=== PATIENT | male | born 1975 | race Caucasian/White ===

== ENCOUNTER 2020-12-31 13:51 | Emergency (ER) | payer OTHER, SELFPAY ==
[2020-12-31 14:06] VITALS: BP 130/93; PULSE 101; RESP 16; TEMP 37.7; O2SAT 94; BMI 43.0
--- NOTE | 2020-12-31 15:15 | ED_ITS ---
HPI - URI/Sore Throat General Chief Complaint: Upper Respiratory Symptoms Stated Complaint: HEADACHE Time Seen by Provider: 12/31/20 15:15 Source: patient Mode of arrival: ambulatory Limitations: no limitations History of Present Illness HPI Narrative: 45 y/o male presenting to the ED from home c/o headaches, body aches, and dry cough since yesterday after he was exposed to someone with COVID- 19. He denies SOB or chest pain. He is not vaccinated. MD elicited complaint: cough and nasal congestion Onset (ago): day(s) (2) Consistency: intermittent Severity: mild Description of mucous: clear Able to tolerate fluids by mouth: Yes Exacerbating factors: nothing Relieving factors: nothing Context: sick contacts Associated symptoms: myalgias, headache, nasal congestion, sore throat and cough Treatments prior to arrival: none Related Data Allergies Allergy/AdvReac Type Severity Reaction Status Date / Time No Known Allergies Allergy Unverified 01/09/20 17:47 Review of Systems Review of Systems: Constitutional: No Fever, No Chills ENT/Mouth: No sore throat, No Rhinorrhea, No Swallowing Difficulty Eyes: No Eye Pain, No Swelling, No Redness Cardiovascular: No Chest Pain, No SOB, No Orthopnea, No Edema Respiratory: + Cough, No Sputum, No Wheezing, No dyspnea Gastrointestinal: No Nausea, No Vomiting, No Diarrhea, No abdominal Pain Musculoskeletal: No joint pain, + Myalgias Skin: No Skin Lesions, No rash Neuro: + Weakness, No Numbness, No Dizziness, + Headache Psych: No Anxiety/Panic, No Depression Heme/Lymph: No Bruising, No Lymphadenopathy PMFSH Past Medical History Medical History (Updated 12/31/20 @ 16:02 by SUZE Ashton) Diabetes Hypertension Social History Social History Advance Directives: Yes Advance Directives Information Provided: No Advance Directives on File: No Physical Exam Vital Signs: Vital Signs: Last Vital Signs Temp 99.8 F 12/31/20 14:06 Pulse 101 H 12/31/20 14:06 Resp 16 12/31/20 14:06 BP 130/93 H 12/31/20 14:06 Pulse Ox 94 12/31/20 14:06 Body Mass Index 43.0 Appearance: Alert. Oriented X3. No acute distress. Eyes: Pupils equal, round and reactive to light. ENT: Pharynx normal. Neck: Normal inspection. Neck supple. CVS: Normal heart rate and rhythm. Pulses normal. Respiratory: No respiratory distress. Breath sounds normal. Skin: Skin warm and dry. Normal skin color. Normal skin turgor. No rashes. Extremities: No lower extremity edema. Neuro: Oriented X 3. No motor deficit. No sensory deficit. Course Course Course Narrative: 45 yo male presenting with COVID symptoms after known exposure. Mildly tachycardic on arrival after walking in, normalized HR after sitting. No palpitation, resp distress, SOB or AGUIRRE. He has no chest pain. His exam is benign. COVID swab pending. Reevaluation(s) Reevaluation #1: COVID positive. Patient shocked. He is asking for the COVID vaccine. Counseled on appropriate use of the vaccine and management of the disease. Return precautions discussed. Stable for d/c home with supportive care. MDM - URI/Sore Throat Lab Data Labs: Lab Results 12/31/20 Range/Units 15:19 COVID-19 ([facility]) Positive A (Negative) COVID-19 Clin Com See Note Critical Care Time Critical Care Time Critical Care Time: No Discharge Plan Discharge Clinical Impression: COVID-19 Patient Disposition: Home, Self-Care Instructions: COVID-19 (Coronavirus Disease 2019) (ED) Additional Instructions: You were found to be COVID-19 POSITIVE today. Your oxygen levels were normal. Rest. Drink plenty of fluids. Do not go out in public for the next 10 days. Take over the counter cold/flu medications as needed for your symptoms. Take Tylenol and/or Motrin as needed for fevers and body aches. Follow up with your doctor this week. If you shortness of breath worsens , if you develop difficulty breathing or any other concerning symptom come back to the ER for further evaluation. Stand Alone Forms: Work/School Release Interventions: ED Discharge Assessment Last Done: 12/31/20 16:10 Discharge Date/Time: 12/31/20 16:12 Print Language: E[place]an
[2020-12-31 15:49] LABS: COVID-19 Test Positive (Negative); IDNOW Serial# 9DD0AD1C
== END 2020-12-31 16:12 | disposition home or self-care (01) ==
PROVIDERS: Emergency Provider Emergency Medicine
DX: U07.1 COVID-19 (principal); E11.9 Type 2 diabetes mellitus without complications; I10 Essential (primary) hypertension
CPT/HCPCS: 36415; 87635; 99283

== ENCOUNTER 2021-01-11 13:14 | Outpatient (REF) | payer OTHER, SELFPAY | END 2021-01-11 13:15 | disposition home or self-care (01) | LOC: HO.LAB 13:14 | PROVIDERS: Visit Provider Internal Medicine | DX: Z20.822 Contact with and (suspected) exposure to COVID-19 (principal) | CPT/HCPCS: C9803; U0003; U0005 ==

== ENCOUNTER 2021-01-21 14:28 | Outpatient (REF) | payer OTHER, SELFPAY | END 2021-01-21 14:29 | disposition home or self-care (01) | LOC: HO.LAB 14:28 | PROVIDERS: Visit Provider Internal Medicine | DX: Z20.822 Contact with and (suspected) exposure to COVID-19 (principal) | CPT/HCPCS: C9803; U0003; U0005 ==

== ENCOUNTER 2021-01-28 12:41 | Inpatient (IN) | payer MEDICAID, SELFPAY ==
--- NOTE | ~2021-01-28 | XR_ITS ---
EXAMINATION: XR ABDOMEN KUB CLINICAL INDICATION: Follow-up small bowel obstruction COMPARISON: Previous CT and KUB from yesterday TECHNIQUE: AP view of the abdomen. FINDINGS: There is a new nasogastric tube. There is interval decrease in small bowel dilatation. There is a paucity of bowel gas seen in the large bowel. There is no evidence of free air. Bony structures are unremarkable. XR/XR KUB IMPRESSION: Interval decrease in small bowel dilatation from yesterday's exam.
--- NOTE | ~2021-01-28 | XR_ITS ---
EXAMINATION: XR CHEST CLINICAL INFORMATION: Fever. COMPARISON: Chest x-ray January 28, 2021 TECHNIQUE: Frontal view of the chest was obtained. 8:16 PM FINDINGS: Gastric tube in stomach. There are scattered hazy multifocal small bilateral airspace opacities in lungs. This is nonspecific but suggestive of atypical infection such as Covid 19. No pleural effusion or pneumothorax. XR/XR chest 1V IMPRESSION: 1. Nasogastric tube in stomach. 2. Scattered hazy multifocal bilateral airspace opacities. There is concerning for atypical pneumonia, Covid 19. Clinically correlate.
--- NOTE | ~2021-01-28 | XR_ITS ---
EXAMINATION: XR ABDOMEN KUB CLINICAL INDICATION: Abdominal pain. Rule out obstruction. COMPARISON: None TECHNIQUE: AP view of the abdomen. FINDINGS: There are dilated loops of small bowel suggestive of small bowel obstruction. There is a paucity of bowel gas in the large bowel. There is no evidence of free air. Bony structures are unremarkable. XR/XR KUB IMPRESSION: Small bowel obstruction.
--- NOTE | ~2021-01-28 | XR_ITS ---
EXAMINATION: XR CHEST CLINICAL INFORMATION: NG tube placement COMPARISON: KUB and CT abdomen pelvis same day TECHNIQUE: Frontal view of the chest was obtained. FINDINGS: Interval placement of enteric tube which terminates below the level of the diaphragm, in the expected location of the stomach. Dilated loops of small bowel within the upper abdomen are partially visualized. Hypoinflated lungs. No gross lobar consolidation. XR/XR chest 1V IMPRESSION: Enteric tube in expected orientation.
--- NOTE | ~2021-01-28 | CT_ITS ---
EXAMINATION: CT ABDOMEN AND PELVIS WITH CONTRAST CLINICAL INFORMATION: Abdominal pain. History of obstruction. COMPARISON: Previous CT of the abdomen and pelvis October 2017 TECHNIQUE: Multidetector volumetric images were obtained from the superior aspect of the liver through the pubic symphysis following administration 85 mL of Omnipaque 350 intravenous contrast. Sagittal and coronal reformatted images were obtained on the technologist's workstation. Oral contrast: Yes This CT examination was performed using dose optimization techniques as appropriate, variously including the following: *Automated exposure control *Adjustment of mA and/or kV according to patient size (this includes techniques or standardized protocols for targeted exams where dose is matched to indication/reason for exam; i.e. extremities or head) *Use of iterative reconstruction technique DLP: 876 mGy-cm FINDINGS: LUNG BASES: There are peripheral parenchymal opacities seen at the lung bases, right greater than left. Appearance is nonspecific. This may represent resolving pneumonia/Covid infection. LIVER, GALLBLADDER, AND BILIARY TREE: The liver is enlarged and low in attenuation suggestive of fatty infiltration. No focal liver lesion or biliary duct dilatation. Normal gallbladder. PANCREAS: Unremarkable. SPLEEN: Unremarkable. ADRENAL GLANDS: Unremarkable. KIDNEYS AND URETERS: There are 2 left renal cysts, largest measuring 2 cm. The kidneys are otherwise unremarkable. BLADDER: Well distended but unremarkable. GASTROINTESTINAL TRACT: There are dilated fluid-filled loops of small bowel and small bowel feces sign suggestive of small bowel obstruction. Small bowel loop measures up to 6 cm in diameter axial image 47 series 7. There is a linear high attenuation density seen in the most dilated loop was small bowel measuring 2.2 cm in length or sampled coronal reconstructed image 27 questionable for ingested foreign body. There is question of a caliber change in the small bowel in the left mid abdomen adjacent to the anterior abdominal wall similar to 2018 exam. The distal small bowel does not appear dilated. The colon does not appear dilated. The appendix is not seen. The stomach is unremarkable. ABDOMINAL WALL: There is an umbilical hernia containing fat. There are multiple small of ventral hernias containing fat. LYMPH NODES: Normal. VASCULAR: Unremarkable. PELVIC VISCERA: Unremarkable. OSSEOUS STRUCTURES: Unremarkable. CT/CT abdomen pelvis w con IMPRESSION: Small bowel obstruction. Small bowel loops measure up to 6 cm. There is a 2.2 cm high attenuation density seen in the most dilated loop of small bowel questionable for ingested foreign body. There is question of a caliber change in the small bowel in the left mid abdomen adjacent to the anterior abdominal wall similar to 2018 exam. Enlarged fatty liver. Left renal cysts. Umbilical and ventral hernias containing fat.
[2021-01-28 14:15] VITALS: BP 120/98; PULSE 117; RESP 18; TEMP 36.8; O2SAT 95; BMI 39.1
[2021-01-28 14:38] LABS: MANUAL DIFF FLAG NO
[2021-01-28 14:40] LABS: Glucose, Whole Blood > 600 mg/dL (60-115)
[2021-01-28 14:40] LABS: Appearance Urine CLEAR; Color Urine YELLOW; Glucose Urine UA >=1000 MG/DL (NEG); Leukocyte Esterase Urine NEG (NEG); Nitrite Urine NEG (NEG); PH 5.5 (5.0-8.0); Specific Gravity - Urine <= 1.005 (1.005-1.025); Urine Blood NEG (NEG); Urine Ketones 15 MG/DL (NEG); Urine Protein NEG (NEG-TRACE)
[2021-01-28 14:45] LABS: Basophils Percent Auto 0.1 % (0-2); Eosinophils Percent Auto 0.1 % (0-4); Hematocrit 47.7 % (42-52); Hemoglobin 15.9 g/dl (14.0-18.0); Imm Gran Abs Auto 0.04 X10*3/uL (0.00-0.03); Imm Gran Pct Auto 0.3 % (0.0-0.4); Lymphocytes Absolute Auto 1.6 X10*3/uL (1.2-4.9); Lymphocytes Percent Auto 10.8 % (20-40); Mean Corpuscular HGB Conc 33.3 g/dl (31.0-36.0); Mean Corpuscular Hemoglobin 29.1 pg (27.0-33.0); Mean Corpuscular Volume 87.4 fL (80-98); Mean Platelet Volume 11.6 fL (9.4-12.4); Monocytes Absolute Auto 0.8 X10*3/uL (0.1-1.2); Monocytes Percent Auto 5.3 % (2-11); Neutrophils Absolute Auto 12.2 X10*3/uL (2.0-8.3); Neutrophils Percent Auto 83.4 % (45-73); Platelet Count 284 X10*3/uL (160-400); Red Blood Count 5.46 X10*6/uL (4.60-5.80); Red Cell Distribution Width 13.2 % (11.0-16.0); White Blood Count 14.6 X10*3/uL (4.8-10.8)
[2021-01-28 15:00] LABS: Alanine Aminotransferase 44 U/L (0-40); Albumin Level 4.1 g/dL (3.5-5.0); Alkaline Phosphatase 106 U/L (39-117); Anion Gap 23 (12-20); Aspartate Amino Transferase 21 U/L (5-37); Blood Urea Nitrogen 16 mg/dL (9-16); Calcium 10.3 mg/dL (8.4-10.2); Carbon Dioxide 21 mmol/L (22-29); Chloride 94 mmol/L (96-108); Creatinine Clr Calc Pharmacy 70.5; Estimated Glomerular Filt Rate 59; Glucose Random 705 mg/dL (60-115); Lipase 21 U/L (8-78); Potassium 5.9 mmol/L (3.3-5.1); Sodium 132 mmol/L (135-145); Total Protein 8.2 g/dL (6.5-8.0)
[2021-01-28 15:05] LABS: RBC Urine 0-2 /HPF (0); WBC Urine 0-2 /HPF (0-4)
[2021-01-28 15:37] VITALS: BP 152/92; PULSE 110; RESP 22; TEMP 37.1; O2SAT 95
--- NOTE | 2021-01-28 16:01 | ECG_ITS ---
Test Reason : ABD PAIN Blood Pressure : / mmHG Vent. Rate : 116 BPM Atrial Rate : 116 BPM P-R Int : 134 ms QRS Dur : 082 ms QT Int : 326 ms P-R-T Axes : 029 255 -10 degrees QTc Int : 453 ms Sinus tachycardia Possible Left atrial enlargement Low voltage QRS Left anterior fascicular block Possible Anterolateral infarct (cited on or before 23-JUN-2018) Abnormal ECG When compared with ECG of 23-JUN-2018 23:03, Heart rate has increased Referred By: Anna Jacobsen Electronically Signed By:SHIVANI AVALOS MD
--- NOTE | 2021-01-28 16:11 | ED_ITS ---
HPI - Abdominal Pain General Chief Complaint: Abdominal Pain Stated Complaint: body pain Time Seen by Provider: 01/28/21 15:38 Source: patient Mode of arrival: ambulatory Limitations: language barrier History of Present Illness HPI narrative: 45-year-old male presents with diffuse upper abdominal pain for the past 2 days. Unable to pass gas or have a bowel movement. He does have a history of abdominal surgeries. MD elicited complaint: abdominal pain Onset (ago): day(s) (2) Pain Consistency: constant Location: diffuse Severity: severe Pain scale (0-10): 10 Quality: cramping and fullness Migration to: no migration Exacerbating factors: movement Relieving factors: nothing Associated symptoms: nausea and anorexia Related Data Home Medications Medication Instructions Recorded Confirmed No Known Home Meds 01/28/21 01/28/21 Allergies Allergy/AdvReac Type Severity Reaction Status Date / Time No Known Allergies Allergy Verified 01/28/21 14:14 Review of Systems Review of Systems Constitutional: No Weight loss, No Fever, positive Chills, No Night Sweats, No Fatigue, No Malaise ENT/Mouth: No Hearing loss, No Ear Pain, No Nasal Congestion, No Sinus Pain, No Hoarseness, No sore throat, No Rhinorrhea, No Swallowing Difficulty Eyes: No Eye Pain, No Swelling, No Redness, No Foreign Body, No Discharge, No Vision Changes Cardiovascular: No Chest Pain, No SOB, No Dyspnea on Exertion, No Orthopnea, No Edema, No Palpitations Respiratory: No Cough, No Sputum, No Wheezing, No Smoke Exposure, No Dyspnea Gastrointestinal: Positive Nausea, no Vomiting, no Diarrhea, positive abdominal Pain, No Hematochezia, No Melena Genitourinary: no irregular bleeding, No Dysuria, No Urinary Frequency, No Hematuria, No Urinary Incontinence, No Urgency, No Flank Pain, No Urinary Flow Changes, No Hesitancy Musculoskeletal: No joint pain, No Myalgias, No Joint Swelling Skin: No Skin Lesions, No rash Neuro: No Weakness, No Numbness, No Paresthesias, No Loss of Consciousness, No Dizziness, No Headache Psych: No Anxiety/Panic, No Depression, No SI/HI/AH/VH, No Social Issues Heme/Lymph: No Bruising, No Bleeding,No Lymphadenopathy Endocrine: No Polyuria, No Polydipsia, No Temperature Intolerance Yes all other systems are reviewed and are negative Physical Exam Vital Signs: Vital Signs: Last Vital Signs Temp 98.7 F 01/28/21 15:37 Pulse 119 H 01/28/21 17:37 Resp 20 01/28/21 17:37 BP 122/80 01/28/21 17:37 Pulse Ox 94 01/28/21 17:37 Body Mass Index 39.1 Appearance: Alert. Oriented X3. Moderate distress. Eyes: Pupils equal, round and reactive to light. Sclera nonicteric. ENT: Pharynx normal. Dry mucous membranes. Neck: Normal inspection. Neck supple. CVS: Tachycardic heart rate and rhythm. Pulses normal. Respiratory: No respiratory distress. Breath sounds normal. Abdomen: Diffusely distended and tender to palpation. Hypoactive bowel sounds. Skin: Skin warm and dry. Normal skin color. Normal skin turgor. Extremities: No lower extremity edema. Moves all extremities against resistance. Neuro: No motor deficit. No sensory deficit. Cranial nerves 2-12 intact. Course Course Course Narrative: Patient evaluated at 4:00 p.m.. Abdomen is distended, diffusely tender, hypoactive bowel sounds all quadrants. 10/10 pain. Blood sugars elevated over 600, will order acetone, give insulin 10 units IV, fluids. Will add on additional labs to the protocol labs while patient was in the waiting room. 4:10 p.m. bedside KUB indicative of bowel obstruction. 4:[address] Sheppard, plan is for surgical admit once CT scan is reviewed. 5:[address] Gonsalves is at bedside. Plan is to admit for SBO, chest x-ray indicates that NG tube is in proper place. Patient verbalized understanding of and agrees to plan of care for admission. Consultations Consultation #1: Silver Time: 16:19 MDM - Abdominal Pain Differential Diagnosis Differential diagnosis: Likely abdominal pain, acute appendicitis, bowel perforation, pancreatitis and small bowel obstruction Medical Records Attestation: I reviewed the patient's medical records. Lab Data Attestation: I reviewed the patient's lab results. Result diagrams: 01/28/21 14:23 01/28/21 14:23 Labs: Lab Results 01/28/21 01/28/21 01/28/21 Range/Units 14:23 14:23 14:23 WBC 14.6 H (4.8-10.8) X10*3/uL RBC 5.46 (4.60-5.80) X10*6/uL Hgb 15.9 (14.0-18.0) g/dl Hct 47.7 (42-52) % MCV 87.4 (80-98) fL MCH 29.1 (27.0-33.0) pg MCHC 33.3 (31.0-36.0) g/dl RDW 13.2 (11.0-16.0) % Plt Count 284 (160-400) X10*3/uL MPV 11.6 (9.4-12.4) fL Immature Gran % (Auto) 0.3 (0.0-0.4) % Neut % (Auto) 83.4 H (45-73) % Lymph % (Auto) 10.8 L (20-40) % Thayer % (Auto) 5.3 (2-11) % Eos % (Auto) 0.1 (0-4) % Baso % (Auto) 0.1 (0-2) % Lymph # (Auto) 1.6 (1.2-4.9) X10*3/uL Thayer # (Auto) 0.8 (0.1-1.2) X10*3/uL Eos # (Auto) 0.0 (0.0-0.4) X10*3/uL Baso # (Auto) 0.0 (0.0-0.2) X10*3/uL Abs Immat Gran (auto) 0.04 H (0.00-0.03) X10*3/uL Absolute Neuts (auto) 12.2 H (2.0-8.3) X10*3/uL Absolute Nucleated RBC 0.000 (0.0-0.012) X10*3/uL Nucleated RBC % (auto) 0.0 (0.0-0.2) /100WBC PT (9.9-13.0) SEC INR (0.9-1.1) APTT (24.1-38.0) SEC Sodium 132 L (135-145) mmol/L Potassium 5.9 H (3.3-5.1) mmol/L Chloride 94 L (96-108) mmol/L Carbon Dioxide 21 L (22-29) mmol/L Anion Gap 23 H (12-20) BUN 16 (9-16) mg/dL Creatinine 1.31 (0.5-1.4) mg/dL Estim Creat Clear Calc 70.5 Estimated GFR 59 POC Glucose (60-115) mg/dL Random Glucose 705 H* (60-115) mg/dL Lactic Acid (0.5-2.0) mmol/L Calcium 10.3 H (8.4-10.2) mg/dL Total Bilirubin 1.0 (0.0-1.0) mg/dL AST 21 (5-37) U/L ALT 44 H (0-40) U/L Alkaline Phosphatase 106 (39-117) U/L Total Protein 8.2 H (6.5-8.0) g/dL Albumin 4.1 (3.5-5.0) g/dL Lipase 21 (8-78) U/L Urine Color YELLOW Urine Appearance CLEAR Urine pH 5.5 (5.0-8.0) Ur Specific [place] <= 1.005 (1.005-1.025) Urine Protein NEG (NEG-TRACE) MG/DL Urine Glucose (UA) >=1000 H (NEG) MG/DL Urine Ketones 15 (NEG) MG/DL Urine Blood NEG (NEG) Urine Nitrite NEG (NEG) Ur Leukocyte Esterase NEG (NEG) Urine RBC 0-2 (0) /HPF Urine WBC 0-2 (0-4) /HPF Ur Squamous Epith Cells NONE /LPF Urine Bacteria NONE /LPF Acetone, Qual (Negative) COVID-19 ([facility]) (Negative) COVID-19 Clin Com 01/28/21 01/28/21 01/28/21 Range/Units 14:33 17:01 17:01 WBC (4.8-10.8) X10*3/uL RBC (4.60-5.80) X10*6/uL Hgb (14.0-18.0) g/dl Hct (42-52) % MCV (80-98) fL MCH (27.0-33.0) pg MCHC (31.0-36.0) g/dl RDW (11.0-16.0) % Plt Count (160-400) X10*3/uL MPV (9.4-12.4) fL Immature Gran % (Auto) (0.0-0.4) % Neut % (Auto) (45-73) % Lymph % (Auto) (20-40) % Thayer % (Auto) (2-11) % Eos % (Auto) (0-4) % Baso % (Auto) (0-2) % Lymph # (Auto) (1.2-4.9) X10*3/uL [place]ayer # (Auto) (0.1-1.2) X10*3/uL Eos # (Auto) (0.0-0.4) X10*3/uL Baso # (Auto) (0.0-0.2) X10*3/uL Abs Immat Gran (auto) (0.00-0.03) X10*3/uL Absolute Neuts (auto) (2.0-8.3) X10*3/uL Absolute Nucleated RBC (0.0-0.012) X10*3/uL Nucleated RBC % (auto) (0.0-0.2) /100WBC PT (9.9-13.0) SEC INR (0.9-1.1) APTT (24.1-38.0) SEC Sodium (135-145) mmol/L Potassium (3.3-5.1) mmol/L Chloride (96-108) mmol/L Carbon Dioxide (22-29) mmol/L Anion Gap (12-20) BUN (9-16) mg/dL Creatinine (0.5-1.4) mg/dL Estim Creat Clear Calc Estimated GFR POC Glucose > 600 H* (60-115) mg/dL Random Glucose (60-115) mg/dL Lactic Acid 1.7 (0.5-2.0) mmol/L Calcium (8.4-10.2) mg/dL Total Bilirubin (0.0-1.0) mg/dL AST (5-37) U/L ALT (0-40) U/L Alkaline Phosphatase (39-117) U/L Total Protein (6.5-8.0) g/dL Albumin (3.5-5.0) g/dL Lipase (8-78) U/L Urine Color Urine Appearance Urine pH (5.0-8.0) Ur Specific [place] (1.005-1.025) Urine Protein (NEG-TRACE) MG/DL Urine Glucose (UA) (NEG) MG/DL Urine Ketones (NEG) MG/DL Urine Blood (NEG) Urine Nitrite (NEG) Ur Leukocyte Esterase (NEG) Urine RBC (0) /HPF Urine WBC (0-4) /HPF Ur Squamous Epith Cells /LPF Urine Bacteria /LPF Acetone, Qual Small H (Negative) COVID-19 ([facility]) (Negative) COVID-19 Clin Com 01/28/21 01/28/21 01/28/21 Range/Units 17:01 17:32 17:37 WBC (4.8-10.8) X10*3/uL RBC (4.60-5.80) X10*6/uL Hgb (14.0-18.0) g/dl Hct (42-52) % MCV (80-98) fL MCH (27.0-33.0) pg MCHC (31.0-36.0) g/dl RDW (11.0-16.0) % Plt Count (160-400) X10*3/uL MPV (9.4-12.4) fL Immature Gran % (Auto) (0.0-0.4) % Neut % (Auto) (45-73) % Lymph % (Auto) (20-40) % Thayer % (Auto) (2-11) % Eos % (Auto) (0-4) % Baso % (Auto) (0-2) % Lymph # (Auto) (1.2-4.9) X10*3/uL [place]ayer # (Auto) (0.1-1.2) X10*3/uL Eos # (Auto) (0.0-0.4) X10*3/uL Baso # (Auto) (0.0-0.2) X10*3/uL Abs Immat Gran (auto) (0.00-0.03) X10*3/uL Absolute Neuts (auto) (2.0-8.3) X10*3/uL Absolute Nucleated RBC (0.0-0.012) X10*3/uL Nucleated RBC % (auto) (0.0-0.2) /100WBC PT 10.4 (9.9-13.0) SEC INR 0.9 (0.9-1.1) APTT 30.2 (24.1-38.0) SEC Sodium (135-145) mmol/L Potassium (3.3-5.1) mmol/L Chloride (96-108) mmol/L Carbon Dioxide (22-29) mmol/L Anion Gap (12-20) BUN (9-16) mg/dL Creatinine (0.5-1.4) mg/dL Estim Creat Clear Calc Estimated GFR POC Glucose 443 H* (60-115) mg/dL Random Glucose (60-115) mg/dL Lactic Acid (0.5-2.0) mmol/L Calcium (8.4-10.2) mg/dL Total Bilirubin (0.0-1.0) mg/dL AST (5-37) U/L ALT (0-40) U/L Alkaline Phosphatase (39-117) U/L Total Protein (6.5-8.0) g/dL Albumin (3.5-5.0) g/dL Lipase (8-78) U/L Urine Color Urine Appearance Urine pH (5.0-8.0) Ur Specific [place] (1.005-1.025) Urine Protein (NEG-TRACE) MG/DL Urine Glucose (UA) (NEG) MG/DL Urine Ketones (NEG) MG/DL Urine Blood (NEG) Urine Nitrite (NEG) Ur Leukocyte Esterase (NEG) Urine RBC (0) /HPF Urine WBC (0-4) /HPF Ur Squamous Epith Cells /LPF Urine Bacteria /LPF Acetone, Qual (Negative) COVID-19 ([facility]) Negative (Negative) COVID-19 Clin Com See Note Imaging Data KUB: Attestation: I personally reviewed and interpreted this imaging study as follows: Radiologist's impression: EXAMINATION: XR ABDOMEN KUB CLINICAL INDICATION: Abdominal pain. Rule out obstruction.? COMPARISON: None? TECHNIQUE: AP view of the abdomen. FINDINGS: There are dilated loops of small bowel suggestive of small bowel obstruction. There is a paucity of bowel gas in the large bowel. There is no evidence of free air. Bony structures are unremarkable. XR/XR KUB IMPRESSION: Small bowel obstruction. CT scan - abdomen: Attestation: I personally reviewed and interpreted this imaging study as follows: Radiologist's impression: FINDINGS: LUNG BASES: There are peripheral parenchymal opacities seen at the lung bases, right greater than left. Appearance is nonspecific. This may represent resolving pneumonia/Covid infection. LIVER, GALLBLADDER, AND BILIARY TREE: The liver is enlarged and low in attenuation suggestive of fatty infiltration. No focal liver lesion or biliary duct dilatation. Normal gallbladder. PANCREAS: Unremarkable.? SPLEEN: Unremarkable.? ADRENAL GLANDS: Unremarkable.? KIDNEYS AND URETERS: There are 2 left renal cysts, largest measuring 2 cm. The kidneys are otherwise unremarkable. BLADDER: Well distended but unremarkable.? GASTROINTESTINAL TRACT: There are dilated fluid-filled loops of small bowel and small bowel feces sign suggestive of small bowel obstruction. Small bowel loop measures up to 6 cm in diameter axial image 47 series 7. There is a linear high attenuation density seen in the most dilated loop was small bowel measuring 2.2 cm in length or sampled coronal reconstructed image 27 questionable for ingested foreign body. There is question of a caliber change in the small bowel in the left mid abdomen adjacent to the anterior abdominal wall similar to 2018 exam. The distal small bowel does not appear dilated. The colon does not appear dilated. The appendix is not seen. The stomach is unremarkable. ABDOMINAL WALL: There is an umbilical hernia containing fat. There are multiple small of ventral hernias containing fat. LYMPH NODES: Normal. VASCULAR: Unremarkable. PELVIC VISCERA: Unremarkable.? OSSEOUS STRUCTURES: Unremarkable.? CT/CT abdomen pelvis w con IMPRESSION: Small bowel obstruction. Small bowel loops measure up to 6 cm. There is a 2.2 cm high attenuation density seen in the most dilated loop of small bowel questionable for ingested foreign body. There is question of a caliber change in the small bowel in the left mid abdomen adjacent to the anterior abdominal wall similar to 2018 exam. Enlarged fatty liver. Left renal cysts. Umbilical and ventral hernias containing fat. . Chest x-ray: Attestation: I personally reviewed and interpreted this imaging study as follows: Radiologist's impression: EXAMINATION: XR CHEST CLINICAL INFORMATION: NG tube placement COMPARISON: KUB and CT abdomen pelvis same day TECHNIQUE: Frontal view of the chest was obtained. FINDINGS: Interval placement of enteric tube which terminates below the level of the diaphragm, in the expected location of the stomach. Dilated loops of small bowel within the upper abdomen are partially visualized. Hypoinflated lungs. No gross lobar consolidation. XR/XR chest 1V IMPRESSION: Enteric tube in expected orientation. ECG Data Attestation: I personally reviewed and interpreted this ECG as follows: ECG interpretation date: 01/28/21 ECG interpretation time: 16:30 Prior ECG tracings: available for review Interpretation: Vent. Rate : 116 BPM ? ? Atrial Rate : 116 BPM ?? P-R Int : 134 ms? QRS Dur : 082 ms ? ? QT Int : 326 ms ? ? ? P-R-T Axes : 029 255 -10 degrees ?? QTc Int : 453 ms ? Sinus tachycardia Possible Left atrial enlargement Low voltage QRS Inferior infarct (cited on or before 23-JUN-2018) Possible Anterolateral infarct (cited on or before 23-JUN-2018) Abnormal ECG When compared with ECG of 23-JUN-2018 23:03, Left anterior fascicular block is no longer Present Critical Care Time Critical Care Time Critical Care Time: Yes Total Critical Care Time: 45 Attestation: I have personally provided critical care time exclusive of time spent on separately billable procedures. Time includes review of laboratory data, radiology results, discussion with consultants, and monitoring for potential decompensation. Interventions were performed as documented. Discharge Plan Discharge Clinical Impression: Small bowel obstruction Patient Disposition: Admitted As Inpatient [facility] Past Medical History Attestation statement: The following information was validated with the patient. Source: old records reviewed Medical History (Updated 01/28/21 @ 17:50 by Mendoza Sheppard MD) Diabetes Diabetes mellitus Hypertension Partial small bowel obstruction Surgical History (Updated 01/28/21 @ 17:24 by Mendoza Sheppard MD) History of bowel resection History of colostomy reversal History of exploratory laparotomy Social History Social History Alcohol intake: current Alcohol intake frequency: holidays/special occasions only Patient Tobacco Use Status: Tobacco use Unknown Advance Directives: No Advance Directives Information Provided: No
[2021-01-28] MEDS: 0.9 % Sodium Chloride 1,000 ML 999 ML IVCONT (16:12)
[2021-01-28] MEDS: ondansetron HCL 4 MG/2 ML VIAL IVPUSH (16:13)
[2021-01-28] MEDS: Morphine Sulfate 4 MG/ML CARTRIDGE IVPUSH (16:14)
[2021-01-28] MEDS: Insulin Regular, Human 100 UNIT/ML 3 ML VIAL 10 UNIT IVPUSH (16:14)
[2021-01-28] MEDS: iohexoL 350 MG/ML 100 ML INFUS..BTL IV (16:32)
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
[2021-01-28 17:18] LABS: INTERNATIONAL NORM RATIO 0.9 (0.9-1.1); Prothrombin Time 10.4 SEC (9.9-13.0)
[2021-01-28 17:20] LABS: Partial Thromboplastin Time 30.2 SEC (24.1-38.0)
[2021-01-28 17:22] LABS: Acetone, serum QL Small (Negative)
[2021-01-28 17:24] LABS: Lactic Acid 1.7 mmol/L (0.5-2.0)
[2021-01-28 17:37] VITALS: BP 122/80; PULSE 119; RESP 20; O2SAT 94
[2021-01-28 17:40] LABS: Glucose, Whole Blood 443 mg/dL (60-115)
[2021-01-28 17:56] LABS: COVID-19 Test Negative (Negative); IDNOW Serial# 9DD0AD1C
[2021-01-28] MEDS: Heparin Sodium,Porcine 5,000 UNIT/ML VIAL 5000 UNIT SUBCUT (17:57)
[2021-01-28] MEDS: Morphine Sulfate 4 MG/ML CARTRIDGE 3 MG IVPUSH ×2 (17:57→21:17)
[2021-01-28 18:10] LABS: Anion Gap 20 (12-20); Blood Urea Nitrogen 15 mg/dL (9-16); Calcium 9.8 mg/dL (8.4-10.2); Carbon Dioxide 22 mmol/L (22-29); Chloride 97 mmol/L (96-108); Creatinine Clr Calc Pharmacy 90.6; Estimated Glomerular Filt Rate > 60; Glucose Random 503 mg/dL (60-115); Potassium 5.6 mmol/L (3.3-5.1); Sodium 133 mmol/L (135-145)
[2021-01-28] MEDS: 0.9 % Sodium Chloride 1,000 ML 100 ML IVCONT (18:23)
[2021-01-28 19:49] VITALS: BP 113/75; PULSE 112; RESP 23; O2SAT 94
[2021-01-28 21:17] VITALS: RESP 15
[2021-01-28] MEDS: Insulin Lispro 100 UNIT/ML 3 ML VIAL 15 UNIT SUBCUT (21:40)
--- NOTE | 2021-01-28 21:53 | HO.PM.IMCN ---
History of Present Illness Data of Consult Service Date: 01/28/21 Primary Care Provider: None Physician HPI 45-year-old male with past medical history of diabetes, hypertension, presents to the hospital with complaints of abdominal pain found to have small-bowel obstruction. Patient is admitted to the general surgery team with consult to Medicine due to his hyperglycemia and hyperkalemia. Patient reports that he started having abdominal pain today that is diffuse worse on the left upper quadrant. Associated with nausea and vomiting. No diarrhea constipation. Patient is describing the pain as 10/10. When asked about his diabetes reports that he has type 2 diabetes and takes metformin but did not take metformin today because he was having severe abdominal pain. On arrival to the ED patient found to have a glucose of over 500 with a positive anion gap and potassium of 5.9 as well as positive acetone. Patient was given 10 units of regular insulin, in the ED by the time I saw him. All other review of system negative except as mentioned Vitals reviewed show tachycardia with no other abnormal vitals Labs show 14.0, glucose of 700, positive acetone. Patient given 25 units of lispro, repeat BMP shows improvement of his potassium as well as anion gap with a glucose of 353. Review of Systems Review of Systems: Yes all other systems are reviewed and are negative [facility] Medical History Diabetes Diabetes mellitus Hypertension Partial small bowel obstruction Pertinent family history: No pertinent family history Surgical History History of bowel resection History of colostomy reversal History of exploratory laparotomy Social History Alcohol intake: current Alcohol intake frequency: holidays/special occasions only Patient Tobacco Use Status: Tobacco use Unknown Advance Directives: No Advance Directives Information Provided: No Meds Allergies Allergy/AdvReac Type Severity Reaction Status Date / Time No Known Allergies Allergy Verified 01/28/21 14:14 Active Medications: Current Medications Dextrose (Dextrose 50 % 25 Gm/50 Ml Vial) 25 gm IVPUSH Q15M PRN; Protocol PRN Reason: per Hypoglycemia Standing Ord. Glucose (Glucose Gel 15 Gm Gel..Gram.) 15 gm PO Q15M PRN; Protocol PRN Reason: per Hypoglycemia Standing Ord. Heparin Sodium (Porcine) (Heparin Sodium,Porcine 5,000 Unit/Ml Vial) 5,000 unit SUBCUT Q8H [facility] Last Admin: 01/28/21 17:57 Dose: 5,000 unit Documented by: Sodium Chloride (Ns) 1,000 mls @ 100 mls/hr IVCONT .Q10H [facility] Last Admin: 01/28/21 18:23 Dose: 100 mls/hr Documented by: Insulin Human Lispro (Insulin Lispro 100 Unit/Ml 3 Ml Vial) 0 unit SUBCUT QIDACHS YIMI; Protocol Morphine Sulfate (Morphine Sulfate 4 Mg/Ml Cartridge) 3 mg IVPUSH Q3H PRN; Protocol PRN Reason: Pain, Severe (Pain Scale 7-10) Last Admin: 01/28/21 21:17 Dose: 3 mg Documented by: Ondansetron HCl (Ondansetron Hcl 4 Mg/2 Ml Vial) 4 mg IVPUSH Q8H PRN PRN Reason: nausea Sodium Chloride (0.9 % Sodium Chloride Flush 3 Ml Syringe) 3 ml IVFLUSH QSHIFT [facility] Home Medications Medication Instructions Recorded Confirmed Last Taken Type No Known Home Meds 01/28/21 01/28/21 Unknown History Physical Exam Vital Signs and Narrative: Vital Signs: Last Vital Signs Temp 98.7 F 01/28/21 15:37 Pulse 112 H 01/28/21 19:49 Resp 15 01/28/21 21:17 BP 113/75 01/28/21 19:49 Pulse Ox 94 01/28/21 19:49 Body Mass Index 39.1 Const: General: cooperative and no acute distress Orientation/consciousness: patient oriented x3 Eyes: General: appearance normal, both eyes and all related structures Pupils: Equal, round and reactive pupils present Resp: Effort & Inspection: normal respiratory effort Auscultation: clear to auscultation bilaterally Cardio: Rate: regular rate Rhythm: regular rhythm GI: Other: Abdominal distension, tenderness, guarding Has a well-healed surgical scar in the center of the abdominal wall Palpation (GI): Soft to palpation Auscultation: normal bowel sounds Skin: General skin exam: no rashes or lesions noted Neuro: General: patient oriented x3 Cranial nerves: Yes Equal, round and reactive pupils present Cognition (Neuro): normal cognition Extrem: General: Yes normal to inspection and Yes no pedal edema Results Labs CBC and Chem 7: 01/28/21 14:23 10/07/21 22:33 Labs: Laboratory Results - last 24 hr 01/28/21 01/28/21 01/28/21 14:23 14:23 14:23 MCV 87.4 MCH 29.1 MCHC 33.3 RDW 13.2 Plt Count 284 MPV 11.6 Immature Gran % (Auto) 0.3 Neut % (Auto) 83.4 H Lymph % (Auto) 10.8 L Cassia % (Auto) 5.3 Eos % (Auto) 0.1 Baso % (Auto) 0.1 Lymph # (Auto) 1.6 Cassia # (Auto) 0.8 Eos # (Auto) 0.0 Baso # (Auto) 0.0 Abs Immat Gran (auto) 0.04 H Absolute Neuts (auto) 12.2 H Absolute Nucleated RBC 0.000 Nucleated RBC % (auto) 0.0 PT INR APTT Anion Gap 23 H Estim Creat Clear Calc 70.5 Estimated GFR 59 POC Glucose Random Glucose 705 H* Lactic Acid Calcium 10.3 H Total Bilirubin 1.0 AST 21 ALT 44 H Alkaline Phosphatase 106 Total Protein 8.2 H Albumin 4.1 Lipase 21 Urine Color YELLOW Urine Appearance CLEAR Urine pH 5.5 Ur Specific [place] <= 1.005 Urine Protein NEG Urine Glucose (UA) >=1000 H Urine Ketones 15 Urine Blood NEG Urine Nitrite NEG Ur Leukocyte Esterase NEG Urine RBC 0-2 Urine WBC 0-2 Ur Squamous Epith Cells NONE Urine Bacteria NONE Acetone, Qual COVID-19 ([facility]) COVID-19 Clin Com 01/28/21 01/28/21 01/28/21 14:33 17:01 17:01 MCV MCH MCHC RDW Plt Count MPV Immature Gran % (Auto) Neut % (Auto) Lymph % (Auto) Cassia % (Auto) Eos % (Auto) Baso % (Auto) Lymph # (Auto) Cassia # (Auto) Eos # (Auto) Baso # (Auto) Abs Immat Gran (auto) Absolute Neuts (auto) Absolute Nucleated RBC Nucleated RBC % (auto) PT INR APTT Anion Gap Estim Creat Clear Calc Estimated GFR POC Glucose > 600 H* Random Glucose Lactic Acid 1.7 Calcium Total Bilirubin AST ALT Alkaline Phosphatase Total Protein Albumin Lipase Urine Color Urine Appearance Urine pH Ur Specific [place] Urine Protein Urine Glucose (UA) Urine Ketones Urine Blood Urine Nitrite Ur Leukocyte Esterase Urine RBC Urine WBC Ur Squamous Epith Cells Urine Bacteria Acetone, Qual Small H COVID-19 ([facility]) COVID-19 Clin Com 01/28/21 01/28/21 01/28/21 17:01 17:32 17:37 MCV MCH MCHC RDW Plt Count MPV Immature Gran % (Auto) Neut % (Auto) Lymph % (Auto) Cassia % (Auto) Eos % (Auto) Baso % (Auto) Lymph # (Auto) Cassia # (Auto) Eos # (Auto) Baso # (Auto) Abs Immat Gran (auto) Absolute Neuts (auto) Absolute Nucleated RBC Nucleated RBC % (auto) PT 10.4 INR 0.9 APTT 30.2 Anion Gap Estim Creat Clear Calc Estimated GFR POC Glucose 443 H* Random Glucose Lactic Acid Calcium Total Bilirubin AST ALT Alkaline Phosphatase Total Protein Albumin Lipase Urine Color Urine Appearance Urine pH Ur Specific [place] Urine Protein Urine Glucose (UA) Urine Ketones Urine Blood Urine Nitrite Ur Leukocyte Esterase Urine RBC Urine WBC Ur Squamous Epith Cells Urine Bacteria Acetone, Qual COVID-19 ([facility]) Negative COVID-19 Clin Com See Note 01/28/21 17:37 MCV MCH MCHC RDW Plt Count MPV Immature Gran % (Auto) Neut % (Auto) Lymph % (Auto) Cassia % (Auto) Eos % (Auto) Baso % (Auto) Lymph # (Auto) Cassia # (Auto) Eos # (Auto) Baso # (Auto) Abs Immat Gran (auto) Absolute Neuts (auto) Absolute Nucleated RBC Nucleated RBC % (auto) PT INR APTT Anion Gap 20 Estim Creat Clear Calc 90.6 Estimated GFR > 60 POC Glucose Random Glucose 503 H* Lactic Acid Calcium 9.8 Total Bilirubin AST ALT Alkaline Phosphatase Total Protein Albumin Lipase Urine Color Urine Appearance Urine pH Ur Specific [place] Urine Protein Urine Glucose (UA) Urine Ketones Urine Blood Urine Nitrite Ur Leukocyte Esterase Urine RBC Urine WBC Ur Squamous Epith Cells Urine Bacteria Acetone, Qual COVID-19 ([facility]) COVID-19 Clin Com Imaging Radiologist's Impressions: Impressions Abdomen/Pelvis CT 01/28/21 15:59 IMPRESSION: Small bowel obstruction. Small bowel loops measure up to 6 cm. There is a 2.2 cm high attenuation density seen in the most dilated loop of small bowel questionable for ingested foreign body. There is question of a caliber change in the small bowel in the left mid abdomen adjacent to the anterior abdominal wall similar to 2018 exam. Enlarged fatty liver. Left renal cysts. Umbilical and ventral hernias containing fat. KUB X-Ray 01/28/21 15:59 IMPRESSION: Small bowel obstruction. Chest X-Ray 01/28/21 16:42 IMPRESSION: Enteric tube in expected orientation. Assessment and Plan (1) DKA (diabetic ketoacidosis): Status: Acute (2) Hyperglycemia: Status: Acute (3) Hyperkalemia: Status: Acute (4) Diabetes mellitus: Status: Acute This is a 45-year-old male with past medical history of hypertension diabetes presents to the hospital with small-bowel obstruction found to have small-bowel obstruction. We are consulted due to the hyperglycemia as well as hyperkalemia # hyperglycemia - secondary to DKA - patient with elevated anion gap, glucose, as well as acetone - patient received 10 units of regular insulin as well as 25 units of lispro with improvement in his anion gap as well as glucose level - will monitor POC - repeat BMP - at this time will place on low-dose sliding scale insulin as patient not on insulin at home and only takes metformin - diabetic diet # hyperkalemia - secondary to hyperglycemia - improved with glucose control - follow BMP # small-bowel obstruction - management per surgical team - pain control # hypertension - stable - med review does not show any medications DVT prophylaxis per surgical team
[2021-01-28 21:56] LABS: Glucose, Whole Blood 338 mg/dL (60-115)
[2021-01-28 22:57] LABS: Anion Gap 18 (12-20); Blood Urea Nitrogen 14 mg/dL (9-16); Calcium 9.2 mg/dL (8.4-10.2); Carbon Dioxide 25 mmol/L (22-29); Chloride 102 mmol/L (96-108); Creatinine Clr Calc Pharmacy 92.4; Estimated Glomerular Filt Rate > 60; Glucose Random 334 mg/dL (60-115); Potassium 5.1 mmol/L (3.3-5.1); Sodium 140 mmol/L (135-145)
[2021-01-28 23:54] VITALS: BP 108/80; PULSE 115; RESP 17; TEMP 37.2; O2SAT 91
[2021-01-29] VITALS (7 sets, daily range): BP systolic 100–126; BP diastolic 66–85; PULSE 96–106; RESP 15–20; TEMP 36.1–37.9; O2SAT 90–96; BMI 45.7
[2021-01-29] MEDS: 0.9 % Sodium Chloride Flush 3 ML SYRINGE IVFLUSH (01:25)
[2021-01-29] MEDS: Heparin Sodium,Porcine 5,000 UNIT/ML VIAL 5000 UNIT SUBCUT ×3 (02:46→16:36)
[2021-01-29] MEDS: Morphine Sulfate 4 MG/ML CARTRIDGE 3 MG IVPUSH ×3 (02:46→20:08)
[2021-01-29] MEDS: 0.9 % Sodium Chloride 1,000 ML 100 ML IVCONT ×2 (02:48→12:10)
[2021-01-29 05:58] LABS: Glucose, Whole Blood 242 mg/dL (60-115)
[2021-01-29 07:13] LABS: Glucose, Whole Blood > 600 mg/dL (60-115)
[2021-01-29 07:32] LABS: Glucose, Whole Blood 303 mg/dL (60-115)
--- NOTE | 2021-01-29 07:39 | PC.NURSE ---
pt's poc 303, imc rn aware, ngt output total 800ml brown colored liquid. pt has a total of $802.00 in [place] which was counted by this rn and garrett (rn) in his pants pocket which he did not want to have locked up in the safe.
[2021-01-29] MEDS: Insulin Lispro 100 UNIT/ML 3 ML VIAL SUBCUT ×4 (07:55→23:40)
[2021-01-29 08:38] LABS: MANUAL DIFF FLAG NO
[2021-01-29 08:53] LABS: Basophils Percent Auto 0.1 % (0-2); Eosinophils Absolute Auto 0.1 X10*3/uL (0.0-0.4); Eosinophils Percent Auto 0.7 % (0-4); Hematocrit 44.1 % (42-52); Hemoglobin 14.2 g/dl (14.0-18.0); Imm Gran Abs Auto 0.02 X10*3/uL (0.00-0.03); Imm Gran Pct Auto 0.2 % (0.0-0.4); Lymphocytes Absolute Auto 2.1 X10*3/uL (1.2-4.9); Lymphocytes Percent Auto 24.5 % (20-40); Mean Corpuscular HGB Conc 32.2 g/dl (31.0-36.0); Mean Corpuscular Volume 90.2 fL (80-98); Mean Platelet Volume 11.9 fL (9.4-12.4); Monocytes Percent Auto 11.6 % (2-11); Neutrophils Absolute Auto 5.4 X10*3/uL (2.0-8.3); Neutrophils Percent Auto 62.9 % (45-73); Platelet Count 262 X10*3/uL (160-400); Red Blood Count 4.89 X10*6/uL (4.60-5.80); Red Cell Distribution Width 13.5 % (11.0-16.0); White Blood Count 8.5 X10*3/uL (4.8-10.8)
[2021-01-29 08:59] LABS: Anion Gap 17 (12-20); Blood Urea Nitrogen 16 mg/dL (9-16); Carbon Dioxide 26 mmol/L (22-29); Chloride 103 mmol/L (96-108); Creatinine Clr Calc Pharmacy 103.8; Estimated Glomerular Filt Rate > 60; Glucose Random 325 mg/dL (60-115); Potassium 4.6 mmol/L (3.3-5.1); Sodium 141 mmol/L (135-145)
--- NOTE | 2021-01-29 09:40 | MHC.CM.PN ---
Addendum entered by Tyesha Maravilla 01/29/21 09:43: PHYSICIAN LIST GIVEN TO PT Original Note: MET WITH PT WHO IS INDEPDENT ,PT HAS NO INS HE WAS REFERRRED TO FINANCIAL COUNSELOR
--- NOTE | 2021-01-29 10:53 | P.PNGS_ITS ---
Subjective Subjective Date of Service: 01/29/21 Interval history: Feels better Still has some abdominal pain but improved Has passed flatus Blood sugar still elevated above 300 Physical Exam Vital Signs: Vital Signs: Last Vital Signs Temp 98.9 F 01/29/21 07:20 Pulse 106 H 01/29/21 07:20 Resp 16 01/29/21 07:20 BP 100/74 01/29/21 07:20 Pulse Ox 93 01/29/21 07:20 Body Mass Index 39.1 Chemistry 01/28/21 01/28/21 01/28/21 14:23 17:37 22:33 Sodium 132 L 133 L 140 Potassium 5.9 H 5.6 H 5.1 Carbon Dioxide 21 L 22 25 BUN 16 15 14 Creatinine 1.31 1.02 1.00 Calcium 10.3 H 9.8 9.2 D 01/29/21 07:59 Sodium 141 Potassium 4.6 Carbon Dioxide 26 BUN 16 Creatinine 0.89 Calcium 9.0 Hematology 01/28/21 01/29/21 14:23 07:59 WBC 14.6 H 8.5 Hgb 15.9 14.2 Plt Count 284 262 Urinalysis 01/28/21 14:23 Urine Color YELLOW Urine Appearance CLEAR Urine pH 5.5 Ur Specific [place] y <= 1.005 Urine Protein NEG Urine Glucose (UA) >=1000 H Urine Ketones 15 Urine Blood NEG Urine Nitrite NEG Ur Leukocyte Shalonda ase NEG Urine RBC 0-2 Urine WBC 0-2 Ur Squamous Epith Cells NONE Const: Other: NG tube in place General: comfortable and no acute distress Resp: Effort & Inspection: normal respiratory effort Cardio: Rate: regular rate GI: Other: Less distended, much softer compared to yesterday, some mild tenderness Palpation (GI): Soft to palpation Procedures Date of Service Date of Service: 01/29/21 Progress Note: A&P Assessment and plan (1) Partial small bowel obstruction: Status: Acute Assessment and Plan: Clinically much improved KUB also shows significant decrease in small bowel dilatation Passing flatus Abdomen soft Possibly DC NG tube later on today or tomorrow As per hospitalist -the will take him under their service because of high blood sugars Not acidotic on chemistry Looks comfortable Fall Risk Details Current Medications: Current Medications Dextrose (Dextrose 50 % 25 Gm/50 Ml Vial) 25 gm IVPUSH Q15M PRN; Protocol PRN Reason: per Hypoglycemia Standing Ord. Glucose (Glucose Gel 15 Gm Gel..Gram.) 15 gm PO Q15M PRN; Protocol PRN Reason: per Hypoglycemia Standing Ord. Heparin Sodium (Porcine) (Heparin Sodium,Porcine 5,000 Unit/Ml Vial) 5,000 unit SUBCUT Q8H [facility] Last Admin: 01/29/21 07:55 Dose: 5,000 unit Documented by: Sodium Chloride (Ns) 1,000 mls @ 100 mls/hr IVCONT .Q10H [facility] Last Admin: 01/29/21 02:48 Dose: 100 mls/hr Documented by: Insulin Human Lispro (Insulin Lispro 100 Unit/Ml 3 Ml Vial) 0 unit SUBCUT QIDACHS [facility]; Protocol Last Admin: 01/29/21 07:55 Dose: 8 unit Documented by: Morphine Sulfate (Morphine Sulfate 4 Mg/Ml Cartridge) 3 mg IVPUSH Q3H PRN; Protocol PRN Reason: Pain, Severe (Pain Scale 7-10) Last Admin: 01/29/21 02:46 Dose: 3 mg Documented by: Ondansetron HCl (Ondansetron Hcl 4 Mg/2 Ml Vial) 4 mg IVPUSH Q8H PRN PRN Reason: nausea Sodium Chloride (0.9 % Sodium Chloride Flush 3 Ml Syringe) 3 ml IVFLUSH QSHIFT [facility] Last Admin: 01/29/21 07:56 Dose: Not Given Documented by: Time Spent With Patient Time: Total time spent is greater than 50% in coordination of care (as documented) at patient's floor/unit and/or counseling patient: Time with patient: 15 - 24 minutes Quality Stroke Does the patient have a stroke diagnosis?: No VTE Prior VTE?: No VTE Risk Level:: Medical - moderate - high VTE Device Contraindication: N/A - Device Ordered VTE Drug Contraindication: N/A - Med Ordered
--- NOTE | 2021-01-29 11:07 | P.PNIM_ITS ---
Subjective Subjective Date of Service: 01/29/21 Interval History: Still complains of mild abdominal pain however states improved since admit. Sugars improved Review of Systems Denies chest pain Denies shortness of breath Denies nausea vomiting Complains of abdominal pain somewhat improved Physical Exam Vital Signs: Vital Signs: Last Vital Signs Temp 97 F 01/29/21 11:01 Pulse 101 H 01/29/21 11:01 Resp 18 01/29/21 11:01 BP 109/70 01/29/21 11:01 Pulse Ox 92 01/29/21 11:01 Body Mass Index 39.1 Const: Other: Resting quietly no acute distress HENMT: Other: NG tube patent on low intermittent wall suction; membranes moist Resp: Other: Clear to auscultation all bang. No rales rhonchi or wheezes Cardio: Other: No S4; positive S1-S2; no S3 without murmurs rubs or gallops GI: Other: Soft; quiet. No acute peritoneal signs Extrem: Other: No edema bilaterally Objective Data Active Medications Dextrose (Dextrose 50 % 25 Gm/50 Ml Vial) 25 gm IVPUSH Q15M PRN; Protocol PRN Reason: per Hypoglycemia Standing Ord. Glucose (Glucose Gel 15 Gm Gel..Gram.) 15 gm PO Q15M PRN; Protocol PRN Reason: per Hypoglycemia Standing Ord. Heparin Sodium (Porcine) (Heparin Sodium,Porcine 5,000 Unit/Ml Vial) 5,000 unit SUBCUT Q8H [facility] Last Admin: 01/29/21 07:55 Dose: 5,000 unit Documented by: DAPHNE Sodium Chloride (Ns) 1,000 mls @ 100 mls/hr IVCONT .Q10H [facility] Last Admin: 01/29/21 02:48 Dose: 100 mls/hr Documented by: WOOD Insulin Human Lispro (Insulin Lispro 100 Unit/Ml 3 Ml Vial) 0 unit SUBCUT QIDACHS [facility]; Protocol Last Admin: 01/29/21 07:55 Dose: 8 unit Documented by: DAPHNE Morphine Sulfate (Morphine Sulfate 4 Mg/Ml Cartridge) 3 mg IVPUSH Q3H PRN; Protocol PRN Reason: Pain, Severe (Pain Scale 7-10) Last Admin: 01/29/21 02:46 Dose: 3 mg Documented by: WOOD Ondansetron HCl (Ondansetron Hcl 4 Mg/2 Ml Vial) 4 mg IVPUSH Q8H PRN PRN Reason: nausea Sodium Chloride (0.9 % Sodium Chloride Flush 3 Ml Syringe) 3 ml IVFLUSH QSHIFT [facility] Last Admin: 01/29/21 07:56 Dose: Not Given Documented by: DAPHNE Non-Admin Reason: IV Running Labs CBC & Chem 7: 01/29/21 07:59 01/29/21 07:59 Labs: Laboratory Results - last 24 hr 01/28/21 01/28/21 01/28/21 14:23 14:23 14:23 MCV 87.4 MCH 29.1 MCHC 33.3 RDW 13.2 Plt Count 284 MPV 11.6 Immature Gran % (Auto) 0.3 Neut % (Auto) 83.4 H Lymph % (Auto) 10.8 L [place] % (Auto) 5.3 Eos % (Auto) 0.1 Baso % (Auto) 0.1 Lymph # (Auto) 1.6 [place] # (Auto) 0.8 Eos # (Auto) 0.0 Baso # (Auto) 0.0 Abs Immat Gran (auto) 0.04 H Absolute Neuts (auto) 12.2 H Absolute Nucleated RBC 0.000 Nucleated RBC % (auto) 0.0 PT INR APTT Anion Gap 23 H Estim Creat Clear Calc 70.5 Estimated GFR 59 POC Glucose Random Glucose 705 H* Lactic Acid Calcium 10.3 H Total Bilirubin 1.0 AST 21 ALT 44 H Alkaline Phosphatase 106 Total Protein 8.2 H Albumin 4.1 Lipase 21 Urine Color YELLOW Urine Appearance CLEAR Urine pH 5.5 Ur Specific [place] <= 1.005 Urine Protein NEG Urine Glucose (UA) >=1000 H Urine Ketones 15 Urine Blood NEG Urine Nitrite NEG Ur Leukocyte Esterase NEG Urine RBC 0-2 Urine WBC 0-2 Ur Squamous Epith Cells NONE Urine Bacteria NONE Acetone, Qual COVID-19 ([facility]) COVID-19 Clin Com 01/28/21 01/28/21 01/28/21 14:33 14:34 17:01 MCV MCH MCHC RDW Plt Count MPV Immature Gran % (Auto) Neut % (Auto) Lymph % (Auto) [place] % (Auto) Eos % (Auto) Baso % (Auto) Lymph # (Auto) [place] # (Auto) Eos # (Auto) Baso # (Auto) Abs Immat Gran (auto) Absolute Neuts (auto) Absolute Nucleated RBC Nucleated RBC % (auto) PT INR APTT Anion Gap Estim Creat Clear Calc Estimated GFR POC Glucose > 600 H* > 600 H* Random Glucose Lactic Acid Calcium Total Bilirubin AST ALT Alkaline Phosphatase Total Protein Albumin Lipase Urine Color Urine Appearance Urine pH Ur Specific [place] Urine Protein Urine Glucose (UA) Urine Ketones Urine Blood Urine Nitrite Ur Leukocyte Esterase Urine RBC Urine WBC Ur Squamous Epith Cells Urine Bacteria Acetone, Qual Small H COVID-19 ([facility]) COVID-19 Clin Com 01/28/21 01/28/21 01/28/21 17:01 17:01 17:32 MCV MCH MCHC RDW Plt Count MPV Immature Gran % (Auto) Neut % (Auto) Lymph % (Auto) [place] % (Auto) Eos % (Auto) Baso % (Auto) Lymph # (Auto) [place] # (Auto) Eos # (Auto) Baso # (Auto) Abs Immat Gran (auto) Absolute Neuts (auto) Absolute Nucleated RBC Nucleated RBC % (auto) PT 10.4 INR 0.9 APTT 30.2 Anion Gap Estim Creat Clear Calc Estimated GFR POC Glucose 443 H* Random Glucose Lactic Acid 1.7 Calcium Total Bilirubin AST ALT Alkaline Phosphatase Total Protein Albumin Lipase Urine Color Urine Appearance Urine pH Ur Specific [place] Urine Protein Urine Glucose (UA) Urine Ketones Urine Blood Urine Nitrite Ur Leukocyte Esterase Urine RBC Urine WBC Ur Squamous Epith Cells Urine Bacteria Acetone, Qual COVID-19 ([facility]) COVID-19 Clin Com 01/28/21 01/28/21 01/28/21 17:37 17:37 21:53 MCV MCH MCHC RDW Plt Count MPV Immature Gran % (Auto) Neut % (Auto) Lymph % (Auto) [place] % (Auto) Eos % (Auto) Baso % (Auto) Lymph # (Auto) [place] # (Auto) Eos # (Auto) Baso # (Auto) Abs Immat Gran (auto) Absolute Neuts (auto) Absolute Nucleated RBC Nucleated RBC % (auto) PT INR APTT Anion Gap 20 Estim Creat Clear Calc 90.6 Estimated GFR > 60 POC Glucose 338 H Random Glucose 503 H* Lactic Acid Calcium 9.8 Total Bilirubin AST ALT Alkaline Phosphatase Total Protein Albumin Lipase Urine Color Urine Appearance Urine pH Ur Specific [place] Urine Protein Urine Glucose (UA) Urine Ketones Urine Blood Urine Nitrite Ur Leukocyte Esterase Urine RBC Urine WBC Ur Squamous Epith Cells Urine Bacteria Acetone, Qual COVID-19 ([facility]) Negative COVID-19 Clin Com See Note 01/28/21 01/29/21 01/29/21 22:33 05:54 07:23 MCV MCH MCHC RDW Plt Count MPV Immature Gran % (Auto) Neut % (Auto) Lymph % (Auto) [place] % (Auto) Eos % (Auto) Baso % (Auto) Lymph # (Auto) [place] # (Auto) Eos # (Auto) Baso # (Auto) Abs Immat Gran (auto) Absolute Neuts (auto) Absolute Nucleated RBC Nucleated RBC % (auto) PT INR APTT Anion Gap 18 Estim Creat Clear Calc 92.4 Estimated GFR > 60 POC Glucose 242 H 303 H Random Glucose 334 H Lactic Acid Calcium 9.2 D Total Bilirubin AST ALT Alkaline Phosphatase Total Protein Albumin Lipase Urine Color Urine Appearance Urine pH Ur Specific [place] Urine Protein Urine Glucose (UA) Urine Ketones Urine Blood Urine Nitrite Ur Leukocyte Esterase Urine RBC Urine WBC Ur Squamous Epith Cells Urine Bacteria Acetone, Qual COVID-19 ([facility]) COVID-19 Clin Com 01/29/21 01/29/21 07:59 07:59 MCV 90.2 MCH 29.0 MCHC 32.2 RDW 13.5 Plt Count 262 MPV 11.9 Immature Gran % (Auto) 0.2 Neut % (Auto) 62.9 Lymph % (Auto) 24.5 [place] % (Auto) 11.6 H Eos % (Auto) 0.7 Baso % (Auto) 0.1 Lymph # (Auto) 2.1 [place] # (Auto) 1.0 Eos # (Auto) 0.1 Baso # (Auto) 0.0 Abs Immat Gran (auto) 0.02 Absolute Neuts (auto) 5.4 Absolute Nucleated RBC 0.000 Nucleated RBC % (auto) 0.0 PT INR APTT Anion Gap 17 Estim Creat Clear Calc 103.8 Estimated GFR > 60 POC Glucose Random Glucose 325 H Lactic Acid Calcium 9.0 Total Bilirubin AST ALT Alkaline Phosphatase Total Protein Albumin Lipase Urine Color Urine Appearance Urine pH Ur Specific [place] Urine Protein Urine Glucose (UA) Urine Ketones Urine Blood Urine Nitrite Ur Leukocyte Esterase Urine RBC Urine WBC Ur Squamous Epith Cells Urine Bacteria Acetone, Qual COVID-19 ([facility]) COVID-19 Clin Com Assessment and Plan (1) Hyperkalemia: Status: Acute Assessment and Plan: 45-year-old male presents with diffuse vague abdominal pain and hyperglycemia in the backdrop of known type 2 diabetes controlled with metformin. Abdominal evaluation consistent with PBSO. Seen by surgery (Dr. Sheppard); NG tube to low intermittent wall suction. Dr. Sheppard to follow PSBO. 1. HONK No acidosis noted this a.m. after receiving IV fluids and regular insulin. Sugars now in the 300 range. Given NPO status secondary to PSBO, will continue to treat with insulin and fluids. Will add back oral agents when PSBO resolved 2. Hyperkalemia Resolved with IV fluids. We will continue to follow up clinically 3. PSBO KUB this a.m. demonstrates improvement. Continue with NG to LIWS; Further management as per Dr. Sheppard 4. Hypertension Normalized at this time; likely secondary to presenting complaints. Consider low-dose VARGHESE-inhibitor and backdrop of DMII upon discharge DVT prophylaxis : Heparin subQ Quality Stroke Does the patient have a stroke diagnosis?: No VTE Prior VTE?: No VTE Risk Level:: Medical - moderate - high VTE Device Contraindication: N/A - Device Ordered VTE Drug Contraindication: N/A - Med Ordered
[2021-01-29 11:27] LABS: Glucose, Whole Blood 269 mg/dL (60-115)
--- NOTE | 2021-01-29 15:20 | PM.EVENT ---
Event Note Date of Service: 01/29/21 Event Note: Feels much better this afternoon Says he has been passing flatus Abdomen soft, much less distended, minimal tenderness NG tube output - clear, appears consistent with water from ice chips Plan to keep NG tube overnight, DC in a.m. and start clear liquids Doing very well Obstruction appears to be resolving Patient has been taken in by Dr. Lazaro under the hospitalist service because of his diabetes with elevated blood sugars
[2021-01-29 16:14] LABS: Glucose, Whole Blood 192 mg/dL (60-115)
[2021-01-29] MEDS: Acetaminophen 325 MG TABLET 650 MG PO (20:08)
[2021-01-29 20:35] LABS: Lactic Acid 1.2 mmol/L (0.5-2.0)
[2021-01-29 20:38] LABS: Glucose, Whole Blood 199 mg/dL (60-115)
--- NOTE | 2021-01-29 21:35 | PM.EVENT ---
Event Note Date of Service: 01/29/21 Event Note: Patient developed a fever, chest x-ray done showed multifocal pneumonia. COVID negative. Patient started on IV antibiotics. Lactic acid normal. All other vitals normal.
[2021-01-29] MEDS: cefTRIAXone sodium 1 GM in 0.9 % Sodium Chloride 50 ML IV (23:40)
[2021-01-30] MEDS: Morphine Sulfate 4 MG/ML CARTRIDGE 3 MG IVPUSH (00:01)
[2021-01-30] MEDS: Azithromycin 500 MG in 0.9 % Sodium Chloride 250 ML 125 MG IV (03:20)
[2021-01-30] MEDS: 0.9 % Sodium Chloride 1,000 ML 100 ML IVCONT ×3 (03:20→21:03)
[2021-01-30 03:34] VITALS: BP 119/59; PULSE 85; RESP 16; TEMP 36.9; O2SAT 96
[2021-01-30 06:50] LABS: MANUAL DIFF FLAG NO
[2021-01-30 06:58] LABS: Basophils Percent Auto 0.3 % (0-2); Eosinophils Percent Auto 0.5 % (0-4); Hematocrit 38.7 % (42-52); Hemoglobin 12.3 g/dl (14.0-18.0); Imm Gran Abs Auto 0.03 X10*3/uL (0.00-0.03); Imm Gran Pct Auto 0.3 % (0.0-0.4); Lymphocytes Percent Auto 22.3 % (20-40); Mean Corpuscular HGB Conc 31.8 g/dl (31.0-36.0); Mean Corpuscular Hemoglobin 28.8 pg (27.0-33.0); Mean Corpuscular Volume 90.6 fL (80-98); Mean Platelet Volume 11.5 fL (9.4-12.4); Monocytes Percent Auto 11.9 % (2-11); Neutrophils Absolute Auto 5.7 X10*3/uL (2.0-8.3); Neutrophils Percent Auto 64.7 % (45-73); Platelet Count 218 X10*3/uL (160-400); Red Blood Count 4.27 X10*6/uL (4.60-5.80); Red Cell Distribution Width 13.5 % (11.0-16.0); White Blood Count 8.8 X10*3/uL (4.8-10.8)
[2021-01-30 07:29] LABS: Glucose, Whole Blood 198 mg/dL (60-115)
[2021-01-30 07:32] VITALS: BP 129/71; PULSE 91; RESP 20; TEMP 36.9; O2SAT 94
[2021-01-30 07:34] LABS: Alanine Aminotransferase 25 U/L (0-40); Albumin Level 3.1 g/dL (3.5-5.0); Alkaline Phosphatase 67 U/L (39-117); Anion Gap 17 (12-20); Aspartate Amino Transferase 13 U/L (5-37); Bilirubin Total 0.6 mg/dL (0.0-1.0); Blood Urea Nitrogen 15 mg/dL (9-16); Calcium 8.6 mg/dL (8.4-10.2); Carbon Dioxide 22 mmol/L (22-29); Chloride 104 mmol/L (96-108); Creatinine Clr Calc Pharmacy 132.8; Estimated Glomerular Filt Rate > 60; Glucose Fasting 223 mg/dL (60-99); Potassium 3.9 mmol/L (3.3-5.1); Sodium 139 mmol/L (135-145)
[2021-01-30] MEDS: Heparin Sodium,Porcine 5,000 UNIT/ML VIAL 5000 UNIT SUBCUT ×2 (08:28→16:38)
[2021-01-30] MEDS: Insulin Lispro 100 UNIT/ML 3 ML VIAL SUBCUT ×4 (08:28→21:04)
[2021-01-30 09:32] LABS: Adenovirus PCR Not Detected (Not Detect.); Bordetella parapertussis PCR Not Detected (Not Detect.); Bordetella pertussis PCR Not Detected (Not Detect.); Chlamydia pneumoniae PCR Not Detected (Not Detect.); Coronavirus 229E PCR Not Detected (Not Detect.); Coronavirus HKU1 PCR Not Detected (Not Detect.); Coronavirus NL63 PCR Not Detected (Not Detect.); Coronavirus OC43 PCR Not Detected (Not Detect.); Human metapneumovirus PCR Not Detected (Not Detect.); Influenza A PCR Not Detected (Not Detect.); Influenza B PCR Not Detected (Not Detect.); Mycoplasma pneumoniae PCR Not Detected (Not Detect.); Parainfluenza 1 PCR Not Detected (Not Detect.); Parainfluenza 2 PCR Not Detected (Not Detect.); Parainfluenza 3 PCR Not Detected (Not Detect.); Parainfluenza 4 PCR Not Detected (Not Detect.); RSV PCR Not Detected (Not Detect.); Rhino/Enterovirus PCR Not Detected (Not Detect.); SARS-CoV-2 PCR Not Detected (Not Detect.)
--- NOTE | 2021-01-30 10:04 | PM.PNGS ---
Subjective Subjective Date of Service: 01/30/21 Interval history: Patient is complaining of irritation from his nasogastric tube. He denies significant abdominal pain and reports passing flatus and having 3 bowel movements. Physical Exam Vital Signs: Vital Signs: Last Vital Signs Temp 98.4 F 01/30/21 07:32 Pulse 91 01/30/21 07:32 Resp 20 01/30/21 07:32 BP 129/71 01/30/21 07:32 Pulse Ox 94 01/30/21 07:32 Body Mass Index 45.7 Const: General: cooperative and no acute distress Nutritional Appearance: overweight Orientation/consciousness: patient oriented x3 HENMT: Other: Nasogastric tube in place with some dried blood noted at the nares Resp: Other: breathing comfortably on room air, some upper airway congestion due to the nasogastric tube GI: Other: large midline incision, soft, nondistended, nontender to deep palpation, no tympany to percussion Skin: Other: warm and dry Neuro: General: patient oriented x3 Procedures Date of Service Date of Service: 01/30/21 Progress Note: A&P Assessment and plan (1) Partial small bowel obstruction: Status: Acute Assessment and Plan: The small-bowel obstruction appears to have resolved as he is now moving his bowels passing flatus. Nasogastric tube was removed and he was started on a clear liquid diet. Diet can be advanced as tolerated. Fall Risk Details Current Medications: Current Medications Acetaminophen (Acetaminophen 325 Mg Tablet) 650 mg PO Q6H PRN PRN Reason: Fever Last Admin: 01/29/21 20:08 Dose: 650 mg Documented by: Dextrose (Dextrose 50 % 25 Gm/50 Ml Vial) 25 gm IVPUSH Q15M PRN; Protocol PRN Reason: per Hypoglycemia Standing Ord. Glucose (Glucose Gel 15 Gm Gel..Gram.) 15 gm PO Q15M PRN; Protocol PRN Reason: per Hypoglycemia Standing Ord. Heparin Sodium (Porcine) (Heparin Sodium,Porcine 5,000 Unit/Ml Vial) 5,000 unit SUBCUT Q8H [facility] Last Admin: 01/30/21 08:28 Dose: 5,000 unit Documented by: Sodium Chloride (Ns) 1,000 mls @ 100 mls/hr IVCONT .Q10H [facility] Last Admin: 01/30/21 09:32 Dose: 100 mls/hr Documented by: Ceftriaxone Sodium 1 gm/ (Sodium Chloride) 50 mls @ 100 mls/hr IV Q24H [facility] Last Infusion: 01/30/21 02:38 Dose: Infused Documented by: Azithromycin 500 mg/ Sodium (Chloride) 250 mls @ 125 mls/hr IV Q24H [facility] Last Infusion: 01/30/21 05:25 Dose: Infused Documented by: Insulin Human Lispro (Insulin Lispro 100 Unit/Ml 3 Ml Vial) 0 unit SUBCUT QIDACHS [facility]; Protocol Last Admin: 01/30/21 08:28 Dose: 2 unit Documented by: Morphine Sulfate (Morphine Sulfate 4 Mg/Ml Cartridge) 3 mg IVPUSH Q3H PRN; Protocol PRN Reason: Pain, Severe (Pain Scale 7-10) Last Admin: 01/30/21 00:01 Dose: 3 mg Documented by: Ondansetron HCl (Ondansetron Hcl 4 Mg/2 Ml Vial) 4 mg IVPUSH Q8H PRN PRN Reason: nausea Sodium Chloride (0.9 % Sodium Chloride Flush 3 Ml Syringe) 3 ml IVFLUSH QSHIFT [facility] Last Admin: 01/30/21 08:28 Dose: Not Given Documented by: Time Spent With Patient Time: Total time spent is greater than 50% in coordination of care (as documented) at patient's floor/unit and/or counseling patient: Time with patient: 15 - 24 minutes Quality Stroke Does the patient have a stroke diagnosis?: No VTE Prior VTE?: No VTE Risk Level:: Medical - moderate - high VTE Device Contraindication: N/A - Device Ordered VTE Drug Contraindication: N/A - Med Ordered
[2021-01-30 11:25] VITALS: BP 119/74; PULSE 84; RESP 20; TEMP 36.9; O2SAT 95
[2021-01-30 11:26] LABS: Glucose, Whole Blood 169 mg/dL (60-115)
[2021-01-30] MEDS: Acetaminophen 325 MG TABLET 650 MG PO (11:56)
--- NOTE | 2021-01-30 13:56 | HO.PM.IMPN ---
Subjective Subjective Date of Service: 01/30/21 Interval History: Feels better this a.m.; NG tube removed by surgery without issue. Fever overnight and; COVID negative however chest x-ray demonstrated patchy pneumonia. Started by coverage on antibiotic therapy Review of Systems Denies chest pain Denies shortness of breath Denies nausea vomiting Complains of abdominal pain somewhat improved Physical Exam Vital Signs: Vital Signs: Last Vital Signs Temp 98.5 F 01/30/21 11:25 Pulse 84 01/30/21 11:25 Resp 20 01/30/21 11:25 BP 119/74 01/30/21 11:25 Pulse Ox 95 01/30/21 11:25 Body Mass Index 45.7 Const: Other: Resting quietly no acute distress HENMT: Other: membranes moist Resp: Other: Clear to auscultation all bang. No rales rhonchi or wheezes Cardio: Other: No S4; positive S1-S2; no S3 without murmurs rubs or gallops GI: Other: Soft; quiet. No acute peritoneal signs Extrem: Other: No edema bilaterally Objective Data Active Medications Acetaminophen (Acetaminophen 325 Mg Tablet) 650 mg PO Q6H PRN PRN Reason: Fever Last Admin: 01/30/21 11:56 Dose: 650 mg Documented by: DAPHNE Dextrose (Dextrose 50 % 25 Gm/50 Ml Vial) 25 gm IVPUSH Q15M PRN; Protocol PRN Reason: per Hypoglycemia Standing Ord. Glucose (Glucose Gel 15 Gm Gel..Gram.) 15 gm PO Q15M PRN; Protocol PRN Reason: per Hypoglycemia Standing Ord. Heparin Sodium (Porcine) (Heparin Sodium,Porcine 5,000 Unit/Ml Vial) 5,000 unit SUBCUT Q8H [facility] Last Admin: 01/30/21 08:28 Dose: 5,000 unit Documented by: DAPHNE Sodium Chloride (Ns) 1,000 mls @ 100 mls/hr IVCONT .Q10H [facility] Last Admin: 01/30/21 09:32 Dose: 100 mls/hr Documented by: DAPHNE Ceftriaxone Sodium 1 gm/ (Sodium Chloride) 50 mls @ 100 mls/hr IV Q24H [facility] Last Infusion: 01/30/21 02:38 Dose: 0 mls/hr Documented by: LUIS Azithromycin 500 mg/ Sodium (Chloride) 250 mls @ 125 mls/hr IV Q24H [facility] Last Infusion: 01/30/21 05:25 Dose: 0 mls/hr Documented by: LUIS Insulin Human Lispro (Insulin Lispro 100 Unit/Ml 3 Ml Vial) 0 unit SUBCUT QIDACHS [facility]; Protocol Last Admin: 01/30/21 11:49 Dose: 2 unit Documented by: DAPHNE Morphine Sulfate (Morphine Sulfate 4 Mg/Ml Cartridge) 3 mg IVPUSH Q3H PRN; Protocol PRN Reason: Pain, Severe (Pain Scale 7-10) Last Admin: 01/30/21 00:01 Dose: 3 mg Documented by: LUIS Ondansetron HCl (Ondansetron Hcl 4 Mg/2 Ml Vial) 4 mg IVPUSH Q8H PRN PRN Reason: nausea Sodium Chloride (0.9 % Sodium Chloride Flush 3 Ml Syringe) 3 ml IVFLUSH QSHIFT [facility] Last Admin: 01/30/21 08:28 Dose: Not Given Documented by: DAPHNE Non-Admin Reason: IV Running Labs CBC & Chem 7: 01/30/21 06:25 01/30/21 06:25 Labs: Laboratory Results - last 24 hr 01/29/21 01/29/21 01/29/21 15:37 20:15 20:28 MCV MCH MCHC RDW Plt Count MPV Immature Gran % (Auto) Neut % (Auto) Lymph % (Auto) [place] % (Auto) Eos % (Auto) Baso % (Auto) Lymph # (Auto) [place] # (Auto) Eos # (Auto) Baso # (Auto) Abs Immat Gran (auto) Absolute Neuts (auto) Absolute Nucleated RBC Nucleated RBC % (auto) Anion Gap Estim Creat Clear Calc Estimated GFR POC Glucose 192 H 199 H Fasting Glucose Lactic Acid 1.2 Calcium Total Bilirubin AST ALT Alkaline Phosphatase Total Protein Albumin Respiratory Panel [place] Adenovirus (Rapid PCR) B.pert (TEM-PCR) B.parapertussis DNA PCR C. pneumoniae DNA (PCR) Coronavirus OC43 (PCR) Coronavirus HKU1 (PCR) Coronavirus 229E (PCR) Coronavirus NL63 (PCR) Human Metapneumovir PCR Influenza A (RT-PCR) Influenza B (RT-PCR) M. pneumoniae (PCR) Parainfluenza 1 (PCR) Parainfluenza 2 (PCR) Parainfluenza 3 (PCR) Parainfluenza 4 (PCR) RSV (PCR) Entero/Rhino (PCR) SARS-CoV-2 RNA (RT-PCR) 01/30/21 01/30/21 01/30/21 06:25 06:25 07:13 MCV 90.6 MCH 28.8 MCHC 31.8 RDW 13.5 Plt Count 218 MPV 11.5 Immature Gran % (Auto) 0.3 Neut % (Auto) 64.7 Lymph % (Auto) 22.3 [place] % (Auto) 11.9 H Eos % (Auto) 0.5 Baso % (Auto) 0.3 Lymph # (Auto) 2.0 [place] # (Auto) 1.0 Eos # (Auto) 0.0 Baso # (Auto) 0.0 Abs Immat Gran (auto) 0.03 Absolute Neuts (auto) 5.7 Absolute Nucleated RBC 0.000 Nucleated RBC % (auto) 0.0 Anion Gap 17 Estim Creat Clear Calc 132.8 Estimated GFR > 60 POC Glucose 198 H Fasting Glucose 223 H Lactic Acid Calcium 8.6 Total Bilirubin 0.6 AST 13 ALT 25 Alkaline Phosphatase 67 D Total Protein 6.0 L D Albumin 3.1 L D Respiratory Panel [place] Adenovirus (Rapid PCR) B.pert (TEM-PCR) B.parapertussis DNA PCR C. pneumoniae DNA (PCR) Coronavirus OC43 (PCR) Coronavirus HKU1 (PCR) Coronavirus 229E (PCR) Coronavirus NL63 (PCR) Human Metapneumovir PCR Influenza A (RT-PCR) Influenza B (RT-PCR) M. pneumoniae (PCR) Parainfluenza 1 (PCR) Parainfluenza 2 (PCR) Parainfluenza 3 (PCR) Parainfluenza 4 (PCR) RSV (PCR) Entero/Rhino (PCR) SARS-CoV-2 RNA (RT-PCR) 01/30/21 01/30/21 08:39 11:13 MCV MCH MCHC RDW Plt Count MPV Immature Gran % (Auto) Neut % (Auto) Lymph % (Auto) [place] % (Auto) Eos % (Auto) Baso % (Auto) Lymph # (Auto) [place] # (Auto) Eos # (Auto) Baso # (Auto) Abs Immat Gran (auto) Absolute Neuts (auto) Absolute Nucleated RBC Nucleated RBC % (auto) Anion Gap Estim Creat Clear Calc Estimated GFR POC Glucose 169 H Fasting Glucose Lactic Acid Calcium Total Bilirubin AST ALT Alkaline Phosphatase Total Protein Albumin Respiratory Panel [place] See Note Adenovirus (Rapid PCR) Not Detected B.pert (TEM-PCR) Not Detected B.parapertussis DNA PCR Not Detected C. pneumoniae DNA (PCR) Not Detected Coronavirus OC43 (PCR) Not Detected Coronavirus HKU1 (PCR) Not Detected Coronavirus 229E (PCR) Not Detected Coronavirus NL63 (PCR) Not Detected Human Metapneumovir PCR Not Detected Influenza A (RT-PCR) Not Detected Influenza B (RT-PCR) Not Detected M. pneumoniae (PCR) Not Detected Parainfluenza 1 (PCR) Not Detected Parainfluenza 2 (PCR) Not Detected Parainfluenza 3 (PCR) Not Detected Parainfluenza 4 (PCR) Not Detected RSV (PCR) Not Detected Entero/Rhino (PCR) Not Detected SARS-CoV-2 RNA (RT-PCR) Not Detected Microbiology Microbiology Results: Microbiology 01/28/21 17:01 Blood Culture - Preliminary Blood - Venous Staphylococcus species 01/28/21 17:01 Blood Culture - Preliminary Blood - Venous No growth after 24 hours. Assessment and Plan (1) Pneumonia: Status: Acute Assessment and Plan: 45-year-old male presents with diffuse vague abdominal pain and hyperglycemia in the backdrop of known type 2 diabetes controlled with metformin. PSBO resolved clinically as per surgery. 1. HONK Resolved. Will add back metformin and continue sliding scale as ordered 2. Hyperkalemia Resolved with IV fluids. We will continue to follow up clinically 3. PSBO NG tube DC by Dr. Mooney. Follow clinically 4. Hypertension Normalized at this time; likely secondary to presenting complaints. Consider low-dose VARGHESE-inhibitor and backdrop of DMII upon discharge 5. Pneumonia Continue on IV ceftriaxone as a throw as ordered COVID-19 negative as repeated. Switch to oral when afebrile times 48 hours DVT prophylaxis : Heparin subQ Quality Stroke Does the patient have a stroke diagnosis?: No VTE Prior VTE?: No VTE Risk Level:: Medical - moderate - high VTE Device Contraindication: N/A - Device Ordered VTE Drug Contraindication: N/A - Med Ordered
[2021-01-30 15:34] VITALS: BP 102/68; PULSE 78; RESP 18; TEMP 36.7; O2SAT 96
[2021-01-30 16:29] LABS: Glucose, Whole Blood 220 mg/dL (60-115)
[2021-01-30 16:57] LABS: Appearance Urine CLEAR; Color Urine YELLOW; Glucose Urine UA >=1000 MG/DL (NEG); Leukocyte Esterase Urine NEG (NEG); Nitrite Urine NEG (NEG); Urine Blood 1+ (NEG); Urine Ketones 40 MG/DL (NEG); Urine Protein NEG (NEG-TRACE)
[2021-01-30 17:05] LABS: Squamous Epithelial Cell Urine TRACE /LPF; WBC Urine 0-2 /HPF (0-4)
[2021-01-30 19:42] VITALS: BP 138/88; PULSE 90; RESP 16; TEMP 37.2; O2SAT 98
[2021-01-30 20:40] LABS: Glucose, Whole Blood 222 mg/dL (60-115)
[2021-01-30] MEDS: cefTRIAXone sodium 1 GM in 0.9 % Sodium Chloride 50 ML IV (21:03)
[2021-01-31] VITALS (7 sets, daily range): BP systolic 112–132; BP diastolic 64–86; PULSE 68–75; RESP 16–20; TEMP 36.1–36.9; O2SAT 95–98
[2021-01-31] MEDS: Heparin Sodium,Porcine 5,000 UNIT/ML VIAL 5000 UNIT SUBCUT ×3 (00:26→16:54)
[2021-01-31] MEDS: Acetaminophen 325 MG TABLET 650 MG PO ×2 (00:26→16:50)
[2021-01-31] MEDS: Azithromycin 500 MG in 0.9 % Sodium Chloride 250 ML 125 MG IV (00:26)
[2021-01-31 05:16] LABS: MANUAL DIFF FLAG NO
[2021-01-31 05:41] LABS: Basophils Percent Auto 0.1 % (0-2); Eosinophils Absolute Auto 0.1 X10*3/uL (0.0-0.4); Eosinophils Percent Auto 1.1 % (0-4); Hemoglobin 11.8 g/dl (14.0-18.0); Imm Gran Abs Auto 0.07 X10*3/uL (0.00-0.03); Imm Gran Pct Auto 0.8 % (0.0-0.4); Lymphocytes Absolute Auto 3.5 X10*3/uL (1.2-4.9); Lymphocytes Percent Auto 38.3 % (20-40); Mean Corpuscular HGB Conc 32.8 g/dl (31.0-36.0); Mean Corpuscular Hemoglobin 29.4 pg (27.0-33.0); Mean Corpuscular Volume 89.6 fL (80-98); Mean Platelet Volume 11.5 fL (9.4-12.4); Monocytes Absolute Auto 0.9 X10*3/uL (0.1-1.2); Monocytes Percent Auto 9.9 % (2-11); Neutrophils Absolute Auto 4.6 X10*3/uL (2.0-8.3); Neutrophils Percent Auto 49.8 % (45-73); Platelet Count 212 X10*3/uL (160-400); Red Blood Count 4.02 X10*6/uL (4.60-5.80); Red Cell Distribution Width 13.2 % (11.0-16.0); White Blood Count 9.2 X10*3/uL (4.8-10.8)
[2021-01-31 06:07] LABS: Alanine Aminotransferase 19 U/L (0-40); Albumin Level 2.8 g/dL (3.5-5.0); Alkaline Phosphatase 63 U/L (39-117); Anion Gap 12 (12-20); Aspartate Amino Transferase 11 U/L (5-37); Bilirubin Total 0.5 mg/dL (0.0-1.0); Blood Urea Nitrogen 10 mg/dL (9-16); Calcium 8.2 mg/dL (8.4-10.2); Carbon Dioxide 26 mmol/L (22-29); Chloride 105 mmol/L (96-108); Estimated Glomerular Filt Rate > 60; Glucose Fasting 218 mg/dL (60-99); Potassium 3.9 mmol/L (3.3-5.1); Sodium 139 mmol/L (135-145); Total Protein 5.6 g/dL (6.5-8.0)
[2021-01-31 07:32] LABS: Glucose, Whole Blood 179 mg/dL (60-115)
[2021-01-31] MEDS: Insulin Lispro 100 UNIT/ML 3 ML VIAL SUBCUT ×4 (08:21→20:33)
--- NOTE | 2021-01-31 09:44 | P.PNGS_ITS ---
Subjective Subjective Date of Service: 01/31/21 Interval history: Patient tolerated clear liquids without nausea or vomiting. He is very sleepy this morning. Denies any abdominal pain. Physical Exam Vital Signs: Vital Signs: Last Vital Signs Temp 97.7 F 01/31/21 08:00 Pulse 69 01/31/21 08:00 Resp 20 01/31/21 08:00 BP 113/75 01/31/21 08:00 Pulse Ox 95 01/31/21 08:00 Body Mass Index 45.7 Const: General: lethargic Nutritional Appearance: well nourished Orientation/consciousness: lethargic Resp: Other: Breathing comfortably on room air, no shortness of breath GI: Other: obese, soft, nontender to palpation. No tympany to percussion. Skin: Other: Warm, dry, no rash Procedures Date of Service Date of Service: 01/31/21 Progress Note: A&P Assessment and plan (1) Partial small bowel obstruction: Status: Acute Assessment and Plan: 45-year-old male patient with history of diabetes presenting with a partial small-bowel obstruction which has now resolved. Nasogastric tube was removed yesterday and he was started on clear liquids which he appears to be tolerating well. The patient is currently sleepy but denies any abdominal pain. Diagnosed be advanced as tolerated. Diabetic management per medical team. Fall Risk Details Current Medications: Current Medications Acetaminophen (Acetaminophen 325 Mg Tablet) 650 mg PO Q6H PRN PRN Reason: Fever Last Admin: 01/31/21 00:26 Dose: 650 mg Documented by: Dextrose (Dextrose 50 % 25 Gm/50 Ml Vial) 25 gm IVPUSH Q15M PRN; Protocol PRN Reason: per Hypoglycemia Standing Ord. Glucose (Glucose Gel 15 Gm Gel..Gram.) 15 gm PO Q15M PRN; Protocol PRN Reason: per Hypoglycemia Standing Ord. Heparin Sodium (Porcine) (Heparin Sodium,Porcine 5,000 Unit/Ml Vial) 5,000 unit SUBCUT Q8H [facility] Last Admin: 01/31/21 00:26 Dose: 5,000 unit Documented by: Sodium Chloride (Ns) 1,000 mls @ 100 mls/hr IVCONT .Q10H [facility] Last Admin: 01/31/21 06:00 Dose: Not Given Documented by: Ceftriaxone Sodium 1 gm/ (Sodium Chloride) 50 mls @ 100 mls/hr IV Q24H [facility] Last Infusion: 01/30/21 21:37 Dose: Infused Documented by: Azithromycin 500 mg/ Sodium (Chloride) 250 mls @ 125 mls/hr IV Q24H [facility] Last Infusion: 01/31/21 03:34 Dose: Infused Documented by: Insulin Human Lispro (Insulin Lispro 100 Unit/Ml 3 Ml Vial) 0 unit SUBCUT QI [facility]; Protocol Last Admin: 01/31/21 08:21 Dose: 2 unit Documented by: Morphine Sulfate (Morphine Sulfate 4 Mg/Ml Cartridge) 3 mg IVPUSH Q3H PRN; Protocol PRN Reason: Pain, Severe (Pain Scale 7-10) Last Admin: 01/30/21 00:01 Dose: 3 mg Documented by: Ondansetron HCl (Ondansetron Hcl 4 Mg/2 Ml Vial) 4 mg IVPUSH Q8H PRN PRN Reason: nausea Sodium Chloride (0.9 % Sodium Chloride Flush 3 Ml Syringe) [facility] [place] Last Admin: 01/31/21 08:21 Dose: Not Given Documented by: Time Spent With Patient Time: Total time spent is greater than 50% in coordination of care (as documented) at patient's floor/unit and/or counseling patient: Time with patient: less than 15 minutes Quality Stroke Does the patient have a stroke diagnosis?: No VTE Prior VTE?: No VTE Risk Level:: Medical - moderate - high VTE Device Contraindication: N/A - Device Ordered VTE Drug Contraindication: N/A - Med Ordered
[2021-01-31 11:23] LABS: Glucose, Whole Blood 271 mg/dL (60-115)
[2021-01-31] MEDS: 0.9 % Sodium Chloride 1,000 ML 100 ML IVCONT (12:00)
--- NOTE | 2021-01-31 12:06 | PC.NURSE ---
Pt states that he has 8/10 abd pain at this time but does not want to take anything for it at this time. He states that he is hungry and has started eating his clear liquid diet. Reports having a moderate size liquid BM this morning.
--- NOTE | 2021-01-31 13:16 | HO.PM.IMPN ---
Subjective Subjective Date of Service: 01/31/21 Interval History: Feels better this a.m.; tolerating clear liquids. No fever chills overnight; no shortness of breath Review of Systems Denies chest pain Denies shortness of breath Denies nausea vomiting Complains of abdominal pain somewhat improved Physical Exam Vital Signs: Vital Signs: Last Vital Signs Temp 98.5 F 01/31/21 11:41 Pulse 68 01/31/21 11:41 Resp 20 01/31/21 11:41 BP 132/86 01/31/21 11:41 Pulse Ox 97 01/31/21 11:41 Body Mass Index 45.7 Const: Other: Resting quietly no acute distress HENMT: Other: membranes moist Resp: Other: Bibasilar crackles with good aeration to bases. No rhonchi or wheezes noted Cardio: Other: No S4; positive S1-S2; no S3 without murmurs rubs or gallops GI: Other: Soft/nontender with normoactive bowel sounds. No acute peritoneal signs Extrem: Other: No edema bilaterally Objective Data Active Medications Acetaminophen (Acetaminophen 325 Mg Tablet) 650 mg PO Q6H PRN PRN Reason: Fever Last Admin: 01/31/21 00:26 Dose: 650 mg Documented by: LUIS Dextrose (Dextrose 50 % 25 Gm/50 Ml Vial) 25 gm IVPUSH Q15M PRN; Protocol PRN Reason: per Hypoglycemia Standing Ord. Glucose (Glucose Gel 15 Gm Gel..Gram.) 15 gm PO Q15M PRN; Protocol PRN Reason: per Hypoglycemia Standing Ord. Heparin Sodium (Porcine) (Heparin Sodium,Porcine 5,000 Unit/Ml Vial) 5,000 unit SUBCUT Q8H [facility] Last Admin: 01/31/21 11:08 Dose: 5,000 unit Documented by: TC Sodium Chloride (Ns) 1,000 mls @ 100 mls/hr IVCONT .Q10H [facility] Last Admin: 01/31/21 12:00 Dose: 100 mls/hr Documented by: LOUISE Ceftriaxone Sodium 1 gm/ (Sodium Chloride) 50 mls @ 100 mls/hr IV Q24H [facility] Last Infusion: 01/30/21 21:37 Dose: 0 mls/hr Documented by: LUIS Azithromycin 500 mg/ Sodium (Chloride) 250 mls @ 125 mls/hr IV Q24H [facility] Last Infusion: 01/31/21 03:34 Dose: 0 mls/hr Documented by: LUIS Insulin Human Lispro (Insulin Lispro 100 Unit/Ml 3 Ml Vial) 0 unit SUBCUT QIDACHS [facility]; Protocol Last Admin: 01/31/21 11:59 Dose: 6 unit Documented by: LOUISE Morphine Sulfate (Morphine Sulfate 4 Mg/Ml Cartridge) 3 mg IVPUSH Q3H PRN; Protocol PRN Reason: Pain, Severe (Pain Scale 7-10) Last Admin: 01/30/21 00:01 Dose: 3 mg Documented by: LUIS Ondansetron HCl (Ondansetron Hcl 4 Mg/2 Ml Vial) 4 mg IVPUSH Q8H PRN PRN Reason: nausea Sodium Chloride (0.9 % Sodium Chloride Flush 3 Ml Syringe) 3 ml IVFLUSH QSHIFT [facility] Last Admin: 01/31/21 08:21 Dose: Not Given Documented by: TC Non-Admin Reason: IV Running Labs CBC & Chem 7: 01/31/21 04:35 01/31/21 04:35 Labs: Laboratory Results - last 24 hr 01/30/21 01/30/21 01/30/21 16:21 16:44 20:30 MCV MCH MCHC RDW Plt Count MPV Immature Gran % (Auto) Neut % (Auto) Lymph % (Auto) [place] % (Auto) Eos % (Auto) Baso % (Auto) Lymph # (Auto) [place] # (Auto) Eos # (Auto) Baso # (Auto) Abs Immat Gran (auto) Absolute Neuts (auto) Absolute Nucleated RBC Nucleated RBC % (auto) Anion Gap Estim Creat Clear Calc Estimated GFR POC Glucose 220 H 222 H Fasting Glucose Calcium Total Bilirubin AST ALT Alkaline Phosphatase Total Protein Albumin Urine Color YELLOW Urine Appearance CLEAR Urine pH 6.0 Ur Specific [place] 1.020 Urine Protein NEG Urine Glucose (UA) >=1000 H Urine Ketones 40 Urine Blood 1+ H Urine Nitrite NEG Ur Leukocyte Esterase NEG Urine RBC 10-14 H Urine WBC 0-2 Ur Squamous Epith Cells TRACE Urine Bacteria NONE 01/31/21 01/31/21 01/31/21 04:35 04:35 07:13 MCV 89.6 MCH 29.4 MCHC 32.8 RDW 13.2 Plt Count 212 MPV 11.5 Immature Gran % (Auto) 0.8 H Neut % (Auto) 49.8 Lymph % (Auto) 38.3 [place] % (Auto) 9.9 Eos % (Auto) 1.1 Baso % (Auto) 0.1 Lymph # (Auto) 3.5 [place] # (Auto) 0.9 Eos # (Auto) 0.1 Baso # (Auto) 0.0 Abs Immat Gran (auto) 0.07 H Absolute Neuts (auto) 4.6 Absolute Nucleated RBC 0.000 Nucleated RBC % (auto) 0.0 Anion Gap 12 Estim Creat Clear Calc 131.0 Estimated GFR > 60 POC Glucose 179 H Fasting Glucose 218 H Calcium 8.2 L Total Bilirubin 0.5 AST 11 ALT 19 Alkaline Phosphatase 63 Total Protein 5.6 L Albumin 2.8 L Urine Color Urine Appearance Urine pH Ur Specific [place] Urine Protein Urine Glucose (UA) Urine Ketones Urine Blood Urine Nitrite Ur Leukocyte Esterase Urine RBC Urine WBC Ur Squamous Epith Cells Urine Bacteria 01/31/21 11:03 MCV MCH MCHC RDW Plt Count MPV Immature Gran % (Auto) Neut % (Auto) Lymph % (Auto) [place] % (Auto) Eos % (Auto) Baso % (Auto) Lymph # (Auto) [place] # (Auto) Eos # (Auto) Baso # (Auto) Abs Immat Gran (auto) Absolute Neuts (auto) Absolute Nucleated RBC Nucleated RBC % (auto) Anion Gap Estim Creat Clear Calc Estimated GFR POC Glucose 271 H Fasting Glucose Calcium Total Bilirubin AST ALT Alkaline Phosphatase Total Protein Albumin Urine Color Urine Appearance Urine pH Ur Specific [place] Urine Protein Urine Glucose (UA) Urine Ketones Urine Blood Urine Nitrite Ur Leukocyte Esterase Urine RBC Urine WBC Ur Squamous Epith Cells Urine Bacteria Microbiology Microbiology Results: Microbiology 01/28/21 17:01 Blood Culture - Final Blood - Venous Staphylococcus aureus 01/29/21 20:15 Blood Culture - Preliminary Blood - Venous No growth after 24 hours. 01/29/21 20:15 Blood Culture - Preliminary Blood - Venous No growth after 24 hours. 01/28/21 17:01 Blood Culture - Preliminary Blood - Venous No growth after 48 hours. Assessment and Plan (1) Pneumonia: Status: Acute (2) Diabetes mellitus: Status: Acute (3) Small bowel obstruction: Status: Acute Assessment and Plan: 45-year-old male presents with diffuse vague abdominal pain and hyperglycemia in the backdrop of known type 2 diabetes controlled with metformin. PSBO resolved clinically as per surgery. New diagnosis of multifocal bilateral airspace disease; started on antibiotics. No respiratory issues 1. DMII: Will add back metformin and continue sliding scale as ordered Diet advancing as per surgery 2. Hyperkalemia Resolved with IV fluids. We will continue to follow up clinically 3. PSBO Resolved. Diet advanced as per surgery. Tolerates diet will discharge home with the morning with p.o. antibiotics 4. Hypertension Normalized at this time; likely secondary to presenting complaints. VARGHESE-inhibitor can be added as outpatient by PCP as deemed necessary 5. Pneumonia Continue on IV ceftriaxone as a throw as ordered COVID-19 negative as repeated. Switch to oral in a.m. if remains afebrile DVT prophylaxis : Heparin subQ Quality Stroke Does the patient have a stroke diagnosis?: No VTE Prior VTE?: No VTE Risk Level:: Medical - moderate - high VTE Device Contraindication: N/A - Device Ordered VTE Drug Contraindication: N/A - Med Ordered
[2021-01-31 16:10] LABS: Glucose, Whole Blood 182 mg/dL (60-115)
[2021-01-31] MEDS: 0.9 % Sodium Chloride Flush 3 ML SYRINGE IVFLUSH (16:54)
[2021-01-31 20:00] LABS: Glucose, Whole Blood 219 mg/dL (60-115)
[2021-01-31] MEDS: cefTRIAXone sodium 1 GM in 0.9 % Sodium Chloride 50 ML IV (20:34)
[2021-02-01] MEDS: Azithromycin 500 MG in 0.9 % Sodium Chloride 250 ML 125 MG IV (00:08)
[2021-02-01] MEDS: Heparin Sodium,Porcine 5,000 UNIT/ML VIAL 5000 UNIT SUBCUT ×2 (00:12→08:12)
[2021-02-01 03:29] VITALS: BP 121/81; PULSE 67; RESP 17; TEMP 36.6; O2SAT 95
[2021-02-01 06:38] LABS: MANUAL DIFF FLAG NO
[2021-02-01 06:44] LABS: Basophils Percent Auto 0.3 % (0-2); Eosinophils Absolute Auto 0.1 X10*3/uL (0.0-0.4); Eosinophils Percent Auto 1.8 % (0-4); Hematocrit 38.3 % (42-52); Hemoglobin 12.4 g/dl (14.0-18.0); Imm Gran Abs Auto 0.15 X10*3/uL (0.00-0.03); Imm Gran Pct Auto 2.1 % (0.0-0.4); Lymphocytes Absolute Auto 2.8 X10*3/uL (1.2-4.9); Lymphocytes Percent Auto 38.8 % (20-40); Mean Corpuscular HGB Conc 32.4 g/dl (31.0-36.0); Mean Corpuscular Hemoglobin 28.6 pg (27.0-33.0); Mean Corpuscular Volume 88.5 fL (80-98); Monocytes Absolute Auto 0.7 X10*3/uL (0.1-1.2); Monocytes Percent Auto 9.7 % (2-11); Neutrophils Absolute Auto 3.4 X10*3/uL (2.0-8.3); Neutrophils Percent Auto 47.3 % (45-73); Platelet Count 217 X10*3/uL (160-400); Red Blood Count 4.33 X10*6/uL (4.60-5.80); Red Cell Distribution Width 13.2 % (11.0-16.0); White Blood Count 7.3 X10*3/uL (4.8-10.8)
[2021-02-01 07:04] LABS: Alanine Aminotransferase 25 U/L (0-40); Albumin Level 2.8 g/dL (3.5-5.0); Alkaline Phosphatase 82 U/L (39-117); Anion Gap 10 (12-20); Aspartate Amino Transferase 26 U/L (5-37); Bilirubin Total 0.6 mg/dL (0.0-1.0); Blood Urea Nitrogen 4 mg/dL (9-16); Calcium 8.2 mg/dL (8.4-10.2); Carbon Dioxide 25 mmol/L (22-29); Chloride 109 mmol/L (96-108); Creatinine Clr Calc Pharmacy 152.9; Estimated Glomerular Filt Rate > 60; Glucose Fasting 228 mg/dL (60-99); Potassium 3.8 mmol/L (3.3-5.1); Sodium 140 mmol/L (135-145); Total Protein 5.5 g/dL (6.5-8.0)
[2021-02-01 07:06] VITALS: BP 140/94; PULSE 69; RESP 73; TEMP 37; O2SAT 98
[2021-02-01 07:18] LABS: Glucose, Whole Blood 226 mg/dL (60-115)
[2021-02-01] MEDS: Insulin Lispro 100 UNIT/ML 3 ML VIAL SUBCUT ×3 (08:12→16:34)
[2021-02-01] MEDS: metFORMIN HCl 500 MG TABLET PO ×2 (08:12→16:34)
--- NOTE | 2021-02-01 09:33 | PM.PNGS ---
Subjective Subjective Date of Service: 02/01/21 Interval history: feels well denies pain passing flatus has BM tolerating clears Physical Exam Vital Signs: Vital Signs: Last Vital Signs Temp 98.6 F 02/01/21 07:06 Pulse 69 02/01/21 07:06 Resp 73 H 02/01/21 07:06 BP 140/94 H 02/01/21 07:06 Pulse Ox 98 02/01/21 07:06 Body Mass Index 45.7 Chemistry 01/30/21 01/31/21 02/01/21 06:25 04:35 06:30 Sodium 139 139 140 Potassium 3.9 3.9 3.8 Carbon Dioxide 22 26 25 BUN 15 10 4 L D Creatinine 0.76 0.77 0.66 Calcium 8.6 8.2 L 8.2 L Hematology 01/30/21 01/31/21 02/01/21 06:25 04:35 06:30 WBC 8.8 9.2 7.3 Hgb 12.3 L 11.8 L 12.4 L Plt Count 218 212 217 Urinalysis 01/30/21 16:44 Urine Color YELLOW Urine Appearance CLEAR Urine pH 6.0 Ur Specific [place] y 1.020 Urine Protein NEG Urine Glucose (UA) >=1000 H Urine Ketones 40 Urine Blood 1+ H Urine Nitrite NEG Ur Leukocyte [place]alonda ase NEG Urine RBC 10-14 H Urine WBC 0-2 Ur Squamous Epith Cells TRACE Const: General: comfortable and no acute distress Nutritional Appearance: obese Resp: Effort & Inspection: normal respiratory effort Cardio: Rate: regular rate GI: Palpation (GI): Soft to palpation, not firm, nontender and no guarding Procedures Date of Service Date of Service: 02/01/21 Progress Note: A&P Assessment and plan (1) Partial small bowel obstruction: Status: Acute Assessment and Plan: symptoms resolved diet as tolerated blood sugars better if tolerating regular diet, ok to ms home looks well dw Hospitalist service Fall Risk Details Current Medications: Current Medications Acetaminophen (Acetaminophen 325 Mg Tablet) 650 mg PO Q6H PRN PRN Reason: Fever Last Admin: 01/31/21 16:50 Dose: 650 mg Documented by: Dextrose (Dextrose 50 % 25 Gm/50 Ml Vial) 25 gm IVPUSH Q15M PRN; Protocol PRN Reason: per Hypoglycemia Standing Ord. Glucose (Glucose Gel 15 Gm Gel..Gram.) 15 gm PO Q15M PRN; Protocol PRN Reason: per Hypoglycemia Standing Ord. Heparin Sodium (Porcine) (Heparin Sodium,Porcine 5,000 Unit/Ml Vial) 5,000 unit SUBCUT Q8H [facility] Last Admin: 02/01/21 08:12 Dose: 5,000 unit Documented by: Ceftriaxone Sodium 1 gm/ (Sodium Chloride) 50 mls @ 100 mls/hr IV Q24H [facility] Last Infusion: 01/31/21 21:43 Dose: Infused Documented by: Azithromycin 500 mg/ Sodium (Chloride) 250 mls @ 125 mls/hr IV Q24H [facility] Last Infusion: 02/01/21 02:40 Dose: Infused Documented by: Insulin Human Lispro (Insulin Lispro 100 Unit/Ml 3 Ml Vial) 0 unit SUBCUT QIDACHS [facility]; Protocol Last Admin: 02/01/21 08:12 Dose: 4 unit Documented by: Metformin HCl (Metformin Hcl 500 Mg Tablet) 500 mg PO BIDWM [facility] Last Admin: 02/01/21 08:12 Dose: 500 mg Documented by: Morphine Sulfate (Morphine Sulfate 4 Mg/Ml Cartridge) 3 mg IVPUSH Q3H PRN; Protocol PRN Reason: Pain, Severe (Pain Scale 7-10) Last Admin: 01/30/21 00:01 Dose: 3 mg Documented by: Ondansetron HCl (Ondansetron Hcl 4 Mg/2 Ml Vial) 4 mg IVPUSH Q8H PRN PRN Reason: nausea Sodium Chloride (0.9 % Sodium Chloride Flush 3 Ml Syringe) 3 ml IVFLUSH QSHIFT [facility] Last Admin: 02/01/21 08:04 Dose: Not Given Documented by: Time Spent With Patient Time: Total time spent is greater than 50% in coordination of care (as documented) at patient's floor/unit and/or counseling patient: Time with patient: 15 - 24 minutes Quality Stroke Does the patient have a stroke diagnosis?: No VTE Prior VTE?: No VTE Risk Level:: Medical - moderate - high VTE Device Contraindication: N/A - Device Ordered VTE Drug Contraindication: N/A - Med Ordered
[2021-02-01 11:08] LABS: Glucose, Whole Blood 230 mg/dL (60-115)
[2021-02-01 11:40] VITALS: BP 120/80; PULSE 80; RESP 18; TEMP 36.3; O2SAT 95
--- NOTE | 2021-02-01 14:15 | P.DS_ITS ---
DS: Providers Provider Date of Service: 02/01/21 Date of admission: 01/28/21 17:50 Date of discharge: 02/01/21 Primary care physician: None Physician Consults: 01/28/21 17:43 Consult to Hospitalist Routine Consulting Provider: Hospitalist Reason For Exam: DM DS: Diagnosis Discharge Diagnosis (1) Partial small bowel obstruction: Status: Acute DS: Summary Hospital Course Hospital Course: 45-year-old male with past medical history of diabetes, hypertension, presents to the hospital with complaints of abdominal pain found to have small-bowel obstruction.? Patient is admitted to the general surgery team with consult to Medicine due to his hyperglycemia and hyperkalemia.? Patient reports that he started having abdominal pain today that is diffuse worse on the left upper qu adrant.? Associated with nausea and vomiting.? No diarrhea constipation.? Patient is describing the pain as 01/31.? When asked about his diabetes reports that he has type 2 diabetes and takes metformin but did not take metformin today because he was having severe abdominal pain.? On arrival to the ED patient found to have a glucose of over 500 with a positive anion gap and potassium of 5.9. Hospital course: Patient was initially admitted to the surgical service however given medical issues was taken on the medical service. Seen by surgery who recommended NGT decompression. Patient admitted volume repletion with saline and sliding scale insulin given with improvement of sugars. NG tube was removed follow-up x-ray shows complete resolution of the PBSO. Spiked fever day 2 of admission; x-ray consistent with multilobar pneumonia. Repeat COVID swab done and was negative. Was treated with IV ceftriaxone and azithromycin with excellent results. Presently he is medically acceptable for discharge follow-up as an outpatient with PCP Time Spent with Patient Time attestation: Total time spent providing and/or coordinating discharge services: Discharge coordination time: Greater than 30 minutes Quality: Stroke Does the patient have a stroke diagnosis?: No Physical Exam Vital Signs: Vital Signs: Last Vital Signs Temp 97.4 F 02/01/21 11:40 Pulse 80 02/01/21 11:40 Resp 18 02/01/21 11:40 BP 120/80 02/01/21 11:40 Pulse Ox 95 02/01/21 11:40 Body Mass Index 45.7 Const: Other: Resting quietly no acute distress HENMT: Other: membranes moist Resp: Other: Clear to auscultation with good aeration to bases. No rhonchi or wheezes noted Cardio: Other: No S4; positive S1-S2; no S3 without murmurs rubs or gallops GI: Other: Soft/nontender with normoactive bowel sounds. No acute peritoneal signs Extrem: Other: No edema bilaterally DS: Data Data Completed and Pending Labs on day of discharge: Laboratory Results - last 24 hr 01/31/21 01/31/21 02/01/21 16:06 19:55 06:30 WBC 7.3 RBC 4.33 L Hgb 12.4 L Hct 38.3 L MCV 88.5 MCH 28.6 MCHC 32.4 RDW 13.2 Plt Count 217 MPV 11.0 Immature Gran % (Auto) 2.1 H Neut % (Auto) 47.3 Lymph % (Auto) 38.8 [place] % (Auto) 9.7 Eos % (Auto) 1.8 Baso % (Auto) 0.3 Lymph # (Auto) 2.8 [place] # (Auto) 0.7 Eos # (Auto) 0.1 Baso # (Auto) 0.0 Abs Immat Gran (auto) 0.15 H Absolute Neuts (auto) 3.4 Absolute Nucleated RBC 0.000 Nucleated RBC % (auto) 0.0 Sodium Potassium Chloride Carbon Dioxide Anion Gap BUN Creatinine Estim Creat Clear Calc Estimated GFR POC Glucose 182 H 219 H Fasting Glucose Calcium Total Bilirubin AST ALT Alkaline Phosphatase Total Protein Albumin 02/01/21 02/01/21 02/01/21 06:30 07:04 10:52 WBC RBC Hgb Hct MCV MCH MCHC RDW Plt Count MPV Immature Gran % (Auto) Neut % (Auto) Lymph % (Auto) [place] % (Auto) Eos % (Auto) Baso % (Auto) Lymph # (Auto) [place] # (Auto) Eos # (Auto) Baso # (Auto) Abs Immat Gran (auto) Absolute Neuts (auto) Absolute Nucleated RBC Nucleated RBC % (auto) Sodium 140 Potassium 3.8 Chloride 109 H Carbon Dioxide 25 Anion Gap 10 L BUN 4 L D Creatinine 0.66 Estim Creat Clear Calc 152.9 Estimated GFR > 60 POC Glucose 226 H 230 H Fasting Glucose 228 H Calcium 8.2 L Total Bilirubin 0.6 AST 26 D ALT 25 Alkaline Phosphatase 82 D Total Protein 5.5 L Albumin 2.8 L Preliminary micro results at discharge 10/08/21 20:15 Blood Culture - Preliminary Blood - Venous No growth after 48 hours. 01/29/21 20:15 Blood Culture - Preliminary Blood - Venous No growth after 48 hours. 01/28/21 17:01 Blood Culture - Preliminary Blood - Venous No growth after 48 hours. Discharge Plan Discharge Patient Disposition: Home, Self-Care Discharge Diagnosis: HONK/Pneumonia Referrals: Physician,None [Primary Care Provider] - 1 Week Discharge Medications: New metformin 500 mg Tablet 500 mg PO BIDWM Qty: 60 RF: 2 doxycycline hyclate 100 mg Tablet 100 mg PO Q12H Qty: 14 RF: 0 Discharge Orders: Discharge Order (Routine); Ordered 02/01/21 Ordered By: Scott Lazaro Diet: advance to usual diet Activity on Discharge: As tolerated Stand Alone Forms: Patient Portal Discharge page Care Plan Goals: Glucose control Health Concerns: Returned to baseline Plan of Treatment: Medications follow-up with PCP Assessment: Improved
[2021-02-01 16:00] VITALS: BP 121/74; PULSE 76; RESP 18; TEMP 36.7; O2SAT 94
[2021-02-01 16:29] LABS: Glucose, Whole Blood 210 mg/dL (60-115)
== END 2021-02-01 17:15 | disposition home or self-care (01) | DRG 247 ==
LOC: HO.ED 17:44 → HO.EDOVER 17:56 → HO.IMC 01-29 05:18
PROVIDERS: Internal Medicine; Nurse Practitioner Family; Admitting Provider Surgery; Emergency Provider Emergency Medicine; Visit Provider Hospitalist
DX: K56.600 Partial intestinal obstruction, unspecified as to cause (principal); E11.10 Type 2 diabetes mellitus with ketoacidosis without coma; J18.9 Pneumonia, unspecified organism; I10 Essential (primary) hypertension; E87.5 Hyperkalemia; Z20.822 Contact with and (suspected) exposure to COVID-19; Z79.84 Long term (current) use of oral hypoglycemic drugs
CPT/HCPCS: 36415; 71045; 74018; 74177; 80048; 80053; 81001; 82009; 82947; 83605; 83690; 85025; 85610; 85730; 87040; 87077; 87186; 87205; 87633; 87635; 93005; 99285; J0456; J0696; J2270; J2405; Q9967

== ENCOUNTER 2021-09-19 12:54 | Inpatient (IN) | payer MEDICAID, SELFPAY ==
--- NOTE | ~2021-09-19 | XR_ITS ---
EXAMINATION: XR CHEST CLINICAL INFORMATION: Cough. COMPARISON: Chest 01/29/2021 TECHNIQUE: Frontal view of the chest was obtained. FINDINGS: The lungs are well-expanded and clear. Is mild elevated right hemidiaphragm. The heart size and pulmonary vascularity is normal. No gross bony abnormality seen. XR/XR chest 1V IMPRESSION: Unremarkable chest examination.
--- NOTE | ~2021-09-19 | CT_ITS ---
EXAMINATION: CT ABDOMEN AND PELVIS WITHOUT CONTRAST CLINICAL INFORMATION: Left lower quadrant/left-sided abdominal pain. Diarrhea and nausea. COMPARISON: Most recent abdominal radiographs dated 01/29/[address] abdomen/pelvis dated 01/28/2021. TECHNIQUE: Multidetector volumetric imaging was performed from the superior aspect of the liver through the pubic symphysis. Sagittal and coronal reformatted images were obtained on the technologist's workstation. This CT examination was performed using dose optimization techniques as appropriate, variously including the following: *Automated exposure control *Adjustment of mA and/or kV according to patient size (this includes techniques or standardized protocols for targeted exams where dose is matched to indication/reason for exam; i.e. extremities or head) *Use of iterative reconstruction technique DLP: 813 mGy-cm FINDINGS: LUNG BASES: The visualized lung bases are unremarkable. LIVER, GALLBLADDER, AND BILIARY TREE: Hepatomegaly with associated steatosis, similar when compared to the prior examination. Normal contour. No focal hepatic lesion or biliary ductal dilatation is present. The gallbladder is unremarkable with no evidence of radiopaque gallstones, gallbladder wall thickening, or obvious pericholecystic inflammatory changes. PANCREAS: Unremarkable. SPLEEN: Unremarkable. ADRENAL GLANDS: Unremarkable. KIDNEYS AND URETERS: The kidneys are normal in size, shape, and attenuation. No hydronephrosis, hydroureter, or calculi seen. No perinephric stranding. BLADDER: Partially distended and unremarkable. GASTROINTESTINAL TRACT: Mild descending/sigmoid colon wall thickening in the left lower quadrant with minimal adjacent stranding (series 3 images 51-65/99). Findings are consistent with mild colitis. No evidence of perforation or abscess formation. Findings could represent an infectious or inflammatory process. An ischemic etiology is felt less likely. No additional bowel wall thickening or inflammatory change. No small or large bowel obstruction. Small appearing unremarkable appendix. PERITONEAL CAVITY: No intra-abdominal free air or free fluid. ABDOMINAL WALL: Fat-containing anterior abdominal wall hernia within the superior abdominal wall, unchanged. Fat-containing periumbilical hernias are unchanged. No associated bowel loops or ischemic/inflammatory change. Small, fat-containing left inguinal hernia, unchanged. LYMPH NODES: No new or increasing lymphadenopathy. VASCULAR: Unremarkable. PELVIC VISCERA: The prostate and seminal vesicles are unremarkable. OSSEOUS STRUCTURES: Unremarkable. CT/CT abdomen pelvis wo con IMPRESSION: 1. Mild descending/sigmoid colon wall thickening with minimal adjacent stranding which could represent very early colitis in the appropriate clinical setting. An infectious or inflammatory process could be considered. An ischemic etiology is felt less likely. No evidence of perforation or abscess formation. 2. Additional chronic findings are unchanged. Fleischner guidelines were followed.
--- NOTE | ~2021-09-19 | CT_ITS ---
EXAMINATION: CT ABDOMEN AND PELVIS WITHOUT CONTRAST CLINICAL INFORMATION: Abdominal pain, colitis COMPARISON: 09/19/2021 TECHNIQUE: Multidetector volumetric imaging was performed from the superior aspect of the liver through the pubic symphysis. Sagittal and coronal reformatted images were obtained on the technologist's workstation. This CT examination was performed using dose optimization techniques as appropriate, variously including the following: *Automated exposure control *Adjustment of mA and/or kV according to patient size (this includes techniques or standardized protocols for targeted exams where dose is matched to indication/reason for exam; i.e. extremities or head) *Use of iterative reconstruction technique DLP: 809 mGy-cm FINDINGS: LUNG BASES: The visualized lung bases are unremarkable. LIVER, GALLBLADDER, AND BILIARY TREE: There is low attenuation of the liver due to steatosis and hepatomegaly. The gallbladder is unremarkable with no evidence of radiopaque gallstones, gallbladder wall thickening, or obvious pericholecystic inflammatory changes. PANCREAS: Unremarkable. SPLEEN: Unremarkable. ADRENAL GLANDS: Unremarkable. KIDNEYS AND URETERS: Right kidney is unremarkable. Left kidney demonstrates 3.2 x 3.0 cm cyst in upper pole. No evidence of hydroureteronephrosis. BLADDER: Unremarkable. GASTROINTESTINAL TRACT: There is mild thickening of sigmoid colon, descending colon due to colitis. Mesenteric lymph nodes seen. ABDOMINAL WALL: There is moderate size fat-containing umbilical hernia and small fat-containing inguinal hernias. LYMPH NODES: Scattered mesenteric lymph nodes present VASCULAR: Unremarkable. PELVIC VISCERA: Unremarkable. OSSEOUS STRUCTURES: Unremarkable. CT/CT abdomen pelvis wo con IMPRESSION: Most likely descending and sigmoid colon colitis and mesenteric adenitis. Hepatic steatosis and hepatomegaly Cyst in the left Fleischner guidelines were followed.
[2021-09-19 13:55] VITALS: BP 113/76; PULSE 109; RESP 18; TEMP 37.2; O2SAT 96; BMI 38.2
[2021-09-19 14:35] LABS: MANUAL DIFF FLAG NO
[2021-09-19 14:36] LABS: Basophils Percent Auto 0.2 % (0-2); Eosinophils Percent Auto 0.1 % (0-4); Hemoglobin 15.4 g/dl (14.0-18.0); Imm Gran Abs Auto 0.09 X10*3/uL (0.00-0.03); Imm Gran Pct Auto 0.5 % (0.0-0.4); Lymphocytes Absolute Auto 1.5 X10*3/uL (1.2-4.9); Lymphocytes Percent Auto 8.1 % (20-40); Mean Corpuscular HGB Conc 33.5 g/dl (31.0-36.0); Mean Corpuscular Hemoglobin 29.1 pg (27.0-33.0); Mean Platelet Volume 10.4 fL (9.4-12.4); Monocytes Absolute Auto 0.8 X10*3/uL (0.1-1.2); Monocytes Percent Auto 4.2 % (2-11); Neutrophils Absolute Auto 16.2 x10*3/uL (2.0-8.3); Neutrophils Percent Auto 86.9 % (45-73); Platelet Count 303 X10*3/uL (160-400); Red Blood Count 5.29 X10*6/uL (4.60-5.80); Red Cell Distribution Width 12.6 % (11.0-16.0); White Blood Count 18.6 X10*3/uL (4.8-10.8)
[2021-09-19 14:36] LABS: Appearance Urine CLEAR; Color Urine YELLOW; Glucose Urine UA >=1000 MG/DL (NEG); Leukocyte Esterase Urine NEG (NEG); Nitrite Urine NEG (NEG); Urine Blood NEG (NEG); Urine Ketones 5 MG/DL (NEG); Urine Protein NEG (NEG-TRACE)
[2021-09-19 14:47] LABS: Lactic Acid 1.7 mmol/L (0.5-2.0)
[2021-09-19 14:49] LABS: RBC Urine 0 /HPF (0); Squamous Epithelial Cell Urine TRACE /LPF; WBC Urine 0-2 /HPF (0-4)
[2021-09-19 14:54] LABS: Alanine Aminotransferase 35 U/L (0-40); Albumin Level 4.2 g/dL (3.5-5.0); Alkaline Phosphatase 90 U/L (39-117); Anion Gap 16 (12-20); Aspartate Amino Transferase 20 U/L (5-37); Bilirubin Total 0.7 mg/dL (0.0-1.0); Blood Urea Nitrogen 21 mg/dL (9-16); Calcium 10.1 mg/dL (8.4-10.2); Carbon Dioxide 23 mmol/L (22-29); Chloride 98 mmol/L (96-108); Creatinine Clr Calc Pharmacy 74.5; Estimated Glomerular Filt Rate 59; Glucose Random 415 mg/dL (60-115); Lipase 25 U/L (8-78); Magnesium 1.7 mg/dL (1.6-2.6); Sodium 132 mmol/L (135-145); Total Protein 7.7 g/dL (6.5-8.0)
[2021-09-19 15:03] LABS: COVID-19 Test Negative (Negative); IDNOW Serial# 08D9AD1C
--- NOTE | 2021-09-19 15:58 | ED_ITS ---
HPI - Abdominal Pain General Chief Complaint: Abdominal Pain Stated Complaint: abd pain Time Seen by Provider: 09/19/21 13:42 Source: patient Mode of arrival: ambulatory History of Present Illness HPI narrative: 46-year-old male with a past medical history of diabetes, bowel resection s/p colostomy reversal, HTN, partial SBO, presenting to the emergency department complaining of intermittent left-sided abdominal pain, watery diarrhea, and nausea since this morning. Reports decreased p.o. intake, and subjective fever/chills. Denies documented fever, vomiting, dysuria/hematuria, flank pain, suspicious food intake MD elicited complaint: abdominal pain Onset (ago): day(s) Related Data Previous Rx's Medication Instructions Recorded doxycycline hyclate 100 mg tablet 100 mg PO Q12H #14 tab 02/01/21 metformin 500 mg tablet 500 mg PO BIDWM #60 tab 02/01/21 Allergies Allergy/AdvReac Type Severity Reaction Status Date / Time No Known Allergies Allergy Verified 09/19/21 13:55 Review of Systems Review of Systems Constitutional: + subj Fever, + Chills, No Night Sweats, No Fatigue, No Malaise ENT/Mouth: No Ear Pain, No Nasal Congestion, No sore throat, No Rhinorrhea, No Swallowing Difficulty Eyes: No Eye Pain, No Swelling, No Vision Changes Cardiovascular: No Chest Pain, No SOB, No Edema, No Palpitations Respiratory: + Cough, No Sputum, No Dyspnea Gastrointestinal: + Nausea, No Vomiting, + Diarrhea, No Constipation, + Abdominal pain, No Hematochezia, No Melena Genitourinary: No Dysuria, No Urinary Frequency, No Hematuria, No Urinary Incontinence/retention, No Urgency, No Flank Pain Musculoskeletal: No joint pain, No Myalgias, No Joint Swelling Skin: No Skin Lesions, No rash Neuro: No Weakness, No Dizziness, No Headache Yes all other systems are reviewed and are negative [facility] Past Medical History Attestation statement: The following information was validated with the patient. Medical History Diabetes Diabetes mellitus Hypertension Partial small bowel obstruction Surgical History History of bowel resection History of colostomy reversal History of exploratory laparotomy Social History Social History Household Members: None Housing: Apartment Do you presently have visiting nurse or other home services: No Alcohol intake: current Alcohol intake frequency: holidays/special occasions only Patient Tobacco Use Status: Never used Tobacco Advance Directives: No Advance Directives Information Provided: No service: No Physical Exam ED Vital Signs: Vital Signs - 24 hr 09/19/21 13:55 09/19/21 16:16 Temperature 98.9 F 100 F Pulse Rate 109 H 78 Respiratory Rate 18 16 Blood Pressure 113/76 119/83 Pulse Oximetry 96 BMI result Body Mass Index 38.2 Const General: cooperative, healthy appearing and no acute distress Orientation/consciousness: patient oriented x3 Limitations: no limitations HENMT Head: Yes normal to inspection and Yes atraumatic Ears: hearing grossly normal bilaterally General nose exam: Normal external nose present Face and sinus: Yes normal facial exam Eyes General: appearance normal, both eyes and all related structures EOM: EOMs intact bilaterally Neck Neck: Yes normal visual inspection and Yes no meningeal signs Resp Effort & Inspection: normal respiratory effort and no respiratory distress Auscultation: clear to auscultation bilaterally, no rales, no rhonchi and no wheezes Cardio Rate: regular rate and tachycardic Heart sounds: S1 normal heart sound present and S2 normal heart sound present GI Other: Prior abdominal surgical scars noted Palpation (GI): Soft to palpation, Tenderness to palpation present (GI) in the LLQ; Negative for with no rebound tenderness, no guarding and not rigid General: Yes no CVA tenderness Back/Spine/Pelvis Back: no CVA tenderness Skin Rashes: no rashes Wounds: no wounds Neuro General: patient oriented x3, tone normal and no meningeal signs Gait exam (Neuro): Normal gait present Extrem General: Yes normal to inspection Course Course Course Narrative: -noted leukocytosis of 18.6 > patient empirically covered with Zosyn. BUN mildly elevated to 21. Glucose 415. No anion gap, lactic acid negative -1558--due to patient's obesity, ideal body weight equals 59 kg x 30mg/kg =1770cc -UA with glucose and 5 ketones/not infected. Acetone negative. VBG WNL no evidence of DKA -1700--XR chest 1V IMPRESSION: Unremarkable chest examination. CT abdomen pelvis wo con IMPRESSION: 1. Mild descending/sigmoid colon wall thickening with minimal adjacent stranding which could represent very early colitis in the appropriate clinical setting. An infectious or inflammatory process could be considered. An ischemic etiology is felt less likely. No evidence of perforation or abscess formation. ? 2. Additional chronic findings are unchanged.? ? Fleischner guidelines were followed. -1737--Repeat POC 288. Patient to be admitted for further management MDM - Abdominal Pain MDM Narrative Medical decision making narrative: 46-year-old male with a past medical history of diabetes, bowel resection s/p colostomy reversal, HTN, partial SBO, presenting to the emergency department complaining of intermittent left-sided abdominal pain, watery diarrhea, and nausea since this morning. On exam tachycardic likely from pain/dehydration, NAD/nontoxic, abdomen soft with LQ tenderness, no rebound or guarding, no CVA tenderness. Concern for diverticulitis vs gastroenteritis vs hyperglycemia/DKA vs SBO. Rule out other metabolic/infectious etiologies Plan: Labs, UA, CXR, CT abd/pelvis, IVF, empiric antibiotics Differential Diagnosis Differential diagnosis: Likely abdominal pain, constipation, diverticulitis, gastroenteritis, gastritis, renal colic and small bowel obstruction Medical Records Attestation: I reviewed the patient's medical records. Lab Data Attestation: I reviewed the patient's lab results. Result diagrams: 09/19/21 14:22 09/19/21 14:22 Labs: Lab Results 09/19/21 09/19/21 09/19/21 Range/Units 14:21 14:22 14:22 WBC 18.6 H (4.8-10.8) X10*3/uL RBC 5.29 (4.60-5.80) X10*6/uL Hgb 15.4 (14.0-18.0) g/dl Hct 46.0 (42.0-52.0) % MCV 87.0 (80.0-98.0) fL MCH 29.1 (27.0-33.0) pg MCHC 33.5 (31.0-36.0) g/dl RDW 12.6 (11.0-16.0) % Plt Count 303 (160-400) X10*3/uL MPV 10.4 (9.4-12.4) fL Immature Gran % (Auto) 0.5 H (0.0-0.4) % Neut % (Auto) 86.9 H (45-73) % Lymph % (Auto) 8.1 L (20-40) % [place] % (Auto) 4.2 (2-11) % Eos % (Auto) 0.1 (0-4) % Baso % (Auto) 0.2 (0-2) % Lymph # (Auto) 1.5 (1.2-4.9) X10*3/uL [place] # (Auto) 0.8 (0.1-1.2) X10*3/uL Eos # (Auto) 0.0 (0.0-0.4) X10*3/uL Baso # (Auto) 0.0 (0.0-0.2) X10*3/uL Abs Immat Gran (auto) 0.09 H (0.00-0.03) X10*3/uL Absolute Neuts (auto) 16.2 H (2.0-8.3) x10*3/uL Absolute Nucleated RBC 0.000 (0.0-0.012) X10*3/uL Nucleated RBC % (auto) 0.0 (0.0-0.2) /100WBC VBG pH (7.32-7.43) VBG pCO2 mmHg VBG pO2 mmHg VBG HCO3 (22-26) mmol/L VBG O2 Saturation % VBG Base Excess mmol/L Sodium 132 L (135-145) mmol/L Potassium 5.0 D (3.3-5.1) mmol/L Chloride 98 (96-108) mmol/L Carbon Dioxide 23 (22-29) mmol/L Anion Gap 16 (12-20) BUN 21 H (9-16) mg/dL Creatinine 1.30 (0.5-1.4) mg/dL Estim Creat Clear Calc 74.5 Estimated GFR 59 POC Glucose (60-115) mg/dL Random Glucose 415 H* (60-115) mg/dL Lactic Acid 1.7 (0.5-2.0) mmol/L Calcium 10.1 D (8.4-10.2) mg/dL Magnesium 1.7 (1.6-2.6) mg/dL Total Bilirubin 0.7 (0.0-1.0) mg/dL AST 20 (5-37) U/L ALT 35 (0-40) U/L Alkaline Phosphatase 90 (39-117) U/L Total Protein 7.7 D (6.5-8.0) g/dL Albumin 4.2 D (3.5-5.0) g/dL Lipase 25 (8-78) U/L Urine Color Urine Appearance Urine pH (5.0-8.0) Ur Specific [place] (1.005-1.025) Urine Protein (NEG-TRACE) MG/DL Urine Glucose (UA) (NEG) MG/DL Urine Ketones (NEG) MG/DL Urine Blood (NEG) Urine Nitrite (NEG) Ur Leukocyte Esterase (NEG) Urine RBC (0) /HPF Urine WBC (0-4) /HPF Ur Squamous Epith Cells /LPF Urine Bacteria /LPF Acetone, Qual Negative (Negative) COVID-19 ([facility]) (Negative) COVID-19 Clin Com 09/19/21 09/19/21 09/19/21 Range/Units 14:22 14:24 16:12 WBC (4.8-10.8) X10*3/uL RBC (4.60-5.80) X10*6/uL Hgb (14.0-18.0) g/dl Hct (42.0-52.0) % MCV (80.0-98.0) fL MCH (27.0-33.0) pg MCHC (31.0-36.0) g/dl RDW (11.0-16.0) % Plt Count (160-400) X10*3/uL MPV (9.4-12.4) fL Immature Gran % (Auto) (0.0-0.4) % Neut % (Auto) (45-73) % Lymph % (Auto) (20-40) % [place] % (Auto) (2-11) % Eos % (Auto) (0-4) % Baso % (Auto) (0-2) % Lymph # (Auto) (1.2-4.9) X10*3/uL [place] # (Auto) (0.1-1.2) X10*3/uL Eos # (Auto) (0.0-0.4) X10*3/uL Baso # (Auto) (0.0-0.2) X10*3/uL Abs Immat Gran (auto) (0.00-0.03) X10*3/uL Absolute Neuts (auto) (2.0-8.3) x10*3/uL Absolute Nucleated RBC (0.0-0.012) X10*3/uL Nucleated RBC % (auto) (0.0-0.2) /100WBC VBG pH 7.32 (7.32-7.43) VBG pCO2 44 mmHg VBG pO2 38 mmHg VBG HCO3 23 (22-26) mmol/L VBG O2 Saturation 51.0 % VBG Base Excess -3.0 mmol/L Sodium (135-145) mmol/L Potassium (3.3-5.1) mmol/L Chloride (96-108) mmol/L Carbon Dioxide (22-29) mmol/L Anion Gap (12-20) BUN (9-16) mg/dL Creatinine (0.5-1.4) mg/dL Estim Creat Clear Calc Estimated GFR POC Glucose (60-115) mg/dL Random Glucose (60-115) mg/dL Lactic Acid (0.5-2.0) mmol/L Calcium (8.4-10.2) mg/dL Magnesium (1.6-2.6) mg/dL Total Bilirubin (0.0-1.0) mg/dL AST (5-37) U/L ALT (0-40) U/L Alkaline Phosphatase (39-117) U/L Total Protein (6.5-8.0) g/dL Albumin (3.5-5.0) g/dL Lipase (8-78) U/L Urine Color YELLOW Urine Appearance CLEAR Urine pH 5.0 (5.0-8.0) Ur Specific [place] 1.010 (1.005-1.025) Urine Protein NEG (NEG-TRACE) MG/DL Urine Glucose (UA) >=1000 H (NEG) MG/DL Urine Ketones 5 (NEG) MG/DL Urine Blood NEG (NEG) Urine Nitrite NEG (NEG) Ur Leukocyte Esterase NEG (NEG) Urine RBC 0 (0) /HPF Urine WBC 0-2 (0-4) /HPF Ur Squamous Epith Cells TRACE /LPF Urine Bacteria NONE /LPF Acetone, Qual (Negative) COVID-19 ([facility]) Negative (Negative) COVID-19 Clin Com See Note 09/19/21 Range/Units 17:34 WBC (4.8-10.8) X10*3/uL RBC (4.60-5.80) X10*6/uL Hgb (14.0-18.0) g/dl Hct (42.0-52.0) % MCV (80.0-98.0) fL MCH (27.0-33.0) pg MCHC (31.0-36.0) g/dl RDW (11.0-16.0) % Plt Count (160-400) X10*3/uL MPV (9.4-12.4) fL Immature Gran % (Auto) (0.0-0.4) % Neut % (Auto) (45-73) % Lymph % (Auto) (20-40) % [place] % (Auto) (2-11) % Eos % (Auto) (0-4) % Baso % (Auto) (0-2) % Lymph # (Auto) (1.2-4.9) X10*3/uL [place] # (Auto) (0.1-1.2) X10*3/uL Eos # (Auto) (0.0-0.4) X10*3/uL Baso # (Auto) (0.0-0.2) X10*3/uL Abs Immat Gran (auto) (0.00-0.03) X10*3/uL Absolute Neuts (auto) (2.0-8.3) x10*3/uL Absolute Nucleated RBC (0.0-0.012) X10*3/uL Nucleated RBC % (auto) (0.0-0.2) /100WBC VBG pH (7.32-7.43) VBG pCO2 mmHg VBG pO2 mmHg VBG HCO3 (22-26) mmol/L VBG O2 Saturation % VBG Base Excess mmol/L Sodium (135-145) mmol/L Potassium (3.3-5.1) mmol/L Chloride (96-108) mmol/L Carbon Dioxide (22-29) mmol/L Anion Gap (12-20) BUN (9-16) mg/dL Creatinine (0.5-1.4) mg/dL Estim Creat Clear Calc Estimated GFR POC Glucose 288 H (60-115) mg/dL Random Glucose (60-115) mg/dL Lactic Acid (0.5-2.0) mmol/L Calcium (8.4-10.2) mg/dL Magnesium (1.6-2.6) mg/dL Total Bilirubin (0.0-1.0) mg/dL AST (5-37) U/L ALT (0-40) U/L Alkaline Phosphatase (39-117) U/L Total Protein (6.5-8.0) g/dL Albumin (3.5-5.0) g/dL Lipase (8-78) U/L Urine Color Urine Appearance Urine pH (5.0-8.0) Ur Specific [place] (1.005-1.025) Urine Protein (NEG-TRACE) MG/DL Urine Glucose (UA) (NEG) MG/DL Urine Ketones (NEG) MG/DL Urine Blood (NEG) Urine Nitrite (NEG) Ur Leukocyte Esterase (NEG) Urine RBC (0) /HPF Urine WBC (0-4) /HPF Ur Squamous Epith Cells /LPF Urine Bacteria /LPF Acetone, Qual (Negative) COVID-19 ([facility]) (Negative) COVID-19 Clin Com Discharge Plan Discharge Clinical Impression: Colitis Patient Disposition: Admitted As Inpatient
[2021-09-19] MEDS: 0.9 % Sodium Chloride 1,000 ML 999 ML IV ×2 (16:12→16:19)
[2021-09-19 16:16] VITALS: BP 119/83; PULSE 78; RESP 16; TEMP 37.7
[2021-09-19] MEDS: Piperacillin Sodium/Tazobactam 3.375 GM in 0.9 % Sodium Chloride 50 ML IV (16:19)
[2021-09-19 16:20] LABS: Venous Blood Gas Refer to POC result
[2021-09-19 16:20] LABS: VBG HCO3 23 mmol/L (22-26); VBG pCO2 44 mmHg; VBG pH 7.32 (7.32-7.43); VBG pO2 38 mmHg
[2021-09-19 17:07] LABS: Acetone, serum QL Negative (Negative)
[2021-09-19 17:39] LABS: Glucose, Whole Blood 288 mg/dL (60-115)
--- NOTE | 2021-09-19 18:17 | PHA.MEDREC ---
Pharmacy Consult ? Medication Reconciliation Pharmacy has completed the medication reconciliation. Pt poor historian, spoke to him and he said he doesn't know which medications he takes but he takes two pills in the morning. I asked him where he gets them and he said [facility], contacted [facility] and they stated he has not picked anything up since he got a 30 day supply of metformin back in January 2021 which matches the claim history. Pt did tell me he took two tylenol today.
--- NOTE | 2021-09-19 20:16 | PM.IMHP ---
History of Present Illness Date of Service: 09/19/21 Chief Complaint: Abd pain 46-year-old male with a past medical history of diabetes, history of bowel resection presented to the hospital with a chief complaint of abdominal pain. Patient reports that for the past 1 day he has been having abdominal pain associated nausea vomiting. Also had few episodes of diarrhea. Denies any blood in the stool. Patient reports that his symptoms started after he ate changes foot. Denies any urinary symptoms. Denies any fever chills cough. Denies any chest pain or palpitations. Review of all other systems is negative except mentioned above ER course: Per ER team patient noted to have abdominal tenderness; CT scan showed findings consistent with an early colitis; noted to have leukocytosis; given Zosyn. Admitted to the hospital for further management. [facility] Medical History Diabetes Diabetes mellitus Hypertension Partial small bowel obstruction Pertinent family history: denies any significant family history Surgical History History of bowel resection History of colostomy reversal History of exploratory laparotomy Social History Household Members: None Housing: Apartment Do you presently have visiting nurse or other home services: No Alcohol intake: current Alcohol intake frequency: holidays/special occasions only Patient Tobacco Use Status: Never used Tobacco Advance Directives: No Advance Directives Information Provided: No service: No Meds Allergies Allergy/AdvReac Type Severity Reaction Status Date / Time No Known Allergies Allergy Verified 09/19/21 13:55 Active Medications: Current Medications Acetaminophen (Acetaminophen 325 Mg Tablet) 650 mg PO Q6H PRN PRN Reason: Pain, Mild (Pain Scale 1-3) Enoxaparin Sodium (Enoxaparin Sodium 40 Mg/0.4 Ml Syringe) 40 mg SUBCUT Q24H YIMI Glucose (Glucose Gel 15 Gm Gel..Gram.) 15 gm PO Q15M PRN; Protocol PRN Reason: per Hypoglycemia Standing Ord. Dextrose/Sodium Chloride (D51/2ns) 1,000 mls @ 100 mls/hr IVCONT .Q10H YIMI Insulin Human Lispro (Insulin Lispro 100 Unit/Ml 3 Ml Vial) 0 unit SUBCUT QIDACHS YIMI; Protocol Melatonin (Melatonin 3 Mg Tablet) 6 mg PO BEDTIME PRN PRN Reason: Insomnia Ondansetron HCl (Ondansetron Hcl 4 Mg/2 Ml Vial) 4 mg IVPUSH Q8H PRN PRN Reason: Nausea and Vomiting Oxycodone HCl (Oxycodone Hcl Immed Release 5 Mg Tablet) 5 mg PO Q6H PRN PRN Reason: Pain, Severe (Pain Scale 7-10) Senna (Sennosides 8.6 Mg Tablet) 17.2 mg PO BEDTIME PRN PRN Reason: Constipation Sodium Chloride (0.9 % Sodium Chloride Flush 3 Ml Syringe) 3 ml IVFLUSH [facility] Home Medications Medication Instructions Recorded Confirmed Last Taken Type acetaminophen 325 mg tablet 650 mg PO Q6H PRN 09/19/21 09/19/21 09/19/21 History (Tylenol) Physical Exam Vital Signs and Narrative: Vital Signs: Last Vital Signs Temp 100 F 09/19/21 16:16 Pulse 78 09/19/21 16:16 Resp 16 09/19/21 16:16 BP 119/83 09/19/21 16:16 Pulse Ox 96 09/19/21 13:55 BMI result Body Mass Index 38.2 Gen: Appears be in no acute distress HEENT: NCAT, Moist mucosa. Pulmonary: Vesicular breath sounds, fair air entry CVS: Normal S1-S2 Abdomen: BS+, Soft, Mildly tender diffusely Extremities: Warm well perfused Neuro: Alert and awake. Results Labs CBC and Chem 7: 09/19/21 14:22 09/19/21 14:22 Labs: Laboratory Results - last 24 hr 09/19/21 09/19/21 09/19/21 14:21 14:22 14:22 MCV 87.0 MCH 29.1 MCHC 33.5 RDW 12.6 Plt Count 303 MPV 10.4 Immature Gran % (Auto) 0.5 H Neut % (Auto) 86.9 H Lymph % (Auto) 8.1 L [place] % (Auto) 4.2 Eos % (Auto) 0.1 Baso % (Auto) 0.2 Lymph # (Auto) 1.5 [place] # (Auto) 0.8 Eos # (Auto) 0.0 Baso # (Auto) 0.0 Abs Immat Gran (auto) 0.09 H Absolute Neuts (auto) 16.2 H Absolute Nucleated RBC 0.000 Nucleated RBC % (auto) 0.0 VBG pH VBG pCO2 VBG pO2 VBG HCO3 VBG O2 Saturation VBG Base Excess Anion Gap 16 Estim Creat Clear Calc 74.5 Estimated GFR 59 POC Glucose Random Glucose 415 H* Lactic Acid 1.7 Calcium 10.1 D Magnesium 1.7 Total Bilirubin 0.7 AST 20 ALT 35 Alkaline Phosphatase 90 Total Protein 7.7 D Albumin 4.2 D Lipase 25 Urine Color Urine Appearance Urine pH Ur Specific [place] Urine Protein Urine Glucose (UA) Urine Ketones Urine Blood Urine Nitrite Ur Leukocyte Esterase Urine RBC Urine WBC Ur Squamous Epith Cells Urine Bacteria Acetone, Qual Negative COVID-19 ([facility]) COVID-19 Clin Com 09/19/21 09/19/21 09/19/21 14:22 14:24 16:12 MCV MCH MCHC RDW Plt Count MPV Immature Gran % (Auto) Neut % (Auto) Lymph % (Auto) [place] % (Auto) Eos % (Auto) Baso % (Auto) Lymph # (Auto) [place] # (Auto) Eos # (Auto) Baso # (Auto) Abs Immat Gran (auto) Absolute Neuts (auto) Absolute Nucleated RBC Nucleated RBC % (auto) VBG pH 7.32 VBG pCO2 44 VBG pO2 38 VBG HCO3 23 VBG O2 Saturation 51.0 VBG Base Excess -3.0 Anion Gap Estim Creat Clear Calc Estimated GFR POC Glucose Random Glucose Lactic Acid Calcium Magnesium Total Bilirubin AST ALT Alkaline Phosphatase Total Protein Albumin Lipase Urine Color YELLOW Urine Appearance CLEAR Urine pH 5.0 Ur Specific [place] 1.010 Urine Protein NEG Urine Glucose (UA) >=1000 H Urine Ketones 5 Urine Blood NEG Urine Nitrite NEG Ur Leukocyte Esterase NEG Urine RBC 0 Urine WBC 0-2 Ur Squamous Epith Cells TRACE Urine Bacteria NONE Acetone, Qual COVID-19 ([facility]) Negative COVID-19 Clin Com See Note 09/19/21 17:34 MCV MCH MCHC RDW Plt Count MPV Immature Gran % (Auto) Neut % (Auto) Lymph % (Auto) [place] % (Auto) Eos % (Auto) Baso % (Auto) Lymph # (Auto) [place] # (Auto) Eos # (Auto) Baso # (Auto) Abs Immat Gran (auto) Absolute Neuts (auto) Absolute Nucleated RBC Nucleated RBC % (auto) VBG pH VBG pCO2 VBG pO2 VBG HCO3 VBG O2 Saturation VBG Base Excess Anion Gap Estim Creat Clear Calc Estimated GFR POC Glucose 288 H Random Glucose Lactic Acid Calcium Magnesium Total Bilirubin AST ALT Alkaline Phosphatase Total Protein Albumin Lipase Urine Color Urine Appearance Urine pH Ur Specific [place] Urine Protein Urine Glucose (UA) Urine Ketones Urine Blood Urine Nitrite Ur Leukocyte Esterase Urine RBC Urine WBC Ur Squamous Epith Cells Urine Bacteria Acetone, Qual COVID-19 ([facility]) COVID-19 Clin Com Imaging Radiologist's Impressions: Impressions Chest X-Ray 09/19/21 16:00 IMPRESSION: Unremarkable chest examination. Abdomen/Pelvis CT 09/19/21 16:11 IMPRESSION: 1. Mild descending/sigmoid colon wall thickening with minimal adjacent stranding which could represent very early colitis in the appropriate clinical setting. An infectious or inflammatory process could be considered. An ischemic etiology is felt less likely. No evidence of perforation or abscess formation. 2. Additional chronic findings are unchanged. Fleischner guidelines were followed. Assessment and Plan (1) Colitis: Status: Acute (2) Diabetes mellitus: Status: Acute Plan 46-year-old male with a past medical history of diabetes, history of bowel resection presented to the hospital with a chief complaint of abdominal pain. noted to have early colitis. Admitted for further management. Colitis: Will continue the patient on Zosyn NPO Gentle IV fluids Pain control Diabetes: Insulin sliding scale DVT prophylaxis: Lovenox Code status: Full code Quality Stroke Does the patient have a stroke diagnosis?: No VTE Prior VTE?: No VTE Risk Level:: Medical - moderate - high VTE Device Contraindication: Treatment Not Indicated VTE Drug Contraindication: N/A - Med Ordered
[2021-09-19 20:30] VITALS: TEMP 39.6
[2021-09-19] MEDS: Acetaminophen 325 MG TABLET 650 MG PO (20:56)
[2021-09-19] MEDS: Dextrose 5 % and 0.45 % NaCl 1,000 ML 100 ML IVCONT (21:00)
[2021-09-19] MEDS: Enoxaparin Sodium 40 MG/0.4 ML SYRINGE SUBCUT (21:30)
[2021-09-19] MEDS: Insulin Lispro 100 UNIT/ML 3 ML VIAL SUBCUT (21:45)
[2021-09-19 22:58] VITALS: BP 131/80; PULSE 101; RESP 16; TEMP 37.8
[2021-09-20] VITALS (8 sets, daily range): BP systolic 97–149; BP diastolic 65–89; PULSE 101–118; RESP 16–20; TEMP 36.5–37.7; O2SAT 93–98
[2021-09-20 00:16] LABS: Glucose, Whole Blood 233 mg/dL (60-115)
[2021-09-20] MEDS: Piperacillin Sodium/Tazobactam 3.375 GM in 0.9 % Sodium Chloride 50 ML IV ×5 (00:20→22:54)
[2021-09-20] MEDS: oxyCODONE HCl Immed Release 5 MG TABLET PO ×3 (00:24→23:32)
[2021-09-20] MEDS: ondansetron HCL 4 MG/2 ML VIAL IVPUSH (00:35)
[2021-09-20 04:55] LABS: MANUAL DIFF FLAG NO
[2021-09-20 04:57] LABS: Basophils Percent Auto 0.3 % (0-2); Hematocrit 43.1 % (42.0-52.0); Hemoglobin 13.9 g/dl (14.0-18.0); Imm Gran Abs Auto 0.05 X10*3/uL (0.00-0.03); Imm Gran Pct Auto 0.4 % (0.0-0.4); Lymphocytes Absolute Auto 1.6 X10*3/uL (1.2-4.9); Lymphocytes Percent Auto 13.6 % (20-40); Mean Corpuscular HGB Conc 32.3 g/dl (31.0-36.0); Mean Corpuscular Hemoglobin 28.7 pg (27.0-33.0); Mean Platelet Volume 10.3 fL (9.4-12.4); Monocytes Absolute Auto 0.7 X10*3/uL (0.1-1.2); Monocytes Percent Auto 5.6 % (2-11); Neutrophils Absolute Auto 9.5 x10*3/uL (2.0-8.3); Neutrophils Percent Auto 80.1 % (45-73); Platelet Count 239 X10*3/uL (160-400); Red Blood Count 4.84 X10*6/uL (4.60-5.80); Red Cell Distribution Width 12.8 % (11.0-16.0); White Blood Count 11.9 X10*3/uL (4.8-10.8)
[2021-09-20 05:13] LABS: Anion Gap 14 (12-20); Blood Urea Nitrogen 12 mg/dL (9-16); Calcium 8.9 mg/dL (8.4-10.2); Carbon Dioxide 23 mmol/L (22-29); Chloride 100 mmol/L (96-108); Creatinine Clr Calc Pharmacy 105.3; Estimated Glomerular Filt Rate > 60; Glucose Random 267 mg/dL (60-115); Potassium 3.8 mmol/L (3.3-5.1); Sodium 133 mmol/L (135-145)
[2021-09-20] MEDS: Acetaminophen 325 MG TABLET 650 MG PO ×3 (05:20→22:38)
[2021-09-20] MEDS: Melatonin 3 MG TABLET 6 MG PO (05:20)
--- NOTE | 2021-09-20 05:20 | PC.NURSE ---
Pt requesting medication for a KING and to sleep. Pt medicated with PRNs per request. Pt resting in bed, IVF infusing easily. Continue to monitor.
[2021-09-20] MEDS: Insulin Lispro 100 UNIT/ML 3 ML VIAL SUBCUT ×4 (09:20→21:52)
--- NOTE | 2021-09-20 12:44 | P.PNIM_ITS ---
Subjective Subjective Date of Service: 09/20/21 Interval History: f/u on colitis, he is reporting multiple bouts of diarrhea and hasn't been eating yet Review of Systems some abdominal pain diarrhea Physical Exam Vital Signs: Vital Signs: Last Vital Signs Temp 100.0 F 09/19/21 22:58 Pulse 101 H 09/20/21 04:14 Resp 16 09/20/21 04:14 BP 130/82 09/20/21 04:14 Pulse Ox 96 09/20/21 04:14 BMI result Body Mass Index 38.2 Const: Other: General: AO X 3, no acute distress Resp: CTA bilateral CVS: S1,S2,RRR GI: +BS, NT, mild tenderness Skin: No rash Neuro: motor grossly intact Psych: appropriate affect Objective Data Active Medications Acetaminophen (Acetaminophen 325 Mg Tablet) 650 mg PO Q6H PRN PRN Reason: Pain, Mild (Pain Scale 1-3) Last Admin: 09/20/21 05:20 Dose: 650 mg Documented by: JENAE Dextrose (Dextrose 50 % 25 Gm/50 Ml Syringe) 25 gm IVPUSH Q15M PRN; Protocol PRN Reason: per Hypoglycemia Standing Ord. Enoxaparin Sodium (Enoxaparin Sodium 40 Mg/0.4 Ml Syringe) 40 mg SUBCUT Q24H [facility] Last Admin: 09/19/21 21:30 Dose: 40 mg Documented by: CAMERON Glucose (Glucose Gel 15 Gm Gel..Gram.) 15 gm PO Q15M PRN; Protocol PRN Reason: per Hypoglycemia Standing Ord. Dextrose/Sodium Chloride (D51/2ns) 1,000 mls @ 100 mls/hr IVCONT .Q10H [facility] Last Admin: 09/20/21 07:25 Dose: Not Given Documented by: AFUA Non-Admin Reason: IV Running Piperacillin Sod/Tazobactam (Sod 3.375 gm/ Sodium Chloride) 50 mls @ 100 mls/hr IV Q6H [facility] Last Admin: 09/20/21 09:20 Dose: 100 mls/hr Documented by: AFUA Insulin Human Lispro (Insulin Lispro 100 Unit/Ml 3 Ml Vial) 0 unit SUBCUT QIDACHS [facility]; Protocol Last Admin: 09/20/21 09:20 Dose: 6 unit Documented by: AFUA Melatonin (Melatonin 3 Mg Tablet) 6 mg PO BEDTIME PRN PRN Reason: Insomnia Last Admin: 09/20/21 05:20 Dose: 6 mg Documented by: JENAE Ondansetron HCl (Ondansetron Hcl 4 Mg/2 Ml Vial) 4 mg IVPUSH Q8H PRN PRN Reason: Nausea and Vomiting Last Admin: 09/20/21 00:35 Dose: 4 mg Documented by: CAMERON Oxycodone HCl (Oxycodone Hcl Immed Release 5 Mg Tablet) 5 mg PO Q6H PRN PRN Reason: Pain, Severe (Pain Scale 7-10) Last Admin: 09/20/21 00:24 Dose: 5 mg Documented by: CAMERON Senna (Sennosides 8.6 Mg Tablet) 17.2 mg PO BEDTIME PRN PRN Reason: Constipation Sodium Chloride (0.9 % Sodium Chloride Flush 3 Ml Syringe) 3 ml IVFLUSH QSHIFT [facility] Last Admin: 09/20/21 09:20 Dose: Not Given Documented by: AFUA Non-Admin Reason: IV Running Labs CBC & Chem 7: 09/20/21 04:48 09/20/21 04:48 Labs: Laboratory Results - last 24 hr 09/19/21 09/19/21 09/19/21 14:21 14:22 14:22 MCV 87.0 MCH 29.1 MCHC 33.5 RDW 12.6 Plt Count 303 MPV 10.4 Immature Gran % (Auto) 0.5 H Neut % (Auto) 86.9 H Lymph % (Auto) 8.1 L [place] % (Auto) 4.2 Eos % (Auto) 0.1 Baso % (Auto) 0.2 Lymph # (Auto) 1.5 [place] # (Auto) 0.8 Eos # (Auto) 0.0 Baso # (Auto) 0.0 Abs Immat Gran (auto) 0.09 H Absolute Neuts (auto) 16.2 H Absolute Nucleated RBC 0.000 Nucleated RBC % (auto) 0.0 VBG pH VBG pCO2 VBG pO2 VBG HCO3 VBG O2 Saturation VBG Base Excess Anion Gap 16 Estim Creat Clear Calc 74.5 Estimated GFR 59 POC Glucose Random Glucose 415 H* Lactic Acid 1.7 Calcium 10.1 D Magnesium 1.7 Total Bilirubin 0.7 AST 20 ALT 35 Alkaline Phosphatase 90 Total Protein 7.7 D Albumin 4.2 D Lipase 25 Urine Color Urine Appearance Urine pH Ur Specific [place] Urine Protein Urine Glucose (UA) Urine Ketones Urine Blood Urine Nitrite Ur Leukocyte Esterase Urine RBC Urine WBC Ur Squamous Epith Cells Urine Bacteria Acetone, Qual Negative COVID-19 ([facility]) COVID-19 Clin Com 09/19/21 09/19/21 09/19/21 14:22 14:24 16:12 MCV MCH MCHC RDW Plt Count MPV Immature Gran % (Auto) Neut % (Auto) Lymph % (Auto) [place] % (Auto) Eos % (Auto) Baso % (Auto) Lymph # (Auto) [place] # (Auto) Eos # (Auto) Baso # (Auto) Abs Immat Gran (auto) Absolute Neuts (auto) Absolute Nucleated RBC Nucleated RBC % (auto) VBG pH 7.32 VBG pCO2 44 VBG pO2 38 VBG HCO3 23 VBG O2 Saturation 51.0 VBG Base Excess -3.0 Anion Gap Estim Creat Clear Calc Estimated GFR POC Glucose Random Glucose Lactic Acid Calcium Magnesium Total Bilirubin AST ALT Alkaline Phosphatase Total Protein Albumin Lipase Urine Color YELLOW Urine Appearance CLEAR Urine pH 5.0 Ur Specific [place] 1.010 Urine Protein NEG Urine Glucose (UA) >=1000 H Urine Ketones 5 Urine Blood NEG Urine Nitrite NEG Ur Leukocyte Esterase NEG Urine RBC 0 Urine WBC 0-2 Ur Squamous Epith Cells TRACE Urine Bacteria NONE Acetone, Qual COVID-19 ([facility]) Negative COVID-19 Clin Com See Note 09/19/21 09/20/21 09/20/21 17:34 00:11 04:48 MCV 89.0 MCH 28.7 MCHC 32.3 RDW 12.8 Plt Count 239 MPV 10.3 Immature Gran % (Auto) 0.4 Neut % (Auto) 80.1 H Lymph % (Auto) 13.6 L [place] % (Auto) 5.6 Eos % (Auto) 0.0 Baso % (Auto) 0.3 Lymph # (Auto) 1.6 [place] # (Auto) 0.7 Eos # (Auto) 0.0 Baso # (Auto) 0.0 Abs Immat Gran (auto) 0.05 H Absolute Neuts (auto) 9.5 H Absolute Nucleated RBC 0.000 Nucleated RBC % (auto) 0.0 VBG pH VBG pCO2 VBG pO2 VBG HCO3 VBG O2 Saturation VBG Base Excess Anion Gap Estim Creat Clear Calc Estimated GFR POC Glucose 288 H 233 H Random Glucose Lactic Acid Calcium Magnesium Total Bilirubin AST ALT Alkaline Phosphatase Total Protein Albumin Lipase Urine Color Urine Appearance Urine pH Ur Specific [place] Urine Protein Urine Glucose (UA) Urine Ketones Urine Blood Urine Nitrite Ur Leukocyte Esterase Urine RBC Urine WBC Ur Squamous Epith Cells Urine Bacteria Acetone, Qual COVID-19 ([facility]) COVID-19 Clin Com 09/20/21 04:48 MCV MCH MCHC RDW Plt Count MPV Immature Gran % (Auto) Neut % (Auto) Lymph % (Auto) [place] % (Auto) Eos % (Auto) Baso % (Auto) Lymph # (Auto) [place] # (Auto) Eos # (Auto) Baso # (Auto) Abs Immat Gran (auto) Absolute Neuts (auto) Absolute Nucleated RBC Nucleated RBC % (auto) VBG pH VBG pCO2 VBG pO2 VBG HCO3 VBG O2 Saturation VBG Base Excess Anion Gap 14 Estim Creat Clear Calc 105.3 Estimated GFR > 60 POC Glucose Random Glucose 267 H D Lactic Acid Calcium 8.9 D Magnesium Total Bilirubin AST ALT Alkaline Phosphatase Total Protein Albumin Lipase Urine Color Urine Appearance Urine pH Ur Specific [place] Urine Protein Urine Glucose (UA) Urine Ketones Urine Blood Urine Nitrite Ur Leukocyte Esterase Urine RBC Urine WBC Ur Squamous Epith Cells Urine Bacteria Acetone, Qual COVID-19 ([facility]) COVID-19 Clin Com Assessment and Plan (1) Colitis: Status: Acute (2) Diabetes mellitus: Status: Acute Plan 46-year-old male with a past medical history of diabetes, history of bowel resection presented to the hospital with a chief complaint of abdominal pain. ? noted to have early colitis.? Admitted for further management.? Colitis: Will continue the patient on Zosyn, add flagyl C dif pending advance diet Gentle IV fluids Pain control Diabetes: Insulin sliding scale Quality Stroke Does the patient have a stroke diagnosis?: No VTE Prior VTE?: No VTE Risk Level:: Medical - moderate - high VTE Device Contraindication: Treatment Not Indicated VTE Drug Contraindication: N/A - Med Ordered
[2021-09-20 13:51] LABS: Glucose, Whole Blood 191 mg/dL (60-115)
[2021-09-20] MEDS: metroNIDAZOLE/NS 500 MG/100 ML PIGGYBACK 100 MG IV ×2 (14:06→21:52)
[2021-09-20 16:09] LABS: Glucose, Whole Blood 319 mg/dL (60-115)
[2021-09-20 16:59] LABS: Leukocytes Stool Qualitative FEW: < 2/OIF (NEGATIVE)
[2021-09-20 17:06] LABS: CDiff Gene PCR NEGATIVE (Negative)
[2021-09-20] MEDS: Dextrose 5 % and 0.45 % NaCl 1,000 ML 100 ML IVCONT (17:25)
[2021-09-20 19:48] LABS: Glucose, Whole Blood 329 mg/dL (60-115)
[2021-09-20] MEDS: Enoxaparin Sodium 40 MG/0.4 ML SYRINGE SUBCUT (21:51)
[2021-09-20] MEDS: 0.9 % Sodium Chloride Flush 3 ML SYRINGE IVFLUSH (21:52)
[2021-09-21 03:27] VITALS: BP 134/81; PULSE 89; RESP 17; TEMP 36.5; O2SAT 98
[2021-09-21] MEDS: Piperacillin Sodium/Tazobactam 3.375 GM in 0.9 % Sodium Chloride 50 ML IV ×4 (04:03→22:06)
--- NOTE | 2021-09-21 04:27 | PC.NURSE ---
Pt reported frequent diarrhea and a headache, feverish at 99.7, also noted with POC at dinner and bedtime as 319 and 329 respectively, pt is tolerating po and with cont D5 1/2 NSS at 100ml/hr, Dr. Tony was updated and said to hold IVF for now, prn Tylenol po tolerated, with minimal effect, prn Oxycodone po given, Lispro given accordingly, slept at intervals.
[2021-09-21] MEDS: metroNIDAZOLE/NS 500 MG/100 ML PIGGYBACK 100 MG IV ×3 (04:37→20:40)
[2021-09-21 07:08] VITALS: BP 129/75; PULSE 101; RESP 18; TEMP 36.3; O2SAT 95
[2021-09-21 07:28] LABS: Glucose, Whole Blood 236 mg/dL (60-115)
[2021-09-21] MEDS: Insulin Lispro 100 UNIT/ML 3 ML VIAL SUBCUT ×4 (09:38→20:40)
[2021-09-21] MEDS: 0.9 % Sodium Chloride Flush 3 ML SYRINGE IVFLUSH ×3 (09:39→20:40)
[2021-09-21] MEDS: oxyCODONE HCl Immed Release 5 MG TABLET PO ×2 (09:42→22:59)
[2021-09-21 11:14] VITALS: BP 120/74; PULSE 87; RESP 18; TEMP 36.4; O2SAT 95
[2021-09-21] MEDS: Loperamide HCl 2 MG CAPSULE PO ×2 (11:30→17:36)
[2021-09-21 11:42] LABS: Glucose, Whole Blood 316 mg/dL (60-115)
--- NOTE | 2021-09-21 13:48 | MHC.CLN ---
NUTRITION DIET CHANGED TO DIABETIC 2000 KCAL.
[2021-09-21 15:14] VITALS: BP 121/82; PULSE 89; RESP 18; TEMP 36.9; O2SAT 98
--- NOTE | 2021-09-21 15:16 | MHC.CM.PN ---
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
[2021-09-21 16:17] LABS: Glucose, Whole Blood 227 mg/dL (60-115)
[2021-09-21] MEDS: Acetaminophen 325 MG TABLET 650 MG PO (17:35)
--- NOTE | 2021-09-21 18:09 | P.PNIM_ITS ---
Subjective Subjective Date of Service: 09/21/21 Interval History: Colitis Review of Systems patient has significant abdominal pain, still unable to tolerate diet has nausea Physical Exam Vital Signs: Vital Signs: Last Vital Signs Temp 98.4 F 09/21/21 15:14 Pulse 89 09/21/21 15:14 Resp 18 09/21/21 15:14 BP 121/82 09/21/21 15:14 Pulse Ox 98 09/21/21 15:14 BMI result Body Mass Index 38.2 General: AO X 3, no acute distress Resp:? CTA bilateral CVS: S1,S2,RRR GI: +BS, NT, abdominal pain similar to yesterday., no rebound or guarding Skin: No rash Neuro:? motor grossly intact Psych: appropriate affect Objective Data Active Medications Acetaminophen (Acetaminophen 325 Mg Tablet) 650 mg PO Q6H PRN PRN Reason: Pain, Mild (Pain Scale 1-3) Last Admin: 09/21/21 17:35 Dose: 650 mg Documented by: CHERI Dextrose (Dextrose 50 % 25 Gm/50 Ml Syringe) 25 gm IVPUSH Q15M PRN; Protocol PRN Reason: per Hypoglycemia Standing Ord. Enoxaparin Sodium (Enoxaparin Sodium 40 Mg/0.4 Ml Syringe) 40 mg SUBCUT Q24H [facility] Last Admin: 09/20/21 21:51 Dose: 40 mg Documented by: DACIAM Glucose (Glucose Gel 15 Gm Gel..Gram.) 15 gm PO Q15M PRN; Protocol PRN Reason: per Hypoglycemia Standing Ord. Dextrose/Sodium Chloride (D51/2ns) 1,000 mls @ 100 mls/hr IVCONT .Q10H [facility] Last Admin: 09/21/21 11:10 Dose: Not Given Documented by: CHERI Non-Admin Reason: DC Piperacillin Sod/Tazobactam (Sod 3.375 gm/ Sodium Chloride) 50 mls @ 100 mls/hr IV Q6H [facility] Last Admin: 09/21/21 17:36 Dose: 100 mls/hr Documented by: CHERI Metronidazole (Flagyl) 500 mg in 100 mls @ 100 mls/hr IV Q8H [facility] Last Infusion: 09/21/21 14:25 Dose: 0 mls/hr Documented by: CHERI Insulin Human Lispro (Insulin Lispro 100 Unit/Ml 3 Ml Vial) [facility]; Protocol Last Admin: 09/21/21 17:36 Dose: 4 unit Documented by: CHERI Loperamide HCl (Loperamide Hcl 2 Mg Capsule) 2 mg PO Q4H PRN PRN Reason: diarrahe Last Admin: 09/21/21 17:36 Dose: 2 mg Documented by: CHERI Melatonin (Melatonin 3 Mg Tablet) 6 mg PO BEDTIME PRN PRN Reason: Insomnia Last Admin: 09/20/21 05:20 Dose: 6 mg Documented by: JENAE Ondansetron HCl (Ondansetron Hcl 4 Mg/2 Ml Vial) 4 mg IVPUSH Q8H PRN PRN Reason: Nausea and Vomiting Last Admin: 09/20/21 00:35 Dose: 4 mg Documented by: CAMERON Oxycodone HCl (Oxycodone Hcl Immed Release 5 Mg Tablet) 5 mg PO Q6H PRN PRN Reason: Pain, Severe (Pain Scale 7-10) Last Admin: 09/21/21 09:42 Dose: 5 mg Documented by: CHERI Senna (Sennosides 8.6 Mg Tablet) 17.2 mg PO BEDTIME PRN PRN Reason: Constipation Sodium Chloride (0.9 % Sodium Chloride Flush 3 Ml Syringe) 3 ml [facility] Last Admin: 09/21/21 17:36 Dose: 3 ml Documented by: CHERI Labs CBC & Chem 7: 09/20/21 04:48 09/20/21 04:48 Labs: Laboratory Results - last 24 hr 09/20/21 09/20/21 09/21/21 15:45 19:27 07:12 POC Glucose 329 H 236 H C. difficile Tox B Gene Cancelled 09/21/21 09/21/21 11:17 15:17 POC Glucose 316 H 227 H C. difficile Tox B Gene Microbiology Microbiology Results: Microbiology 09/19/21 14:21 Blood Culture - Preliminary Blood - Venous No growth after 48 hours. 09/19/21 14:30 Blood Culture - Preliminary Blood - Venous No growth after 48 hours. 09/20/21 15:45 Stool Culture - Preliminary Stool Culture in progress. Assessment and Plan (1) Colitis: Status: Acute (2) Diabetes mellitus: Status: Acute Plan 46-year-old male with a past medical history of diabetes, history of bowel resection presented to the hospital with a chief complaint of abdominal pain. ? noted to have early colitis.? Admitted for further management.? Colitis: Still persistent nausea, abdominal pain and unable to tolerate diet yet Will continue the patient on Zosyn, add flagyl C diff negative, stool WBC less than 2, stool culture pending. advance diet As tolerates may need GI evaluation if does not improve. Gentle IV fluids Pain control Diabetes:may need adjusted Insulin sliding scale:fs 200-300 inpatient need: Colitis On IV antibiotics, not tolerating diet yet. Quality Stroke Does the patient have a stroke diagnosis?: No VTE Prior VTE?: No VTE Risk Level:: Medical - moderate - high VTE Device Contraindication: Treatment Not Indicated VTE Drug Contraindication: N/A - Med Ordered
[2021-09-21 19:42] VITALS: BP 125/66; PULSE 90; RESP 18; TEMP 36.7; O2SAT 98
[2021-09-21 20:06] LABS: Glucose, Whole Blood 304 mg/dL (60-115)
[2021-09-21] MEDS: Enoxaparin Sodium 40 MG/0.4 ML SYRINGE SUBCUT (20:40)
[2021-09-21 23:30] VITALS: BP 125/78; PULSE 89; RESP 18; TEMP 37.1; O2SAT 96
[2021-09-22 04:00] VITALS: BP 129/76; PULSE 87; RESP 17; TEMP 37.1; O2SAT 96
[2021-09-22] MEDS: Piperacillin Sodium/Tazobactam 3.375 GM in 0.9 % Sodium Chloride 50 ML IV ×4 (04:04→22:27)
[2021-09-22] MEDS: metroNIDAZOLE/NS 500 MG/100 ML PIGGYBACK 100 MG IV ×3 (04:43→22:27)
[2021-09-22 07:12] VITALS: BP 140/80; PULSE 76; RESP 18; TEMP 37.3; O2SAT 97
[2021-09-22 07:46] LABS: Glucose, Whole Blood 217 mg/dL (60-115)
--- NOTE | 2021-09-22 08:12 | P.PNIM_ITS ---
Subjective Subjective Date of Service: 09/22/21 Interval History: colitis Review of Systems still has diarrhea and abdominal pain with every time he eats. Patient was so switched back to p.o. full liquid diet denies any fever or chills or any other complaints. Physical Exam Vital Signs: Vital Signs: Last Vital Signs Temp 99.2 F 09/22/21 07:12 Pulse 76 09/22/21 07:12 Resp 18 09/22/21 07:12 BP 140/80 H 09/22/21 07:12 Pulse Ox 97 09/22/21 07:12 BMI result Body Mass Index 38.2 General: AO X 3, no acute distress Resp:? CTA bilateral CVS: S1,S2,RRR GI: +BS, NT,? abdominal pain similar to yesterday, no rebound or guarding Skin: No rash Neuro:? motor grossly intact Psych: appropriate affect Objective Data Active Medications Acetaminophen (Acetaminophen 325 Mg Tablet) 650 mg PO Q6H PRN PRN Reason: Pain, Mild (Pain Scale 1-3) Last Admin: 09/21/21 17:35 Dose: 650 mg Documented by: CHERI Dextrose (Dextrose 50 % 25 Gm/50 Ml Syringe) 25 gm IVPUSH Q15M PRN; Protocol PRN Reason: per Hypoglycemia Standing Ord. Enoxaparin Sodium (Enoxaparin Sodium 40 Mg/0.4 Ml Syringe) 40 mg SUBCUT Q24H [facility] Last Admin: 09/21/21 20:40 Dose: 40 mg Documented by: ROLAND Glucose (Glucose Gel 15 Gm Gel..Gram.) 15 gm PO Q15M PRN; Protocol PRN Reason: per Hypoglycemia Standing Ord. Piperacillin Sod/Tazobactam (Sod 3.375 gm/ Sodium Chloride) 50 mls @ 100 mls/hr IV Q6H [facility] Last Infusion: 09/22/21 04:41 Dose: 0 mls/hr Documented by: ROLAND Metronidazole (Flagyl) 500 mg in 100 mls @ 100 mls/hr IV Q8H [facility] Last Infusion: 09/22/21 05:49 Dose: 0 mls/hr Documented by: ROLAND Insulin Human Lispro (Insulin Lispro 100 Unit/Ml 3 Ml Vial) 0 unit SUBCUT QIDACHS [facility]; Protocol Last Admin: 09/21/21 20:40 Dose: 10 unit Documented by: ROLAND Loperamide HCl (Loperamide Hcl 2 Mg Capsule) 2 mg PO Q4H PRN PRN Reason: diarrahe Last Admin: 09/21/21 17:36 Dose: 2 mg Documented by: CHERI Melatonin (Melatonin 3 Mg Tablet) 6 mg PO BEDTIME PRN PRN Reason: Insomnia Last Admin: 09/20/21 05:20 Dose: 6 mg Documented by: JENAE Ondansetron HCl (Ondansetron Hcl 4 Mg/2 Ml Vial) 4 mg IVPUSH Q8H PRN PRN Reason: Nausea and Vomiting Last Admin: 09/20/21 00:35 Dose: 4 mg Documented by: CAMERON Oxycodone HCl (Oxycodone Hcl Immed Release 5 Mg Tablet) 5 mg PO Q6H PRN PRN Reason: Pain, Severe (Pain Scale 7-10) Last Admin: 09/21/21 22:59 Dose: 5 mg Documented by: ROLAND Senna (Sennosides 8.6 Mg Tablet) 17.2 mg PO BEDTIME PRN PRN Reason: Constipation Sodium Chloride (0.9 % Sodium Chloride Flush 3 Ml Syringe) 3 ml IVFLUSH QSHIFT [facility] Last Admin: 09/21/21 20:40 Dose: 3 ml Documented by: ROLAND Labs CBC & Chem 7: 09/20/21 04:48 09/20/21 04:48 Labs: Laboratory Results - last 24 hr 09/21/21 09/21/21 09/21/21 11:17 15:17 19:45 POC Glucose 316 H 227 H 304 H 09/22/21 07:16 POC Glucose 217 H Microbiology Microbiology Results: Microbiology 09/20/21 15:45 Stool Culture - Preliminary Stool Culture in progress. 09/19/21 14:21 Blood Culture - Preliminary Blood - Venous No growth after 48 hours. 09/19/21 14:30 Blood Culture - Preliminary Blood - Venous No growth after 48 hours. Assessment and Plan (1) Colitis: Status: Acute (2) Diabetes mellitus: Status: Acute Plan 46-year-old male with a past medical history of diabetes, history of bowel resection presented to the hospital with a chief complaint of abdominal pain. ? noted to have early colitis.? Admitted for further management.? Colitis: Still persistent nausea, abdominal pain and unable to tolerate diet yet Will continue the patient on Zosyn, add flagyl C diff negative, stool WBC less than 2, stool culture pending. advance diet As tolerates added CT abdomen with p.o. contrast may need GI evaluation if does not improve. Gentle IV fluids Pain control DiabetesWith hyperglycemia:may need adjusted Insulin sliding scale:fs 200-300 adjusted insulin Morbid obesity: Encouraged to cut down close and weight loss. inpatient need: Colitis On IV antibiotics, not tolerating diet yet. Quality Stroke Does the patient have a stroke diagnosis?: No VTE Prior VTE?: No VTE Risk Level:: Medical - moderate - high VTE Device Contraindication: Treatment Not Indicated VTE Drug Contraindication: N/A - Med Ordered
[2021-09-22] MEDS: Insulin Lispro 100 UNIT/ML 3 ML VIAL SUBCUT ×3 (08:30→16:50)
[2021-09-22] MEDS: 0.9 % Sodium Chloride Flush 3 ML SYRINGE IVFLUSH ×2 (08:31→22:42)
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
--- NOTE | 2021-09-22 09:35 | MHC.CDI.CONC ---
CDI Concurrent Query Documentation Clarification: PHYSICIAN'S DOCUMENTATION REQUEST Date of Query: 09/22/21 0935 Patient Name: Juan Vargas Admit Date: 09/19/21 Dear Doctor, A review of the medical record indicates additional documentation may be needed. Please review below and update the documentation accordingly. Clinical Indicators: Risk Factors/Clinical Indicators/Treatments PN: DM - glucose 415 H-insulin sliding scale. Vomiting, abdominal pain, not eating, diarrhea. Humalog, Glucose 50 mg IV push. Please clarify the following regarding Diabetes Mellitus (DM): Complications of DM Type 2 Hypoglycemia Hyperglycemia Gastroparesis No complications of DM Other complication ? please specify Unable to determine Use of terms such as suspected, likely, concern for, or probable (associated with a specific diagnosis that is being evaluated, monitored, or treated as if it exists) are acceptable and can be coded in the inpatient setting, when documented at the time of discharge. Thank you, Elba Sharma [facility], CDIS Extension: [phone] Please use your independent medical judgment in providing your response. THIS QUERY IS PART OF THE PERMANENT MEDICAL RECORD Provider Response: Other ( Diabetes with hyperglycemia) Other Diagnosis: dm with hyperglycemia
--- NOTE | 2021-09-22 09:38 | P.CDIC_ITS ---
CDI Concurrent Query Documentation Clarification: PHYSICIAN'S DOCUMENTATION REQUEST Date of Query: 09/22/21 0938 Patient Name: Juan Vargas Admit Date: 09/19/21 Dear Doctor, A review of the medical record indicates additional documentation may be needed. Please review below and update the documentation accordingly. Risk Factors/Clinical Indicators/Treatments BMI: 38.3 5' 4 in height If possible, please provide an associated diagnosis related to the abnormal BMI, such as: For a BMI >= 38: * Overweight * Obesity * Due to excess calories * Drug induced * Due to other cause * Severe or Morbid Obesity * With alveolar hypoventilation * Without alveolar hypoventilation Or: * BMI is not significant * Other (please specify) * Unable to determine Use of terms such as suspected, likely, concern for, or probable (associated with a specific diagnosis that is being evaluated, monitored, or treated as if it exists) are acceptable and can be coded in the inpatient setting, when documented at the time of discharge. Thank you, Elba Sharma [facility], CDIS Extension: [phone] Please use your independent medical judgment in providing your response. THIS QUERY IS PART OF THE PERMANENT MEDICAL RECORD Provider Response: Other Other Diagnosis: morbid obesity
--- NOTE | 2021-09-22 09:38 | MHC.CDI.CONC ---
CDI Concurrent Query Documentation Clarification: PHYSICIAN'S DOCUMENTATION REQUEST Date of Query: 09/22/21 0938 Patient Name: Juan Vargas Admit Date: 09/19/21 Dear Doctor, A review of the medical record indicates additional documentation may be needed. Please review below and update the documentation accordingly. Risk Factors/Clinical Indicators/Treatments BMI: 38.3 5' 4 in height If possible, please provide an associated diagnosis related to the abnormal BMI, such as: For a BMI >= 38: Overweight Obesity Due to excess calories Drug induced Due to other cause Severe or Morbid Obesity With alveolar hypoventilation Without alveolar hypoventilation Or: BMI is not significant Other (please specify) Unable to determine Use of terms such as suspected, likely, concern for, or probable (associated with a specific diagnosis that is being evaluated, monitored, or treated as if it exists) are acceptable and can be coded in the inpatient setting, when documented at the time of discharge. Thank you, Elba Sharma [facility], CDIS Extension: [phone] Please use your independent medical judgment in providing your response. THIS QUERY IS PART OF THE PERMANENT MEDICAL RECORD Provider Response: Other Other Diagnosis: morbid obesity
[2021-09-22 11:29] VITALS: BP 131/77; PULSE 81; RESP 18; TEMP 36.4; O2SAT 95
[2021-09-22 11:37] LABS: Glucose, Whole Blood 346 mg/dL (60-115)
[2021-09-22] MEDS: oxyCODONE HCl Immed Release 5 MG TABLET PO (11:52)
[2021-09-22 15:24] VITALS: BP 111/69; PULSE 92; RESP 18; TEMP 37.1; O2SAT 95
[2021-09-22 15:50] LABS: Glucose, Whole Blood 332 mg/dL (60-115)
--- NOTE | 2021-09-22 15:59 | MHC.CM.PN ---
nurse case management notecoliotis wbc count coming downm c-diff was negative patient still has complaints of abdominal pain with soloids and diarrhea. per documentation plan os to repeat ct scan of the abd with po contrast and possible mor procedure . continue on clear liquids analgeics discharge plan - home initialy no services transportation famiy /friends pcp appointment september 30 2021 at the [facility] new pcp when saúl plans to return to work will need note at discharge
[2021-09-22] MEDS: Barium Sulfate Oral (Mocha) 450 ML ORAL.SUSP 900 ML PO (16:20)
[2021-09-22 19:21] VITALS: BP 132/79; PULSE 82; RESP 18; TEMP 36.7; O2SAT 97
[2021-09-22 19:59] LABS: Glucose, Whole Blood 168 mg/dL (60-115)
[2021-09-22] MEDS: Enoxaparin Sodium 40 MG/0.4 ML SYRINGE SUBCUT (22:27)
[2021-09-22] MEDS: Loperamide HCl 2 MG CAPSULE PO (22:32)
[2021-09-23] VITALS (7 sets, daily range): BP systolic 114–133; BP diastolic 65–87; PULSE 70–76; RESP 17–18; TEMP 36.1–37.1; O2SAT 95–99
[2021-09-23] MEDS: Loperamide HCl 2 MG CAPSULE PO ×4 (04:12→20:35)
[2021-09-23] MEDS: Acetaminophen 325 MG TABLET 650 MG PO (04:12)
[2021-09-23] MEDS: Piperacillin Sodium/Tazobactam 3.375 GM in 0.9 % Sodium Chloride 50 ML IV ×4 (04:13→21:37)
[2021-09-23] MEDS: metroNIDAZOLE/NS 500 MG/100 ML PIGGYBACK 100 MG IV ×3 (04:57→20:35)
[2021-09-23 07:05] LABS: Anion Gap 14 (12-20); Blood Urea Nitrogen 8 mg/dL (9-16); Calcium 9.2 mg/dL (8.4-10.2); Carbon Dioxide 25 mmol/L (22-29); Chloride 101 mmol/L (96-108); Creatinine Clr Calc Pharmacy 98.9; Estimated Glomerular Filt Rate > 60; Glucose Random 226 mg/dL (60-115); Potassium 3.4 mmol/L (3.3-5.1); Sodium 137 mmol/L (135-145)
[2021-09-23 07:53] LABS: Glucose, Whole Blood 206 mg/dL (60-115)
--- NOTE | 2021-09-23 07:59 | P.PNIM_ITS ---
Subjective Subjective Date of Service: 09/23/21 Interval History: colitis Review of Systems abdominal pain seems seem to be improving, had 4-5 time but of diarrhea last night. Denies any fever chills or nausea vomiting Physical Exam Vital Signs: Vital Signs: Last Vital Signs Temp 97.3 F 09/23/21 07:38 Pulse 74 09/23/21 07:38 Resp 18 09/23/21 07:38 BP 124/82 09/23/21 07:38 Pulse Ox 95 09/23/21 07:38 BMI result Body Mass Index 38.2 ?General: AO X 3, no acute distress Resp:? CTA bilateral CVS: S1,S2,RRR GI: +BS, NT,? abdominal pain similar to yesterday, no rebound or guarding Skin: No rash Neuro:? motor grossly intact Psych: appropriate affect Objective Data Active Medications Acetaminophen (Acetaminophen 325 Mg Tablet) 650 mg PO Q6H PRN PRN Reason: Pain, Mild (Pain Scale 1-3) Last Admin: 09/23/21 04:12 Dose: 650 mg Documented by: CHRISTOPHER Dextrose (Dextrose 50 % 25 Gm/50 Ml Syringe) 25 gm IVPUSH Q15M PRN; Protocol PRN Reason: per Hypoglycemia Standing Ord. Enoxaparin Sodium (Enoxaparin Sodium 40 Mg/0.4 Ml Syringe) 40 mg SUBCUT Q24H [facility] Last Admin: 09/22/21 22:27 Dose: 40 mg Documented by: CHRISTOPHER Glucose (Glucose Gel 15 Gm Gel..Gram.) 15 gm PO Q15M PRN; Protocol PRN Reason: per Hypoglycemia Standing Ord. Piperacillin Sod/Tazobactam (Sod 3.375 gm/ Sodium Chloride) 50 mls @ 100 mls/hr IV Q6H [facility] Last Infusion: 09/23/21 04:58 Dose: 100 mls/hr Documented by: CHRISTOPHER Metronidazole (Flagyl) 500 mg in 100 mls @ 100 mls/hr IV Q8H [facility] Last Infusion: 09/23/21 06:02 Dose: 100 mls/hr Documented by: CHRISTOPHER Insulin Human Lispro (Insulin Lispro 100 Unit/Ml 3 Ml Vial) 0 unit SUBCUT QIDACHS [facility]; Protocol Last Admin: 09/22/21 22:27 Dose: Not Given Documented by: CHRISTOPHER Non-Admin Reason: NPO Loperamide HCl (Loperamide Hcl 2 Mg Capsule) 2 mg PO Q4H PRN PRN Reason: diarrahe Last Admin: 09/23/21 04:12 Dose: 2 mg Documented by: CHRISTOPHER Melatonin (Melatonin 3 Mg Tablet) 6 mg PO BEDTIME PRN PRN Reason: Insomnia Last Admin: 09/20/21 05:20 Dose: 6 mg Documented by: JENAE Ondansetron HCl (Ondansetron Hcl 4 Mg/2 Ml Vial) 4 mg IVPUSH Q8H PRN PRN Reason: Nausea and Vomiting Last Admin: 09/20/21 00:35 Dose: 4 mg Documented by: CAMERON Oxycodone HCl (Oxycodone Hcl Immed Release 5 Mg Tablet) 5 mg PO Q6H PRN PRN Reason: Pain, Severe (Pain Scale 7-10) Last Admin: 09/22/21 11:52 Dose: 5 mg Documented by: MERON Senna (Sennosides 8.6 Mg Tablet) 17.2 mg PO BEDTIME PRN PRN Reason: Constipation Sodium Chloride (0.9 % Sodium Chloride Flush 3 Ml Syringe) 3 ml IVFLUSH QSHIFT [facility] Last Admin: 09/22/21 22:42 Dose: 3 ml Documented by: CHRISTOPHER Labs CBC & Chem 7: 09/20/21 04:48 09/23/21 06:20 Labs: Laboratory Results - last 24 hr 09/22/21 09/22/21 09/22/21 11:32 15:27 19:30 Anion Gap Estim Creat Clear Calc Estimated GFR POC Glucose 346 H 332 H 168 H Random Glucose Calcium 09/23/21 09/23/21 06:20 07:40 Anion Gap 14 Estim Creat Clear Calc 98.9 Estimated GFR > 60 POC Glucose 206 H Random Glucose 226 H Calcium 9.2 Microbiology Microbiology Results: Microbiology 09/20/21 15:45 Stool Culture - Preliminary Stool Culture in progress. Assessment and Plan (1) Colitis: Status: Acute (2) Diabetes mellitus: Status: Acute Plan 46-year-old male with a past medical history of diabetes, history of bowel resection presented to the hospital with a chief complaint of abdominal pain. ? noted to have early colitis.? Admitted for further management.? Colitis: Still persistent nausea, abdominal pain and unable to tolerate diet yet Will continue the patient on Zosyn, add flagyl C diff negative, stool WBC less than 2, stool culture pending. CT abdomen with p.o. contrast noted- CT/CT abdomen pelvis wo con IMPRESSION: Most likely descending and sigmoid colon colitis and mesenteric adenitis. Hepatic steatosis and hepatomegaly Cyst in the left?. advance diet As tolerates, continue loperamide. Gi follow up Gentle IV fluids Pain control DiabetesWith hyperglycemia:may need adjusted Insulin sliding scale:fs 160-200's adjusted insulin Morbid obesity: Encouraged to cut down close and weight loss. inpatient need: Colitis On IV antibiotics, not tolerating diet yet. Quality Stroke Does the patient have a stroke diagnosis?: No VTE Prior VTE?: No VTE Risk Level:: Medical - moderate - high VTE Device Contraindication: Treatment Not Indicated VTE Drug Contraindication: N/A - Med Ordered
[2021-09-23] MEDS: Insulin Lispro 100 UNIT/ML 3 ML VIAL SUBCUT ×4 (09:20→21:36)
[2021-09-23] MEDS: 0.9 % Sodium Chloride Flush 3 ML SYRINGE IVFLUSH ×3 (09:21→22:28)
[2021-09-23 11:29] LABS: Glucose, Whole Blood 285 mg/dL (60-115)
[2021-09-23 15:56] LABS: Glucose, Whole Blood 196 mg/dL (60-115)
[2021-09-23] MEDS: Sucralfate 1 GM TABLET PO (20:35)
[2021-09-23] MEDS: Enoxaparin Sodium 40 MG/0.4 ML SYRINGE SUBCUT (20:36)
[2021-09-23 20:50] LABS: Glucose, Whole Blood 237 mg/dL (60-115)
[2021-09-24 03:46] VITALS: BP 120/83; PULSE 82; RESP 17; TEMP 36.7; O2SAT 98
[2021-09-24] MEDS: Piperacillin Sodium/Tazobactam 3.375 GM in 0.9 % Sodium Chloride 50 ML IV ×2 (04:41→10:34)
[2021-09-24] MEDS: Acetaminophen 325 MG TABLET 650 MG PO (04:44)
[2021-09-24] MEDS: Loperamide HCl 2 MG CAPSULE PO ×2 (04:44→10:40)
[2021-09-24] MEDS: metroNIDAZOLE/NS 500 MG/100 ML PIGGYBACK 100 MG IV (04:46)
[2021-09-24 07:19] VITALS: BP 139/86; PULSE 72; RESP 18; TEMP 36.2; O2SAT 98
[2021-09-24 07:45] LABS: Glucose, Whole Blood 186 mg/dL (60-115)
[2021-09-24] MEDS: Insulin Lispro 100 UNIT/ML 3 ML VIAL SUBCUT ×2 (08:11→11:49)
[2021-09-24] MEDS: Sucralfate 1 GM TABLET PO ×2 (08:12→11:49)
[2021-09-24] MEDS: 0.9 % Sodium Chloride Flush 3 ML SYRINGE IVFLUSH (08:14)
[2021-09-24 10:55] VITALS: BP 122/95; PULSE 74; RESP 18; TEMP 36.2; O2SAT 96
[2021-09-24 11:25] LABS: Glucose, Whole Blood 246 mg/dL (60-115)
[2021-09-24] MEDS: levoFLOXacin 500 MG TABLET PO (11:49)
--- NOTE | 2021-09-24 12:03 | PM.DS ---
DS: Providers Provider Date of Service: 09/24/21 Date of admission: 09/19/21 20:12 Primary care physician: None Physician Consults: 09/22/21 08:07 Consult to Gastroenterology Routine Consulting Provider: [facility] Reason for consultation: colitis -not improving Has provider been notified: No DS: Diagnosis Discharge Diagnosis (1) Colitis: Status: Acute (2) Diabetes mellitus: Status: Acute DS: Summary Hospital Course Hospital Course: ?46-year-old male with a past medical history of diabetes, history of bowel resection presented to the hospital with a chief complaint of abdominal pain.? Patient reports that for the past 1 day he has been having abdominal pain associated nausea vomiting.? Also had few episodes of diarrhea.? Denies any blood in the stool.? Patient reports that his symptoms started after he ate changes foot.? Denies any urinary symptoms.? Denies any fever chills cough.? Denies any chest pain or palpitations.? Review of all other systems is negative except mentioned above ER course: Per ER team patient noted to have abdominal tenderness; CT scan showed findings consistent with an early colitis; noted to have leukocytosis; given Zosyn.? Admitted to the hospital for further management. patient was admitted due to abdominal pain found to have colitis: stool study was done, patient was started on antibiotics, also loperamide, pain management, bowel rest- with above management patient has abdominal pain seems to be improved,stool culture shows salmonella species: Patient patient was started on p.o. antibiotics and tolerating diet -going home p.o. antibiotics. Follow-up with PCP in 1 week. Time Spent with Patient Time attestation: Total time spent providing and/or coordinating discharge services: Discharge coordination time: Greater than 30 minutes Quality: Safe Use of Opioids Does Pt have an Active Cancer Diagnosis on the Problem List?: No Quality: Stroke Does the patient have a stroke diagnosis?: No Physical Exam Vital Signs: Vital Signs: Last Vital Signs Temp 97.1 F 09/24/21 10:55 Pulse 74 09/24/21 10:55 Resp 18 09/24/21 10:55 BP 122/95 H 09/24/21 10:55 Pulse Ox 96 09/24/21 10:55 BMI result Body Mass Index 38.2 General: AO X 3, no acute distress Resp:? CTA bilateral CVS: S1,S2,RRR GI: +BS, NT,? abdominal pain improved, no rebound or guarding Skin: No rash Neuro:? motor grossly intact Psych: appropriate affect DS: Data Data Completed and Pending Labs on day of discharge: Laboratory Results - last 24 hr 09/23/21 09/23/21 09/24/21 15:28 19:10 07:36 POC Glucose 196 H 237 H 186 H 09/24/21 10:56 POC Glucose 246 H Preliminary micro results at discharge 09/20/21 15:45 Stool Culture - Preliminary Stool Salmonella species 09/19/21 14:21 Blood Culture - Preliminary Blood - Venous No growth after 48 hours. 09/19/21 14:30 Blood Culture - Preliminary Blood - Venous No growth after 48 hours. Additional Comments Additional comments: CT/CT abdomen pelvis wo con IMPRESSION: Most likely descending and sigmoid colon colitis and mesenteric adenitis. Hepatic steatosis and hepatomegaly Cyst in the left? ? Discharge Plan Discharge Patient Disposition: Home, Self-Care Discharge Diagnosis: colitis -possible salmonella infection Referrals: Physician,None [Primary Care Provider] - 1 Week Discharge Medications: New levofloxacin 500 mg Tablet 500 mg PO Q24H Qty: 6 0RF loperamide 2 mg Capsule 2 mg PO Q4H PRN (Reason: diarrahe) Qty: 4 0RF sucralfate 1 gram Tablet 1 g PO QIDACHS Qty: 12 0RF Discontinued acetaminophen [Tylenol] 325 mg Tablet 650 mg PO Q6H PRN (Reason: Pain) 0RF Discharge Orders: Discharge Order (Routine); Ordered 09/24/21 Ordered By: Tri Qureshi Diet: advance to usual diet Activity on Discharge: As tolerated Stand Alone Forms: Patient Portal Discharge page, Work/School Release Care Plan Goals: patient was admitted due to abdominal pain found to have colitis: stool study was done, patient was started on antibiotics, also loperamide, pain management, bowel rest- with above management patient has abdominal pain seems to be improved,stool culture shows salmonella species: Patient patient was started on p.o. antibiotics and tolerating diet -going home p.o. antibiotics. Follow-up with PCP in 1 week. Health Concerns: as above. Complete course of antibiotics, follow standard precaution for Salmonella, avoid outside food, follow-up with PCP. Plan of Treatment: as above. Assessment: As above. Patient Instructions: Salmonella Infection (GEN), Colitis (ED)
--- NOTE | 2021-09-24 12:35 | MHC.CM.PN ---
NURSE HOSPITALITY JOB TITLES NOTE ELECTRONIC MEDICAL RECORD REVIEWED DISCHARGE PLAN HOME WITH NO SERVICES
== END 2021-09-24 14:01 | disposition home or self-care (01) | DRG 248 ==
LOC: HO.ED 17:03 → HO.EDOVER 20:17 → HO.S3 09-20 14:30
PROVIDERS: Internal Medicine; Physician Assistant; Physician Assistant Medical; Admitting Provider Hospitalist; Emergency Provider Emergency Medicine; Visit Provider Internal Medicine
DX: A02.0 Salmonella enteritis (principal); K76.0 Fatty (change of) liver, not elsewhere classified; E11.65 Type 2 diabetes mellitus with hyperglycemia; I10 Essential (primary) hypertension; E86.0 Dehydration; E66.01 Morbid (severe) obesity due to excess calories; Z68.38 Body mass index [BMI] 38.0-38.9, adult; Z20.822 Contact with and (suspected) exposure to COVID-19; Z79.899 Other long term (current) drug therapy
CPT/HCPCS: 36415; 71045; 74176; 80048; 80053; 81001; 82009; 82803; 82947; 83605; 83690; 83735; 85025; 87040; 87045; 87046; 87186; 87493; 87635; 89055; 96361; 96365; 99285; J1650; J2405; J2543

== ENCOUNTER 2022-03-30 03:41 | Emergency (ER) | payer MEDICAID, SELFPAY ==
--- NOTE | ~2022-03-30 | CT_ITS ---
EXAMINATION: CT ABDOMEN AND PELVIS WITH CONTRAST CLINICAL INFORMATION: Left-sided abdominal pain. History of colitis. COMPARISON: 09/22/2021. TECHNIQUE: Multidetector volumetric images were obtained from the superior aspect of the liver through the pubic symphysis following administration 85 mL of Omnipaque 350 intravenous contrast. Sagittal and coronal reformatted images were obtained on the technologist's workstation. Oral contrast: No This CT examination was performed using dose optimization techniques as appropriate, variously including the following: *Automated exposure control *Adjustment of mA and/or kV according to patient size (this includes techniques or standardized protocols for targeted exams where dose is matched to indication/reason for exam; i.e. extremities or head) *Use of iterative reconstruction technique DLP: 786 mGy-cm FINDINGS: LUNG BASES: Normal. No pulmonary consolidation or pleural effusion. LIVER: The liver has normal size, shape, and attenuation. No evidence of liver mass. GALLBLADDER AND BILIARY TREE: Gallbladder is without radiopaque stones, wall thickening or pericholecystic fluid. No dilated bile ducts. PANCREAS: Normal. No edema, pancreatic ductal dilatation or mass. SPLEEN: Normal. ADRENAL GLANDS: Normal. KIDNEYS AND URETERS: The kidneys have normal size and cortical thickness. No perinephric edema or fluid collection. No urolithiasis or hydroureteronephrosis. 3 cm simple parapelvic cyst and small simple cortical cyst of the upper pole of the left kidney. No renal imaging follow-up is recommended for simple cysts. BLADDER: Normal. No calculi or wall thickening. BOWEL AND PERITONEUM: Stomach and proximal small bowel are underdistended. Further distally, small bowel contains fluid and gas and measures up to 3.3 cm diameter which represents borderline small bowel dilatation. There are some regions of minimal fecalization of the mildly dilated small bowel. There is a short segment of underdistended small bowel in the left lateral abdomen without bowel wall thickening in this location. Is uncertain whether this actually represents a transition point. No overt small bowel mass. There is minimal haziness of mesenteric fat in the left abdomen (images [id number], series 4). Also, trace amount of fluid is seen in this region of the left abdomen. No focal organized collection. No pneumoperitoneum. The terminal ileum is unremarkable. No colonic wall thickening. The rectum is grossly normal. ABDOMINAL WALL: Small ventral fat-containing epigastric hernia as well as fat-containing umbilical hernia. Unchanged compared to 09/22/2021. VASCULATURE: Unremarkable. LYMPH NODES: Note that lymph nodes in the mesentery were mildly enlarged on 09/22/2021. Overall, the mesenteric martha prominence has decreased with lymph nodes returning to normal size range. However, there is a persistent but nonspecific slightly prominent lymph node in the posterior right mesentery of 1 cm short axis dimension, decreased from 1.2 cm on prior exam (image 46, series 3). PELVIC VISCERA: Unremarkable. MUSCULOSKELETAL: Unremarkable. CT/CT abdomen pelvis w IV con IMPRESSION: * No evidence of colitis. * There are small bowel loops that are slightly dilated in the mid to lower abdomen and there are regions of mild fecalization of small bowel. Also noted is minimal haziness of some of the mesenteric fat and trace free fluid in the left abdomen. Overall, findings are suspicious for a mild small bowel obstruction. There is no focal bowel wall thickening or bowel wall mass. No pneumoperitoneum. * Interval resolution of mild mesenteric lymphadenopathy previously seen on 09/22/2021 with exception of a residual 1 cm lymph node in the right mesentery (previously 1.2 cm). No suspicious enlarging lymph nodes. * Small fat-containing ventral abdominal wall hernias are present.
[2022-03-30 03:45] VITALS: BP 141/90; PULSE 73; RESP 18; TEMP 36.4; O2SAT 98; BMI 36.0
[2022-03-30 04:01] LABS: MANUAL DIFF FLAG NO
[2022-03-30 04:02] LABS: Basophils Percent Auto 0.2 % (0-2); Eosinophils Absolute Auto 0.1 X10*3/uL (0.0-0.4); Eosinophils Percent Auto 0.7 % (0-4); Hematocrit 46.8 % (42.0-52.0); Hemoglobin 15.4 g/dl (14.0-18.0); Imm Gran Abs Auto 0.02 X10*3/uL (0.00-0.03); Imm Gran Pct Auto 0.2 % (0.0-0.4); Lymphocytes Absolute Auto 4.2 X10*3/uL (1.2-4.9); Lymphocytes Percent Auto 34.6 % (20-40); Mean Corpuscular HGB Conc 32.9 g/dl (31.0-36.0); Mean Corpuscular Hemoglobin 28.6 pg (27.0-33.0); Mean Platelet Volume 9.5 fL (9.4-12.4); Monocytes Absolute Auto 0.8 X10*3/uL (0.1-1.2); Monocytes Percent Auto 6.4 % (2-11); Neutrophils Percent Auto 57.9 % (45-73); Platelet Count 354 X10*3/uL (160-400); Red Blood Count 5.38 X10*6/uL (4.60-5.80); Red Cell Distribution Width 13.8 % (11.0-16.0); White Blood Count 12.1 X10*3/uL (4.8-10.8)
[2022-03-30 04:10] LABS: Appearance Urine Clear; Color Urine Yellow; Glucose Urine UA 100 mg/dL (Negative); Leukocyte Esterase Urine Negative (Negative); Nitrite Urine Negative (Negative); Specific Gravity - Urine 1.025 (1.005-1.025); Urine Blood Negative (Negative); Urine Ketones Trace mg/dL (Negative); Urine Protein Trace mg/dL (Neg-Trace)
[2022-03-30 04:22] LABS: Alanine Aminotransferase 24 U/L (0-40); Albumin Level 4.4 g/dL (3.5-5.0); Alkaline Phosphatase 67 U/L (39-117); Anion Gap 14 (12-20); Aspartate Amino Transferase 23 U/L (5-37); Bilirubin Direct 0.2 mg/dL (0.0-0.5); Bilirubin Total 0.7 mg/dL (0.0-1.0); Blood Urea Nitrogen 20 mg/dL (9-16); Calcium 10.3 mg/dL (8.4-10.2); Carbon Dioxide 27 mmol/L (22-29); Chloride 102 mmol/L (96-108); Estimated Glomerular Filt Rate > 60; Glucose Random 177 mg/dL (60-115); Lipase 25 U/L (8-78); Potassium 4.7 mmol/L (3.3-5.1); Sodium 138 mmol/L (135-145); Total Protein 7.8 g/dL (6.5-8.0)
[2022-03-30 06:33] VITALS: BP 112/75; PULSE 71; RESP 17; TEMP 36.1; O2SAT 96
[2022-03-30] MEDS: iohexoL 350 MG/ML 100 ML INFUS..BTL 85 ML IV (08:30)
[2022-03-30] MEDS: Ketorolac Tromethamine 15 MG/ML VIAL IVPUSH (10:03)
[2022-03-30] MEDS: ondansetron HCL 4 MG/2 ML VIAL IVPUSH (10:03)
--- NOTE | 2022-03-30 10:09 | ED.ABDPAIN ---
HPI - Abdominal Pain General Chief Complaint: Abdominal Pain Stated Complaint: abdominal pain Time Seen by Provider: 03/30/22 06:44 Source: patient Mode of arrival: ambulatory Limitations: no limitations History of Present Illness HPI narrative: 38-year-old male who presents emergency department for evaluation of left-sided abdominal pain which began yesterday. States the pain came on gradually and got progressively worse. States that while he was at work at 19:00 hours the pain was severe and was 7/10. Patient states that his last bowel movement was yesterday it was only a small amount of liquid. He states he has had similar presentations in the past and had a bowel obstruction 20 years ago and 1 year ago these symptoms feel similar to the bowel obstruction. He describes the pain as an intermittent, dull ache which is 7/10 at its worst. It associated nausea with no vomiting. He denied fever, chills, chest pain, shortness of breath. Related Data Previous Rx's Medication Instructions Recorded levofloxacin 500 mg tablet 500 mg PO Q24H #6 tabs 09/24/21 loperamide 2 mg capsule 2 mg PO Q4H PRN diarrahe #4 caps 09/24/21 sucralfate 1 gram tablet 1 g PO QIDACHS #12 tabs 09/24/21 ondansetron 4 mg disintegrating 4 mg PO Q6-8H PRN nausea and 03/30/22 tablet vomiting #14 tabs Allergies Allergy/AdvReac Type Severity Reaction Status Date / Time No Known Allergies Allergy Verified 03/30/22 03:49 Review of Systems Review of Systems Yes all other systems are reviewed and are negative [facility] Past Medical History [facility] Narrative: Past medical history: Reviewed below. Patient had sigmoid and descending colitis on 09/22/2021. Social history: He denies tobacco, alcohol and drug use. Medical History Diabetes Diabetes mellitus Hypertension Partial small bowel obstruction Surgical History History of bowel resection History of colostomy reversal History of exploratory laparotomy Social History Social History Household Members: None Housing: Apartment Do you presently have visiting nurse or other home services: No Alcohol intake: current Alcohol intake frequency: holidays/special occasions only Patient Tobacco Use Status: Never used Tobacco Advance Directives: No Advance Directives Information Provided: No service: No Current occupational status: employed Physical Exam ED Vital Signs: Vital Signs - 24 hr 03/30/22 03:45 03/30/22 06:33 Temperature 97.5 F 96.9 F Pulse Rate 73 71 Respiratory Rate 18 17 Blood Pressure 141/90 H 112/75 Pulse Oximetry 98 96 Oxygen Delivery Method Room Air Room Air BMI result Body Mass Index 36.0 Const General: cooperative and no acute distress Orientation/consciousness: oriented to person and oriented to place Limitations: no limitations HENMT Head: Yes normal to inspection, Yes normocephalic and Yes atraumatic Ears: external ears normal General nose exam: Normal external nose present Face and sinus: Yes normal facial exam Mouth: Normal oral and palatal mucosa present Throat: Yes posterior oropharynx normal Eyes General: appearance normal, both eyes and all related structures Pupils: Equal, round and reactive pupils present Neck Neck: Yes normal visual inspection, Yes no lymphadenopathy, Yes trachea midline and Yes supple Chest Chest palpation & inspection: normal inspection of the chest and normal palpation of entire chest wall Resp Effort & Inspection: normal respiratory effort and able to speak in complete sentences Auscultation: clear to auscultation bilaterally Cardio Rate: regular rate Rhythm: regular rhythm Heart sounds: S1 normal heart sound present, S2 normal heart sound present and no murmurs GI Inspection: Yes normal to inspection Palpation (GI): Soft to palpation, Tenderness to palpation present (GI) ([id number] left upper lower quadrant tenderness,) and no guarding Auscultation: normal bowel sounds General: Yes no CVA tenderness Back/Spine/Pelvis Back: no CVA tenderness Skin General skin exam: no rashes or lesions noted Neuro General: oriented to person and oriented to place Cranial nerves: Yes CN's II-XII intact bilaterally and Yes Equal, round and reactive pupils present Cognition (Neuro): normal cognition Motor exam (neuro): 5/5 motor strength present throughout Extrem General: Yes normal to inspection Psych Appearance: grossly normal Speech and movement: Normal speech and movement present Affect: normal affect Attitude: cooperative Thought process: Normal thought process present Thought content: Normal thought content present Course Course Course Narrative: 46-year-old male who presents emergency department for evaluation of left-sided abdominal pain which began yesterday, the pain is been intermittent, the pain is 7/10 at its worst. Patient had small bowel movement yesterday. Patient stated that his pain was similar to his bowel obstruction. He has had in the past. I ordered a CBC, BMP, liver panel, lipase, urinalysis. CT scan abdomen with IV contrast will be obtained. Patient was ordered to get Toradol 15 mg IV and Zofran 4 mg IV. 1033: Laboratory evaluation: WBC elevated 12,000. Glucose elevated 177. LFTs and lipase were normal. Urinalysis was negative. Radiology evaluation: CT scan of the abdomen pelvis with IV contrast radiology reading as follows: IMPRESSION: * No evidence of colitis. * There are small bowel loops that are slightly dilated in the mid to abdomen and there are regions of mild fecalization of small bowel. Also noted is minimal haziness of some of the mesenteric fat and trace free fluid in the left abdomen. Overall, findings are suspicious for a mild small bowel obstruction. There is no focal bowel wall thickening or bowel wall mass. No pneumoperitoneum. * Interval resolution of mild mesenteric lymphadenopathy previously seen on 09/22/2021 with exception of a residual 1 cm lymph node in the mesentery (previously 1.2 cm). No suspicious enlarging lymph nodes. * Small fat-containing ventral abdominal wall hernias are present. Dictated By:Mina Riveraigned By:<Electronically signed by Mina Rivera MD in [place]>03/30/22 0916 Patient's presentation is consistent with small-bowel obstruction. Patient states since being in the emergency department he has had a bowel movement and is passing gas and feels significantly better. At this point I do not think the patient needs to be hospitalized the patient feels comfortable going home. He is advised to stay on a basic brat diet, increase his fluid intake, was prescribe Zofran ODT for nausea vomiting. He is advised return emergency department if his symptoms get worse or does any symptoms are concerning to him. Medications Administered Discontinued Medications Generic Name Dose Route Start Last Admin Trade Name Freq PRN Reason Stop Dose Admin Iohexol 85 ml 03/30/22 08:30 03/30/22 08:30 Iohexol 350 Mg/Ml 100 Ml Infus..Btl IV 03/30/22 08:31 85 ml ONCE ONE Administration Ketorolac Tromethamine 15 mg 03/30/22 06:49 03/30/22 10:03 Ketorolac Tromethamine 15 Mg/Ml Vial IVPUSH 03/30/22 06:50 15 mg ONCE STA Administration Ondansetron HCl 4 mg 03/30/22 06:49 03/30/22 10:03 Ondansetron Hcl 4 Mg/2 Ml Vial IVPUSH 03/30/22 06:50 4 mg ONCE ONE Administration Discharge Plan Discharge Clinical Impression: Partial obstruction of small intestine Abdominal pain Qualifiers: Abdominal location: left lower quadrant Qualified Code(s): R10.32 - Left lower quadrant pain Patient Disposition: Home, Self-Care Instructions: Bowel Obstruction (ED) Additional Instructions: Your blood work was normal. Your CT scan was consistent with a bowel obstruction, the fact that your pain is better and your narrow moving your bowels and passing gas suggests that maybe the bowel obstruction has resolved. Take Zofran ODT 4 mg pills, 1 pill dissolved in your mouth every 8 hours as needed for nausea and vomiting. Follow-up with your doctor in 2 days. Please return to the emergency department if your symptoms get worse or if you develop any symptoms that are concerning to you. Prescriptions: New ondansetron 4 mg tablet,disintegrating 4 mg PO Q6-8H PRN (Reason: nausea and vomiting) Qty: 14 0RF No Action levofloxacin 500 mg Tablet 500 mg PO Q24H Qty: 6 0RF loperamide 2 mg Capsule 2 mg PO Q4H PRN (Reason: diarrahe) Qty: 4 0RF sucralfate 1 gram Tablet 1 g PO QIDACHS Qty: 12 0RF Print Language: Albanian
[2022-03-30 10:32] VITALS: BP 139/84; PULSE 78; RESP 14; TEMP 36.7; O2SAT 98
--- NOTE | 2022-03-30 11:07 | PC.NURSE ---
pt had a bm and gas, nad, skin wpd
== END 2022-03-30 11:08 | disposition home or self-care (01) ==
PROVIDERS: Emergency Provider Emergency Medicine Emergency Medical Services
DX: K56.600 Partial intestinal obstruction, unspecified as to cause (principal); R10.32 Left lower quadrant pain; Z79.899 Other long term (current) drug therapy
CPT/HCPCS: 36415; 74177; 80048; 80076; 81003; 83690; 85025; 96374; 96375; 99283; J1885; J2405; Q9967

== ENCOUNTER 2022-07-04 14:15 | Inpatient (IN) | payer MEDICAID, SELFPAY ==
--- NOTE | ~2022-07-04 | XR_ITS ---
EXAMINATION: XR CHEST CLINICAL INFORMATION: Satisfactory onset of nausea and vomiting COMPARISON: 09/20/2019 TECHNIQUE: 2 views of the chest were obtained. FINDINGS: No significant abnormality is noted involving the heart, lungs, mediastinum, bony thorax or soft tissues. XR/XR chest 2V IMPRESSION: Unremarkable examination.
--- NOTE | ~2022-07-04 | US_ITS ---
EXAMINATION: US ABDOMEN COMPLETE CLINICAL INFORMATION: Upper abdominal pain. Nausea and vomiting.. COMPARISON: CT 03/30/2022 TECHNIQUE: Real-time imaging of the abdominal viscera. FINDINGS: PANCREAS: Not well seen due to bowel gas. ABDOMINAL AORTA: The proximal and distal segments are normal in caliber. The mid segment is not well seen due to bowel gas. INFERIOR VENA CAVA: Visualized portions are normal. LIVER: The liver is normal in size. The liver contour is normal. There is diffuse increased liver parenchymal echogenicity, consistent with hepatic steatosis. No focal hepatic lesion. There is no intrahepatic biliary duct dilatation seen. GALLBLADDER: Normal. The gallbladder is physiologically distended without evidence of stones, sludge, polyps, wall thickening or pericholecystic fluid. COMMON BILE DUCT: Normal in caliber measuring 0.4 cm in diameter. RIGHT KIDNEY: Normal. No hydronephrosis. No renal calculi or focal parenchymal lesions. The kidney measures 11.4 cm in maximum dimension. LEFT KIDNEY: Multiple simple cysts are identified, measuring up to 2.7 cm. No specific follow-up recommended. No hydronephrosis. No renal calculi or solid parenchymal lesions. The kidney measures 13.8 cm in maximum dimension. SPLEEN: Normal. The spleen measures 10.9 cm in maximum dimension. FREE FLUID: None. US/US abdomen complete IMPRESSION: 1. Hepatic steatosis. 2. Multiple simple left renal cysts. No specific follow-up recommended.
--- NOTE | ~2022-07-04 | XR_ITS ---
EXAMINATION: XR ABDOMEN KUB CLINICAL INDICATION: Nausea and vomiting COMPARISON: 01/29/2021 TECHNIQUE: AP view of the abdomen. FINDINGS: There is nonobstructive bowel gas pattern in the small bowel loops most likely due to ileus. No evidence of bowel obstruction. No free air. The stomach is collapsed. There is no evidence of constipation. XR/XR KUB IMPRESSION: Small bowel ileus
--- NOTE | ~2022-07-04 | CT_ITS ---
EXAMINATION: CT ABDOMEN AND PELVIS WITH CONTRAST CLINICAL INFORMATION: Abdominal pain with question of ileus versus small bowel obstruction COMPARISON: KUB earlier today and CT abdomen pelvis 03/30/2022 TECHNIQUE: Multidetector volumetric images were obtained from the superior aspect of the liver through the pubic symphysis following administration 85 mL of Omnipaque 350 intravenous contrast. Sagittal and coronal reformatted images were obtained on the technologist's workstation. Oral contrast: No This CT examination was performed using dose optimization techniques as appropriate, variously including the following: *Automated exposure control *Adjustment of mA and/or kV according to patient size (this includes techniques or standardized protocols for targeted exams where dose is matched to indication/reason for exam; i.e. extremities or head) *Use of iterative reconstruction technique DLP: 873 mGy-cm FINDINGS: LUNG BASES: The visualized lung bases are unremarkable. Right basilar atelectasis is present.. LIVER, GALLBLADDER, AND BILIARY TREE: The liver is normal in size, shape, and attenuation. No focal hepatic lesion or biliary ductal dilatation is present. The gallbladder is unremarkable with no evidence of radiopaque gallstones, gallbladder wall thickening, or obvious pericholecystic inflammatory changes. PANCREAS: Unremarkable. SPLEEN: Unremarkable. ADRENAL GLANDS: Unremarkable. KIDNEYS AND URETERS: The kidneys are normal in size, shape, and attenuation. Bilateral Bosniak class I simple renal cysts are present, tiny on the right with the largest on the left parapelvic measuring 3 cm. No further imaging or follow-up is needed. No hydronephrosis, hydroureter, or calculi seen. No perinephric stranding. BLADDER: Unremarkable. GASTROINTESTINAL TRACT: There are multiple dilated loops of jejunum present. The distal ileum is decompressed. There may be a transition zone seen in the left midabdomen (see veras images). Some minimal inflammatory changes in the surrounding fat are seen in this area. Small bowel loops are dilated as much as about 5.3 cm. The large bowel is unremarkable. The appendix is not seen but there is no evidence of appendicitis evidence of appendicitis. ABDOMINAL WALL: Small periumbilical hernia seen containing only fat. LYMPH NODES: No retroperitoneal lymphadenopathy. VASCULAR: Unremarkable. PELVIC VISCERA: The prostate and seminal vesicles are unremarkable. OSSEOUS STRUCTURES: Unremarkable. CT/CT abdomen pelvis w IV con IMPRESSION: Findings are consistent with partial small bowel obstruction with a transition zone seen in the left midabdomen with some minimal inflammatory changes in the surrounding fat, possibly caused by adhesions. Fleischner guidelines were followed.
--- NOTE | ~2022-07-04 | XR_ITS ---
EXAMINATION: XR CHEST CLINICAL INFORMATION: NG tube placement COMPARISON: 07/04/2012 TECHNIQUE: Frontal view of the chest was obtained. FINDINGS: Enteric tube extends into the stomach. The lungs are well expanded. There is no focal consolidation, edema, or effusion. No pneumothorax. The cardiomediastinal silhouette is within normal limits. No acute osseous abnormality. XR/XR chest 1V IMPRESSION: No acute pulmonary disease. Enteric tube terminating in the stomach.
[2022-07-04 14:37] VITALS: BP 126/82; PULSE 89; RESP 18; TEMP 36.6; O2SAT 96; BMI 38.6
--- NOTE | 2022-07-04 14:38 | ED.ABDPAIN ---
HPI - Abdominal Pain General Chief Complaint: Abdominal Pain <SUZE Daigle - Last Filed: 07/04/22 14:42> Stated Complaint: stomach pain, vomiting <SUZE Daigle - Last Filed: 07/04/22 14:42> Time Seen by Provider: 07/04/22 17:09 <SUZE Daigle - Last Filed: 07/04/22 14:42> Source: patient <Zafar Velasco MD - Last Filed: 07/04/22 21:40> Mode of arrival: ambulatory <Zafar Velasco MD - Last Filed: 07/04/22 21:40> Limitations: no limitations <Zafar Velasco MD - Last Filed: 07/04/22 21:40> History of Present Illness HPI narrative: 47-year-old male presents with abdominal pain. Symptoms started 3-4 days ago. Associated with nausea vomiting. There has been nonbilious vomiting. He denies any constipation diarrhea. He denies passing flatus at this time. Pain is intermittent. There is no clear relieving or exacerbating features. He has had no fevers or chills. He has had similar symptoms in the past. He has had multiple abdominal surgeries. <Zafar Velasco MD - Last Filed: 07/04/22 21:40> Related Data Home Medications: Previous Rx's Medication Instructions Recorded levofloxacin 500 mg tablet 500 mg PO Q24H #6 tabs 09/24/21 loperamide 2 mg capsule 2 mg PO Q4H PRN diarrahe #4 caps 09/24/21 sucralfate 1 gram tablet 1 g PO QIDACHS #12 tabs 09/24/21 ondansetron 4 mg disintegrating 4 mg PO Q6-8H PRN nausea and 03/30/22 tablet vomiting #14 tabs <SUZE Daigle - Last Filed: 07/04/22 14:42> Allergies/Adverse Reactions: Allergies Allergy/AdvReac Type Severity Reaction Status Date / Time No Known Allergies Allergy Verified 07/04/22 14:41 <SUZE Daigle - Last Filed: 07/04/22 14:42> [facility] Past Medical History Medical History: Medical History Diabetes Diabetes mellitus Hypertension Partial small bowel obstruction <SUZE Daigle Last Filed: 07/04/22 14:42> Surgical History: Surgical History History of bowel resection History of colostomy reversal History of exploratory laparotomy <SUZE Daigle - Last Filed: 07/04/22 14:42> Social History Social History: Social History Household Members: None Housing: Apartment Do you presently have visiting nurse or other home services: No Alcohol intake: never Patient Tobacco Use Status: Never used Tobacco Smoked in Last 30 Days: No Use of substances other than those prescribed or required for medical reasons: No Advance Directives: No Advance Directives Information Provided: No service: No Current occupational status: employed <SUZE Daigle - Last Filed: 07/04/22 14:42> Physical Exam ED Vital Signs: Vital Signs - 24 hr 07/04/22 14:37 07/04/22 20:00 Temperature 98 F 98.4 F Pulse Rate 89 94 Respiratory Rate 18 18 Blood Pressure 126/82 115/87 Pulse Oximetry 96 Oxygen Delivery Method Room Air Room Air BMI result Body Mass Index 38.6 <SUZE Daigle - Last Filed: 07/04/22 14:42> Vital Signs - 24 hr 07/04/22 14:37 07/04/22 20:00 Temperature 98 F 98.4 F Pulse Rate 89 94 Respiratory Rate 18 18 Blood Pressure 126/82 115/87 Pulse Oximetry 96 Oxygen Delivery Method Room Air Room Air BMI result Body Mass Index 38.6 <Zafar Velasco MD - Last Filed: 07/04/22 21:40> GEN: Well developed, no acute distress, alert, oriented HEENT: Normocephalic, atraumatic, normal external ears, nose appears normal, no oropharyngeal edema or exudates Eyes: Normal to appearance Neck: Supple, no lymphadenopathy Respiratory: Talks in complete sentences, no respiratory distress, clear to auscultation bilaterally Cardiovascular: Regular rate and rhythm, no murmurs rubs or gallops Abdomen: Moderately distended, guarding, no rebound, diffusely tender, multiple areas of scar tissue Back: No CVA tenderness Extremities: No clubbing cyanosis or edema Neurologic: No focal neurologic deficits, cranial nerves 2-12 intact, strength is 5/5 bilaterally, gait normal Skin: No rash <Zafar Velasco MD - Last Filed: 07/04/22 21:40> Course Course Course Narrative: DENNIS-14:40PM - 47yoM with Korean-speaking with a PMHx of obesity, diabetes, HTN, SBO where he had a colostomy which has been reversed who is presenting to the ER with complaints of sudden onset of diaphoresis with nausea/vomiting and upper abdominal pain while he was at work approximately 1 hour prior to arrival. Reports the pain is 10/10. Denies any fevers, chest pain or shortness of breath, diarrhea constipation, black or bloody stools, recent travel or sick contacts or any other symptoms complaints or concerns at this time. Plan: Will obtain labs, EKG, check sec great, KUB, abdominal ultrasound. Patient will be sent back to the waiting room to be evaluated the ED. <SUZE Daigle - Last Filed: 07/04/22 14:42> Reevaluation(s) Reevaluation #1: Patient's x-rays consistent with ileus. There is possible SBO given the amount of scar tissue. Will obtain a CT scan to rule this out. Patient likely need to be admitted for ileus versus bowel obstruction. <Zafar Velasco MD - Last Filed: 07/04/22 21:40> Time: 18:34 <Zafar Velasco MD - Last Filed: 07/04/22 21:40> Reevaluation #2: CT scan is consistent with a small-bowel obstruction. Will discuss with the patient. Patient will need to be admitted. Will order an NG tube. <Zafar Velasco MD - Last Filed: 07/04/22 21:40> Time: 21:35 <Zafar Velasco MD - Last Filed: 07/04/22 21:40> Consultations Consultation #1: Dr. Patterson, Surgery for admission <Zafar Velasco MD - Last Filed: 07/04/22 21:40> Time: 21:40 <Zafar Velasco MD - Last Filed: 07/04/22 21:40> Medical Decision Making Medical Decision Making MDM Narrative: 47-year-old male presents abdominal pain, distention stool or flatus. This concerning for bowel obstruction, ileus. Will obtain laboratory analysis, imaging studies re-evaluate patient. Patient is in a moderate amount of pain at this time. Will give patient a small amount of pain medication. <Zafar Velasco MD - Last Filed: 07/04/22 21:40> Differential Diagnosis Differential Diagnoses: The differential diagnosis associated with the presentation includes (SBO, ileus, abdominal pain, IBS, IBD, diverticulitis, colitis, cholecystitis) <Zafar Velasco MD - Last Filed: 07/04/22 21:40> Admission/Observation Consideration of admission/observation: Escalation of care including admission/observation considered <Zafar Velasco MD - Last Filed: 07/04/22 21:40> Lab Data MDM Lab Attestation statement: I reviewed the patient's lab results. <Zafar Velasco MD - Last Filed: 07/04/22 21:40> Result Diagrams: 07/04/22 14:55 07/04/22 14:55 <SUZE Daigle - Last Filed: 07/04/22 14:42> Labs: Lab Results 07/04/22 07/04/22 07/04/22 Range/Units 14:54 14:54 14:55 WBC 14.4 H (4.8-10.8) X10*3/uL RBC 5.92 H (4.60-5.80) X10*6/uL Hgb 16.9 (14.0-18.0) g/dl Hct 52.1 H (42.0-52.0) % MCV 88.0 (80.0-98.0) fL MCH 28.5 (27.0-33.0) pg MCHC 32.4 (31.0-36.0) g/dl RDW 13.3 (11.0-16.0) % Plt Count 360 (160-400) X10*3/uL MPV 9.9 (9.4-12.4) fL Immature Gran % (Auto) 0.3 (0.0-0.4) % Neut % (Auto) 75.4 H (45-73) % Lymph % (Auto) 20.5 (20-40) % Victoria % (Auto) 3.4 (2-11) % Eos % (Auto) 0.2 (0-4) % Baso % (Auto) 0.2 (0-2) % Lymph # (Auto) 3.0 (1.2-4.9) X10*3/uL Victoria # (Auto) 0.5 (0.1-1.2) X10*3/uL Eos # (Auto) 0.0 (0.0-0.4) X10*3/uL Baso # (Auto) 0.0 (0.0-0.2) X10*3/uL Abs Immat Gran (auto) 0.04 H (0.00-0.03) X10*3/uL Absolute Neuts (auto) 10.9 H (2.0-8.3) x10*3/uL Absolute Nucleated RBC 0.000 (0.0-0.012) X10*3/uL Nucleated RBC % (auto) 0.0 (0.0-0.2) /100WBC PT (10.0-13.1) SEC INR (0.9-1.1) Sodium (135-145) mmol/L Potassium (3.3-5.1) mmol/L Chloride (96-108) mmol/L Carbon Dioxide (22-29) mmol/L Anion Gap (12-20) BUN (9-16) mg/dL Creatinine (0.5-1.4) mg/dL Estim Creat Clear Calc Estimated GFR Random Glucose (60-115) mg/dL Calcium (8.4-10.2) mg/dL Magnesium (1.6-2.6) mg/dL Total Bilirubin (0.0-1.0) mg/dL AST (5-37) U/L ALT (0-40) U/L Alkaline Phosphatase (39-117) U/L Total Creatine Kinase (38-174) U/L Troponin I High Sens < 3.5 (<3.5-35.0) ng/L Total Protein (6.5-8.0) g/dL Albumin (3.5-5.0) g/dL Lipase (8-78) U/L Influenza Type A (PCR) NEGATIVE (Negative) Influenza Type B (PCR) NEGATIVE (Negative) RSV RNA Qual (PCR) NEGATIVE (Negative) SARS-CoV-2 RNA (RT-PCR) NEGATIVE (Negative) 07/04/22 07/04/22 Range/Units 14:55 14:55 WBC (4.8-10.8) X10*3/uL RBC (4.60-5.80) X10*6/uL Hgb (14.0-18.0) g/dl Hct (42.0-52.0) % MCV (80.0-98.0) fL MCH (27.0-33.0) pg MCHC (31.0-36.0) g/dl RDW (11.0-16.0) % Plt Count (160-400) X10*3/uL MPV (9.4-12.4) fL Immature Gran % (Auto) (0.0-0.4) % Neut % (Auto) (45-73) % Lymph % (Auto) (20-40) % Victoria % (Auto) (2-11) % Eos % (Auto) (0-4) % Baso % (Auto) (0-2) % Lymph # (Auto) (1.2-4.9) X10*3/uL Victoria # (Auto) (0.1-1.2) X10*3/uL Eos # (Auto) (0.0-0.4) X10*3/uL Baso # (Auto) (0.0-0.2) X10*3/uL Abs Immat Gran (auto) (0.00-0.03) X10*3/uL Absolute Neuts (auto) (2.0-8.3) x10*3/uL Absolute Nucleated RBC (0.0-0.012) X10*3/uL Nucleated RBC % (auto) (0.0-0.2) /100WBC PT 10.7 (10.0-13.1) SEC INR 0.9 (0.9-1.1) Sodium 138 (135-145) mmol/L Potassium 4.9 (3.3-5.1) mmol/L Chloride 103 (96-108) mmol/L Carbon Dioxide 21 L (22-29) mmol/L Anion Gap 19 (12-20) BUN 25 H (9-16) mg/dL Creatinine 1.08 (0.5-1.4) mg/dL Estim Creat Clear Calc 89.3 Estimated GFR > 60 Random Glucose 304 H (60-115) mg/dL Calcium 10.2 (8.4-10.2) mg/dL Magnesium 1.8 (1.6-2.6) mg/dL Total Bilirubin 0.8 (0.0-1.0) mg/dL AST 20 (5-37) U/L ALT 24 (0-40) U/L Alkaline Phosphatase 81 (39-117) U/L Total Creatine Kinase 163 (38-174) U/L Troponin I High Sens (<3.5-35.0) ng/L Total Protein 8.2 H (6.5-8.0) g/dL Albumin 4.6 (3.5-5.0) g/dL Lipase 26 (8-78) U/L Influenza Type A (PCR) (Negative) Influenza Type B (PCR) (Negative) RSV RNA Qual (PCR) (Negative) SARS-CoV-2 RNA (RT-PCR) (Negative) <SUZE Daigle - Last Filed: 07/04/22 14:42> Lab Results 07/04/22 07/04/22 07/04/22 Range/Units 14:54 14:54 14:55 WBC 14.4 H (4.8-10.8) X10*3/uL RBC 5.92 H (4.60-5.80) X10*6/uL Hgb 16.9 (14.0-18.0) g/dl Hct 52.1 H (42.0-52.0) % MCV 88.0 (80.0-98.0) fL MCH 28.5 (27.0-33.0) pg MCHC 32.4 (31.0-36.0) g/dl RDW 13.3 (11.0-16.0) % Plt Count 360 (160-400) X10*3/uL MPV 9.9 (9.4-12.4) fL Immature Gran % (Auto) 0.3 (0.0-0.4) % Neut % (Auto) 75.4 H (45-73) % Lymph % (Auto) 20.5 (20-40) % Victoria % (Auto) 3.4 (2-11) % Eos % (Auto) 0.2 (0-4) % Baso % (Auto) 0.2 (0-2) % Lymph # (Auto) 3.0 (1.2-4.9) X10*3/uL Victoria # (Auto) 0.5 (0.1-1.2) X10*3/uL Eos # (Auto) 0.0 (0.0-0.4) X10*3/uL Baso # (Auto) 0.0 (0.0-0.2) X10*3/uL Abs Immat Gran (auto) 0.04 H (0.00-0.03) X10*3/uL Absolute Neuts (auto) 10.9 H (2.0-8.3) x10*3/uL Absolute Nucleated RBC 0.000 (0.0-0.012) X10*3/uL Nucleated RBC % (auto) 0.0 (0.0-0.2) /100WBC PT (10.0-13.1) SEC INR (0.9-1.1) Sodium (135-145) mmol/L Potassium (3.3-5.1) mmol/L Chloride (96-108) mmol/L Carbon Dioxide (22-29) mmol/L Anion Gap (12-20) BUN (9-16) mg/dL Creatinine (0.5-1.4) mg/dL Estim Creat Clear Calc Estimated GFR Random Glucose (60-115) mg/dL Calcium (8.4-10.2) mg/dL Magnesium (1.6-2.6) mg/dL Total Bilirubin (0.0-1.0) mg/dL AST (5-37) U/L ALT (0-40) U/L Alkaline Phosphatase (39-117) U/L Total Creatine Kinase (38-174) U/L Troponin I High Sens < 3.5 (<3.5-35.0) ng/L Total Protein (6.5-8.0) g/dL Albumin (3.5-5.0) g/dL Lipase (8-78) U/L Influenza Type A (PCR) NEGATIVE (Negative) Influenza Type B (PCR) NEGATIVE (Negative) RSV RNA Qual (PCR) NEGATIVE (Negative) SARS-CoV-2 RNA (RT-PCR) NEGATIVE (Negative) 07/04/22 07/04/22 Range/Units 14:55 14:55 WBC (4.8-10.8) X10*3/uL RBC (4.60-5.80) X10*6/uL Hgb (14.0-18.0) g/dl Hct (42.0-52.0) % MCV (80.0-98.0) fL MCH (27.0-33.0) pg MCHC (31.0-36.0) g/dl RDW (11.0-16.0) % Plt Count (160-400) X10*3/uL MPV (9.4-12.4) fL Immature Gran % (Auto) (0.0-0.4) % Neut % (Auto) (45-73) % Lymph % (Auto) (20-40) % Victoria % (Auto) (2-11) % Eos % (Auto) (0-4) % Baso % (Auto) (0-2) % Lymph # (Auto) (1.2-4.9) X10*3/uL Victoria # (Auto) (0.1-1.2) X10*3/uL Eos # (Auto) (0.0-0.4) X10*3/uL Baso # (Auto) (0.0-0.2) X10*3/uL Abs Immat Gran (auto) (0.00-0.03) X10*3/uL Absolute Neuts (auto) (2.0-8.3) x10*3/uL Absolute Nucleated RBC (0.0-0.012) X10*3/uL Nucleated RBC % (auto) (0.0-0.2) /100WBC PT 10.7 (10.0-13.1) SEC INR 0.9 (0.9-1.1) Sodium 138 (135-145) mmol/L Potassium 4.9 (3.3-5.1) mmol/L Chloride 103 (96-108) mmol/L Carbon Dioxide 21 L (22-29) mmol/L Anion Gap 19 (12-20) BUN 25 H (9-16) mg/dL Creatinine 1.08 (0.5-1.4) mg/dL Estim Creat Clear Calc 89.3 Estimated GFR > 60 Random Glucose 304 H (60-115) mg/dL Calcium 10.2 (8.4-10.2) mg/dL Magnesium 1.8 (1.6-2.6) mg/dL Total Bilirubin 0.8 (0.0-1.0) mg/dL AST 20 (5-37) U/L ALT 24 (0-40) U/L Alkaline Phosphatase 81 (39-117) U/L Total Creatine Kinase 163 (38-174) U/L Troponin I High Sens (<3.5-35.0) ng/L Total Protein 8.2 H (6.5-8.0) g/dL Albumin 4.6 (3.5-5.0) g/dL Lipase 26 (8-78) U/L Influenza Type A (PCR) (Negative) Influenza Type B (PCR) (Negative) RSV RNA Qual (PCR) (Negative) SARS-CoV-2 RNA (RT-PCR) (Negative) <Zafar Velasco MD - Last Filed: 07/04/22 21:40> Independent Interpretation I performed an independent interpretation of an: EKG (Normal sinus rhythm heart rate 94, left axis deviation, poor precordial progression, possible intraventricular conduction delay), Plain X-Ray (Dilated loops of small bowel, no air-fluid levels) and CT Scan <Zafar Velasco MD - Last Filed: 07/04/22 21:40> Interpretation: Small-bowel obstruction <Zafar Velasco MD - Last Filed: 07/04/22 21:40> Radiology Impression Discussion of test interpretation with radiology: I have reviewed the radiologist's reading. (IMPRESSION: Small bowel ileus Dictated By:Lc Beach MDSigned By:<Electronically signed by Lc Beach MD in [place]>07/04/22 1613 IMPRESSION: Findings are consistent with partial small bowel obstruction with a transition zone seen in the left midabdomen with some minimal inflammatory changes) <Zafar Velasco MD - Last Filed: 07/04/22 21:40> External Record Review External record reviewed: Inpatient record <Zafar Velasco MD - Last Filed: 07/04/22 21:40> Prescription Management I considered prescription management with: Pain Medication <Zafar Velasco MD - Last Filed: 07/04/22 21:40> Chronic Conditions Patient?s care impacted by: Diabetes <Zafar Velasco MD - Last Filed: 07/04/22 21:40> Medications Administered Discontinued Medications Generic Name Dose Route Start Last Admin Trade Name Freq PRN Reason Stop Dose Admin Iohexol 85 ml 07/04/22 20:08 07/04/22 20:09 Iohexol 350 Mg/Ml 100 Ml Infus..Btl IV 07/04/22 20:09 85 ml ONCE ONE Administration Ketorolac Tromethamine 15 mg 07/04/22 21:01 07/04/22 21:32 Ketorolac Tromethamine 15 Mg/Ml Vial IVPUSH 07/04/22 21:02 15 mg ONCE ONE Administration Morphine Sulfate 2 mg 07/04/22 18:31 07/04/22 18:41 Morphine Sulfate 2 Mg/Ml Cartridge IVPUSH 07/04/22 18:32 2 mg ONCE ONE Administration Protocol Ondansetron HCl 4 mg 07/04/22 21:16 07/04/22 21:32 Ondansetron Hcl 4 Mg/2 Ml Vial IVPUSH 07/04/22 21:17 4 mg ONCE ONE Administration <SUZE Daigle - Last Filed: 07/04/22 14:42> Medications Administered Discontinued Medications Generic Name Dose Route Start Last Admin Trade Name Freq PRN Reason Stop Dose Admin Iohexol 85 ml 07/04/22 20:08 07/04/22 20:09 Iohexol 350 Mg/Ml 100 Ml Infus..Btl IV 07/04/22 20:09 85 ml ONCE ONE Administration Ketorolac Tromethamine 15 mg 07/04/22 21:01 07/04/22 21:32 Ketorolac Tromethamine 15 Mg/Ml Vial IVPUSH 07/04/22 21:02 15 mg ONCE ONE Administration Morphine Sulfate 2 mg 07/04/22 18:31 07/04/22 18:41 Morphine Sulfate 2 Mg/Ml Cartridge IVPUSH 07/04/22 18:32 2 mg ONCE ONE Administration Protocol Ondansetron HCl 4 mg 07/04/22 21:16 07/04/22 21:32 Ondansetron Hcl 4 Mg/2 Ml Vial IVPUSH 07/04/22 21:17 4 mg ONCE ONE Administration <Zafar Velasco MD - Last Filed: 07/04/22 21:40> Discharge Plan Discharge Clinical Impression: Small bowel obstruction, Abdominal pain, History of bowel resection <SUZE Daigle - Last Filed: 07/04/22 14:42> Patient Disposition: Admitted As Inpatient <SUZE Daigle - Last Filed: 07/04/22 14:42> Prescriptions: No Action levofloxacin 500 mg Tablet 500 mg PO Q24H Qty: 6 0RF loperamide 2 mg Capsule 2 mg PO Q4H PRN (Reason: diarrahe) Qty: 4 0RF sucralfate 1 gram Tablet 1 g PO QIDACHS Qty: 12 0RF ondansetron 4 mg tablet,disintegrating 4 mg PO Q6-8H PRN (Reason: nausea and vomiting) Qty: 14 0RF <SUZE Daigle - Last Filed: 07/04/22 14:42>
--- NOTE | 2022-07-04 14:39 | ECG_ITS ---
Test Reason : severe stomach pain Blood Pressure : / mmHG Vent. Rate : 094 BPM Atrial Rate : 094 BPM P-R Int : 140 ms QRS Dur : 080 ms QT Int : 352 ms P-R-T Axes : 025 -71 -01 degrees QTc Int : 440 ms Normal sinus rhythm Left axis deviation Inferior infarct (cited on or before 23-JUN-2018) Anterior infarct (cited on or before 23-JUN-2018) Abnormal ECG When compared with ECG of 28-JAN-2021 16:30, Questionable change in initial forces of Inferior leads Referred By: Aleisha Snow Electronically Signed By:Elkin Carty
[2022-07-04 15:01] LABS: MANUAL DIFF FLAG NO
[2022-07-04 15:03] LABS: Basophils Percent Auto 0.2 % (0-2); Eosinophils Percent Auto 0.2 % (0-4); Hematocrit 52.1 % (42.0-52.0); Hemoglobin 16.9 g/dl (14.0-18.0); Imm Gran Abs Auto 0.04 X10*3/uL (0.00-0.03); Imm Gran Pct Auto 0.3 % (0.0-0.4); Lymphocytes Percent Auto 20.5 % (20-40); Mean Corpuscular HGB Conc 32.4 g/dl (31.0-36.0); Mean Corpuscular Hemoglobin 28.5 pg (27.0-33.0); Mean Platelet Volume 9.9 fL (9.4-12.4); Monocytes Absolute Auto 0.5 X10*3/uL (0.1-1.2); Monocytes Percent Auto 3.4 % (2-11); Neutrophils Absolute Auto 10.9 x10*3/uL (2.0-8.3); Neutrophils Percent Auto 75.4 % (45-73); Platelet Count 360 X10*3/uL (160-400); Red Blood Count 5.92 X10*6/uL (4.60-5.80); Red Cell Distribution Width 13.3 % (11.0-16.0); White Blood Count 14.4 X10*3/uL (4.8-10.8)
[2022-07-04 15:07] LABS: INTERNATIONAL NORM RATIO 0.9 (0.9-1.1); Prothrombin Time 10.7 SEC (10.0-13.1)
[2022-07-04 15:26] LABS: Alanine Aminotransferase 24 U/L (0-40); Albumin Level 4.6 g/dL (3.5-5.0); Alkaline Phosphatase 81 U/L (39-117); Anion Gap 19 (12-20); Aspartate Amino Transferase 20 U/L (5-37); Bilirubin Total 0.8 mg/dL (0.0-1.0); Blood Urea Nitrogen 25 mg/dL (9-16); Calcium 10.2 mg/dL (8.4-10.2); Carbon Dioxide 21 mmol/L (22-29); Chloride 103 mmol/L (96-108); Creatinine Clr Calc Pharmacy 89.3; Estimated Glomerular Filt Rate > 60; Glucose Random 304 mg/dL (60-115); Lipase 26 U/L (8-78); Magnesium 1.8 mg/dL (1.6-2.6); Potassium 4.9 mmol/L (3.3-5.1); Sodium 138 mmol/L (135-145); Total Protein 8.2 g/dL (6.5-8.0)
[2022-07-04 15:29] LABS: Troponin-I High Sensitivity < 3.5 ng/L (<3.5-35.0)
[2022-07-04 15:49] LABS: Influenza A PCR NEGATIVE (Negative); Influenza B PCR NEGATIVE (Negative); Resp Syncy Virus RNA Qual PCR NEGATIVE (Negative); SARS COV2 PCR INHOUSE NEGATIVE (Negative)
[2022-07-04] MEDS: Morphine Sulfate 2 MG/ML CARTRIDGE IVPUSH (18:41)
[2022-07-04 20:00] VITALS: BP 115/87; PULSE 94; RESP 18; TEMP 36.9
[2022-07-04] MEDS: iohexoL 350 MG/ML 100 ML INFUS..BTL 85 ML IV (20:09)
--- NOTE | 2022-07-04 21:15 | PC.NURSE ---
Pt reported 9/10 abdominal pain and nausea with an episode of vomiting. MD aware, medications ordered per MAR
[2022-07-04] MEDS: Ketorolac Tromethamine 15 MG/ML VIAL IVPUSH (21:32)
[2022-07-04] MEDS: ondansetron HCL 4 MG/2 ML VIAL IVPUSH (21:32)
--- NOTE | 2022-07-04 22:27 | PHA.MEDREC ---
Pharmacy Consult ? Medication Reconciliation Pharmacy has completed the medication reconciliation. Patient states they are only on 12 units at bedtime now [facility]
[2022-07-04] MEDS: Heparin Sodium,Porcine 5,000 UNIT/ML VIAL 5000 UNIT SUBCUT (23:34)
[2022-07-04] MEDS: Acetaminophen 1,000 MG/100 ML PIGGYBACK 400 MG IV (23:35)
[2022-07-04] MEDS: Dextrose 5 % and Lactated Ring 1,000 ML 125 ML IVCONT (23:35)
[2022-07-04] MEDS: 0.9 % Sodium Chloride Flush 3 ML SYRINGE IVFLUSH (23:36)
--- NOTE | 2022-07-05 01:39 | PC.NURSE ---
Pt refused NG tube placement, Jesica aware, stated he will take care of it in the morning.
[2022-07-05] MEDS: Acetaminophen 1,000 MG/100 ML PIGGYBACK 400 MG IV ×3 (04:40→15:02)
[2022-07-05] MEDS: HYDROmorphone HCl 0.5 MG/0.5 ML SYRINGE IVPUSH ×3 (04:41→15:56)
[2022-07-05 06:04] LABS: MANUAL DIFF FLAG NO
[2022-07-05 06:07] LABS: Basophils Percent Auto 0.3 % (0-2); Eosinophils Percent Auto 0.4 % (0-4); Hematocrit 43.8 % (42.0-52.0); Hemoglobin 14.4 g/dl (14.0-18.0); Imm Gran Abs Auto 0.02 X10*3/uL (0.00-0.03); Imm Gran Pct Auto 0.2 % (0.0-0.4); Lymphocytes Absolute Auto 2.1 X10*3/uL (1.2-4.9); Lymphocytes Percent Auto 19.8 % (20-40); Mean Corpuscular HGB Conc 32.9 g/dl (31.0-36.0); Mean Corpuscular Hemoglobin 28.5 pg (27.0-33.0); Mean Corpuscular Volume 86.7 fL (80.0-98.0); Mean Platelet Volume 10.3 fL (9.4-12.4); Monocytes Absolute Auto 0.8 X10*3/uL (0.1-1.2); Monocytes Percent Auto 7.4 % (2-11); Neutrophils Absolute Auto 7.8 x10*3/uL (2.0-8.3); Neutrophils Percent Auto 71.9 % (45-73); Platelet Count 299 X10*3/uL (160-400); Red Blood Count 5.05 X10*6/uL (4.60-5.80); Red Cell Distribution Width 13.4 % (11.0-16.0); White Blood Count 10.8 X10*3/uL (4.8-10.8)
[2022-07-05 06:14] VITALS: BP 106/62; PULSE 81; RESP 16; TEMP 37.2
[2022-07-05 06:26] LABS: Anion Gap 14 (12-20); Blood Urea Nitrogen 28 mg/dL (9-16); Calcium 8.8 mg/dL (8.4-10.2); Carbon Dioxide 25 mmol/L (22-29); Chloride 105 mmol/L (96-108); Creatinine Clr Calc Pharmacy 103.7; Estimated Glomerular Filt Rate > 60; Glucose Random 276 mg/dL (60-115); Potassium 4.6 mmol/L (3.3-5.1); Sodium 139 mmol/L (135-145)
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
[2022-07-05 08:08] VITALS: RESP 16
[2022-07-05] MEDS: Dextrose 5 % and Lactated Ring 1,000 ML 125 ML IVCONT ×3 (08:11→21:37)
[2022-07-05] MEDS: Heparin Sodium,Porcine 5,000 UNIT/ML VIAL 5000 UNIT SUBCUT ×2 (10:23→21:35)
[2022-07-05 11:20] VITALS: BMI 38.0
[2022-07-05 11:34] VITALS: BP 120/65; PULSE 76; RESP 16; TEMP 36.4; O2SAT 94
--- NOTE | 2022-07-05 14:27 | MHC.CM.PN ---
met with pt and interpertor pt is indeoendent had noprevious services is covid vax dc plan home no simeon
--- NOTE | 2022-07-05 15:15 | HO.PM.IMCN ---
History of Present Illness Data of Consult Service Date: 07/05/22 Requesting physician: Neil Mooney Primary Care Provider: Unknown Physician HPI Reason for consult: diabetes 47-year-old man with history of diabetes mellitus, hypothyroidism and multiple abdominal surgeries admitted by general surgery for small-bowel obstruction. NG tube placed. Patient with history of small-bowel obstruction in the past. He denies chest pain, shortness breath, nausea, vomiting, diarrhea. NG tube is in place, he is currently resting in bed, reports passing flatus and a bowel movement. Mild headache that was recently medicated Review of Systems Review of Systems: Denies any recent fever chills or decrease in appetite respiratory denies any shortness of breath coverage production cardiovascular denies chest pain gastrointestinal some tenderness to abdomen genitourinary denies any dysuria frequency or hematuria musculoskeletal denies any joint pain or swelling neuropsych denies any weakness or seizures all other systems reviewed are negative [facility] Medical History (Updated 07/05/22 @ 15:16 by Negrita Tripp NP) Diabetes mellitus Hypertension Partial small bowel obstruction Surgical History (Updated 07/04/22 @ 18:37 by Zafar Velasco MD) History of bowel resection History of colostomy reversal History of exploratory laparotomy Social History Household Members: None Housing: Apartment Do you presently have visiting nurse or other home services: No Alcohol intake: never Patient Tobacco Use Status: Never used Tobacco service: No Current occupational status: employed Meds Allergies Allergy/AdvReac Type Severity Reaction Status Date / Time No Known Allergies Allergy Verified 07/04/22 14:41 Active Medications: Current Medications Glucose (Glucose Gel 15 Gm Gel..Gram.) 15 gm PO Q15M PRN; Protocol PRN Reason: per Hypoglycemia Standing Ord. Heparin Sodium (Porcine) (Heparin Sodium,Porcine 5,000 Unit/Ml Vial) 5,000 unit SUBCUT Q12H [facility] Last Admin: 07/05/22 10:23 Dose: 5,000 unit Hydromorphone HCl (Hydromorphone Hcl 0.5 Mg/0.5 Ml Syringe) 0.5 mg IVPUSH Q3H PRN; Protocol PRN Reason: Pain, Severe (Pain Scale 7-10) Last Admin: 07/05/22 08:08 Dose: 0.5 mg Acetaminophen (Ofirmev) 1,000 mg in 100 mls @ 400 mls/hr IV Q6H [facility] Stop: 07/05/22 16:14 Last Admin: 07/05/22 15:02 Dose: 400 mls/hr Dextrose/Lactated Ringer's (D5lr) 1,000 mls @ 125 mls/hr IVCONT .Q8H [facility] Last Infusion: 07/05/22 10:53 Dose: 125 mls/hr Dextrose (D10) 250 mls @ 750 mls/hr IV Q15M PRN; Protocol PRN Reason: per Hypoglycemia Standing Ord. Insulin Glargine (Insulin Glargine,Hum.Rec.Anlog 100 Unit/Ml 10 Ml Vial) 12 unit SUBCUT BEDTIME [facility] Insulin Human Lispro (Insulin Lispro 100 Unit/Ml 3 Ml Vial) 0 unit SUBCUT QIDACHS [facility]; Protocol Levothyroxine Sodium (Levothyroxine Sodium 75 Mcg Tablet) 75 mcg PO DAILY [facility] Ondansetron HCl (Ondansetron Hcl 4 Mg/2 Ml Vial) 4 mg IVPUSH QID PRN PRN Reason: Nausea Pharmacy Consult (Consult Rx Perform Med Rec) 1 each MISCELLANE ONCE PRN PRN Reason: Consult order Sodium Chloride (0.9 % Sodium Chloride Flush 3 Ml Syringe) 3 ml IVFLUSH QSHIFT [facility] Last Admin: 07/05/22 07:14 Dose: Not Given Zolpidem Tartrate (Zolpidem Tartrate 5 Mg Tablet) 5 mg PO BEDTIME PRN PRN Reason: Insomnia Home Medications Medication Instructions Recorded Confirmed Last Taken Type insulin glargine 100 unit/mL (3 12 unit subcut BEDTIME 07/04/22 07/04/22 07/03/22 History mL) subcutaneous pen (Lantus Solostar U-100 Insulin) levothyroxine 75 mcg tablet 1 tab PO DAILY 07/04/22 07/04/22 07/04/22 History metformin 500 mg tablet,extended 2 tab PO BID 07/04/22 07/04/22 07/04/22 History release 24 hr Physical Exam Vital Signs and Narrative: Vital Signs: Last Vital Signs Temp 97.5 F 07/05/22 11:34 Pulse 76 07/05/22 11:34 Resp 16 07/05/22 11:34 BP 120/65 03/14/23 11:34 Pulse Ox 94 07/05/22 11:34 O2 Del Method 07/05/22 11:34 BMI result Body Mass Index 38.0 Appearing in no acute distress head is normocephalic atraumatic eyes pupils are PERRLA sclera is anicteric mouth throat mucous membranes are intact and moist neck is supple no lymphadenopathy, no JVD noted lung sounds are clear to auscultation heart regular rate rhythm, clear S1, S2 positive bowel sounds, abdomen is soft, NG tube neuro patient is alert x3, no focal deficits Results Labs 07/05/22 05:34 07/05/22 05:34 Labs: Laboratory Results - last 24 hr 07/04/22 07/04/22 07/04/22 14:54 14:54 14:55 MCV MCH MCHC RDW Plt Count MPV Immature Gran % (Auto) Neut % (Auto) Lymph % (Auto) Victoria % (Auto) Eos % (Auto) Baso % (Auto) Lymph # (Auto) Victoria # (Auto) Eos # (Auto) Baso # (Auto) Abs Immat Gran (auto) Absolute Neuts (auto) Absolute Nucleated RBC Nucleated RBC % (auto) Anion Gap 19 Estim Creat Clear Calc 89.3 Estimated GFR > 60 Random Glucose 304 H Calcium 10.2 Magnesium 1.8 Total Bilirubin 0.8 AST 20 ALT 24 Alkaline Phosphatase 81 Total Creatine Kinase 163 Troponin I High Sens < 3.5 Total Protein 8.2 H Albumin 4.6 Lipase 26 Influenza Type A (PCR) NEGATIVE Influenza Type B (PCR) NEGATIVE RSV RNA Qual (PCR) NEGATIVE SARS-CoV-2 RNA (RT-PCR) NEGATIVE 07/05/22 07/05/22 05:34 05:34 MCV 86.7 MCH 28.5 MCHC 32.9 RDW 13.4 Plt Count 299 MPV 10.3 Immature Gran % (Auto) 0.2 Neut % (Auto) 71.9 Lymph % (Auto) 19.8 L Victoria % (Auto) 7.4 Eos % (Auto) 0.4 Baso % (Auto) 0.3 Lymph # (Auto) 2.1 Victoria # (Auto) 0.8 Eos # (Auto) 0.0 Baso # (Auto) 0.0 Abs Immat Gran (auto) 0.02 Absolute Neuts (auto) 7.8 Absolute Nucleated RBC 0.000 Nucleated RBC % (auto) 0.0 Anion Gap 14 Estim Creat Clear Calc 103.7 Estimated GFR > 60 Random Glucose 276 H Calcium 8.8 D Magnesium Total Bilirubin AST ALT Alkaline Phosphatase Total Creatine Kinase Troponin I High Sens Total Protein Albumin Lipase Influenza Type A (PCR) Influenza Type B (PCR) RSV RNA Qual (PCR) SARS-CoV-2 RNA (RT-PCR) Imaging Radiologist's Impressions: Impressions Chest X-Ray 07/04/22 15:12 IMPRESSION: Unremarkable examination. KUB X-Ray 07/04/22 15:12 IMPRESSION: Small bowel ileus Abdomen Ultrasound 07/04/22 16:00 IMPRESSION: 1. Hepatic steatosis. 2. Multiple simple left renal cysts. No specific follow-up recommended. Abdomen/Pelvis CT 07/04/22 20:11 IMPRESSION: Findings are consistent with partial small bowel obstruction with a transition zone seen in the left midabdomen with some minimal inflammatory changes in the surrounding fat, possibly caused by adhesions. Fleischner guidelines were followed. Chest X-Ray 07/05/22 09:30 IMPRESSION: No acute pulmonary disease. Enteric tube terminating in the stomach. Assessment and Plan (1) Abdominal pain: Status: Acute Plan 47 year old man admitted by general surgery for SBO SBO Management as per surgical team NGT pain management Positive bowel movement, passing flatus Diabetes ss, diet as per surgery Lantus Hypothyroidism Continue levothyroxine DVT prophylaxis as per admitting team Attending Dr. Payton Full code Medical consultation complete. Will sign off, contact medical team for further assistance Time Spent With Patient Time: Total time managing care of this patient today ____ minutes.
[2022-07-05 15:40] VITALS: BP 129/78; PULSE 76; RESP 16; TEMP 36.7; O2SAT 93
[2022-07-05 16:14] LABS: Glucose, Whole Blood 222 mg/dL (60-115)
[2022-07-05] MEDS: Insulin Lispro 100 UNIT/ML 3 ML VIAL SUBCUT ×2 (16:39→21:35)
[2022-07-05 19:37] VITALS: BP 137/79; PULSE 73; RESP 16; TEMP 36.3; O2SAT 94
[2022-07-05 20:36] LABS: Glucose, Whole Blood 246 mg/dL (60-115)
[2022-07-05] MEDS: Insulin Glargine,Hum.rec.anlog 100 UNIT/ML 10 ML VIAL 12 UNIT SUBCUT (21:35)
[2022-07-06] MEDS: HYDROmorphone HCl 0.5 MG/0.5 ML SYRINGE IVPUSH (01:21)
[2022-07-06 03:29] VITALS: BP 125/73; PULSE 68; RESP 16; TEMP 36.6; O2SAT 96
[2022-07-06] MEDS: Dextrose 5 % and Lactated Ring 1,000 ML 125 ML IVCONT (05:56)
[2022-07-06] MEDS: Levothyroxine Sodium 75 MCG TABLET PO (05:57)
[2022-07-06 07:29] LABS: Glucose, Whole Blood 142 mg/dL (60-115)
[2022-07-06 07:36] VITALS: BP 135/83; PULSE 66; RESP 17; TEMP 36.1; O2SAT 97
--- NOTE | 2022-07-06 09:08 | P.PNGS_ITS ---
Subjective Subjective Date of Service: 07/06/22 Interval history: Feels well today. Tolerating clear liquids. Denies nausea/vomiting. Had multiple liquid stools overnight. OOB and ambulating. Physical Exam Vital Signs: Vital Signs: Last Vital Signs Temp 96.9 F 07/06/22 07:36 Pulse 66 07/06/22 07:36 Resp 17 07/06/22 07:36 BP 135/83 07/06/22 07:36 Pulse Ox 97 07/06/22 07:36 O2 Del Method 07/06/22 07:36 BMI result Body Mass Index 38.0 Const: General: comfortable, no acute distress and alert Orientation/consciousness: patient oriented x3 Resp: Effort & Inspection: normal respiratory effort GI: Inspection: No distended Palpation (GI): Soft to palpation, nontender, no guarding and not rigid Percussion: Yes normal to percussion Skin: General skin exam: no rashes or lesions noted Neuro: General: patient oriented x3 and moves all extremities Objective Data Active Medications Glucose (Glucose Gel 15 Gm Gel..Gram.) 15 gm PO Q15M PRN; Protocol PRN Reason: per Hypoglycemia Standing Ord. Heparin Sodium (Porcine) (Heparin Sodium,Porcine 5,000 Unit/Ml Vial) 5,000 unit SUBCUT Q12H [facility] Last Admin: 07/05/22 21:35 Dose: 5,000 unit Documented By: FILI Hydromorphone HCl (Hydromorphone Hcl 0.5 Mg/0.5 Ml Syringe) 0.5 mg IVPUSH Q3H PRN; Protocol PRN Reason: Pain, Severe (Pain Scale 7-10) Last Admin: 07/06/22 01:21 Dose: 0.5 mg Documented By: FILI Dextrose (D10) 250 mls @ 750 mls/hr IV Q15M PRN; Protocol PRN Reason: per Hypoglycemia Standing Ord. Insulin Glargine (Insulin Glargine,Hum.Rec.Anlog 100 Unit/Ml 10 Ml Vial) 12 unit SUBCUT BEDTIME [facility] Last Admin: 07/05/22 21:35 Dose: 12 unit Documented By: FILI Insulin Human Lispro (Insulin Lispro 100 Unit/Ml 3 Ml Vial) 0 unit SUBCUT QIDACHS [facility]; Protocol Last Admin: 07/06/22 07:30 Dose: Not Given Documented By: VERNON Non-Admin Reason: No Insulin Coverage Levothyroxine Sodium (Levothyroxine Sodium 75 Mcg Tablet) 75 mcg PO DAILY@0600 [facility] Last Admin: 07/06/22 05:57 Dose: 75 mcg Documented By: FILI Ondansetron HCl (Ondansetron Hcl 4 Mg/2 Ml Vial) 4 mg IVPUSH QID PRN PRN Reason: Nausea Pharmacy Consult (Consult Rx Perform Med Rec) 1 each MISCELLANE ONCE PRN PRN Reason: Consult order Sodium Chloride (0.9 % Sodium Chloride Flush 3 Ml Syringe) 3 ml IVFLUSH QSHIFT [facility] Last Admin: 07/06/22 07:14 Dose: Not Given Documented By: VERNON Non-Admin Reason: IV Running Zolpidem Tartrate (Zolpidem Tartrate 5 Mg Tablet) 5 mg PO BEDTIME PRN PRN Reason: Insomnia Labs 07/05/22 05:34 07/05/22 05:34 Labs: Laboratory Results - last 24 hr 07/05/22 07/05/22 07/06/22 16:06 20:31 07:18 POC Glucose 222 H 246 H 142 H Procedures Date of Service Date of Service: 07/06/22 Progress Note: A&P Assessment and plan (1) Partial small bowel obstruction: Status: Acute Plan 47-year-old male patient with a prior history of small-bowel obstructions returning now with complaints of abdominal distension, abdominal pain, nausea and vomiting with physical findings and CT findings suggestive of a small-bowel obstruction, partial with a transition point in the mid small bowel, most likely due to adhesions from previous surgery. Has been improving with nonoperative measures, NGT removed yesterday and started on clear liquids which he is tolerating. Will advance to solid diet. If tolerating, stable for discharge to home today. Patient expressed understanding and agrees with the plan. Time Spent With Patient Time: Total time managing care of this patient today ____ minutes. Quality Stroke Does the patient have a stroke diagnosis?: No VTE Prior VTE?: No VTE Risk Level:: Surgical - moderate VTE Device Contraindication: N/A - Device Ordered VTE Drug Contraindication: N/A - Med Ordered
[2022-07-06] MEDS: Heparin Sodium,Porcine 5,000 UNIT/ML VIAL 5000 UNIT SUBCUT (11:09)
[2022-07-06 11:18] LABS: Glucose, Whole Blood 261 mg/dL (60-115)
--- NOTE | 2022-07-06 11:32 | PC.NURSE ---
R forearm IV access infiltrated, Per Tania ARCINIEGA, IV access no longer needed, IV removed with no issues, Pt tolerated well.
[2022-07-06] MEDS: Insulin Lispro 100 UNIT/ML 3 ML VIAL SUBCUT (11:56)
[2022-07-06 16:00] VITALS: BP 134/79; PULSE 70; RESP 18; TEMP 36.6; O2SAT 97
--- NOTE | 2022-07-06 16:35 | MHC.CM.PN ---
DP Home self care once katerin solid diet. Patient will arrange for transpoty home.
[2022-07-06 16:44] LABS: Glucose, Whole Blood 91 mg/dL (60-115)
--- NOTE | 2022-07-06 16:57 | PM.EVENT ---
Event Note Date of Service: 07/06/22 Event Note: Called by the nurse - patient had stated that he was supposed to be discharged today he says he is tolerating diet well denies pain nausea or vomiting has flatus abdomen soft, nontender, nondistended looks well okay to DC home patient instructed to call Dr. Mooney in the office for follow-up instructions Time Spent With Patient Time: Total time managing care of this patient today ____ minutes.
--- NOTE | 2022-07-08 08:30 | P.CDIM_ITS ---
PROVIDER RESPONSE TEXT: To clarify, the appropriate diagnosis supported by the clinical indicators: Obesity QUERY TEXT: PHYSICIAN'S DOCUMENTATION REQUEST Date of Query: 07/05/2022 12:09 PM EDT Patient Name: Juan Vargas Admit Date: 07/05/2022 Dear Neil Mooney, A review of the medical record indicates additional documentation may be needed. Please review below and update the documentation accordingly. Clinical Indicators: Nursing notes Height and Weight: BMI 38.1 5' 4 in height Obesity Class II If possible, please provide an associated diagnosis related to the abnormal BMI, such as: Overweight Obesity Obesity Due to other cause Specify the other cause Other or unable to determine Other (explain) Clinically unable to determine (explain) Thank you, Elba Sharma, CCS, CDIS Use of terms such as suspected, likely, concern for, or probable (associated with a specific diagnosi s that is being evaluated, monitored, or treated as if it exists) are acceptable and can be coded in the inpatient se tting, when documented at the time of discharge. Please use your independent medical judgment in providing your response. THIS QUERY IS PART OF THE PERMANENT MEDICAL RECORD
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
== END 2022-07-06 18:05 | disposition home or self-care (01) | DRG 247 ==
LOC: HO.ED 21:38 → HO.EDOVER 22:16 → HO.S3 07-05 09:57
PROVIDERS: Physician Assistant Medical; Admitting Provider Surgery; Emergency Provider Emergency Medicine; Visit Provider Surgery
DX: K56.50 Intestinal adhesions [bands], unspecified as to partial versus complete obstruction (principal); E03.9 Hypothyroidism, unspecified; E66.9 Obesity, unspecified; E11.9 Type 2 diabetes mellitus without complications; Z20.822 Contact with and (suspected) exposure to COVID-19; Z79.4 Long term (current) use of insulin; Z79.84 Long term (current) use of oral hypoglycemic drugs; Z79.890 Hormone replacement therapy; Z68.38 Body mass index [BMI] 38.0-38.9, adult
CPT/HCPCS: 0241U; 36415; 71045; 71046; 74018; 74177; 76700; 80048; 80053; 82550; 82947; 83690; 83735; 84484; 85025; 85610; 93005; 99285; J0131; J1170; J1643; J1885; J2270; J2405; Q9967

== ENCOUNTER 2023-04-11 15:56 | Emergency (ER) | payer MEDICAID, SELFPAY ==
[2023-04-11 16:16] VITALS: BP 119/80; PULSE 88; RESP 18; TEMP 36.8; O2SAT 95; BMI 38.2
--- NOTE | 2023-04-11 16:17 | ED.GENADULT ---
HPI - General Adult General Chief complaint: Nausea/Vomiting/Diarrhea Stated complaint: vomiting Time Seen by Provider: 04/12/23 00:27 Source: patient Mode of arrival: ambulatory Limitations: no limitations History of Present Illness HPI narrative: Patient history of diabetes small-bowel obstruction status post bowel resection and colostomy reversed comes about 3 days of nausea vomiting and diarrhea unable to take any fluids by mouth vomited about 7 to 8 times a day item number of diarrhea no recent seafood intake no intake of any antibiotics lately no fever does have some chills no upper respiratory symptoms Related Data Home Medications Medication Instructions Recorded Confirmed insulin glargine 100 unit/mL (3 12 unit subcut BEDTIME 07/04/22 07/04/22 mL) subcutaneous pen (Lantus Solostar U-100 Insulin) levothyroxine 75 mcg tablet 1 tab PO DAILY 07/04/22 07/04/22 metformin 500 mg tablet,extended 2 tab PO BID 07/04/22 07/04/22 release 24 hr Previous Rx's Medication Instructions Recorded loperamide 2 mg tablet (Imodium 2 mg PO Q6H PRN loose stool #14 04/12/23 A-D) tabs ondansetron 4 mg disintegrating 4 mg PO Q6-8H PRN nausea and 04/12/23 tablet vomiting #10 tabs Allergies Allergy/AdvReac Type Severity Reaction Status Date / Time No Known Allergies Allergy Verified 07/04/22 14:41 Review of Systems Review of Systems: Yes all other systems are reviewed and are negative PMFSH Past Medical History Medical History Diabetes mellitus Partial small bowel obstruction Hypertension Surgical History History of colostomy reversal History of bowel resection History of exploratory laparotomy Social History Social History Household Members: None Housing: Apartment Do you presently have visiting nurse or other home services: No Alcohol intake: never Comment: low fall risk Patient Tobacco Use Status: Never used Tobacco Smoked in Last 30 Days: No Use of substances other than those prescribed or required for medical reasons: No Advance Directives: No Advance Directives Information Provided: No service: No Current occupational status: employed Physical Exam ED Vital Signs: Vital Signs - 24 hr 04/11/23 16:16 04/12/23 00:00 Temperature 98.2 F 98.5 F Pulse Rate 88 82 Respiratory Rate 18 12 Blood Pressure 119/80 120/89 Pulse Oximetry 95 95 Oxygen Delivery Method Room Air Room Air BMI result Body Mass Index 38.2 Appearance: Alert. Oriented X3. No acute distress. Eyes: No pallor or icterus ENT: Pharynx normal. Oral Mucosa moist Neck: Normal inspection. Neck supple. CVS: Normal heart rate and rhythm. Pulses normal. Respiratory: No respiratory distress. Equal air entry bilateral, no wheezing/rales/rhonchi Abdomen: Soft and nontender. Bowel sounds are present, no mass palpable, no CVA tenderness Skin: Skin warm and dry. Normal skin color. Normal skin turgor. Extremities: No lower extremity edema. No calf tenderness Neuro: Oriented X 3. No motor deficit. Course Course Course Narrative: RME- 47 year old female presents for evaluation of vomiting and diarrhea. Denies abdominal pain. Plan for labs, viral swabs Medications Administered Discontinued Medications Generic Name Dose Route Start Last Admin Trade Name Freq PRN Reason Stop Dose Admin Loperamide HCl 4 mg 04/12/23 00:38 04/12/23 00:57 Loperamide Hcl 2 Mg Capsule PO 04/12/23 00:39 4 mg ONCE ONE Administration Ondansetron HCl 4 mg 04/12/23 00:38 04/12/23 00:57 Ondansetron Odt 4 Mg Tab.Rapdis TRANSLINGU 04/12/23 00:39 4 mg ONCE ONE Administration Ondansetron HCl 4 mg 04/12/23 01:28 04/12/23 01:47 Ondansetron Odt 4 Mg Tab.Rapdis TRANSLINGU 04/12/23 01:29 4 mg ONCE ONE Administration Medical Decision Making Medical Decision Making [facility] Narrative: Patient with acute vomiting and diarrhea labs are stable no recent antibiotic use no recent travel or bad food intake likely viral etiology patient improved after sublingual Zofran and Imodium taking p.o. fluids discharge patient home Differential Diagnosis Differential Diagnoses: The differential diagnosis associated with the presentation includes Gastroenteritis/food poison/enteritis Lab Data MDM Lab Attestation statement: I reviewed the patient's lab results. 04/11/23 18:30 04/11/23 18:30 Labs: Lab Results 04/11/23 Range/Units 18:30 WBC 9.2 (4.8-10.8) X10*3/uL RBC 5.29 (4.60-5.80) X10*6/uL Hgb 15.3 (14.0-18.0) g/dl Hct 46.3 (42.0-52.0) % MCV 87.5 (80.0-98.0) fL MCH 28.9 (27.0-33.0) pg MCHC 33.0 (31.0-36.0) g/dl RDW 12.7 (11.0-16.0) % Plt Count 294 (160-400) X10*3/uL MPV 10.5 (9.4-12.4) fL Immature Gran % (Auto) 0.2 (0.0-0.4) % Neut % (Auto) 58.7 (45-73) % Lymph % (Auto) 33.4 (20-40) % [place] % (Auto) 6.4 (2-11) % Eos % (Auto) 1.1 (0-4) % Baso % (Auto) 0.2 (0-2) % Lymph # (Auto) 3.1 (1.2-4.9) X10*3/uL [place] # (Auto) 0.6 (0.1-1.2) X10*3/uL Eos # (Auto) 0.1 (0.0-0.4) X10*3/uL Baso # (Auto) 0.0 (0.0-0.2) X10*3/uL Abs Immat Gran (auto) 0.02 (0.00-0.03) X10*3/uL Absolute Neuts (auto) 5.4 (2.0-8.3) x10*3/uL Absolute Nucleated RBC 0.000 (0.0-0.012) X10*3/uL Nucleated RBC % (auto) 0.0 (0.0-0.2) /100WBC Sodium 136 (135-145) mmol/L Potassium 3.8 (3.3-5.1) mmol/L Chloride 99 (96-108) mmol/L Carbon Dioxide 28 (22-29) mmol/L Anion Gap 13 (12-20) BUN 20 H (9-16) mg/dL Creatinine 1.21 (0.5-1.4) mg/dL Estim Creat Clear Calc 79.2 Estimated GFR > 60 Random Glucose 277 H (60-115) mg/dL Calcium 9.7 D (8.4-10.2) mg/dL Total Bilirubin 0.6 (0.0-1.0) mg/dL AST 22 (5-37) U/L ALT 21 (0-40) U/L Alkaline Phosphatase 76 (39-117) U/L Total Protein 8.2 H (6.5-8.0) g/dL Albumin 4.3 (3.5-5.0) g/dL Lipase 44 (8-78) U/L Urine Color Yellow Urine Appearance Clear Urine pH 5.0 (5.0-9.0) Ur Specific [place] >= 1.030 H (1.005-1.025) Urine Protein Trace (Neg-Trace) mg/dL Urine Glucose (UA) >=1000 H (Negative) mg/dL Urine Ketones Negative (Negative) mg/dL Urine Blood Negative (Negative) Urine Nitrite Negative (Negative) Ur Leukocyte Esterase Negative (Negative) Urine RBC 0-2 (0-2) /HPF Urine WBC 0-5 (0-5) /HPF Ur Squamous Epith Cells 0-2 (0-2) /HPF Urine Bacteria None Seen (None Seen) Hyaline Casts 0-2 (0-2) /LPF Influenza Type A (PCR) NEGATIVE (Negative) Influenza Type B (PCR) NEGATIVE (Negative) RSV RNA Qual (PCR) NEGATIVE (Negative) SARS-CoV-2 RNA (RT-PCR) NEGATIVE (Negative) Discharge Plan Discharge Clinical Impression: Gastroenteritis Patient Disposition: Home, Self-Care Instructions: Gastroenteritis (ED) Additional Instructions: Drink plenty of fluids Take medication for nausea/vomiting Take Imodium for diarrhea as prescribed Follow with PCP if not better Prescriptions: New ondansetron 4 mg tablet,disintegrating 4 mg PO Q6-8H PRN (Reason: nausea and vomiting) Qty: 10 0RF loperamide [Imodium A-D] 2 mg tablet 2 mg PO Q6H PRN (Reason: loose stool) Qty: 14 0RF No Action levothyroxine 75 mcg tablet 1 tab PO DAILY metformin 500 mg tablet extended release 24 hr 2 tab PO BID insulin glargine [Lantus Solostar U-100 Insulin] 100 unit/mL (3 mL) insulin pen 12 unit subcut BEDTIME Stand Alone Forms: Work/School Release Interventions: ED Discharge Assessment Last Done: 04/12/23 01:47 Discharge Date/Time: 04/12/23 01:49
[2023-04-11 18:40] LABS: MANUAL DIFF FLAG NO
[2023-04-11 18:44] LABS: Appearance Urine Clear; Color Urine Yellow; Glucose Urine UA >=1000 mg/dL (Negative); Leukocyte Esterase Urine Negative (Negative); Nitrite Urine Negative (Negative); Specific Gravity - Urine >= 1.030 (1.005-1.025); UMIC TRIGGER UACC YES; Urine Blood Negative (Negative); Urine Ketones Negative (Negative); Urine Protein Trace mg/dL (Neg-Trace)
[2023-04-11 18:46] LABS: Basophils Percent Auto 0.2 % (0-2); Eosinophils Absolute Auto 0.1 X10*3/uL (0.0-0.4); Eosinophils Percent Auto 1.1 % (0-4); Hematocrit 46.3 % (42.0-52.0); Hemoglobin 15.3 g/dl (14.0-18.0); Imm Gran Abs Auto 0.02 X10*3/uL (0.00-0.03); Imm Gran Pct Auto 0.2 % (0.0-0.4); Lymphocytes Absolute Auto 3.1 X10*3/uL (1.2-4.9); Lymphocytes Percent Auto 33.4 % (20-40); Mean Corpuscular Hemoglobin 28.9 pg (27.0-33.0); Mean Corpuscular Volume 87.5 fL (80.0-98.0); Mean Platelet Volume 10.5 fL (9.4-12.4); Monocytes Absolute Auto 0.6 X10*3/uL (0.1-1.2); Monocytes Percent Auto 6.4 % (2-11); Neutrophils Absolute Auto 5.4 x10*3/uL (2.0-8.3); Neutrophils Percent Auto 58.7 % (45-73); Platelet Count 294 X10*3/uL (160-400); Red Blood Count 5.29 X10*6/uL (4.60-5.80); Red Cell Distribution Width 12.7 % (11.0-16.0); White Blood Count 9.2 X10*3/uL (4.8-10.8)
[2023-04-11 18:49] LABS: Bacteria Urine None Seen (None Seen); Hyaline Casts Urine 0-2 /LPF (0-2); RBC Urine 0-2 /HPF (0-2); Squamous Epithelial Cell Urine 0-2 /HPF (0-2); WBC Urine 0-5 /HPF (0-5)
[2023-04-11 18:57] LABS: Alanine Aminotransferase 21 U/L (0-40); Albumin Level 4.3 g/dL (3.5-5.0); Alkaline Phosphatase 76 U/L (39-117); Anion Gap 13 (12-20); Aspartate Amino Transferase 22 U/L (5-37); Bilirubin Total 0.6 mg/dL (0.0-1.0); Blood Urea Nitrogen 20 mg/dL (9-16); Calcium 9.7 mg/dL (8.4-10.2); Carbon Dioxide 28 mmol/L (22-29); Chloride 99 mmol/L (96-108); Creatinine Clr Calc Pharmacy 79.2; Estimated Glomerular Filt Rate > 60; Glucose Random 277 mg/dL (60-115); Lipase 44 U/L (8-78); Potassium 3.8 mmol/L (3.3-5.1); Sodium 136 mmol/L (135-145); Total Protein 8.2 g/dL (6.5-8.0)
[2023-04-11 19:19] LABS: Influenza A PCR NEGATIVE (Negative); Influenza B PCR NEGATIVE (Negative); Resp Syncy Virus RNA Qual PCR NEGATIVE (Negative); SARS COV2 PCR INHOUSE NEGATIVE (Negative)
[2023-04-12] VITALS: BP 120/89; PULSE 82; RESP 12; TEMP 36.9; O2SAT 95
[2023-04-12] MEDS: Loperamide HCl 2 MG CAPSULE 4 MG PO (00:57)
[2023-04-12] MEDS: Ondansetron ODT 4 MG TAB.RAPDIS TRANSLINGU ×2 (00:57→01:47)
== END 2023-04-12 01:49 | disposition home or self-care (01) ==
PROVIDERS: Physician Assistant; Emergency Provider Internal Medicine; PCP Internal Medicine
DX: K52.9 Noninfective gastroenteritis and colitis, unspecified (principal); R11.2 Nausea with vomiting, unspecified; E11.9 Type 2 diabetes mellitus without complications; Z79.4 Long term (current) use of insulin; Z79.899 Other long term (current) drug therapy; Z20.822 Contact with and (suspected) exposure to COVID-19; Z20.828 Contact with and (suspected) exposure to other viral communicable diseases
CPT/HCPCS: 0241U; 36415; 80053; 81001; 83690; 85025; 99283; 99284

== ENCOUNTER → 2023-05-17 13:59 | Outpatient (BNVA) | payer SELFPAY | PROVIDERS: PCP Internal Medicine; Visit Provider Physician Assistant Medical | DX: Z02.79 Encounter for issue of other medical certificate (principal) ==

== ENCOUNTER 2023-07-30 18:34 | Inpatient (IN) | payer MEDICAID, SELFPAY ==
--- NOTE | ~2023-07-30 | XR_ITS ---
EXAMINATION: XR ABDOMEN KUB CLINICAL INDICATION: Follow-up partial small bowel obstruction. COMPARISON: CT abdomen and pelvis dated 07/30/2023; KUB dated 07/04/2022. TECHNIQUE: 2 AP views of the abdomen and pelvis are submitted. FINDINGS: There are are multiple dilated small bowel loops, one of the largest in the mid abdomen showing a caliber of 3.4 cm. There is a paucity of gas within the colon. There is some gas identified to the level of the rectum. No free intraperitoneal air is seen. There is no abnormal soft tissue calcifications. No acute osseous abnormality is seen. XR/XR KUB IMPRESSION: Findings are consistent with a persistent partial small bowel obstruction. No free intraperitoneal air is seen.
--- NOTE | ~2023-07-30 | CT_ITS ---
EXAMINATION: CT ABDOMEN AND PELVIS WITH CONTRAST CLINICAL INFORMATION: Abdominal pain COMPARISON: CT abdomen and pelvis 07/04/2022 TECHNIQUE: Multidetector volumetric images were obtained from the superior aspect of the liver through the pubic symphysis following administration 85 mL of Omnipaque 350 intravenous contrast. Sagittal and coronal reformatted images were obtained on the technologist's workstation. Oral contrast: No This CT examination was performed using dose optimization techniques as appropriate, variously including the following: *Automated exposure control *Adjustment of mA and/or kV according to patient size (this includes techniques or standardized protocols for targeted exams where dose is matched to indication/reason for exam; i.e. extremities or head) *Use of iterative reconstruction technique DLP: 809 mGy-cm FINDINGS: LUNG BASES: The visualized lung bases are unremarkable. LIVER, GALLBLADDER, AND BILIARY TREE: The liver is normal in size, shape, and attenuation. No focal hepatic lesion or biliary ductal dilatation is present. The gallbladder is unremarkable with no evidence of radiopaque gallstones, gallbladder wall thickening, or obvious pericholecystic inflammatory changes. PANCREAS: Unremarkable. SPLEEN: Unremarkable. ADRENAL GLANDS: Unremarkable. KIDNEYS AND URETERS: The kidneys are normal in size, shape, and attenuation. No hydronephrosis, hydroureter, or calculi seen. No perinephric stranding. BLADDER: Unremarkable. GASTROINTESTINAL TRACT: Multiple dilated loops of small bowel are again seen across the mid abdomen. Transition point in the left mid abdomen. Fecalization of small bowel contents proximal to this transition. The terminal ileum distal to this transition is present. ABDOMINAL WALL: Multiple small fat-containing ventral hernias. LYMPH NODES: Normal. VASCULAR: Unremarkable. PELVIC VISCERA: Unremarkable. OSSEOUS STRUCTURES: Unremarkable. CT/CT abdomen pelvis w IV con IMPRESSION: Findings consistent with partial small bowel obstruction with transition point in the left mid abdomen. Fleischner guidelines were followed.
[2023-07-30 18:45] VITALS: BP 159/101; PULSE 84; RESP 20; TEMP 37; O2SAT 97; BMI 41.6
[2023-07-30 19:04] LABS: MANUAL DIFF FLAG NO
[2023-07-30 19:05] LABS: Basophils Percent Auto 0.3 % (0-2); Eosinophils Absolute Auto 0.1 X10*3/uL (0.0-0.4); Eosinophils Percent Auto 0.6 % (0-4); Hemoglobin 14.8 g/dl (14.0-18.0); Imm Gran Abs Auto 0.03 X10*3/uL (0.00-0.03); Imm Gran Pct Auto 0.2 % (0.0-0.4); Lymphocytes Absolute Auto 4.4 X10*3/uL (1.2-4.9); Lymphocytes Percent Auto 34.7 % (20-40); Mean Corpuscular HGB Conc 33.6 g/dl (31.0-36.0); Mean Corpuscular Hemoglobin 29.1 pg (27.0-33.0); Mean Corpuscular Volume 86.4 fL (80.0-98.0); Mean Platelet Volume 10.2 fL (9.4-12.4); Monocytes Absolute Auto 0.7 X10*3/uL (0.1-1.2); Monocytes Percent Auto 5.3 % (2-11); Neutrophils Absolute Auto 7.5 x10*3/uL (2.0-8.3); Neutrophils Percent Auto 58.9 % (45-73); Platelet Count 276 X10*3/uL (160-400); Red Blood Count 5.09 X10*6/uL (4.60-5.80); Red Cell Distribution Width 12.9 % (11.0-16.0); White Blood Count 12.7 X10*3/uL (4.8-10.8)
[2023-07-30 19:35] LABS: Alanine Aminotransferase 23 U/L (0-40); Albumin Level 4.2 g/dL (3.5-5.0); Alkaline Phosphatase 68 U/L (39-117); Anion Gap 14 (12-20); Aspartate Amino Transferase 36 U/L (5-37); Bilirubin Total 0.6 mg/dL (0.0-1.0); Blood Urea Nitrogen 21 mg/dL (9-16); Calcium 9.9 mg/dL (8.4-10.2); Carbon Dioxide 25 mmol/L (22-29); Chloride 103 mmol/L (96-108); Creatinine Clr Calc Pharmacy 112.9; Estimated Glomerular Filt Rate > 60; Glucose Random 169 mg/dL (60-115); Lipase 51 U/L (8-78); Potassium 4.6 mmol/L (3.3-5.1); Sodium 137 mmol/L (135-145); Total Protein 7.8 g/dL (6.5-8.0)
[2023-07-30 22:00] VITALS: BP 140/91; PULSE 73; RESP 16; TEMP 36.7; O2SAT 98
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
[2023-07-30] MEDS: Morphine Sulfate 2 MG/ML CARTRIDGE IVPUSH (22:09)
[2023-07-30] MEDS: 0.9 % Sodium Chloride 1,000 ML 125 ML IVCONT (22:09)
[2023-07-30] MEDS: ondansetron HCL 4 MG/2 ML VIAL IVPUSH (23:57)
--- NOTE | 2023-07-31 | PC.NURSE ---
Addendum entered by Jono Rogers 07/31/23 05:30: 0000 - pt reports pain is returning; had previously improved with morphine given per jun. pt reports 9/10 pain at this time. Original Note: pt reports sudden onset nausea. pt did not have any vomiting episodes. pt medicated with prn zofran which provided immediate relief. nad. resting comfortably.
[2023-07-31] MEDS: Morphine Sulfate 4 MG/ML CARTRIDGE 3 MG IVPUSH ×4 (00:37→09:39)
[2023-07-31 01:00] VITALS: RESP 17
--- NOTE | 2023-07-31 01:00 | PC.NURSE ---
pt given prn medication for pain 0037; upon reassessing pt resting comfortably in stretcher nad. resp even and unlabored. call adams within reach.
--- NOTE | 2023-07-31 04:10 | PC.NURSE ---
pt rang call adams reporting pain is now at 9/10 again. pt medicated per mar with prn. upon reassessing pt resting comfortably nad. resp even and unlabored. call adams within reach.
[2023-07-31 05:20] VITALS: BP 118/82; PULSE 85; RESP 14; TEMP 36.8; O2SAT 93
[2023-07-31 05:33] LABS: Hemoglobin 14.7 g/dl (14.0-18.0); Mean Corpuscular HGB Conc 33.4 g/dl (31.0-36.0); Mean Corpuscular Hemoglobin 29.5 pg (27.0-33.0); Mean Corpuscular Volume 88.2 fL (80.0-98.0); Mean Platelet Volume 10.3 fL (9.4-12.4); Platelet Count 274 X10*3/uL (160-400); Red Blood Count 4.99 X10*6/uL (4.60-5.80); Red Cell Distribution Width 13.2 % (11.0-16.0); White Blood Count 14.7 X10*3/uL (4.8-10.8)
[2023-07-31 05:46] LABS: Anion Gap 14 (12-20); Blood Urea Nitrogen 23 mg/dL (9-16); Calcium 9.8 mg/dL (8.4-10.2); Carbon Dioxide 25 mmol/L (22-29); Chloride 104 mmol/L (96-108); Creatinine Clr Calc Pharmacy 91.4; Estimated Glomerular Filt Rate > 60; Glucose Random 227 mg/dL (60-115); Potassium 5.5 mmol/L (3.3-5.1); Sodium 137 mmol/L (135-145)
[2023-07-31] MEDS: 0.9 % Sodium Chloride 1,000 ML 125 ML IVCONT ×3 (06:00→23:25)
--- NOTE | 2023-07-31 06:51 | PC.NURSE ---
Dr. Sheppard aware of pt potassium.
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
[2023-07-31 08:51] VITALS: BP 130/72; PULSE 94; RESP 20; TEMP 36.2; O2SAT 99
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
--- NOTE | 2023-07-31 09:10 | PHA.MEDREC ---
Addendum entered by Jenn Hidalgo RPh 07/31/23 09:24: After altering hospitalist of the Lantus dose, they were able to talk to patient more. Patient admitted he was confused and confirmed he takes Lantus nightly. Original Note: Pharmacy Consult ? Medication Reconciliation Pharmacy has completed the medication reconciliation. Patient is a poor historian of medications Patient kiswahili-speaking, but able to understand and speak citizen of [place]. Patient confirmed all meds, but could not recall the name of any meds (Had to be provided name to recognize). When asked about his Lantus, he stated multiple times he takes that once a week, and could not confirm the dose. I called and spoke to his pharmacy, [facility] [phone], spoke with Cinthia Davidson, who confirmed he last filled Lantus dose and directions (22 units nightly). The pharmacy confirmed that he is not on any weekly diabetic medications. He said he takes a medication for pain, but could not recall the name, I gave him to list to pick form (tylenol, ibuproxen, naproxen), but none of these were what he used.
[2023-07-31 09:36] LABS: Glucose, Whole Blood 198 mg/dL (60-115)
[2023-07-31] MEDS: Heparin Sodium,Porcine 5,000 UNIT/ML VIAL 5000 UNIT SUBCUT ×2 (09:40→17:18)
[2023-07-31 09:55] LABS: Appearance Urine Clear; Color Urine Yellow; Glucose Urine UA Negative (Negative); Leukocyte Esterase Urine Negative (Negative); Nitrite Urine Negative (Negative); Specific Gravity - Urine >= 1.030 (1.005-1.025); Urine Blood Negative (Negative); Urine Ketones Negative (Negative); Urine Protein Trace mg/dL (Neg-Trace)
[2023-07-31 09:57] LABS: Bacteria Urine None Seen (None Seen); RBC Urine 0-2 /HPF (0-2); Squamous Epithelial Cell Urine 0-2 /HPF (0-2); WBC Urine 0-5 /HPF (0-5)
[2023-07-31] MEDS: ondansetron HCL 4 MG/2 ML VIAL IVPUSH (10:14)
[2023-07-31 11:09] VITALS: TEMP 36.8
[2023-07-31 11:34] LABS: Glucose, Whole Blood 194 mg/dL (60-115)
[2023-07-31] MEDS: Insulin Lispro 100 UNIT/ML 3 ML VIAL SUBCUT ×3 (12:01→20:33)
--- NOTE | 2023-07-31 12:33 | MHC.CM.PN ---
PT REPORTS HE LIVES ALONE AND INDEPENDENT WITH CARE HE HAS NO SERVICES AND NO DME HCP ON FILE PCP: MADHURI TAPIA DCP: HOME NO SERVICES VIA SELF TRANSPORT
--- NOTE | 2023-07-31 14:59 | PM.EVENT ---
Event Note Date of Service: 08/01/23 Event Note: Seen on afternoon rounds Feeling much better Says he passed flatus and BMs Abdominal pain much improved Looks well KUB this morning shows gaseous distention of the colon diffusely No official report yet Will start on clear liquids for dinner Abdominal exam remains benign Time Spent With Patient Time: Total time managing care of this patient today ____ minutes.
[2023-07-31 15:00] VITALS: BP 123/77; PULSE 99; RESP 18; TEMP 36.7; O2SAT 93
[2023-07-31] MEDS: Acetaminophen 325 MG TABLET 650 MG PO ×2 (15:57→21:48)
[2023-07-31 16:23] LABS: Glucose, Whole Blood 182 mg/dL (60-115)
[2023-07-31 19:20] VITALS: BP 157/77; PULSE 79; RESP 18; TEMP 36.4; O2SAT 94
[2023-07-31 19:39] LABS: Glucose, Whole Blood 176 mg/dL (60-115)
[2023-08-01] MEDS: Heparin Sodium,Porcine 5,000 UNIT/ML VIAL 5000 UNIT SUBCUT ×2 (02:01→10:59)
[2023-08-01 03:37] VITALS: BP 129/64; PULSE 80; RESP 18; TEMP 36.2; O2SAT 96
[2023-08-01 07:46] VITALS: BP 102/57; PULSE 73; RESP 16; TEMP 36.4; O2SAT 94
--- NOTE | 2023-08-01 07:46 | P.PNGS_ITS ---
Subjective Subjective Date of Service: 08/01/23 <Tania Mars PA-C - Last Filed: 08/01/23 07:48> 08/01/23 <Mendoza Sheppard MD - Last Filed: 08/01/23 09:53> Interval history: Continues to feel better this morning. Started on clear liquids last night which he is tolerating without nausea or vomiting. Passing flatus and had loose BM this morning. Feels hungry. <Tania Mars PA-C - Last Filed: 08/01/23 07:48> Physical Exam 2 Vital Signs: Vital Signs: Last Vital Signs Temp 97.1 F 08/01/23 03:37 Pulse 80 08/01/23 03:37 Resp 18 08/01/23 03:37 BP 129/64 08/01/23 03:37 Pulse Ox 96 08/01/23 03:37 O2 Del Method Room Air 08/01/23 03:37 BMI result Body Mass Index 41.6 <Tania Mars PA-C - Last Filed: 08/01/23 07:48> Const: General: comfortable, no acute distress and alert <Tania Mars PA-C - Last Filed: 08/01/23 07:48> Orientation/consciousness: patient oriented x3 <Tania Mars PA-C - Last Filed: 08/01/23 07:48> GI: Inspection: No distended <Tania Mars PA-C - Last Filed: 08/01/23 07:48> Palpation (GI): Soft to palpation, nontender and no guarding <Tania Mars PA-C - Last Filed: 08/01/23 07:48> Skin: General skin exam: no rashes or lesions noted <Tania Mars PA-C - Last Filed: 08/01/23 07:48> Neuro: General: patient oriented x3 and moves all extremities <ROYAL Marcus Last Filed: 08/01/23 07:48> Objective Data Active Medications Acetaminophen (Acetaminophen 325 Mg Tablet) 650 mg PO Q6H PRN PRN Reason: Headache Last Admin: 07/31/23 21:48 Dose: 650 mg Documented By: LUCÍA Glucose (Glucose Gel 15 Gm Gel..Gram.) 15 gm PO Q15M PRN; Protocol PRN Reason: per Hypoglycemia Standing Ord. Heparin Sodium (Porcine) (Heparin Sodium,Porcine 5,000 Unit/Ml Vial) 5,000 unit SUBCUT Q8H [facility] Last Admin: 08/01/23 02:01 Dose: 5,000 unit Documented By: LUCÍA Sodium Chloride (Ns) 1,000 mls @ 125 mls/hr IVCONT .Q8H [facility] Last Infusion: 07/31/23 21:55 Dose: Infused Documented By: LUCÍA Dextrose (D10) 250 mls @ 750 mls/hr IV Q15M PRN; Protocol PRN Reason: per Hypoglycemia Standing Ord. Insulin Human Lispro (Insulin Lispro 100 Unit/Ml 3 Ml Vial) 0 unit SUBCUT QIDACHS [facility]; Protocol Last Admin: 07/31/23 20:33 Dose: 2 unit Documented By: LUCÍA Morphine Sulfate (Morphine Sulfate 4 Mg/Ml Cartridge) 3 mg IVPUSH Q3H PRN; Protocol PRN Reason: Pain, Severe (Pain Scale 7-10) Last Admin: 07/31/23 09:39 Dose: 3 mg Documented By: CHRIS Ondansetron HCl (Ondansetron Hcl 4 Mg/2 Ml Vial) 4 mg IVPUSH Q8H PRN PRN Reason: nausea Last Admin: 07/31/23 10:14 Dose: 4 mg Documented By: CHRIS Sodium Chloride (0.9 % Sodium Chloride Flush 3 Ml Syringe) [facility] Last Admin: 08/01/23 00:08 Dose: Not Given Documented By: LUCÍA Non-Admin Reason: IV Running <Tania Mars PA-C - Last Filed: 08/01/23 07:48> Labs CBC & Chem 7: 07/31/23 05:29 07/31/23 05:29 <Tania Mars PA-C - Last Filed: 08/01/23 07:48> Labs: Laboratory Results - last 24 hr 07/31/23 07/31/23 07/31/23 09:31 09:37 11:24 POC Glucose 198 H 194 H Urine Color Yellow Urine Appearance Clear Urine pH 5.0 Ur Specific Hunt >= 1.030 H Urine Protein Trace Urine Glucose (UA) Negative Urine Ketones Negative Urine Blood Negative Urine Nitrite Negative Ur Leukocyte Esterase Negative Urine RBC 0-2 Urine WBC 0-5 Ur Squamous Epith Cells 0-2 Urine Bacteria None Seen Hyaline Casts 3-5 07/31/23 07/31/23 16:14 19:22 POC Glucose 182 H 176 H Urine Color Urine Appearance Urine pH Ur Specific Hunt Urine Protein Urine Glucose (UA) Urine Ketones Urine Blood Urine Nitrite Ur Leukocyte Esterase Urine RBC Urine WBC Ur Squamous Epith Cells Urine Bacteria Hyaline Casts <Tania Mars PA-C - Last Filed: 08/01/23 07:48> Procedures Date of Service Date of Service: 08/01/23 <Tanai Mars PA-C - Last Filed: 08/01/23 07:48> 08/01/23 <Mendoza Sheppard MD - Last Filed: 08/01/23 09:53> Progress Note: A&P Assessment and plan (1) SBO (small bowel obstruction): Status: Acute <Tania Mars PA-C - Last Filed: 08/01/23 07:48> Assessment and Plan: feels well denies pain or vomitting passing flatus, had BMs tolerating clears abd soft advance diet possible dc home later seen and examined independently <Mendoza Sheppard MD - Last Filed: 08/01/23 09:53> Assessment and Plan: Resolved, now with return of GI function. Abd remains benign. Tolerating liquids, will advance to solid diet. If tolerating, stable for dc to home later today. patient comfortable with plan. <Tania Mars PA-C - Last Filed: 08/01/23 07:48> Time Spent With Patient Time: Total time managing care of this patient today ____ minutes. <Tania Mars PA-C - Last Filed: 08/01/23 07:48> Quality Stroke Does the patient have a stroke diagnosis?: No <ROYAL Marcus Last Filed: 08/01/23 07:48> VTE Prior VTE?: No <Tania Mars PA-C - Last Filed: 08/01/23 07:48> VTE Risk Level:: Medical - moderate - high <Tania Mars PA-C - Last Filed: 08/01/23 07:48> VTE Device Contraindication: N/A - Device Ordered <Tania Mars PA-C - Last Filed: 08/01/23 07:48> VTE Drug Contraindication: N/A - Med Ordered <ROYAL Marcus Last Filed: 08/01/23 07:48>
[2023-08-01 07:47] LABS: Glucose, Whole Blood 158 mg/dL (60-115)
[2023-08-01] MEDS: Acetaminophen 325 MG TABLET 650 MG PO (07:52)
[2023-08-01] MEDS: Insulin Lispro 100 UNIT/ML 3 ML VIAL SUBCUT ×2 (07:53→11:06)
[2023-08-01] MEDS: 0.9 % Sodium Chloride 1,000 ML 125 ML IVCONT (07:53)
--- NOTE | 2023-08-01 09:25 | P.PNIM_ITS ---
Subjective Subjective Date of Service: 08/01/23 Interval History: f/u on med consult for medical management on surgyer service for sbo feels better, had multiple bowel movments and tolerating liquid diet Physical Exam 2 Vital Signs: Vital Signs: Last Vital Signs Temp 97.5 F 08/01/23 07:46 Pulse 73 08/01/23 07:46 Resp 16 08/01/23 07:46 BP 102/57 L 08/01/23 07:46 Pulse Ox 94 08/01/23 07:46 O2 Del Method Room Air 08/01/23 07:46 BMI result Body Mass Index 41.6 General: AO X 3, no acute distress Resp: CTA bilateral CVS: S1,S2,RRR GI: +BS, NT, no distention Skin: No rash Neuro: motor grossly intact Psych: appropriate affect Objective Data Active Medications Acetaminophen (Acetaminophen 325 Mg Tablet) 650 mg PO Q6H PRN PRN Reason: Headache Last Admin: 08/01/23 07:52 Dose: 650 mg Documented By: NEVA Glucose (Glucose Gel 15 Gm Gel..Gram.) 15 gm PO Q15M PRN; Protocol PRN Reason: per Hypoglycemia Standing Ord. Heparin Sodium (Porcine) (Heparin Sodium,Porcine 5,000 Unit/Ml Vial) 5,000 unit SUBCUT Q8H [facility] Last Admin: 08/01/23 02:01 Dose: 5,000 unit Documented By: LUCÍA Sodium Chloride (Ns) 1,000 mls @ 125 mls/hr IVCONT .Q8H [facility] Last Admin: 08/01/23 07:53 Dose: 125 mls/hr Documented By: NEVA Dextrose (D10) 250 mls @ 750 mls/hr IV Q15M PRN; Protocol PRN Reason: per Hypoglycemia Standing Ord. Insulin Human Lispro (Insulin Lispro 100 Unit/Ml 3 Ml Vial) 0 unit SUBCUT QIDACHS [facility]; Protocol Last Admin: 08/01/23 07:53 Dose: 2 unit Documented By: NEVA Morphine Sulfate (Morphine Sulfate 4 Mg/Ml Cartridge) 3 mg IVPUSH Q3H PRN; Protocol PRN Reason: Pain, Severe (Pain Scale 7-10) Last Admin: 07/31/23 09:39 Dose: 3 mg Documented By: CHRIS Ondansetron HCl (Ondansetron Hcl 4 Mg/2 Ml Vial) 4 mg IVPUSH Q8H PRN PRN Reason: nausea Last Admin: 07/31/23 10:14 Dose: 4 mg Documented By: CHRIS Oxycodone HCl (Oxycodone Hcl Immed Release 5 Mg Tablet) 5 mg PO Q4H PRN PRN Reason: Pain, Moderate(Pain Scale 4-6) Sodium Chloride (0.9 % Sodium Chloride Flush 3 Ml Syringe) [facility] Last Admin: 08/01/23 07:58 Dose: Not Given Documented By: NEVA Non-Admin Reason: IV Running Labs 07/31/23 05:29 07/31/23 05:29 Labs: Laboratory Results - last 24 hr 07/31/23 07/31/23 07/31/23 09:31 09:37 11:24 POC Glucose 198 H 194 H Urine Color Yellow Urine Appearance Clear Urine pH 5.0 Ur Specific [place] >= 1.030 H Urine Protein Trace Urine Glucose (UA) Negative Urine Ketones Negative Urine Blood Negative Urine Nitrite Negative Ur Leukocyte Esterase Negative Urine RBC 0-2 Urine WBC 0-5 Ur Squamous Epith Cells 0-2 Urine Bacteria None Seen Hyaline Casts 3-5 07/31/23 07/31/23 08/01/23 16:14 19:22 07:44 POC Glucose 182 H 176 H 158 H Urine Color Urine Appearance Urine pH Ur Specific [place] Urine Protein Urine Glucose (UA) Urine Ketones Urine Blood Urine Nitrite Ur Leukocyte Esterase Urine RBC Urine WBC Ur Squamous Epith Cells Urine Bacteria Hyaline Casts Assessment and Plan (1) SBO (small bowel obstruction): Status: Acute (2) Diabetes mellitus: Status: Acute Plan 48 year old male with history of insulin dependent type 2 diabetes, htn, history of sbo admitted to general surgery for partial SBO with consult placed to hospitalist service for medical management. #SBO -plan per general surgery #Insulin dependent type 2 diabetes, continue SSI and add Lantus 15, and restart home dose of 22 at dc #HYperkalemia, repeat labs today #HTN -bp reasonably controlled -not on antihypertensives #Hypothyroidism -continue levothyroxine Quality Stroke Does the patient have a stroke diagnosis?: No VTE Prior VTE?: No VTE Risk Level:: Medical - moderate - high VTE Device Contraindication: N/A - Device Ordered VTE Drug Contraindication: N/A - Med Ordered
[2023-08-01 11:05] LABS: Glucose, Whole Blood 162 mg/dL (60-115)
[2023-08-01] MEDS: oxyCODONE HCl Immed Release 5 MG TABLET PO (11:05)
--- NOTE | 2023-08-01 13:57 | PM.EVENT ---
Event Note Date of Service: 08/01/23 Event Note: feels well denies pain tolerating diet abd soft wants to go home ok to dc home today Time Spent With Patient Time: Total time managing care of this patient today ____ minutes.
--- NOTE | 2023-08-01 14:04 | MHC.CM.PN ---
pt dcd home self care
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
== END 2023-08-01 14:12 | disposition home or self-care (01) | DRG 247 ==
LOC: HO.ED 22:09 → HO.EDOVER 22:14 → HO.S3 07-31 07:35
PROVIDERS: Admitting Provider Surgery; Emergency Provider Student in an Organized Health Care Education/Training Program; PCP Internal Medicine; Visit Provider Surgery
DX: K56.609 Unspecified intestinal obstruction, unspecified as to partial versus complete obstruction (principal); E03.9 Hypothyroidism, unspecified; E11.9 Type 2 diabetes mellitus without complications; E86.0 Dehydration; I10 Essential (primary) hypertension; E87.5 Hyperkalemia; Z79.4 Long term (current) use of insulin; Z79.84 Long term (current) use of oral hypoglycemic drugs; Z79.890 Hormone replacement therapy; Z79.899 Other long term (current) drug therapy
CPT/HCPCS: 36415; 74018; 74177; 80048; 80053; 81001; 82947; 83690; 85025; 85027; 85610; 99285; J1644; J2270; J2405

== ENCOUNTER → 2023-07-30 22:08 | Outpatient (BNV) | payer MEDICAID, SELFPAY | PROVIDERS: Admitting Provider Surgery; Emergency Provider Student in an Organized Health Care Education/Training Program; PCP Internal Medicine; Visit Provider Physician Assistant | DX: E11.9 Type 2 diabetes mellitus without complications (principal); K56.609 Unspecified intestinal obstruction, unspecified as to partial versus complete obstruction | CPT/HCPCS: 99222; 99232 ==

== ENCOUNTER → 2023-07-30 22:08 | Outpatient (BNV) | payer MEDICAID, SELFPAY | PROVIDERS: Admitting Provider Surgery; Emergency Provider Student in an Organized Health Care Education/Training Program; PCP Internal Medicine; Visit Provider Physician Assistant Surgical | DX: K56.609 Unspecified intestinal obstruction, unspecified as to partial versus complete obstruction (principal) | CPT/HCPCS: 99222; 99238; 99499 ==

== ENCOUNTER → 2024-03-04 03:50 | Outpatient (BNV) | payer SELFPAY | PROVIDERS: Emergency Provider Emergency Medicine; PCP Internal Medicine; Visit Provider Internal Medicine Cardiovascular Disease | DX: R07.9 Chest pain, unspecified (principal) | CPT/HCPCS: 93010 ==

== ENCOUNTER 2024-03-04 03:52 | Emergency (ER) | payer OTHER, SELFPAY ==
--- NOTE | 2024-03-04 | ECG_ITS ---
Test Reason : CHST PAIN Blood Pressure : / mmHG Vent. Rate : 095 BPM Atrial Rate : 095 BPM P-R Int : 148 ms QRS Dur : 088 ms QT Int : 360 ms P-R-T Axes : 034 -66 008 degrees QTc Int : 452 ms Normal sinus rhythm with sinus arrhythmia Low voltage QRS Left anterior fascicular block Cannot rule out Inferior infarct (cited on or before 23-JUN-2018) Cannot rule out Anterior infarct (cited on or before 23-JUN-2018) Abnormal ECG When compared with ECG of 04-JUL-2022 14:47, No significant change was found Referred By: Generic ED Physician Electronically Signed By:Elkin Caryt
--- NOTE | ~2024-03-04 | CT_ITS ---
EXAMINATION: CT ABDOMEN AND PELVIS WITH CONTRAST CLINICAL INFORMATION: upper abdominal pain hx bowel resection COMPARISON: CT abdomen/pelvis 07/30/2023 TECHNIQUE: Multidetector volumetric images were obtained from the superior aspect of the liver through the pubic symphysis following administration 85 mL of Omnipaque 350 intravenous contrast. Sagittal and coronal reformatted images were obtained on the technologist's workstation. Oral contrast: No This CT examination was performed using dose optimization techniques as appropriate, variously including the following: *Automated exposure control *Adjustment of mA and/or kV according to patient size (this includes techniques or standardized protocols for targeted exams where dose is matched to indication/reason for exam; i.e. extremities or head) *Use of iterative reconstruction technique DLP: 804 mGy-cm FINDINGS: LUNG BASES: The visualized lung bases are unremarkable. LIVER, GALLBLADDER, AND BILIARY TREE: The liver is normal in size, shape, and attenuation. No focal hepatic lesion or biliary ductal dilatation is present. The gallbladder is unremarkable with no evidence of radiopaque gallstones, gallbladder wall thickening, or obvious pericholecystic inflammatory changes. PANCREAS: Unremarkable. SPLEEN: Unremarkable. ADRENAL GLANDS: Unremarkable. KIDNEYS AND URETERS: Multiple left-sided simple fluid attenuating renal cysts for which no follow-up imaging is recommended. The kidneys are normal in size, shape, and attenuation. No hydronephrosis, hydroureter, or calculi seen. No perinephric stranding. BLADDER: Unremarkable. GASTROINTESTINAL TRACT: The small and large bowel are nondilated. Normal appendix. ABDOMINAL WALL: Multiple tiny fat-containing midline supraumbilical hernias, not significantly changed. There is also a small fat-containing umbilical hernia. Small bilateral fat-containing inguinal hernias. LYMPH NODES: Normal. VASCULAR: Unremarkable. PELVIC VISCERA: Normal CT appearance of the prostate and seminal vesicles. OSSEOUS STRUCTURES: Unremarkable. CT/CT abdomen pelvis w IV con IMPRESSION: 1. No acute abnormality within the abdomen or pelvis. No evidence for bowel obstruction. 2. Multiple tiny fat-containing midline supraumbilical hernias, not significantly changed. There is also a small fat-containing umbilical hernia. Small bilateral fat-containing inguinal hernias. Fleischner guidelines were followed. Electronically signed by: Sneha Gauthier DO 03/04/2024 01:02 PM [facility]
--- NOTE | ~2024-03-04 | XR_ITS ---
EXAMINATION: XR CHEST CLINICAL INFORMATION: Chest pain. COMPARISON: July 05, 2022. TECHNIQUE: 2 views of the chest were obtained. FINDINGS: No significant abnormality is noted involving the heart, lungs, mediastinum, bony thorax or soft tissues. XR/XR chest 2V IMPRESSION: Unremarkable examination. Electronically signed by: Darian Weber MD 03/04/2024 04:[address] [facility]
[2024-03-04 04:11] VITALS: BP 112/83; PULSE 90; RESP 18; TEMP 36.4; O2SAT 93; BMI 39.8
[2024-03-04 04:12] LABS: Basophils Percent Auto 0.2 % (0-2); Eosinophils Absolute Auto 0.1 X10*3/uL (0.0-0.4); Eosinophils Percent Auto 0.5 % (0-4); Hematocrit 40.7 % (42.0-52.0); Hemoglobin 13.9 g/dl (14.0-18.0); Imm Gran Abs Auto 0.03 X10*3/uL (0.00-0.03); Imm Gran Pct Auto 0.3 % (0.0-0.4); Lymphocytes Absolute Auto 3.1 X10*3/uL (1.2-4.9); Lymphocytes Percent Auto 28.1 % (20-40); MANUAL DIFF FLAG NO; Mean Corpuscular HGB Conc 34.2 g/dl (31.0-36.0); Mean Corpuscular Hemoglobin 29.6 pg (27.0-33.0); Mean Corpuscular Volume 86.6 fL (80.0-98.0); Mean Platelet Volume 10.1 fL (9.4-12.4); Monocytes Absolute Auto 0.5 X10*3/uL (0.1-1.2); Monocytes Percent Auto 4.9 % (2-11); Neutrophils Absolute Auto 7.2 x10*3/uL (2.0-8.3); Platelet Count 276 X10*3/uL (160-400); Red Cell Distribution Width 12.7 % (11.0-16.0); White Blood Count 10.9 X10*3/uL (4.8-10.8)
[2024-03-04 04:26] LABS: Alanine Aminotransferase 24 U/L (0-40); Alkaline Phosphatase 61 U/L (39-117); Anion Gap 17 (12-20); Aspartate Amino Transferase 28 U/L (5-37); Bilirubin Direct 0.1 mg/dL (0.0-0.5); Bilirubin Total 0.3 mg/dL (0.0-1.0); Blood Urea Nitrogen 15 mg/dL (9-16); Calcium 9.9 mg/dL (8.4-10.2); Carbon Dioxide 19 mmol/L (22-29); Chloride 104 mmol/L (96-108); Creatinine Clr Calc Pharmacy 105.6; Estimated Glomerular Filt Rate > 60; Glucose Random 278 mg/dL (60-115); Potassium 4.1 mmol/L (3.3-5.1); Sodium 136 mmol/L (135-145); Total Protein 7.5 g/dL (6.5-8.0)
[2024-03-04 04:35] LABS: Troponin-I High Sensitivity < 2.7 ng/L (<3.5-35.0)
--- NOTE | 2024-03-04 07:07 | ED_ITS ---
HPI - Chest Pain General Chief Complaint: Chest Pain Stated Complaint: abd and chest pain Time Seen by Provider: 03/04/24 07:01 Source: patient History of Present Illness HPI narrative: 48 years old male presented to the ED with a chief complaint of epigastric abdominal pain. He states that he has been drinking last night. Pain is no radiated there is no vomiting or diarrhea. Pain is intermittent he stated does not feel any pain at this time. Patient has history of diabetes, hypothyroidism, history of bowel resection MD complaint: other (Epigastric pain) Onset (ago): day(s) (1) Timing of current episode: episodic Onset: during rest Pain location: epigastric Pain radiation: none Severity: moderate Relieving factors: nothing Exacerbating factors: nothing Context: recent illness Risk Factors Coronary artery disease risk factors: diabetes Thoracic aortic dissection risk factors: none Related Data Home Medications ?Medication ?Instructions ?Recorded ?Confirmed insulin glargine 100 unit/mL (3 22 unit subcut BEDTIME 07/04/22 07/31/23 mL) subcutaneous pen (Lantus Solostar U-100 Insulin) levothyroxine 75 mcg tablet 1 tab PO DAILY@0600 07/04/22 07/31/23 metformin 500 mg tablet,extended 2 tab PO BID 07/04/22 07/31/23 release 24 hr Previous Rx's ?Medication ?Instructions ?Recorded ondansetron 4 mg disintegrating 4 mg PO Q6-8H PRN nausea and 04/12/23 tablet vomiting #10 tabs Allergies Allergy/AdvReac Type Severity Reaction Status Date / Time No Known Allergies Allergy Verified 03/04/24 04:13 Review of Systems 2 Constitutional: Constitutional: Reports no additional constitutional complaints Eyes: Eyes: Reports no additional eye complaints Cardiovascular: Cardiovascular: Reports no additional cardiovascular complaints [facility] Past Medical History Source: unable to obtain Medical History Hypothyroidism SBO (small bowel obstruction) Diabetes mellitus Partial small bowel obstruction Hypertension Surgical History History of colostomy reversal History of bowel resection History of exploratory laparotomy Social History Social History Household Members: None Housing: Apartment Do you presently have visiting nurse or other home services: No Alcohol intake: never Comment: low fall risk Patient Tobacco Use Status: Never used Tobacco Advance Directives: No Advance Directives Information Provided: Yes Do you have a plan to hurt others: No Plan service: No Current occupational status: employed Physical Exam 2 Vital Signs: Vital Signs: Last Vital Signs Temp 97.9 F 03/04/24 14:42 Pulse 97 03/04/24 14:42 Resp 19 03/04/24 14:42 BP 152/83 H 03/04/24 14:42 Pulse Ox 95 03/04/24 14:42 O2 Del Method Room Air 03/04/24 14:42 BMI result Body Mass Index 39.8 On exam he is not in distress, his vital signs are stable Const: General: cooperative Nutritional Appearance: well nourished O rientation/consciousness: patient oriented x3 Limitations: no limitations HEENT: Head: Yes normal to inspection General nose exam: Normal external nose present Face and sinus: Yes normal facial exam Neck: Neck: Yes normal visual inspection Chest: Chest palpation & inspection: normal inspection of the chest Resp: Effort & Inspection: normal respiratory effort Auscultation: clear to auscultation bilaterally Cardio: Jugular venous distension: no JVD Rate: regular rate Rhythm: r egular rhythm GI: Other: Tenderness in the epigastric area no guarding and no rebound no peritoneal signs Skin: General skin exam: no rashes or lesions noted Neuro: General: patient oriented x3 Course Reevaluation(s) Reevaluation #1: On re-examination doing much better, imaging essentially negative I think at the this point we could discharged him home, he is comfortable with the plan of care Time: 14:22 Medications Administered Discontinued Medications Generic Name Dose Route Start Last Admin Trade Name Freq PRN Reason Stop Dose Admin Sodium Chloride 1,000 mls @ 999 mls/hr 03/04/24 07:15 03/04/24 09:35 Ns IVCONT 03/04/24 08:15 Infused .Q1H1M YIMI Infusion Iohexol 85 ml 03/04/24 09:17 03/04/24 09:17 Iohexol 350 Mg/Ml 100 Ml Infus..Btl IV 03/04/24 09:18 85 ml ONCE ONE Administration Medical Decision Making Medical Decision Making MDM Narrative: Patient epigastric pain history of diabetes history of prior bowel resection we will get labs EKG Differential Diagnosis Differential Diagnoses: The differential diagnosis associated with the presentation includes differential diagnosis is broad including acute pancreatitis/peptic ulcer disease/acute coronary syndrome small-bowel obstruction is a consideration in this patient with prior bowel surgery Admission/Observation Consideration of admission/observation: Escalation of care including admission/observation considered Lab Data MDM Lab Attestation statement: I reviewed the patient's lab results. 03/04/24 04:06 03/04/24 04:06 Labs: Lab Results 03/04/24 03/04/24 Range/Units 04:06 07:22 WBC 10.9 H (4.8-10.8) X10*3/uL RBC 4.70 (4.60-5.80) X10*6/uL Hgb 13.9 L (14.0-18.0) g/dl Hct 40.7 L (42.0-52.0) % MCV 86.6 (80.0-98.0) fL MCH 29.6 (27.0-33.0) pg MCHC 34.2 (31.0-36.0) g/dl RDW 12.7 (11.0-16.0) % Plt Count 276 (160-400) X10*3/uL MPV 10.1 (9.4-12.4) fL Immature Gran % (Auto) 0.3 (0.0-0.4) % Neut % (Auto) 66.0 (45-73) % Lymph % (Auto) 28.1 (20-40) % Sanders % (Auto) 4.9 (2-11) % Eos % (Auto) 0.5 (0-4) % Baso % (Auto) 0.2 (0-2) % Lymph # (Auto) 3.1 (1.2-4.9) X10*3/uL Sanders # (Auto) 0.5 (0.1-1.2) X10*3/uL Eos # (Auto) 0.1 (0.0-0.4) X10*3/uL Baso # (Auto) 0.0 (0.0-0.2) X10*3/uL Abs Immat Gran (auto) 0.03 (0.00-0.03) X10*3/uL Absolute Neuts (auto) 7.2 (2.0-8.3) x10*3/uL Absolute Nucleated RBC 0.000 (0.0-0.012) X10*3/uL Nucleated RBC % (auto) 0.0 (0.0-0.2) /100WBC Sodium 136 (135-145) mmol/L Potassium 4.1 D (3.3-5.1) mmol/L Chloride 104 (96-108) mmol/L Carbon Dioxide 19 L (22-29) mmol/L Anion Gap 17 (12-20) BUN 15 (9-16) mg/dL Creatinine 0.95 (0.5-1.4) mg/dL Estim Creat Clear Calc 105.6 Estimated GFR > 60 Random Glucose 278 H (60-115) mg/dL Calcium 9.9 (8.4-10.2) mg/dL Total Bilirubin 0.3 (0.0-1.0) mg/dL Direct Bilirubin 0.1 (0.0-0.5) mg/dL AST 28 (5-37) U/L ALT 24 (0-40) U/L Alkaline Phosphatase 61 (39-117) U/L Troponin I High Sens < 2.7 < 2.7 (<3.5-35.0) ng/L Total Protein 7.5 (6.5-8.0) g/dL Albumin 4.0 (3.5-5.0) g/dL Lipase 27 (8-78) U/L Ethyl Alcohol 69 mg/dL Independent Interpretation I performed an independent interpretation of an: EKG Interpretation: EKG interpreted by me as normal sinus rhythm rate 95 ST-T segments are isoelectric no ischemic changes Radiology Impression Discussion of test interpretation with radiology: I have reviewed the radiologist's reading. External Record Review External record reviewed: Inpatient record Discharge Plan Discharge Clinical Impression: Abdominal pain Qualifiers: Abdominal location: epigastric Qualified Code(s): R10.13 - Epigastric pain Patient Disposition: Home, Self-Care Instructions: Abdominal Pain (ED) Additional Instructions: Follow-up with your primary care physician tomorrow return to the emergency room if you are worse any concern stay on liquid diet for 24 hour Prescriptions: No Action levothyroxine 75 mcg tablet 1 tab PO DAILY@0600 metformin 500 mg tablet extended release 24 hr 2 tab PO BID insulin glargine [Lantus Solostar U-100 Insulin] 100 unit/mL (3 mL) insulin pen 22 unit subcut BEDTIME ondansetron 4 mg tablet,disintegrating 4 mg PO Q6-8H PRN (Reason: nausea and vomiting) Qty: 10 0RF Referrals: Ronni Salinas MD [Primary Care Provider] - 2 days Stand Alone Forms: Work/School Release Interventions: ED Discharge Assessment Last Done: 03/04/24 14:42 Discharge Date/Time: 03/04/24 14:42 Print Language: [place]
[2024-03-04] MEDS: 0.9 % Sodium Chloride 1,000 ML 999 ML IVCONT (07:38)
[2024-03-04 07:43] LABS: Ethanol 69 mg/dL; Lipase 27 U/L (8-78)
[2024-03-04 07:59] LABS: Troponin-I High Sensitivity < 2.7 ng/L (<3.5-35.0)
[2024-03-04 08:11] VITALS: BP 152/83; PULSE 97; RESP 19; TEMP 36.6; O2SAT 95
[2024-03-04] MEDS: iohexoL 350 MG/ML 100 ML INFUS..BTL 85 ML IV (09:17)
[2024-03-04 14:42] VITALS: BP 152/83; PULSE 97; RESP 19; TEMP 36.6; O2SAT 95
== END 2024-03-04 14:42 | disposition home or self-care (01) ==
PROVIDERS: Emergency Provider Emergency Medicine; PCP Internal Medicine
DX: R07.89 Other chest pain (principal); R10.2 Pelvic and perineal pain; R10.13 Epigastric pain; R11.2 Nausea with vomiting, unspecified; Z79.899 Other long term (current) drug therapy; Z51.81 Encounter for therapeutic drug level monitoring
CPT/HCPCS: 36415; 71046; 74177; 80048; 80076; 80307; 83690; 84484; 85025; 93005; 96360; 96361; 99284; Q9967

== ENCOUNTER 2024-05-27 05:24 | Emergency (ER) | payer OTHER, SELFPAY ==
--- NOTE | ~2024-05-27 | XR_ITS ---
CLINICAL HISTORY: cough 2 view chest x-ray Comparison: CR/SR - XR CHEST 2V - 03/04/24 04:12 EST Findings: No consolidation or effusion. Heart size is normal. No acute fracture. IMPRESSION: 1. No acute findings. This document has been electronically signed by: Cinthia Hewitt MD on 05/27/2024 06:11:40
[2024-05-27 05:27] VITALS: BP 128/66; PULSE 90; RESP 18; TEMP 36.4; O2SAT 98; BMI 41.3
--- OUTSIDE RECORDS SUMMARY | 2024-05-27 06:14 | XMS_ITS | Clinical Summary ---
Author Organization [employer] Address [address] [place] [address] Care Team Providers [employer] Supervisor Name Role Phone Ronni Henriquez MD Primary Care Provide r Allergies No known active allergies Medications dulaglutide (Trulicity) 0.75 MG/0.5ML solution pen-injector Inject 0.75 mg under the skin once a week. 022 Active acetaminophen (Tylenol) 325 MG tabletIndication s:Viral upper respiratory illness Take 1-2 tablets by oral route every 6 hours as needed for pain or fever 30 tablet 023 Active insulin pen needle (B-D ULTRAFINE III SHORT PEN) 31G X 8 mm misc USE EVERY DAY WITH LANTUS 100 each 3 023 Active sildenafil (Viagra) 100 MG tabletIndication s:Other male erectile dysfunction TAKE 1 TABLET 1 HOUR BEFORE SEXUAL RELATIONS ONCE DAILY NEEDED. 10 tablet 024 Active glucose blood (FREESTYLE LITE) test strip USE 1 Each by DIRECTED route 3 times every day 100 each 11 024 Active Blood Glucose Monitoring Suppl (FreeStyle Lite) w/Device kit 1 each 3 times daily. Use to check blood sugar 3 times daily 1 kit 024 Active ibuprofen 800 MG tablet TAKE 1 TABLET BY MOUTH THREE TIMES DAILY 90 tablet 2 024 Active metFORMIN XR (Glucophage-XR) 500 MG 24 hr tabletIndication s:Type 2 diabetes mellitus without complication, unspecified whether senior living insulin use (CMS/HCC) TAKE 2 TABLETS BY MOUTH TWICE DAILY IN THE MORNING AND EVENING WITH MEALS 360 tablet 1 024 Active levothyroxine (Synthroid, Levoxyl) 75 MCG tablet TAKE 1 TABLET BY MOUTH EVERY DAY 90 tablet 1 024 Active Lantus SoloStar 100 UNIT/ML penIndications:T ype 2 diabetes mellitus with hyperglycemia (CMS/HCC) INJECT 22 UNITS SUBCUTANEOUSLY AT BEDTIME 15 mL 3 025 Active insulin glargine (Lantus SoloStar) 100 UNIT/ML penIndications:T ype 2 diabetes mellitus with hyperglycemia (CMS/HCC) Inject 22 Units under the skin at bedtime. 15 mL 1 024 2024 Discontinued Active Problems Problem Noted Date Diagnosed Date Erectile dysfunction due to diseases classified elsewhere 04/25/2023 Assessment & Plan (04/25/2023 11:30 AM EST): Pt with c/o ED. Reports morning erections , but rarely. pt reports erection lasts maybe 1 to 2 minutes. Etiology ? Vasculogenic, Due to DM ? Testosterone Free and Total 03/2022 Normal In the past he was on Viagra 100 mg 1 tab 1 hr prior to sexual intercourse f/u if no improvement Hypothyroidism 05/26/2022 Dyslipidemia 05/26/2022 Nonalcoholic fatty liver disease 05/26/2022 Bilateral cataracts 04/04/2022 Obstructive sleep apnea syndrome 04/04/2022 Assessment & Plan (04/25/2023 11:30 AM EST): Pt has a diagnosis of SHI, had been using Cpap but apparently is not working Previously referred to Sleep clinic Severe obesity 04/04/2022 Type 2 diabetes mellitus without complication Assessment & Plan (04/25/2023 11:40 AM EST): Pt is here for a f/u after a long hiatus He is Supposed to be on a regimen of: Metformin ER 500 mg 2 tabs po BID and Lantus 16 units sc qhs and Trulicity 0.75 once a week. No Hx of Thyroid CA I contacted his pharmacy who tells me he has been compliant with the Insulin but Not with the Metformin or Trulicity He did not bring his glucometer today Hgb A1c 04/25/2023: 11.7 BG HIGH Last visit pt referred for Eye exam Microalbumin 11/23/2021 4,8 Pt is not on an VARGHESE inhibitor/ARB Foot check not done today Pt reports compliance with Asa 81 mg po daily Plan: Pt was only taking Meformin 2 tabs daily instead of BID . He will start taking BID from now on, Incrase Lantus to 22 units subcutaneous qhs f/u 1 week with me with glucometer Pt advised to: adhere to diabetic diet check your blood sugars regularly check your feet on a daily basis. Encounters Date Type Department Care Team Description 04/30/2024 Refill [facility] [address] [place] [address] Ronni Henriquez MD Type 2 diabetes mellitus with hyperglycemia ([facility]) 03/05/2024 Refill [facility] [address] [place] [phone] Ronni Henriquez MD Type 2 diabetes mellitus without complication, unspecified whether senior living insulin use ([facility]) 03/05/2024 Refill [facility] [address], [place] [phone] Jania Stanford MD 03/04/2024 Orders Only [facility] External Provider, [facility] from Last 3 Months Immunizations Name Administration Dates Next Due Influenza injectable quadrivalent preservative f ree 12/30/2021 Moderna Covid-19 Vaccine 12+ 04/11/2021,03/06/20 21 Social History Tobacco Use Types Packs/Day Years Used Date Smoking Tobacco: Never Passive Smoke Exposure: Never Smokeless Tobacco: Never Tobacco Cessation:Counseling Given: Not Answered Sex and Gender Information Value Date Recorded Sex Assigned at Male 02/21/2022 10:20 AM EDT Legal Sex Male 10:20 AM EDT Gender Identity Male 02/21/2022 10:20 AM EDT Sexual Orientation Straight 02/21/2022 10 :20 AM EDT Last Filed Vital Signs Vital Sign Reading Time Taken Comments Blood Pressure 136/90 04/25/2023 11:21 AM EST Pulse 96 04/25/2023 11:21 AM EST Temperature 36.6 ??C (97.9 ??F) 04/25/2023 11:[address] Respiratory Rate 20 04/25/2023 11:21 AM EST Oxygen Saturation 95% 04/25/2023 11:21 AM EST Inhaled Oxygen Concentration - - Weight 103 kg (226 lb 3.2 oz) 04/25/2023 11:21 A M EST Height 162.6 cm (5' 4 ) 04/25/2023 11:21 AM EST Body Mass Index 38.83 04/25/2023 11:21 AM EST Plan of Treatment Health Maintenance Due Date Last Done Comments CT Colonography 1973 Colonoscopy 1973 Colorectal Cancer Screening 1973 Depression Screening 1973 FIT DNA/Cologuard 1973 FIT 1973 FOBT 1973 HIV Screening 1973 SDOH Screening 1973 Sigmoidoscopy 1973 Diabetes: Foot Exam 1983 Eye Exam 1983 Alcohol/Substance Use Screening 1985 Family Planning (PISQ) 1988 Hepatitis A Vaccines (1 of 2 - Risk 2-dose series) 1992 Pneumococcal Vaccine: 50+ Years (2 of 2 - PCV) 08/04/2011 08/03/2010 Pneumococcal Vaccine: Pediatrics (0 to 5 Years) and At-Risk Patients (6 to 49) Years) (2 of 2 - PCV) 08/04/2011 08/03/2010 Hepatitis B Vaccines (3 of 3 - 19+ 3-dose series) 05/11/2012 03/16/2012, 06/20/2011 DTaP/Tdap/Td Vaccines (2 - Td or Tdap) 07/20/2020 07/20/2010 Diabetes: Urine Protein Screening 11/23/2022 11/23/2021 Lipid Panel 11/23/2022 11/23/2021 Zoster Vaccines (1 of 2) 2023 Diabetes: Hemoglobin A1C 07/25/2023 04/25/2023 COVID-19 Vaccine (3 - season) 2023 04/11/2021, 03/06/2021 Influenza Vaccine (#1) 2023 , 02/03/2012, 06/20/2011, Additional history exists Tobacco Screening 04/25/2024 04/25/2023 RSV Patients and Patients Aged 60 years or older (1 - 1-dose 75+ series) 2048 Hepatitis C Screening Completed 11/23/2021 HIB Vaccines Aged Out No longer eligi ble based on patient's age to complete this topic HPV Vaccines Aged Out No longer eligi ble based on patient's age to complete this topic IPV Vaccines Aged Out No longer eligi ble based on patient's age to complete this topic Meningococcal Vaccine Aged Out No kenzie doris eligible based on patient's age to complete this topic RSV under 20 months Aged Out No longe r eligible based on patient's age to complete this topic Rotavirus Vaccines Aged Out No longer eligible based on patient's age to complete this topic Procedures Procedure Name Priority Date/Time Associated Diagnosis Comments CT ABDOMEN PELVIS W CONTRAST Routine 03/04/2024 9:12 AM EST HIGH SENSITIVITY TROPONIN I Routine 03/04/2024 7:22 AM EST ETHANOL Routine 03/04/2024 7:22 AM EST LIPASE Routine 03/04/2024 7:22 AM EST HIGH SENSITIVITY TROPONIN I Routine 03/04/2024 4:06 AM EST BASIC METABOLIC PANEL Routine 03/04/2024 4:06 AM EST HEPATIC FUNCTION PANEL Routine 03/04/2024 4:06 AM EST CBC WITH AUTO DIFFERENTIAL Routine 03/04/2024 4:06 AM EST XR CHEST 2 VIEWS Routine 03/04/2024 4:06 AM EST POCT GLYCATED HEMOGLOBIN, TOTAL Routine 04/25/2023 11:22 AM EST Type 2 diabetes mellitus without complication, unspecified whether senior living insulin use (CMS/HCC) ZZZ HISTORICAL HEPATITIS C AB W/REFL TO HCV RNA, QN, PCR Routine 11/23/2021 9:45 AM EDT ALBUMIN, RANDOM URINE W/CREATININE Routine 11/23/2021 9:45 AM EDT LIPID PANEL, STANDARD Routine 11/23/2021 9:45 AM EDT from Last 3 Months or Most Recently Relevant to Health Maintenance Results * CT Abdomen Pelvis w/ Contrast (03/04/2024 9:12 AM EST) Anatomical Region Laterality Modality Body, Pelvis, Abdomen Computed T omography 03/04/2024 9:12 AM EST Narrative 03/04/2024 1:04 PM EST ? [facility] ?[address] ?[place] [address] ? CT Scan Report ? Signed ? Patient: Juan Vargas ?MR#: [id number] ?? 729 ? : 1975 ?Acct:[id number] ? Age/Sex: 48 / M ?ADM Date: 03/04/24 ? Loc: HO.ED ? Attending Dr: ? Ordering Physician: Blake Torres MD ?? Date of Service: 03/04/24 ?? Procedure(s): CT abdomen pelvis w IV con ?? Accession Number(s): [id number] ? cc: Blake Torres MD; Ronni Salinas MD ? EXAMINATION: ?? CT ABDOMEN AND PELVIS WITH CONTRAST ? CLINICAL INFORMATION: ?? upper abdominal pain hx bowel resection ? COMPARISON: ?? CT abdomen/pelvis 07/30/2023 ? TECHNIQUE: ?? Multidetector volumetric images were obtained from the superior aspect ?? of the liver through the pubic symphysis following administration 85 mL ?? of Omnipaque 350 intravenous contrast. Sagittal and coronal reformatted ?? images were obtained on the technologist's workstation. ? Oral contrast: No ? This CT examination was performed using dose optimization techniques as ?? appropriate, variously including the following: ?? *Automated exposure control ?? *Adjustment of mA and/or kV according to patient size (this includes ?? techniques or standardized protocols for targeted exams where dose is ?? matched to indication/reason for exam; i.e. extremities or head) ?? *Use of iterative reconstruction technique ? DLP: 804 mGy-cm ? FINDINGS: ?? LUNG BASES: The visualized lung bases are unremarkable. ? LIVER, GALLBLADDER, AND BILIARY TREE: The liver is normal in size, ?? shape, and attenuation. No focal hepatic lesion or biliary ductal ?? dilatation is present. The gallbladder is unremarkable with no evidence ?? of radiopaque gallstones, gallbladder wall thickening, or obvious ?? pericholecystic inflammatory changes. ? PANCREAS: Unremarkable. ? SPLEEN: Unremarkable. ? ADRENAL GLANDS: Unremarkable. ? KIDNEYS AND URETERS: Multiple left-sided simple fluid attenuating renal ?? cysts for which no follow-up imaging is recommended. The kidneys are ?? normal in size, shape, and attenuation. No hydronephrosis, hydroureter, ?? or calculi seen. No perinephric stranding. ? BLADDER: Unremarkable. ? GASTROINTESTINAL TRACT: The small and large bowel are nondilated. ?? Normal appendix. ? ABDOMINAL WALL: Multiple tiny fat-containing midline supraumbilical ?? hernias, not significantly changed. There is also a small ?? fat-containing umbilical hernia. Small bilateral fat-containing ?? inguinal hernias. ? LYMPH NODES: Normal. ? VASCULAR: Unremarkable. ? PELVIC VISCERA: Normal CT appearance of the prostate and seminal ?? vesicles. ? OSSEOUS STRUCTURES: Unremarkable. ? CT/CT abdomen pelvis w IV con ?? IMPRESSION: ?? 1. ??No acute abnormality within the abdomen or pelvis. No evidence for ?? bowel obstruction. ?? 2. ??Multiple tiny fat-containing midline supraumbilical hernias, not ?? significantly changed. There is also a small fat-containing umbilical ?? hernia. Small bilateral fat-containing inguinal hernias. ? Fleischner guidelines were followed. ? Electronically signed by: ??Sneha Gauthier DO ??03/04/2024 01:02 PM EST ?? RP ? Dictated By: ?Sneha Gauthier ? Signed By: ?<Electronically signed by Sneha Gauthier in OV> ? 03/04/24 1302 ? DD/ 0912 ? TD/TT: 03/04/24 0916 ? Sales Manager [place]: ? Procedure Note Donotuseinterpreter, Image - 03/04/[address] [address] [address] Scan Report Signed Patient: Juan Vargas RMR#: [id number] 729 : 1975Acct:[id number] Age/Sex: 48 / MADM Date: 03/04/24 Loc: HO.ED Attending Dr: Ordering Physician: Blake Torres MD Date of Service: 03/04/24 Procedure(s): CT abdomen pelvis w IV con Accession Number(s): [id number] cc: Blake Torres MD; Ronni Salinas MD EXAMINATION: CT ABDOMEN AND PELVIS WITH CONTRAST CLINICAL INFORMATION: upper abdominal pain hx bowel resection COMPARISON: CT abdomen/pelvis 07/30/2023 TECHNIQUE: Multidetector volumetric images were obtained from the superior aspect of the liver through the pubic symphysis following administration 85 mL of Omnipaque 350 intravenous contrast. Sagittal and coronal reformatted images were obtained on the technologist's workstation. Oral contrast: No This CT examination was performed using dose optimization techniques as appropriate, variously including the following: *Automated exposure control *Adjustment of mA and/or kV according to patient size (this includes techniques or standardized protocols for targeted exams where dose is matched to indication/reason for exam; i.e. extremities or head) *Use of iterative reconstruction technique DLP: 804 mGy-cm FINDINGS: LUNG BASES: The visualized lung bases are unremarkable. LIVER, GALLBLADDER, AND BILIARY TREE: The liver is normal in size, shape, and attenuation. No focal hepatic lesion or biliary ductal dilatation is present. The gallbladder is unremarkable with no evidence of radiopaque gallstones, gallbladder wall thickening, or obvious pericholecystic inflammatory changes. PANCREAS: Unremarkable. SPLEEN: Unremarkable. ADRENAL GLANDS: Unremarkable. KIDNEYS AND URETERS: Multiple left-sided simple fluid attenuating renal cysts for which no follow-up imaging is recommended. The kidneys are normal in size, shape, and attenuation. No hydronephrosis, hydroureter, or calculi seen. No perinephric stranding. BLADDER: Unremarkable. GASTROINTESTINAL TRACT: The small and large bowel are nondilated. Normal appendix. ABDOMINAL WALL: Multiple tiny fat-containing midline supraumbilical hernias, not significantly changed. There is also a small fat-containing umbilical hernia. Small bilateral fat-containing inguinal hernias. LYMPH NODES: Normal. VASCULAR: Unremarkable. PELVIC VISCERA: Normal CT appearance of the prostate and seminal vesicles. OSSEOUS STRUCTURES: Unremarkable. CT/CT abdomen pelvis w IV con IMPRESSION: 1. No acute abnormality within the abdomen or pelvis. No evidence for bowel obstruction. 2. Multiple tiny fat-containing midline supraumbilical hernias, not significantly changed. There is also a small fat-containing umbilical hernia. Small bilateral fat-containing inguinal hernias. Fleischner guidelines were followed. Electronically signed by: Sneha Gauthier DO 03/04/2024 01:02 PM EST RP Dictated By: Sneha Gauthier Signed By: <Electronically signed by Sneha Gauthier in OV> 03/04/24 1302 DD/ 0912 TD/TT: 03/04/24 0916 Sales Manager [place]: [facility] External Provider IMG CT PROCEDURES Final Result * High Sensitivity Troponin I (03/04/2024 7:22 AM EST) Only the most recent of2 resultswithin the time period is included. TROPONIN I HIGH SENSITIVITY <2.7 <3.5 - 35.0 ng/L [facility] Comment:The [place]so high sens itivity Troponin-I results should beused in conjunction with other diagnostic information suchas ECG, clinical observations and information, and patientsymptoms to aid in the diagnosis of [place]. 03/04/2024 7:22 AM EST 03/04/2024 7:25 AM EST Generic External Data Provider LAB BLOOD ORDERAB LES Final Result [facility] [address] [place] [phone] * Ethanol (03/04/2024 7:22 AM EST) ETHANOL (MG/DL) IN SER/PLAS 69 mg/dL [facility] Comment:Serum/plasma ethanol results are to be used formedical/treatment purposes only. 03/04/2024 7:22 AM EST 03/04/2024 7:25 AM EST Generic External Data Provider LAB BLOOD ORDERAB LES Final Result Performing Organization Address City/[facility]/ZIP Co de Phone Number [facility] [address] [place] [address] [phone] * Lipase (03/04/2024 7:22 AM EST) Pathologist [facility] Lipase 27 8 - 78 U/L [facility] 03/04/2024 7:22 AM EST 03/04/2024 7:25 AM EST Generic External Data Provider LAB BLOOD ORDERAB LES Final Result Performing Organization Address [facility] de Phone Number [facility] [address] [place] [address] [phone] * (ABNORMAL) CBC auto differential (03/04/2024 4:06 AM EST) [facility] White Blood Count 10.9(H) 4.8 - 10.8 X10*3/uL [facility] Red Blood Count 4.70 4.60 - 5.80 X10*6/uL [facility] Hemoglobin 13.9(L) 14.0 - 18.0 g/dl [facility] Hematocrit 40.7(L) 42.0 - 52.0 % [facility] Mean Corpuscular Volume 86.6 80.0 - 98.0 fL [facility] Mean Corpuscular Hemoglobin 29.6 27.0 - 33.0 pg [facility] Mean Corpuscular HGB Conc 34.2 31.0 - 36.0 g/dl [facility] Red Cell Distribution Width 12.7 11.0 - 16.0 % [facility] Platelet Count 276 160 - 400 X10*3/uL [facility] Mean Platelet Volume 10.1 9.4 - 12.4 fL [facility] Neutrophils Percent Auto 66.0 45 - 73 % [facility] Imm Gran Pct Auto 0.3 0.0 - 0.4 % [facility] Lymphocytes Percent Auto 28.1 20 - 40 % [facility] Monocytes Percent Auto 4.9 2 - 11 % [facility] Eosinophils Percent Auto 0.5 0 - 4 % [facility] Basophils Percent Auto 0.2 0 - 2 % [facility] NRBC Pct Auto 0.0 0.0 - 0.2 /100WBC [facility] Neutrophils Absolute Auto 7.2 2.0 - 8.3 x10*3/uL [facility] Imm Gran Abs Auto 0.03 0.00 - 0.03 X10*3/uL [facility] Lymphocytes Absolute Auto 3.1 1.2 - 4.9 X10*3/uL [facility] Monocytes Absolute Auto 0.5 0.1 - 1.2 X10*3/uL [facility] Eosinophils Absolute Auto 0.1 0.0 - 0.4 X10*3/uL [facility] Basophils Absolute Auto 0.0 0.0 - 0.2 X10*3/uL [facility] NRBC Abs Auto 0.000 0.0 - 0.012 X10*3/uL [facility] 03/04/2024 4:06 AM EST 03/04/2024 4:10 AM EST us Generic External Data Provider LAB BLOOD ORDERAB LES Final Result [facility] [address] [place] [address] [phone] * XR Chest 2 Views (03/04/2024 4:06 AM EST) Anatomical Region Laterality Modality Chest Radiographic Blanca ging 03/04/2024 4:06 AM EST Narrative 03/04/2024 4:30 AM EST ? [facility] ?[address] ?[place] [address] ?XRay Report ? Signed ? Patient: Gorritz,Juan R ?MR#: [id number] ?? 729 ? : 1975 ?Acct:[id number] ? Age/Sex: 48 / M ?ADM Date: 03/04/24 ? Loc: HO.ED ? Attending Dr: ? Ordering Physician: Generic ED Physician ?? Date of Service: 03/04/24 ?? Procedure(s): XR chest 2V ?? Accession Number(s): [id number] ? cc: Ronni Salinas MD; Generic ED Physician ? EXAMINATION: ?? XR CHEST ? CLINICAL INFORMATION: ?? Chest pain. ? COMPARISON: ?? July 05, 2022. ? TECHNIQUE: ?? 2 views of the chest were obtained. ? FINDINGS: ?? No significant abnormality is noted involving the heart, lungs, ?? mediastinum, bony thorax or soft tissues. ? XR/XR chest 2V ?? IMPRESSION: ?? Unremarkable examination. ? Electronically signed by: ??Darian Weber MD ??03/04/2024 04:26 AM EST RP ? Dictated By: ?Darian Weber MD ? Signed By: ?<Electronically signed by Darian Weber MD in OV> ?03/04/24 0426 ? DD/ 5 ? TD/TT: 03/04/24410 ? Sales Manager [place]: ? Procedure Note Errol Dolan - 03/04/[address] [address] XRay Report Signed Patient: Juan Vargas RMR#: [id number] 729 : 1975Acct:[id number] Age/Sex: 48 / MADM Date: 03/04/24 Loc: HO.ED Attending Dr: Ordering Physician: Generic ED Physician Date of Service: 03/04/24 Procedure(s): XR chest 2V Accession Number(s): [id number] cc: Ronni Salinas MD; Generic ED Physician EXAMINATION: XR CHEST CLINICAL INFORMATION: Chest pain. COMPARISON: July 05, 2022. TECHNIQUE: 2 views of the chest were obtained. FINDINGS: No significant abnormality is noted involving the heart, lungs, mediastinum, bony thorax or soft tissues. XR/XR chest 2V IMPRESSION: Unremarkable examination. Electronically signed by: Darian Weber MD 03/04/2024 04:26 AM EST RP Dictated By: Darian Weber MD Signed By: <Electronically signed by Darian Weber MD in OV> 03/04/24425 DD/ 5 TD/TT: 03/04/24410 Sales Manager [place]: [facility] External Provider IMG XR PROCEDURES Edited Result - Final * Hepatic Function Panel (03/04/2024 4:06 AM EST) Bilirubin, Total 0.3 0.0 - 1.0 mg/dL [facility] Bilirubin, Direct 0.1 0.0 - 0.5 mg/dL [facility] Aspartate Amino Transferase 28 5 - 37 U/L [facility] Alanine Aminotransferase 24 0 - 40 U/L [facility] Total Protein 7.5 6.5 - 8.0 g/dL [facility] Albumin Level 4.0 3.5 - 5.0 g/dL [facility] Alkaline Phosphatase 61 39 - 117 U/L [facility] 03/04/2024 4:06 AM EST 03/04/2024 4:10 AM EST Generic External Data Provider LAB BLOOD ORDERAB LES Final Result [facility] [address] [place] [phone] * (ABNORMAL) Basic Metabolic Panel (03/04/2024 4:06 AM EST) Sodium 136 135 - 145 mmol/L [facility] Potassium 4.1 3.3 - 5.1 mmol/L [facility] Chloride 104 96 - 108 mmol/L [facility] Carbon Dioxide 19(L) 22 - 29 mmol/L [facility] Anion Gap 17 12 - 20 [facility] Urea Nitrogen (BUN) 15 9 - 16 mg/dL [facility] Creatinine, Serum 0.95 0.5 - 1.4 mg/dL [facility] Creatinine Clr Calc Pharmacy 105.6 [facility] Comment:eGFR (calculated fro m the MDRD study equation) and eCrCl(calculated from the Cockcroft-Gault equation) are based ondifferent parameters and may not yield comparable results.If eCrCl result is absurd, please check patient'sheight/weight. Estimated Glomerular Filt Rate >60 [facility] Comment:NOTE: For -Am erican individuals, multiply the result by 1.210.Chronic Kidney Disease: Estimated GFR < 60 mL/min/1.55r8Atfrel Kidney Disease: Estimated GFR < 15 mL/min/1.73m2 Glucose 278(H) 60 - 115 mg/dL [facility] Calcium 9.9 8.4 - 10.2 mg/dL [facility] 03/04/2024 4:06 AM EST 03/04/2024 4:10 AM EST us Generic External Data Provider LAB BLOOD ORDERAB LES Final Result [facility] [address] [place] [address] [phone] * (ABNORMAL) POCT HGB A1C (04/25/2023 11:22 AM EST) Hemoglobin A1C 11.7(A) 4.0 - 6.0 % QC Media Lot # [id number] Lot# Expiration Date Blood 04/25/2023 11:2 2 AM EST Ronni Gordillo MD POINT OF CARE TEST EN TER/EDIT ORDERABLES Final Result * HEPATITIS C AB W/REFL TO HCV RNA, QN, PCR (11/23/2021 9:45 AM EDT) HEPATITIS C ANTIBODY NON-REACT HARISH NON-REACT HARISH [facility] INDEX 0.13 <1.00 [facility] Comment: ?? HCV antibody was non-reactive. There is no laboratory ?? evidence of HCV infection. ?? In most cases, no further action is required. However, if recent HCV exposure is suspected, a test for HCV RNA (test code 08636) is suggested. ?? For additional information please refer to http://education.OneTok/faq/BKX64b6 (This link is being provided for informational/ educational purposes only.) ?? 11/23/2021 9:45 AM EDT us Ronni Gordillo MD HISTORICAL/NON ORDERA BLE LABS Final Result Performing Organization Address [facility] de Phone Number [facility] [address] * (ABNORMAL) ALBUMIN, RANDOM URINE W/CREATININE (11/23/2021 9:45 AM EDT) Microalbumin Urine 4.8 See Note: mg/dL [facility] Comment: Reference Range: ?? Reference Range Not established Microalb/Creat Ratio 39(H) <30 mcg/mg creat [facility] Comment: ?? The ADA defines abnormalities in albumin excretion as follows: ?? Albuminuria Category ?Result (mcg/mg creatinine) ?? Normal to Mildly increased ?? <30 Moderately increased ? 30-299 ?? Severely increased ? > OR = 300 ?? The ADA recommends that at least two of three specimens collected within a 3-6 month period be abnormal before considering a patient to be within a diagnostic category. Creatinine, Urine 122 20 - 320 mg/dL [facility] 11/23/2021 9:45 AM EDT us Ronni Gordillo MD LAB URINE ORDERABLES Final Result Performing Organization Address City/[facility]/ZIP Co de Phone Number [facility] [address] * (ABNORMAL) LIPID PANEL, STANDARD (11/23/2021 9:45 AM EDT) Chol/HDLC Ratio 4.9 <5.0 (calc) [facility] Cholesterol, Total 214(H) <200 mg/dL [facility] HDL Cholesterol 44 > OR = 40 mg/dL [facility] LDL Cholesterol 148(H) mg/dL (calc) [facility] Comment: Reference range: <100 ?? Desirable range <100 mg/dL for primary prevention; ?? <70 mg/dL for patients with CHD or diabetic patients ?? with > or = 2 CHD risk factors. ?? LDL-C is now calculated using the Donna ?? calculation, which is a validated novel method providing ?? better accuracy than the Friedewald equation in the ?? estimation of LDL-C. ?? Major SHIPMAN et al. MAY. 2013;310(19): 9931-4748 ?? (http://education.[employer]/faq/AZB807) Non-HDL Cholesterol 170(H) <130 mg/dL (calc) [facility] Comment: For patients with diabetes plus 1 major ASCVD risk ?? factor, treating to a non-HDL-C goal of <100 mg/dL ?? (LDL-C of <70 mg/dL) is considered a therapeutic ?? option. Triglycerides 103 <150 mg/dL [facility] 11/23/2021 9:45 AM EDT us Ronni Gordillo MD LAB BLOOD ORDERABLES Final Result Performing Organization Address [facility] Co de Phone Number [facility] [address] from Last 3 Months or Most Recently Relevant to Health Maintenance Insurance [facility] C3 HSN FULL Care Teams Stock[employer] Box Shop Supervisor Relationship Specialty Start Date End Date Ronni Henriquez MD [address] [place] [address] PCP - General Internal Medicine 11/17/21
--- OUTSIDE RECORDS SUMMARY | 2024-05-27 06:14 | XMS_ITS | Encounter Summary ---
Author Organization [employer] [facility] Address [address] [place] [address] 7 [place] [address] Care Team Providers Care Direct Care Counselor Name Role Phone Ronni Henriquez MD Primary Care Provide r Reason for Visit * Reason Onset Date Comments Appointment Request 06/07/2023 Encounter Details Date Type Department Care Team ([facility] st Contact Info) Description 06/07/2023 Telephone [facility] [address] [place] [address] Ronni Henriquez MD [address] [place] [address] Appointment Request Social History Tobacco Use Types Packs/Day Years Used Date Smoking Tobacco: Never Passive Smoke Exposure: Never Smokeless Tobacco: Never Sex and Gender Information Value Date Recorded Sex Assigned at Male 02/21/2022 10:20 AM EDT Legal Sex Male 10:20 AM EDT Gender Identity Male 02/21/2022 10:20 AM EDT Sexual Orientation Straight 02/21/2022 10 :20 AM EDT documented as of this encounter Miscellaneous Notes * Telephone Encounter - Latosha Price - 06/07/2023 3:08 PM EST Tc from pt requesting to r/s 05/04/23 appt . Pt would like to discuss reason why he needs the appt urgent . documented in this encounter Plan of Treatment Not on file documented as of this encounter Visit Diagnoses Not on filedocumented in this encounter Care Teams Direct Care Counselor Relationship Specialty Start Date End Date Ronni Henriquez MD [address] [place] [address] PCP - General Internal Medicine 11/17/21 documented as of this encounter
--- OUTSIDE RECORDS SUMMARY | 2024-05-27 06:14 | XMS_ITS | Encounter Summary ---
Author Organization [employer] [facility] Address [address] [place] [address] [address] [place] [address] Care Team Providers Care Intermediate School Teacher Name Role Phone Ronni Henriquez MD Primary Care Provide r Reason for Visit * Reason Comments Med Refill Encounter Details Date Type Department Care Team (Late st Contact Info) Description 04/30/2024 Refill [facility] [address] [place], [place] [phone] Ronni Henriquez MD [address] [place] [address] Type 2 diabetes mellitus with hyperglycemia (CMS/HCC) Social History Tobacco Use Types Packs/Day Years Used Date Smoking Tobacco: Never Passive Smoke Exposure: Never Smokeless Tobacco: Never Sex and Gender Information Value Date Recorded Sex Assigned at Male 02/21/2022 10:20 AM EDT Legal Sex Male 10:20 AM EDT Gender Identity Male 02/21/2022 10:20 AM EDT Sexual Orientation Straight 02/21/2022 10 :20 AM EDT documented as of this encounter Plan of Treatment Not on file documented as of this encounter Visit Diagnoses Diagnosis Type 2 diabetes mellitus with hyperglycemia (CMS/HCC) documented in this encounter Care Teams Intermediate School Teacher Relationship Specialty Start Date End Date Ronni Henriquez MD [address] [place], [place] [phone] PCP - General Internal Medicine 11/17/21 documented as of this encounter
[2024-05-27 06:28] LABS: IDNOW Serial# 58CA691E; Strep A Nucleic Acid Negative (Negative)
[2024-05-27 06:50] LABS: Influenza A PCR NEGATIVE (Negative); Influenza B PCR NEGATIVE (Negative); Resp Syncy Virus RNA Qual PCR NEGATIVE (Negative); SARS COV2 PCR INHOUSE NEGATIVE (Negative)
--- NOTE | 2024-05-27 07:11 | ED_ITS ---
HPI - General Adult General Chief complaint: General Medical Stated complaint: headache, sore throat Time Seen by Provider: 05/27/24 07:10 Source: patient Mode of arrival: ambulatory Limitations: no limitations History of Present Illness ED Provider: Mehreen Kruger PA-C HPI narrative: Patient is a 49 year old assigned male at with a history of asthma, HTN, and DM presenting to the emergency department today with a cough, headache, fever, chills, and sore throat. Patient states that over the last week he has has had a cough, headache, fever, chills, and a sore throat Patient denies any dizziness, lightheadedness, abdominal pain, nausea, vomiting, blurry vision, double vision, loss of vision, chest pain, difficulty breathing, shortness of breath, back pain, night sweats, pain with urination, increased urinary frequency, increased urinary urgency, blood in his urine or stool, syncope or a near syncopal episode, recent trauma or falls, bowel incontinence, bladder incontinence, or any other complaints at this time. Onset (ago): week(s) (1) Relieving factors: none Exacerbating factors: none Associated symptoms: cough and fever/chills Treatments prior to arrival: none Related Data Home Medications ?Medication ?Instructions ?Recorded ?Confirmed insulin glargine 100 unit/mL (3 22 unit subcut BEDTIME 07/04/22 07/31/23 mL) subcutaneous pen (Lantus Solostar U-100 Insulin) levothyroxine 75 mcg tablet 1 tab PO DAILY@0600 07/04/22 07/31/23 metformin 500 mg tablet,extended 2 tab PO BID 07/04/22 07/31/23 release 24 hr Previous Rx's ?Medication ?Instructions ?Recorded ondansetron 4 mg disintegrating 4 mg PO Q6-8H PRN nausea and 04/12/23 tablet vomiting #10 tabs azithromycin 250 mg tablet See Rx Instructions PO .COMPLEX #6 05/27/24 tabs prednisone 20 mg tablet 20 mg PO DAILY 7 days #7 tabs 05/27/24 Allergies Allergy/AdvReac Type Severity Reaction Status Date / Time No Known Allergies Allergy Verified 05/27/24 05:29 Review of Systems Constitutional: Constitutional: Reports no additional constitutional complaints, Reports chills, Reports fever(s), Reports headache(s) and Denies night sweats Eyes: Eyes: Reports no additional eye complaints, Denies blurry vision, Denies change in vision, Denies diplopia, Denies eye discharge, Denies loss of vision and Denies eye pain ENT: Denies dizziness, Reports headache(s) and Reports sore throat Cardiovascular: Cardiovascular: Reports no additional cardiovascular complaints, Denies chest pain, Denies lightheadedness, Denies Loss of Consciousness and Denies dyspnea Respiratory: Respiratory: Reports no additional respiratory complaints, Reports cough and Denies dyspnea Gastrointestinal: Gastrointestinal: Reports no additional gastrointestinal complaints, Denies abdominal pain, Denies melena, Denies hematochezia, Denies change in bowel habits and Denies change in stool character Genitourinary: Genitourinary: Reports no additional male genitourinary complaints, Denies hematuria, Denies oliguria, Denies difficulty urinating, Denies dysuria, Denies urinary frequency, Denies urinary hesitancy, Denies urinary incontinence and Denies urinary urgency Musculoskeletal: Musculoskeletal: Reports no additional musculoskeletal complaints, Denies numbness and Denies tingling Neurologic: Denies dizziness, Reports headache(s), Denies loss of vision, Denies numbness and Denies tingling Psychiatric: Psychiatric: Reports no additional psychiatric complaints Endocrine: Endocrine: Reports no additional endocrine complaints Hematologic/Lymphatic: Hematologic/Lymphatic: Reports no additional hematologic/lymphatic complaints Allergic/Immunologic: Allergic/Immunologic: Reports no additional allergic/immunologic complaints [facility] Past Medical History Attestation statement: The following information was validated with the patient. Source: old records reviewed and nursing notes reviewed Medical History Hypothyroidism SBO (small bowel obstruction) Diabetes mellitus Partial small bowel obstruction Hypertension Surgical History History of colostomy reversal History of bowel resection History of exploratory laparotomy Social History Social History Household Members: None Housing: Apartment Do you presently have visiting nurse or other home services: No Alcohol intake: never Comment: low fall risk Patient Tobacco Use Status: Never used Tobacco Advance Directives: No Advance Directives Information Provided: Yes Do you have a plan to hurt others: No Plan service: No Current occupational status: employed Physical Exam ED Vital Signs: Vital Signs - 24 hr 05/27/24 05:27 05/27/24 07:34 Temperature 97.5 F 97.9 F Pulse Rate 90 93 Respiratory Rate 18 20 Blood Pressure 128/66 130/77 Pulse Oximetry 98 98 Oxygen Delivery Method Room Air Room Air BMI result Body Mass Index 41.3 Const General: cooperative, no acute distress, alert and awake Nutritional Appearance: well nourished Orientation/consciousness: patient oriented x3 Limitations: no limitations HENMT Head: Yes normal to inspection and Yes atraumatic Ears: hearing grossly normal bilaterally and external ears normal General nose exam: Normal external nose present, no nasal discharge noted and no epistaxis Face and sinus: Yes normal facial exam, No abrasion and No laceration Mouth: Normal oral and palatal mucosa present, no drooling and no muffled voice Eyes General: appearance normal, both eyes and all related structures Periorbital: periorbital findings normal Eyelids: Yes eyelids normal Conjunctivae: conjunctivae normal Pupils: Equal, round and reactive pupils present EOM: EOMs intact bilaterally Neck Neck: Yes normal visual inspection, Yes full ROM and Yes no lymphadenopathy Chest Chest palpation & inspection: normal inspection of the chest Resp Effort & Inspection: normal respiratory effort and able to speak in complete sentences Auscultation: wheezes throughout GI Inspection: Yes normal to inspection Neuro General: patient oriented x3 and moves all extremities Cranial nerves: Yes Equal, round and reactive pupils present Cognition (Neuro): normal cognition Extrem General: Yes normal to inspection, Yes full ROM and Yes capillary refill normal Psych Appearance: grossly normal Mental Status: mental status grossly normal Affect: normal affect Attitude: cooperative Thought process: Normal thought process present Thought content: Normal thought content present Insight: Good insight present (Psych) Medications Administered Discontinued Medications Generic Name Dose Route Start Last Admin Trade Name Freq PRN Reason Stop Dose Admin Methylprednisolone Sodium Succinate 60 mg 05/27/24 07:20 05/27/24 07:33 Methylprednisolone Sod Succ 125 Mg/2 Ml Vial IM 05/27/24 07:21 60 mg ONCE ONE Administration Medical Decision Making Medical Decision Making [facility] Narrative: Patient is a 49 year old assigned male at with a history of asthma, HTN, and DM presenting to the emergency department today with a cough, headache, fever, chills, and sore throat. Patient's physical exam was as noted in the physical exam portion of this note. Patient's chest x-ray showed no acute process. Patient's COVID-19, influenza, and RSV testing was negative. I explained my physical exam findings as well as all test results to the patient. I answered all questions asked by the patient. I stressed the importance of the patient taking his medication as directed (either prescribed or as the over the counter packaging recommends). I stressed the importance of the patient following up with his primary care provider. I stressed the importance of the patient returning to the emergency department immediately if his symptoms were to worsen or if he were to develop any dizziness, shortness of breath, difficulty breathing, chest pain, blurry vision, loss of vision, nausea, vomiting, abdominal pain, fever, chills, back pain, or any other complaints. Patient verbalized agreement and understanding with this treatment plan and discharge. Differential Diagnosis Differential Diagnoses: The differential diagnosis associated with the presentation includes RSV COVID-19 Asthma exacerbation Admission/Observation Consideration of admission/observation: Escalation of care including admission/observation considered Patient would have been admitted to the hospital had his work up had any findings where hospital admission was appropriate and his clinical presentation warranted hospital admission. Lab Data [facility] Lab Attestation statement: I reviewed the patient's lab results. My interpretation of these results are in the [facility] Rationale portion of this note. Labs: Lab Results 05/27/24 Range/Units 06:07 Influenza Type A (PCR) NEGATIVE (Negative) Influenza Type B (PCR) NEGATIVE (Negative) RSV RNA Qual (PCR) NEGATIVE (Negative) SARS-CoV-2 RNA (RT-PCR) NEGATIVE (Negative) S. pyogenes GrpA JHONY Negative (Negative) Independent Interpretation I performed an independent interpretation of an: Plain X-Ray Interpretation: My interpretation is in agreement with the radiologist's impression of this imaging study. CLINICAL HISTORY: cough 2 view chest x-ray Comparison: CR/SR - XR CHEST 2V - 03/04/24 04:12 EST Findings: No consolidation or effusion. Heart size is normal. No acute fracture. IMPRESSION: 1. No acute findings. This document has been electronically signed by: Cinthia Hewitt MD on 05/27/2024 06:11:40 Dictated By: Cinthia Hewitt MD Signed By: Electronically signed by Cinthia Hewitt MD 05/27/24 0612 Radiology Impression Discussion of test interpretation with radiology: I have reviewed the radiologist's reading. Prescription Management I considered prescription management with: Antibiotic (given the length of the patient's symptoms and comorbidities - will treat) Discharge Plan Discharge Clinical Impression: Asthma exacerbation Patient Disposition: Home, Self-Care Instructions: Asthma (DC) Additional Instructions: Follow up with your primary care provider. Return to the emergency department immediately if your symptoms worsen or if you develop any dizziness, shortness of breath, difficulty breathing, chest pain, blurry vision, loss of vision, nausea, vomiting, abdominal pain, fever, chills, back pain, or any other complaints. Prescriptions: New azithromycin 250 mg tablet See Rx Instructions .ROUTE .COMPLEX Qty: 6 0RF Rx Instructions: For 250 mg dose pack: take 500 mg today (day 1), then 250 mg for 4 days (days 2-5) prednisone 20 mg tablet 20 mg PO DAILY 7 Days Qty: 7 0RF No Action levothyroxine 75 mcg tablet 1 tab PO DAILY@0600 metformin 500 mg tablet extended release 24 hr 2 tab PO BID insulin glargine [Lantus Solostar U-100 Insulin] 100 unit/mL (3 mL) insulin pen 22 unit subcut BEDTIME ondansetron 4 mg tablet,disintegrating 4 mg PO Q6-8H PRN (Reason: nausea and vomiting) Qty: 10 0RF Referrals: Ronni Salinas MD [Primary Care Provider] - Stand Alone Forms: Work/School Release Interventions: ED Discharge Assessment Last Done: 05/27/24 07:34 Discharge Date/Time: 05/27/24 07:35 Print Language: Turkish
[2024-05-27] MEDS: methylPREDNISolone Sod Succ 125 MG/2 ML VIAL 60 MG IM (07:33)
[2024-05-27 07:34] VITALS: BP 130/77; PULSE 93; RESP 20; TEMP 36.6; O2SAT 98
== END 2024-05-27 07:35 | disposition home or self-care (01) ==
PROVIDERS: Emergency Provider Emergency Medicine; PCP Internal Medicine
DX: J45.901 Unspecified asthma with (acute) exacerbation (principal); R51.9 Headache, unspecified; J02.9 Acute pharyngitis, unspecified; R50.9 Fever, unspecified; E11.9 Type 2 diabetes mellitus without complications; Z79.4 Long term (current) use of insulin; Z79.899 Other long term (current) drug therapy; Z03.818 Encounter for observation for suspected exposure to other biological agents ruled out
CPT/HCPCS: 0241U; 71046; 87651; 96372; 99282; 99284; J2919

== ENCOUNTER → 2024-05-27 05:50 | Outpatient (BNV) | payer OTHER, SELFPAY | PROVIDERS: PCP Internal Medicine; Visit Provider Radiology Diagnostic Radiology | DX: R05.9 Cough, unspecified (principal) | CPT/HCPCS: 71046 ==

== ENCOUNTER 2024-09-03 05:28 | Emergency (ER) | payer OTHER, SELFPAY ==
--- NOTE | ~2024-09-03 | CT_ITS ---
EXAMINATION: CT HEAD WITHOUT CONTRAST CLINICAL INFORMATION: [place] COMPARISON: None available. TECHNIQUE: Contiguous axial imaging was performed from the skull base to vertex without intravenous administration of contrast. This CT examination was performed using dose optimization techniques as appropriate, variously including the following: *Automated exposure control *Adjustment of mA and/or kV according to patient size (this includes techniques or standardized protocols for targeted exams where dose is matched to indication/reason for exam; i.e. extremities or head) *Use of iterative reconstruction technique DLP: 729.56 mGy-cm FINDINGS: Tmnj-[id number] deformity nasal bones. 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 Old traumatic deformity inferior wall left orbit just lateral from the infraorbital foramen resulting in extraconal herniation without gross entrapment of the extraocular muscle. No acute cortical disruption in the bony calvarium. No acute intracranial hemorrhage, mass effect, midline shift, hydrocephalus or herniation. Glynn-white matter differentiation is normal. Posterior cranial fossa contents demonstrated no acute intracranial hemorrhage or mass effect. Sellar/suprasellar region demonstrated no gross masses. Craniocervical junction demonstrates normal position of the cerebellar tonsils. No air-fluid levels in the paranasal sinuses. There is effusion extending from the right mastoid antrum to the right mastoid cells without coalescence. Normal pneumatization and aeration of the left tympanic cavity and left mastoid cells. CT/CT head/brain wo IV con IMPRESSION: Probable old traumatic deformities nasal bones and old traumatic deformity left orbit. No acute intracranial hemorrhage. Consider effusion, right mastoid antrum and mastoid cells. Electronically signed by: Feliberto Cloud MD 09/03/2024 09:52 AM EDT
--- NOTE | ~2024-09-03 | CT_ITS ---
EXAMINATION: CT ABDOMEN PELVIS WITH IV CONTRAST HISTORY: abdominal pain COMPARISON: Comparison is made with the prior examination dated 03/04/2024. TECHNIQUE: CT scan of the abdomen and pelvis was performed following administration of 85 mL Omnipaque 350 using standard departmental protocol. Coronal and sagittal reformatted images were generated and reviewed. Oral contrast material was not administered at the request of the referring physician. This CT exam was performed with one or more of the following dose reduction techniques: automated exposure control, adjustment of the mA and/or kV according to patient size, use of iterative reconstruction technique. DLP: 1563 mGy-cm FINDINGS: LOWER CHEST: The visualized lung bases are clear. There is no pleural effusion. CARDIOVASCULATURE: The heart is normal in size. There is no pericardial effusion. LIVER: The liver is normal in size and contour. No liver mass is identified. The hepatic and portal veins are patent. GALLBLADDER / BILE DUCTS: The gallbladder is unremarkable. There is no intra or extrahepatic biliary ductal dilatation. SPLEEN: The spleen is normal in size. No focal splenic lesion is identified. PANCREAS: The pancreas is unremarkable in appearance. ADRENAL GLANDS: Within normal limits. KIDNEYS/RETROPERITONEUM: No renal calculi are identified. There is no hydronephrosis. Again seen is a 3.3 cm left renal parapelvic cyst. LYMPH NODES: No abdominal or pelvic lymphadenopathy. VASCULATURE: The abdominal aorta is normal in caliber. MESENTERY/PERITONEUM: No free fluid. No masses. There is no free intraperitoneal gas. STOMACH: The stomach is collapsed, limiting evaluation. SMALL BOWEL: The small bowel is normal in caliber. COLON: There is a moderate amount of stool throughout the colon. APPENDIX: Normal. URINARY BLADDER/PELVIC ORGANS: The urinary bladder is unremarkable. The prostate is normal in size. BONES / SOFT TISSUES: No suspicious bony or soft tissue abnormalities. CT/CT abdomen pelvis w IV con IMPRESSION: Moderate amount of stool throughout the colon. Otherwise unremarkable contrast-enhanced CT of the abdomen and pelvis. Electronically signed by: Alen Aleman MD 09/03/2024 09:34 AM EDT
[2024-09-03 05:33] VITALS: BP 136/92; PULSE 79; RESP 18; TEMP 36.3; O2SAT 97; BMI 41.6
[2024-09-03 05:53] LABS: MANUAL DIFF FLAG NO
[2024-09-03 05:54] LABS: Basophils Percent Auto 0.2 % (0-2); Eosinophils Absolute Auto 0.1 X10*3/uL (0.0-0.4); Eosinophils Percent Auto 1.2 % (0-4); Hematocrit 42.4 % (42.0-52.0); Hemoglobin 14.3 g/dl (14.0-18.0); Imm Gran Abs Auto 0.03 X10*3/uL (0.00-0.03); Imm Gran Pct Auto 0.3 % (0.0-0.4); Lymphocytes Absolute Auto 3.2 X10*3/uL (1.2-4.9); Mean Corpuscular HGB Conc 33.7 g/dl (31.0-36.0); Mean Corpuscular Hemoglobin 29.3 pg (27.0-33.0); Mean Corpuscular Volume 86.9 fL (80.0-98.0); Monocytes Absolute Auto 0.5 X10*3/uL (0.1-1.2); Monocytes Percent Auto 5.5 % (2-11); Neutrophils Absolute Auto 5.7 x10*3/uL (2.0-8.3); Neutrophils Percent Auto 59.8 % (45-73); Platelet Count 328 X10*3/uL (160-400); Red Blood Count 4.88 X10*6/uL (4.60-5.80); White Blood Count 9.5 X10*3/uL (4.8-10.8)
[2024-09-03 05:55] LABS: Appearance Urine Clear; Color Urine Yellow; Glucose Urine UA 250 mg/dL (Negative); Leukocyte Esterase Urine Negative (Negative); Nitrite Urine Negative (Negative); PH 5.5 (5.0-9.0); Specific Gravity - Urine 1.015 (1.005-1.025); Urine Blood Negative (Negative); Urine Ketones Negative (Negative); Urine Protein Negative (Neg-Trace)
[2024-09-03 06:10] LABS: Alanine Aminotransferase 17 U/L (0-40); Anion Gap 14 (12-20); Aspartate Amino Transferase 18 U/L (5-37); Bilirubin Direct 0.2 mg/dL (0.0-0.5); Bilirubin Total 0.5 mg/dL (0.0-1.0); Blood Urea Nitrogen 19 mg/dL (9-16); Calcium 9.5 mg/dL (8.4-10.2); Carbon Dioxide 27 mmol/L (22-29); Chloride 103 mmol/L (96-108); Creatinine Clr Calc Pharmacy 115.7; Estimated Glomerular Filt Rate > 60; Glucose Random 199 mg/dL (60-115); Lipase 39 U/L (8-78); Potassium 4.5 mmol/L (3.3-5.1); Sodium 139 mmol/L (135-145); Total Protein 7.4 g/dL (6.5-8.0)
[2024-09-03 06:23] LABS: Alkaline Phosphatase 60 U/L (39-117)
--- OUTSIDE RECORDS SUMMARY | 2024-09-03 06:33 | XMS_ITS | Encounter Summary ---
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
--- OUTSIDE RECORDS SUMMARY | 2024-09-03 06:33 | XMS_ITS | Clinical Summary ---
Author Organization [employer] Address [address] [facility] 7t [place] [address] Care Team Providers Care Laundry Clerk Name Role Phone Ronni Henriquez MD Primary [...] TIMES DAILY 90 tablet 2 024 Active Lantus SoloStar 100 UNIT/ML penIndications:T ype 2 diabetes mellitus with hyperglycemia (CMS/HCC) INJECT 22 UNITS SUBCUTANEOUSLY AT BEDTIME 15 mL 3 025 Active metFORMIN XR (Glucophage-XR) 500 MG 24 hr tabletIndication s:Type 2 diabetes mellitus without complication, unspecified whether residential insulin use (CMS/HCC) TAKE 2 TABLETS BY MOUTH TWICE DAILY IN THE MORNING AND IN THE EVENING WITH MEALS 360 tablet 1 025 Active levothyroxine (Synthroid, Levoxyl) 75 MCG tablet TAKE 1 TABLET BY MOUTH EVERY DAY 90 tablet 1 025 Active metFORMIN XR (Glucophage-XR) 500 MG 24 hr tabletIndication s:Type 2 diabetes mellitus without complication, unspecified whether residential insulin use (CMS/HCC) TAKE 2 TABLETS BY MOUTH TWICE DAILY IN THE MORNING AND EVENING WITH MEALS 360 tablet 1 024 2024 Discontinued levothyroxine (Synthroid, Levoxyl) 75 MCG tablet TAKE 1 TABLET BY MOUTH EVERY DAY 90 tablet 1 024 2024 Discontinued Active Problems Problem [...] Encounters Date Type Department Care Team Description 08/28/2024 Refill [facility] [address] [place] [address] Ronni Henriquez MD Type 2 diabetes mellitus without complication, unspecified whether residential insulin use ([facility]) from Last 3 Months Immunizations Name Administration [...] Diabetes: Hemoglobin A1C 07/25/2023 04/25/2023 COVID-19 Vaccine ( season) 2023 04/11/2021, 03/06/2021 Influenza Vaccine (#1) 2023 2, 02/03/2012, 06/20/2011, Additional history exists Tobacco Screening [...] Procedure Name Priority Date/Time Associated Diagnosis Comments POCT GLYCATED HEMOGLOBIN, TOTAL Routine 04/25/2023 11:22 AM EST Type 2 diabetes mellitus without complication, unspecified whether residential insulin use (CMS/HCC) ZZZ HISTORICAL HEPATITIS C AB W/REFL TO HCV RNA, QN, PCR Routine 11/23/2021 9:45 AM EDT ALBUMIN, RANDOM URINE W/CREATININE Routine 11/23/2021 9:45 AM EDT LIPID PANEL, STANDARD Routine 11/23/2021 9:45 AM EDT from Last 3 Months or Most Recently Relevant to Health Maintenance Results * (ABNORMAL) POCT HGB A1C (04/25/2023 11:22 AM EST) Hemoglobin A1C 11.7(A) 4.0 - 6.0 % QC Media Lot # [id number] Lot# Expiration Date Blood 04/25/2023 11:2 2 AM EST Ronni Gordillo MD POINT OF CARE TEST EN TER/EDIT ORDERABLES Final Result * HEPATITIS C AB W/REFL TO HCV RNA, QN, PCR (11/23/2021 9:45 AM EDT) HEPATITIS C ANTIBODY NON-REACT HARISH NON-REACT HARISH [facility] INDEX 0.13 <1.00 [facility] Comment: ?? HCV antibody was non-reactive. There is no laboratory ?? evidence of HCV infection. ?? In most cases, no further action is required. However, if recent HCV exposure is suspected, a test for HCV RNA (test code 25829) is suggested. ?? For additional information please refer to http://education.[employer]/faq/IVF00i8 (This link is being provided for informational/ educational purposes only.) ?? 11/23/2021 9:45 AM EDT Ronni Gordillo MD HISTORICAL/NON ORDERA BLE LABS Final Result Performing Organization Address [facility] Phone Number [facility] [address] * (ABNORMAL) ALBUMIN, RANDOM URINE W/CREATININE (11/23/2021 9:45 AM EDT) Microalbumin Urine 4.8 See Note: mg/dL [facility] Comment: Reference Range: ?? Reference [...] Creatinine, Urine 122 20 - 320 mg/dL [facility] 11/23/2021 9:45 AM EDT Ronni Gordillo MD LAB URINE ORDERABLES Final Result Performing Organization Address [facility] Phone Number [facility] [address] * (ABNORMAL) LIPID PANEL, STANDARD (11/23/2021 [...] ?? Major SHIPMAN et al. MAY. 2013;310(19): 2279-7569 ?? (http://education.[employer]/faq/DWP638) Non-HDL Cholesterol 170(H) <130 mg/dL (calc) [facility] Comment: For patients with diabetes plus 1 major ASCVD risk ?? factor, treating to a non-HDL-C goal of <100 mg/dL ?? (LDL-C of <70 mg/dL) is considered a therapeutic ?? option. Triglycerides 103 <150 mg/dL [facility] 11/23/2021 9:45 AM EDT us Ronni Gordillo MD LAB BLOOD ORDERABLES Final Result [facility] [address] from Last 3 Months or Most Recently Relevant to Health Maintenance Insurance [facility] C3 HS FULL Care Teams Laundry Clerk Relationship Specialty Start Date End Date Ronni Henriquez MD [address] [place] [id number] PCP - General Internal Medicine 11/17/21
[2024-09-03 06:56] VITALS: BP 132/91; PULSE 73; RESP 18; TEMP 36.7; O2SAT 955
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
[2024-09-03] MEDS: diphenhydrAMINE HCL 50 MG/ML VIAL 25 MG IVPUSH (08:22)
[2024-09-03] MEDS: Metoclopramide HCl 10 MG/2 ML VIAL IVPUSH (08:22)
[2024-09-03] MEDS: Lactated Ringers 1,000 ML 999 ML IV (08:24)
[2024-09-03] MEDS: iohexoL 350 MG/ML 100 ML INFUS..BTL 85 ML IV (08:54)
[2024-09-03 10:28] VITALS: BP 136/91; PULSE 88; RESP 17; TEMP 37; O2SAT 95
== END 2024-09-03 10:31 | disposition home or self-care (01) ==
PROVIDERS: Emergency Provider Emergency Medicine; PCP Internal Medicine
DX: R10.84 Generalized abdominal pain (principal); R51.9 Headache, unspecified; E11.9 Type 2 diabetes mellitus without complications; I10 Essential (primary) hypertension; Z79.84 Long term (current) use of oral hypoglycemic drugs; Z79.4 Long term (current) use of insulin; Z79.899 Other long term (current) drug therapy
CPT/HCPCS: 36415; 70450; 74177; 80053; 81003; 82248; 83690; 85025; 96361; 96374; 96375; 99284; J1200; J2765; J7120; Q9967

== ENCOUNTER → 2024-09-03 07:49 | Outpatient (BNV) | payer OTHER, SELFPAY | PROVIDERS: Emergency Provider Emergency Medicine; PCP Internal Medicine; Visit Provider Radiology Diagnostic Radiology | DX: K56.41 Fecal impaction (principal); R51.9 Headache, unspecified | CPT/HCPCS: 70450; 74177 ==

== ENCOUNTER 2024-10-01 05:30 | Emergency (ER) | payer SELFPAY ==
[2024-10-01 05:32] VITALS: BP 129/93; PULSE 89; RESP 20; TEMP 36.5; O2SAT 98; BMI 41.6
[2024-10-01 06:08] LABS: MANUAL DIFF FLAG NO
[2024-10-01 06:16] LABS: Basophils Percent Auto 0.3 % (0-2); Eosinophils Absolute Auto 0.1 X10*3/uL (0.0-0.4); Eosinophils Percent Auto 0.9 % (0-4); Hematocrit 41.8 % (42.0-52.0); Hemoglobin 13.9 g/dl (14.0-18.0); Imm Gran Abs Auto 0.02 X10*3/uL (0.00-0.03); Imm Gran Pct Auto 0.2 % (0.0-0.4); Lymphocytes Percent Auto 33.4 % (20-40); Mean Corpuscular HGB Conc 33.3 g/dl (31.0-36.0); Mean Corpuscular Hemoglobin 29.1 pg (27.0-33.0); Mean Corpuscular Volume 87.6 fL (80.0-98.0); Mean Platelet Volume 10.2 fL (9.4-12.4); Monocytes Absolute Auto 0.7 X10*3/uL (0.1-1.2); Monocytes Percent Auto 7.4 % (2-11); Neutrophils Absolute Auto 5.1 x10*3/uL (2.0-8.3); Neutrophils Percent Auto 57.8 % (45-73); Platelet Count 297 X10*3/uL (160-400); Red Blood Count 4.77 X10*6/uL (4.60-5.80); Red Cell Distribution Width 12.9 % (11.0-16.0); White Blood Count 8.9 X10*3/uL (4.8-10.8)
[2024-10-01 06:24] LABS: Alanine Aminotransferase 21 U/L (0-40); Albumin Level 4.3 g/dL (3.5-5.0); Alkaline Phosphatase 66 U/L (39-117); Anion Gap 12 (12-20); Aspartate Amino Transferase 24 U/L (5-37); Bilirubin Total 0.3 mg/dL (0.0-1.0); Blood Urea Nitrogen 23 mg/dL (9-16); Calcium 9.9 mg/dL (8.4-10.2); Carbon Dioxide 26 mmol/L (22-29); Chloride 105 mmol/L (96-108); Creatinine Clr Calc Pharmacy 106.6; Estimated Glomerular Filt Rate > 60; Glucose Fasting 218 mg/dL (60-99); Lipase 139 U/L (8-78); Magnesium 2.1 mg/dL (1.6-2.6); Potassium 4.6 mmol/L (3.3-5.1); Sodium 138 mmol/L (135-145); Total Protein 7.5 g/dL (6.5-8.0)
--- NOTE | 2024-10-01 06:55 | ED.ABDPAIN ---
HPI - Abdominal Pain General Chief Complaint: Abdominal Pain Stated Complaint: n/v/d Time Seen by Provider: 10/01/24 06:30 Source: patient Mode of arrival: ambulatory Limitations: language barrier (1st language is Chinese, understands some Spanish, iPad interpreter and translator used) History of Present Illness ED Provider: Dr. Yasmani Abbasi HPI narrative: 49-year-old male with a history of diabetes, hypertension who presents emergency department for evaluation of nausea, vomiting, diarrhea, headaches and fatigue since 22:00 hours. The patient states he has had 2 episodes of emesis. He states he has had 2 minutes episodes of diarrhea to count. The patient states he took an antibiotic 2 weeks prior but he can not tell me the name of the antibiotic. Patient states he does get diarrhea every 1-2 weeks but never this severe. He denied any blood in the emesis or in the diarrhea. He denied fever or chills. He states that he has an occasional cough. He denied chest pain, shortness of breath, myalgias arthralgias. He is currently complaining of left upper quadrant pain which she describes as a dull ache. He is also complaining of the headache which she describes as a throbbing sensation which is 6/10. The headaches located in the frontal area of his head. Related Data Home Medications ?Medication ?Instructions ?Recorded ?Confirmed insulin glargine 100 unit/mL (3 22 unit subcut BEDTIME 07/04/22 07/31/23 mL) subcutaneous pen (Lantus Solostar U-100 Insulin) levothyroxine 75 mcg tablet 1 tab PO DAILY@0600 07/04/22 07/31/23 metformin 500 mg tablet,extended 2 tab PO BID 07/04/22 07/31/23 release 24 hr Previous Rx's ?Medication ?Instructions ?Recorded ondansetron 4 mg disintegrating 4 mg PO Q6-8H PRN nausea and 04/12/23 tablet vomiting #10 tabs azithromycin 250 mg tablet See Rx Instructions PO .COMPLEX #6 05/27/24 tabs prednisone 20 mg tablet 20 mg PO DAILY 7 days #7 tabs 05/27/24 omeprazole 10 mg capsule,delayed 20 mg (2 x 10 mg) PO DAILY #30 caps 09/03/24 release ondansetron 4 mg disintegrating 4 mg PO Q6-8H PRN nausea and 10/01/24 tablet vomiting #14 tabs Allergies Allergy/AdvReac Type Severity Reaction Status Date / Time No Known Allergies Allergy Verified 10/01/24 05:34 Review of Systems Review of Systems Yes all other systems are reviewed and are negative [facility] Past Medical History Medical History Hypothyroidism SBO (small bowel obstruction) Diabetes mellitus Partial small bowel obstruction Hypertension Surgical History History of colostomy reversal History of bowel resection History of exploratory laparotomy Social History Social History Household Members: None Housing: Apartment Do you presently have visiting nurse or other home services: No Alcohol intake: never Comment: low fall risk Patient Tobacco Use Status: Never used Tobacco Smoked in Last 30 Days: No Use of substances other than those prescribed or required for medical reasons: No Advance Directives: No Advance Directives Information Provided: No service: No Current occupational status: employed Physical Exam ED Vital Signs: Vital Signs - 24 hr 10/01/24 05:32 10/01/24 07:21 10/01/24 10:28 Temperature 97.7 F 98.3 F Pulse Rate 89 72 71 Respiratory Rate 20 18 16 Blood Pressure 129/93 H 122/54 L 155/91 H Pulse Oximetry 98 95 98 Oxygen Delivery Method Room Air Room Air Room Air BMI result Body Mass Index 41.6 Vital signs were normal Exam: General: Awake, alert in no distress Head: Normocephalic, atraumatic EENT: PERRL, Lids normal, sclera normal, conjunctiva normal, nose normal , ears normal, throat without erythema or exudates Neck: Supple, no adenopathy Lung: breath sounds symmetric, no wheezing, rales or rhonchi Chest: symmetric movement, nontender Heart: regular rate and rhythm, normal S1, S2 no murmurs or rubs Abdomen: soft, mild to moderate left upper quadrant tenderness, nondistended, normal bowel sounds Back: no vertebral tenderness, no CVAT Extremities: no deformities, moves all extremities symmetrically Neuro: Awake, alert, oriented, normal speech, cranial nerves intact, moves all extremities symmetrically Psych: Pleasant, cooperative Medical Decision Making Medical Decision Making MDM Narrative: 49-year-old male with a history of diabetes, hypertension who presents emergency department for evaluation of nausea, vomiting, diarrhea, headaches and fatigue since 22:00 hours. The patient states he has had 2 episodes of emesis. He states he has had 2 minutes episodes of diarrhea to count. The patient states he took an antibiotic 2 weeks prior but he can not tell me the name of the antibiotic. Patient states he does get diarrhea every 1-2 weeks but never this severe. He denied any blood in the emesis or in the diarrhea. He denied fever or chills. He states that he has an occasional cough. He denied chest pain, shortness of breath, myalgias arthralgias. He is currently complaining of left upper quadrant pain which she describes as a dull ache. He is also complaining of the headache which she describes as a throbbing sensation which is 6/10. The headaches located in the frontal area of his head. Vital signs were unremarkable. Physical examination revealed mild to moderate left upper quadrant tenderness. Differential diagnosis: ?Includes but is not limited to viral syndrome, COVID-19, influenza, RSV, C difficile colitis, gastroenteritis, pancreatitis, diverticulitis anemia, electrolyte abnormalities Course: 06:59 My independent interpretation patient's laboratory evaluation as follows: BUN elevated 23. Glucose elevated 218. Lipase elevated 139. COVID-19, influenza, RSV tests were negative Patient was ordered to get normal saline IV x1 L, Toradol 15 mg IV and Zofran 4 mg IV. I did C diff test on this patient. 12:16 Patient was not able to give a stool sample but he is feeling significantly better. Patient most likely has a viral syndrome. Patient was advised to take Tylenol and ibuprofen for pain. He was also given a prescription for Zofran 4 mg ODT every 6-8 hours as needed for nausea and vomiting. Patient was advised to take Imodium for diarrhea. He is given a 2 day work note. Patient was given printed and verbal instructions and discharged home Admission/Observation Consideration of admission/observation: Escalation of care including admission/observation considered (Yes) Lab Data [facility] Lab Attestation statement: I reviewed the patient's lab results. 10/01/24 06:03 10/01/24 06:03 Labs: Lab Results 10/01/24 Range/Units 06:03 WBC 8.9 (4.8-10.8) X10*3/uL RBC 4.77 (4.60-5.80) X10*6/uL Hgb 13.9 L (14.0-18.0) g/dl Hct 41.8 L (42.0-52.0) % MCV 87.6 (80.0-98.0) fL MCH 29.1 (27.0-33.0) pg MCHC 33.3 (31.0-36.0) g/dl RDW 12.9 (11.0-16.0) % Plt Count 297 (160-400) X10*3/uL MPV 10.2 (9.4-12.4) fL Immature Gran % (Auto) 0.2 (0.0-0.4) % Neut % (Auto) 57.8 (45-73) % Lymph % (Auto) 33.4 (20-40) % [place] % (Auto) 7.4 (2-11) % Eos % (Auto) 0.9 (0-4) % Baso % (Auto) 0.3 (0-2) % Lymph # (Auto) 3.0 (1.2-4.9) X10*3/uL [place] # (Auto) 0.7 (0.1-1.2) X10*3/uL Eos # (Auto) 0.1 (0.0-0.4) X10*3/uL Baso # (Auto) 0.0 (0.0-0.2) X10*3/uL Abs Immat Gran (auto) 0.02 (0.00-0.03) X10*3/uL Absolute Neuts (auto) 5.1 (2.0-8.3) x10*3/uL Absolute Nucleated RBC 0.000 (0.0-0.012) X10*3/uL Nucleated RBC % (auto) 0.0 (0.0-0.2) /100WBC Sodium 138 (135-145) mmol/L Potassium 4.6 (3.3-5.1) mmol/L Chloride 105 (96-108) mmol/L Carbon Dioxide 26 (22-29) mmol/L Anion Gap 12 (12-20) BUN 23 H (9-16) mg/dL Creatinine 0.89 (0.5-1.4) mg/dL Estim Creat Clear Calc 106.6 Estimated GFR > 60 Fasting Glucose 218 H (60-99) mg/dL Calcium 9.9 (8.4-10.2) mg/dL Magnesium 2.1 (1.6-2.6) mg/dL Total Bilirubin 0.3 (0.0-1.0) mg/dL AST 24 (5-37) U/L ALT 21 (0-40) U/L Alkaline Phosphatase 66 (39-117) U/L Total Protein 7.5 (6.5-8.0) g/dL Albumin 4.3 (3.5-5.0) g/dL Lipase 139 H (8-78) U/L Prescription Management I considered prescription management with: Other (Antiemetic: Imodium) Chronic Conditions Patient?s care impacted by: Diabetes Medications Administered Discontinued Medications Generic Name Dose Route Start Last Admin Trade Name Freq PRN Reason Stop Dose Admin Ketorolac Tromethamine 15 mg 10/01/24 06:54 10/01/24 07:28 Ketorolac Tromethamine 15 Mg/Ml Vial IVPUSH 10/01/24 06:55 15 mg ONCE ONE Administration Ondansetron HCl 4 mg 10/01/24 06:54 10/01/24 07:29 Ondansetron Hcl 4 Mg/2 Ml Vial IVPUSH 10/01/24 06:55 4 mg ONCE ONE Administration Discharge Plan Discharge Clinical Impression: Viral syndrome Vomiting Qualifiers: Vomiting type: unspecified Nausea presence: with nausea Qualified Code(s): R11.2 - Nausea with vomiting, unspecified Diarrhea Qualifiers: Diarrhea type: unspecified type Qualified Code(s): R19.7 - Diarrhea, unspecified Patient Disposition: Home, Self-Care Instructions: Viral Syndrome (ED) Additional Instructions: Blood work was unremarkable. Your COVID-19, influenza and RSV tests were negative. Your symptoms are consistent with a viral infection. Your body will fight off the infection but there were medications that you can take to feel better viral infection can last up to 2 weeks Take ibuprofen 200 mg pills, 2 pills every 6 hours as needed for pain or fever. Take Tylenol (acetaminophen) 500 mg pills, 2 pills every 6 hours as needed for pain or fever. Take Zofran ODT 4 mg pills, 1 pill dissolved in your mouth every 8 hours as needed for nausea and vomiting. For diarrhea I want you to take Imodium 2 mg pills. ?Take 2 pills after the 1st loose, diarrheal stool then 1 pill after each loose, diarrheal stool up to 8 pills per day. ?This usually stops diarrhea within 24 hours. Follow-up with your doctor in 2 days. Please return to the emergency department if your symptoms get worse or if you develop any symptoms that are concerning to you. Please see the work note Prescriptions: New ondansetron 4 mg tablet,disintegrating 4 mg PO Q6-8H PRN (Reason: nausea and vomiting) Qty: 14 0RF No Action levothyroxine 75 mcg tablet 1 tab PO DAILY@0600 metformin 500 mg tablet extended release 24 hr 2 tab PO BID insulin glargine [Lantus Solostar U-100 Insulin] 100 unit/mL (3 mL) insulin pen 22 unit subcut BEDTIME ondansetron 4 mg tablet,disintegrating 4 mg PO Q6-8H PRN (Reason: nausea and vomiting) Qty: 10 0RF azithromycin 250 mg tablet See Rx Instructions .ROUTE .COMPLEX Qty: 6 0RF Rx Instructions: For 250 mg dose pack: take 500 mg today (day 1), then 250 mg for 4 days (days 2-5) prednisone 20 mg tablet 20 mg PO DAILY 7 Days Qty: 7 0RF omeprazole 10 mg capsule,delayed release(DR/EC) 20 mg PO DAILY Qty: 30 0RF Print Language: Chinese
[2024-10-01 07:21] VITALS: BP 122/54; PULSE 72; RESP 18; TEMP 36.8; O2SAT 95
[2024-10-01] MEDS: Ketorolac Tromethamine 15 MG/ML VIAL IVPUSH (07:28)
[2024-10-01] MEDS: ondansetron HCL 4 MG/2 ML VIAL IVPUSH (07:29)
[2024-10-01 10:28] VITALS: BP 155/91; PULSE 71; RESP 16; O2SAT 98
--- NOTE | 2024-10-01 11:16 | PC.NURSE ---
pt states he's feeling better but hedaache remains.
[2024-10-01 12:41] VITALS: BP 112/83; PULSE 78; RESP 16; TEMP 36.8; O2SAT 98
== END 2024-10-01 12:42 | disposition home or self-care (01) ==
PROVIDERS: Emergency Provider Emergency Medicine Emergency Medical Services
DX: B34.9 Viral infection, unspecified (principal); R11.2 Nausea with vomiting, unspecified; R10.2 Pelvic and perineal pain; R19.7 Diarrhea, unspecified; Z79.899 Other long term (current) drug therapy
CPT/HCPCS: 36415; 80053; 83690; 83735; 85025; 96374; 96375; 99284; 99285; J1885; J2405

== ENCOUNTER 2025-01-27 05:25 | Emergency (ER) | payer SELFPAY ==
--- NOTE | ~2025-01-27 | XR_ITS ---
EXAMINATION: XR CHEST CLINICAL INFORMATION: cough COMPARISON: X-ray 05/27/2024 TECHNIQUE: 2 views of the chest were obtained. FINDINGS: The cardiomediastinal silhouette is within normal limits. The lungs are well expanded. Mild bronchial wall thickening in the right lower lung. There is no focal consolidation, edema, or effusion. No pneumothorax. No acute osseous abnormality. XR/XR chest 2V IMPRESSION: Mild bronchial wall thickening can be seen with small airway disease. No focal consolidation seen. Electronically signed by: Kaushik Acuña MD 01/27/2025 07:55 AM EDT
[2025-01-27 05:40] VITALS: BP 154/78; PULSE 93; RESP 18; TEMP 36.7; O2SAT 93; BMI 42.0
--- NOTE | 2025-01-27 05:56 | PC.NURSE ---
swabs collected and sent. pt awaiting to be seen by provider.
--- OUTSIDE RECORDS SUMMARY | 2025-01-27 05:56 | XMS_ITS | Encounter Summary ---
Author Organization [employer] Address [address] [place] [address] [address] [place] [address] Care Team Providers Care Time Analysis Clerk Name Role Phone Ronni Henriquez MD Primary Care Provide r Reason for Visit * Reason Onset Date Comments Appointment Request 06/07/2023 Encounter Details Date Type Department Care Team ([facility] st Contact Info) Description 06/07/2023 Telephone [facility] [address] [place] [address] Ronni Henriquez MD [address] [place] [address] Appointment Request Social History Tobacco Use Types [...] on filedocumented in this encounter Care Teams Time Analysis Clerk Relationship Specialty Start Date End Date Ronni Henriquez MD [address] [place] [address] PCP - General Internal Medicine 11/17/21 documented as of this encounter
--- OUTSIDE RECORDS SUMMARY | 2025-01-27 05:56 | XMS_ITS | Clinical Summary ---
Author Organization [employer] Address [address] [facility] [address] [place] [address] Care Team Providers Care Kelp Cutter Name Role Phone Ronni Henriquez MD Primary Care Provide r Allergies No known active allergies Medications dulaglutide (Trulicity) 0.75 MG/0.5ML solution pen-injector Inject 0.75 mg under the skin once a week. 01/28/20 22 Active acetaminophen (Tylenol) 325 MG tabletIndications :Viral upper respiratory illness Take 1-2 tablets by oral route every 6 hours as needed for pain or fever 30 tablet 05/26/19 23 Active insulin pen needle (B-D ULTRAFINE III SHORT PEN) 31G X 8 mm misc USE EVERY DAY WITH LANTUS 100 each 3 11/30/19 23 Active sildenafil (Viagra) 100 MG tabletIndications :Other male erectile dysfunction TAKE 1 TABLET 1 HOUR BEFORE SEXUAL RELATIONS ONCE DAILY NEEDED. 10 tablet 04/25/19 24 Active glucose blood (FREESTYLE LITE) test strip USE 1 Each by DIRECTED route 3 times every day 100 each 11 05/25/19 24 Active Blood Glucose Monitoring Suppl (FreeStyle Lite) w/Device kit 1 each 3 times daily. Use to check blood sugar 3 times daily 1 kit 05/25/19 24 Active Lantus SoloStar 100 UNIT/ML penIndications:Ty pe 2 diabetes mellitus with hyperglycemia (HCC) INJECT 22 UNITS SUBCUTANEOUSLY AT BEDTIME 15 mL 3 04/30/19 25 Active metFORMIN XR (Glucophage-XR) 500 MG 24 hr tabletIndications :Type 2 diabetes mellitus without complication, unspecified whether buttermilk drier operator insulin use TAKE 2 TABLETS BY MOUTH TWICE DAILY IN THE MORNING AND IN THE EVENING WITH MEALS 360 tablet 1 08/30/19 25 Active levothyroxine (Synthroid, Levoxyl) 75 MCG tablet TAKE 1 TABLET BY MOUTH EVERY DAY 90 tablet 1 08/30/19 25 Active ibuprofen 800 MG tablet TAKE 1 TABLET BY MOUTH THREE TIMES DAILY 90 tablet 12/12/19 25 Active Active Problems Problem Noted Date Diagnosed Date [...] Previously referred to Sleep clinic Severe obesity ([facility]/HCC) 04/04/2022 Type 2 diabetes mellitus without complication [...] 11/23/2021 4,8 Pt is not on an VARGHEES inhibitor/ARB Foot check not done today Pt [...] Encounters Date Type Department Care Team Description 12/20/2024 Telephone [facility] [address] [place] [address] Ronni Henriquez MD Appointment 12/11/2024 Refill [facility] WALK[facility]IN [facility] [address] [place], [place] [phone] Ronni Henriquez MD 11/21/2024 Telephone [facility] MEDICINE [address] [place], [place] [phone] Ronni Henriquez MD OUTREACH from Last 3 Months Immunizations Immunization Administration Dates Next Due Influenza injectable quadrivalent [...] 96 04/25/2023 11:21 AM EST Temperature 36.6 C (97.9 F) 04/25/2023 11:21 AM EST Respiratory Rate 20 04/25/2023 11:21 AM EST [...] Screening 1973 SDOH Screening 1973 Sigmoidoscopy 1973 Disability Screening 1973 Diabetes: Foot Exam 1983 Eye Exam [...] 2) 2023 Diabetes: Hemoglobin A1C 07/25/2023 04/25/2023 Tobacco Screening 04/25/2024 04/25/2023 COVID-19 Vaccine ( - season) 2024 04/11/2021, 03/06/2021 Influenza Vaccine (#1) 2024 , 02/03/2012, 06/20/2011, Additional history exists RSV Patients and Patients Aged 60 years [...] patient's age to complete this topic Meningococcal B Vaccine Aged Out No l onger eligible based on patient's age to complete [...] 2 diabetes mellitus without complication, unspecified whether buttermilk drier operator insulin use (CMS/HCC) ZZZ HISTORICAL HEPATITIS C [...] INDEX 0.13 <1.00 [facility] Comment: HCV antibody was non-reactive. There is no laboratory evidence of HCV infection. In most cases, no further action is required. However, if recent HCV exposure is suspected, a test for HCV RNA (test code 40320) is suggested. For additional information please refer to http://education.[employer]/faq/BJV89k7 (This link is being provided for informational/ educational purposes only.) 11/23/2021 9:45 AM EDT Ronni Gordillo MD HISTORICAL/NON ORDERA BLE LABS Final Result Performing Organization Address [facility] de Phone Number [facility] [address] [place] [address], * (ABNORMAL) ALBUMIN, RANDOM URINE W/CREATININE (11/23/2021 9:45 AM EDT) Microalbumin Urine 4.8 See Note: mg/dL [facility] Comment: Reference Range: Reference Range Not established Microalb/Creat Ratio 39(H) <30 mcg/mg creat [facility] Comment: The ADA defines abnormalities in albumin excretion as follows: Albuminuria Category Result (mcg/mg creatinine) Normal to Mildly increased <30 Moderately increased 30-299 Severely increased > OR = 300 The ADA recommends that at least two of three specimens collected within a 3-6 month period be abnormal before considering a patient to be within a diagnostic category. Creatinine, Urine 122 20 - 320 mg/dL [facility] 11/23/2021 9:45 AM EDT Ronni Gordillo MD LAB URINE ORDERABLES Final Result Performing Organization Address [facility] Phone Number [facility] [place] [address], * (ABNORMAL) LIPID PANEL, STANDARD (11/23/2021 9:45 AM EDT) Chol/HDLC Ratio 4.9 <5.0 (calc) [facility] Cholesterol, Total 214(H) <200 mg/dL [facility] HDL Cholesterol 44 > OR = 40 mg/dL [facility] LDL Cholesterol 148(H) mg/dL (calc) [facility] Comment: Reference range: <100 Desirable range <100 mg/dL for primary prevention; <70 mg/dL for patients with CHD or diabetic patients with > or = 2 CHD risk factors. LDL-C is now calculated using the Donna calculation, which is a validated novel method providing better accuracy than the Friedewald equation in the estimation of LDL-C. Major SHIPMAN et al. MAY. 2013;310(19): 1713-5860 (http://education.[employer]/faq/NMI580) Non-HDL Cholesterol 170(H) <130 mg/dL (calc) [facility] Comment: For patients with diabetes plus 1 major ASCVD risk factor, treating to a non-HDL-C goal of <100 mg/dL (LDL-C of <70 mg/dL) is considered a therapeutic option. Triglycerides 103 <150 mg/dL [facility] 11/23/2021 9:45 AM EDT us Ronni Gordillo MD LAB BLOOD ORDERABLES Final Result [facility] [address] from Last 3 Months or Most Recently Relevant to Health Maintenance Insurance [facility] C3 HSN FULL Care Teams Kelp Cutter Relationship Specialty Start Date End Date Ronni Henriquez MD [address] [place] [id number] PCP - General Internal Medicine 11/17/21
[2025-01-27 06:08] LABS: COVID-19 Test Negative (Negative); IDNOW Serial# 55D5AD1C; IDNOW Serial# 58CA691E; Influenza B2 Negative (Negative)
[2025-01-27 06:18] LABS: IDNOW Serial# 58CA691E; Strep A Nucleic Acid Negative (Negative)
--- NOTE | 2025-01-27 06:28 | ED.GENADULT ---
HPI - General Adult General Chief complaint: General Medical Stated complaint: body aches Time Seen by Provider: 01/27/25 05:55 Source: patient, old records reviewed and appeals examiner Mode of arrival: ambulatory Limitations: no limitations History of Present Illness ED Provider: JERMAINE SANTIZO narrative: 49 yo male with PMH of HTN, DM, here with c/o not feeling well Monday but then noted chills, sore throat, cough, subj fevers and body aches. He denies travel and sick contacts. He only took medications for pain last night. He denies any other symptoms. MD complaint: viral syndrome Onset (ago): day(s) (1) Location: head and face Radiation: non-radiation Severity: moderate Quality: aching Pain Consistency: constant Relieving factors: none Exacerbating factors: movement Associated symptoms: cough, fever/chills and malaise Treatments prior to arrival: none Related Data Home Medications ?Medication ?Instructions ?Recorded ?Confirmed insulin glargine 100 unit/mL (3 22 unit subcut BEDTIME 07/04/22 07/31/23 mL) subcutaneous pen (Lantus Solostar U-100 Insulin) levothyroxine 75 mcg tablet 1 tab PO DAILY@0600 07/04/22 07/31/23 metformin 500 mg tablet,extended 2 tab PO BID 07/04/22 07/31/23 release 24 hr Previous Rx's ?Medication ?Instructions ?Recorded ondansetron 4 mg disintegrating 4 mg PO Q6-8H PRN nausea and 04/12/23 tablet vomiting #10 tabs azithromycin 250 mg tablet See Rx Instructions PO .COMPLEX #6 05/27/24 tabs prednisone 20 mg tablet 20 mg PO DAILY 7 days #7 tabs 05/27/24 omeprazole 10 mg capsule,delayed 20 mg (2 x 10 mg) PO DAILY #30 caps 09/03/24 release ondansetron 4 mg disintegrating 4 mg PO Q6-8H PRN nausea and 10/01/24 tablet vomiting #14 tabs azithromycin 250 mg tablet See Rx Instructions PO .COMPLEX #6 01/27/25 tabs Allergies Allergy/AdvReac Type Severity Reaction Status Date / Time No Known Allergies Allergy Verified 01/27/25 05:41 Review of Systems Review of Systems: Constitutional : positive Fever, positive Chills, positive fatigue, positive Malaise ENT/Mouth : positive sore throat, positive runny nose Eyes: No Discharge Cardiovascular : No Chest Pain, No SOB Respiratory : No Cough, No Sputum Gastrointestinal : No Nausea, No Vomiting, No Diarrhea Genitourinary : No Dysuria, No Urinary Frequency Musculoskeletal : positive Myalgia Skin : No rash Neuro : pos Headache Yes all other systems are reviewed and are negative [facility] Past Medical History Attestation statement: The following information was validated with the patient. Source: old records reviewed Medical History Hypothyroidism SBO (small bowel obstruction) Diabetes mellitus Partial small bowel obstruction Hypertension Surgical History History of colostomy reversal History of bowel resection History of exploratory laparotomy Social History Social History Household Members: None Housing: Apartment Do you presently have visiting nurse or other home services: No Alcohol intake: never Comment: low fall risk Patient Tobacco Use Status: Never used Tobacco Advance Directives Date on File: 07/07/22 service: No Current occupational status: employed Physical Exam ED Vital Signs: Vital Signs - 24 hr 01/27/25 05:40 01/27/25 07:36 01/27/25 08:29 Temperature 98.0 F 98.0 F 98.0 F Pulse Rate 93 73 73 Respiratory Rate 18 16 16 Blood Pressure 154/78 H 127/84 127/84 Pulse Oximetry 93 95 95 Oxygen Delivery Method Room Air Room Air Room Air BMI result Body Mass Index 42.0 Appearance: Alert. Oriented X3. No acute distress. Eyes: Pupils equal, round and reactive to light. ENT: Pharynx mild erythema but uvula is midline and no exudates Neck: Normal inspection. Neck supple. CVS: Normal heart rate and rhythm. Pulses normal. Respiratory: No respiratory distress. Breath sounds normal. Abdomen: Soft and nontender. Skin: Skin warm and dry. Normal skin color. Normal skin turgor. Extremities: No lower extremity edema. No calf ttp Neuro: Oriented X 3. No motor deficit. No sensory deficit. CN2-12 intact Medications Administered Discontinued Medications Generic Name Dose Route Start Last Admin Trade Name Freq PRN Reason Stop Dose Admin Acetaminophen 975 mg 01/27/25 06:14 10/06/25 06:28 Acetaminophen 325 Mg Tablet PO 10/06/25 06:15 975 mg ONCE ONE Administration Ibuprofen 600 mg 01/27/25 06:14 01/27/25 06:28 Ibuprofen 600 Mg Tablet PO 01/27/25 06:15 600 mg ONCE ONE Administration Medical Decision Making Medical Decision Making [facility] Narrative: 49 yo male with PMH of HTN, DM, here with c/o URI symptoms x 2 days but denies travel, exposures. He is not toxic and is well hydrated. He has clear lungs and no hypoxia. He has no chest pain. Will obtain viral panel, CXR, strep throat and provide supportive care. Suspect viral syndrome, strep, bronchitis. Differential Diagnosis Differential Diagnoses: The differential diagnosis associated with the presentation includes viral syndrome, bronchitis, strep throat Admission/Observation Consideration of admission/observation: Escalation of care including admission/observation considered VS stable, able to tolerate PO stable for DC Lab Data [facility] Lab Attestation statement: I reviewed the patient's lab results. Labs: Lab Results 01/27/25 01/27/25 Range/Units 05:46 06:06 COVID-19 (MORAIMA) Negative (Negative) COVID-19 Clin Com See Note Influenza Type A (JHONY) Negative (Negative) Influenza Type B (JHONY) Negative (Negative) Influenza A & B Note See Note S. pyogenes GrpA JHONY Negative (Negative) Independent Interpretation I performed an independent interpretation of an: Plain X-Ray (no focal consolidation) Radiology Impression Discussion of test interpretation with radiology: I have reviewed the radiologist's reading. External Record Review External record reviewed: Outpatient record Prescription Management I considered prescription management with: Antibiotic Discharge Plan Discharge Clinical Impression: Acute viral syndrome, Bronchitis Patient Disposition: Home, Self-Care Instructions: Viral Syndrome (ED) Additional Instructions: negative for covid, flu, and strep chest xray shows bronchitis at this time you have bronchitis and a viral syndrome. this may take a few days to get better rest, stay hydrated, alternate tylenol and motrin for pain return for worsening symptoms - unable to eat or drink, chest pains, trouble breathing, confusion, or any other concerns On azithromycin, call your provider if you develop new ringing in your ears, new problems hearing, dizziness, palpitations, abdominal pain, nausea, or diarrhea. Prescriptions: New azithromycin 250 mg tablet See Rx Instructions PO .COMPLEX Qty: 6 0RF Rx Instructions: For 250 mg dose pack: take 500 mg today (day 1), then 250 mg for 4 days (days 2-5) No Action levothyroxine 75 mcg tablet 1 tab PO DAILY@0600 metformin 500 mg tablet extended release 24 hr 2 tab PO BID insulin glargine [Lantus Solostar U-100 Insulin] 100 unit/mL (3 mL) insulin pen 22 unit subcut BEDTIME ondansetron 4 mg tablet,disintegrating 4 mg PO Q6-8H PRN (Reason: nausea and vomiting) Qty: 10 0RF azithromycin 250 mg tablet See Rx Instructions .ROUTE .COMPLEX Qty: 6 0RF Rx Instructions: For 250 mg dose pack: take 500 mg today (day 1), then 250 mg for 4 days (days 2-5) prednisone 20 mg tablet 20 mg PO DAILY 7 Days Qty: 7 0RF omeprazole 10 mg capsule,delayed release(DR/EC) 20 mg PO DAILY Qty: 30 0RF ondansetron 4 mg tablet,disintegrating 4 mg PO Q6-8H PRN (Reason: nausea and vomiting) Qty: 14 0RF Stand Alone Forms: Work/School Release Interventions: ED Discharge Assessment Last Done: 01/27/25 08:29 Discharge Date/Time: 01/27/25 08:29 Print Language: Kiswahili
--- NOTE | 2025-01-27 06:30 | PC.NURSE ---
provider into assess pt, medicated per mar.
--- NOTE | 2025-01-27 06:53 | PC.NURSE ---
pt reports improvement of pain medication. 10/31
--- NOTE | 2025-01-27 06:56 | PC.NURSE ---
pt awaiting x-ray, pt resting in bed report given to Anselmo
[2025-01-27 07:36] VITALS: BP 127/84; PULSE 73; RESP 16; TEMP 36.7; O2SAT 95
[2025-01-27 08:29] VITALS: BP 127/84; PULSE 73; RESP 16; TEMP 36.7; O2SAT 95
== END 2025-01-27 08:29 | disposition home or self-care (01) ==
PROVIDERS: Emergency Provider Emergency Medicine
DX: J40 Bronchitis, not specified as acute or chronic (principal); B34.9 Viral infection, unspecified; J02.9 Acute pharyngitis, unspecified; R05.9 Cough, unspecified; R50.9 Fever, unspecified
CPT/HCPCS: 71046; 87502; 87635; 87651; 99283; 99284

== ENCOUNTER → 2025-01-27 06:19 | Outpatient (BNV) | payer SELFPAY | PROVIDERS: Emergency Provider Emergency Medicine; Visit Provider Radiology Diagnostic Ultrasound | DX: R05.9 Cough, unspecified (principal) | CPT/HCPCS: 71046 ==